=== PATIENT | female | born 1970 | race Caucasian/White ===

== ENCOUNTER 2018-12-10 15:02 | Emergency (ER) | payer OTHER ==
--- NOTE | 2018-12-10 16:42 | ED ---
Abdominal Pain HPI - General Chief Complaint: Abdominal Pain Stated Complaint: abdominal pain Time Seen by Provider: 12/10/18 15:46 Source: patient, RN notes reviewed, old records reviewed Mode of arrival: ambulatory Limitations: no limitations - History of Present Illness Initial Comments: Patient is a 48 rolled female presents to return today with diffuse abdominal pain and bloating. She had a cholecystectomy by Dr. Xie at [facility] yesterday. She states that she has been passing gas. She reports that she has had nausea. She states that she has been using norco for pain relief. She states that she called her surgeon, whom was not available today. She arrived to ED via EMS. - Related Data Home Medications Medication Instructions Recorded Confirmed Atorvastatin Calcium [Lipitor] 10 mg PO DAILY 12/10/18 12/10/18 Gabapentin [Neurontin] 100 mg PO BID 12/10/18 12/10/18 Hydrocodone/Acetaminophen [[place] 2 tab PO Q6H PRN 12/10/18 12/10/18 5-325] Insulin Glargine,Hum.rec.anlog 10 unit SQ HS 12/10/18 12/10/18 [Basaglar Kwikpen U-100] Omeprazole 20 mg PO DAILY 12/10/18 12/10/18 PARoxetine HCL [Paxil] 20 mg PO DAILY 12/10/18 12/10/18 glipiZIDE [Glucotrol] 10 mg PO TID 12/10/18 12/10/18 metFORMIN HCL [Glucophage] 1,000 mg PO BID 12/10/18 12/10/18 Allergies Allergy/AdvReac Type Severity Reaction Status Date / Time Pork/Porcine Containing Allergy Unknown Verified 12/10/18 16:02 Products [Pork] Review of Systems ROS Statement: Those systems with pertinent positive or pertinent negative responses have been documented in the HPI. ROS Other: All systems not noted in ROS Statement are negative. Past Medical History Past Medical History: Diabetes Mellitus, Hyperlipidemia Additional Past Medical History / Comment(s): hpv History of Any Multi-Drug Resistant Organisms: None Reported Past Surgical History: Cholecystectomy, Tonsillectomy Past Psychological History: Depression Smoking Status: Current every day smoker Past Alcohol Use History: Occasional Past Drug Use History: None Reported General Exam - General Exam Comments Initial Comments: This is a 48 year old morbidly obese female. Alert and oriented. No acute distress. Limitations: no limitations General appearance: alert, in no apparent distress Head exam: Present: atraumatic, normocephalic, normal inspection Eye exam: Present: normal appearance, PERRL, EOMI. Absent: scleral icterus, conjunctival injection, periorbital swelling ENT exam: Present: normal exam, mucous membranes moist Neck exam: Present: normal inspection. Absent: tenderness, meningismus, lymphadenopathy Respiratory exam: Present: normal lung sounds bilaterally. Absent: respiratory distress, wheezes, rales, rhonchi, stridor Cardiovascular Exam: Present: regular rate, normal rhythm, normal heart sounds. Absent: systolic murmur, diastolic murmur, rubs, gallop, clicks GI/Abdominal exam: Present: soft, tenderness (RUQ tenderness. Patient has well appearing incision sites from laproscopic cholecystectomy yesterday. No erythema. Normal bowel sounds. ), normal bowel sounds. Absent: distended, guarding, rebound, rigid Back exam: Present: normal inspection Neurological exam: Present: alert, oriented X3, CN II-XII intact Psychiatric exam: Present: normal affect, normal mood Skin exam: Present: warm, dry, intact, normal color. Absent: rash Course Vital Signs 12/10/18 12/10/18 12/10/18 15:07 18:33 19:21 Temperature 97.6 F 98.6 F Pulse Rate 65 71 68 Respiratory 16 18 18 Rate Blood Pressure 133/72 131/78 126/69 O2 Sat by Pulse 96 96 95 Oximetry 12/10/18 20:02 Temperature 98.1 F Pulse Rate 63 Respiratory 16 Rate Blood Pressure 146/80 O2 Sat by Pulse 94 L Oximetry Medical Decision Making - Medical Decision Making 48 year old female presents one day post elective lapchole by Dr. Kc at [facility]. Patient has protruberant abdomen, incision sites appear well. Patient has normal bowel sounds. She was given IV fluid and lab work was obtained. Patient lab work was unremarkable. CT scan abdomen and pelvis shows no acute changes related to recent surgery. She has been advised to follow up with surgeon, and advised on clear liquid diet following surgery. Discussed strict return parameters. - Lab Data Result diagrams: 12/10/18 15:27 12/10/18 15:27 Lab Results 12/10/18 12/10/18 12/10/18 Range/Units 15:27 15:27 18:42 WBC 11.2 H (3.8-10.6) k/uL RBC 5.34 (3.80-5.40) m/uL Hgb 17.4 H (11.4-16.0) gm/dL Hct 52.9 H (34.0-46.0) % MCV 99.1 (80.0-100.0) fL MCH 32.7 (25.0-35.0) pg MCHC 32.9 (31.0-37.0) g/dL RDW 14.4 (11.5-15.5) % Plt Count 128 L (150-450) k/uL Neutrophils % 86 % Lymphocytes % 9 % Monocytes % 4 % Eosinophils % 1 % Basophils % 0 % Neutrophils # 9.6 H (1.3-7.7) k/uL Lymphocytes # 1.0 (1.0-4.8) k/uL Monocytes # 0.4 (0-1.0) k/uL Eosinophils # 0.1 (0-0.7) k/uL Basophils # 0.0 (0-0.2) k/uL Hypochromasia Slight Sodium 135 L (137-145) mmol/L Potassium 5.6 H (3.5-5.1) mmol/L Chloride 98 (98-107) mmol/L Carbon Dioxide 28 (22-30) mmol/L Anion Gap 9 mmol/L BUN 13 (7-17) mg/dL Creatinine 0.59 (0.52-1.04) mg/dL Est GFR (CKD-EPI)AfAm >90 (>60 ml/min/1.73 sqM) Est GFR (CKD-EPI)NonAf >90 (>60 ml/min/1.73 sqM) Glucose 220 H (74-99) mg/dL Calcium 9.6 (8.4-10.2) mg/dL Total Bilirubin 1.2 (0.2-1.3) mg/dL AST 69 H (14-36) U/L ALT 57 H (9-52) U/L Alkaline Phosphatase 61 (38-126) U/L Total Protein 7.4 (6.3-8.2) g/dL Albumin 3.8 (3.5-5.0) g/dL Amylase 43 (30-110) U/L Lipase 87 (23-300) U/L Urine Color Yellow Urine Appearance Clear (Clear) Urine pH 6.0 (5.0-8.0) Ur Specific [place] 1.017 (1.001-1.035) Urine Protein Negative (Negative) Urine Glucose (UA) Negative (Negative) Urine Ketones Negative (Negative) Urine Blood Negative (Negative) Urine Nitrite Negative (Negative) Urine Bilirubin Negative (Negative) Urine Urobilinogen <2.0 (<2.0) mg/dL Ur Leukocyte Esterase Negative (Negative) - Radiology Data Radiology results: report reviewed Post lap stephanie one day ago. No acute abdominal or pelvic process. Anterior subcutaneous adipose compartment seroma edematous changes. Disposition Clinical Impression: Post-op pain, Status post laparoscopic cholecystectomy Disposition: HOME SELF-CARE Condition: Good Instructions (If sedation given, give patient instructions): Laparoscopic Cholecystectomy (DC) Additional Instructions: Patient advised to follow-up with primary care physician and surgeon within the next 1-2 days.. Return to emergency department if any alarming signs or symptoms occur. Is patient prescribed a controlled substance at d/c from ED?: No Referrals: Leonarda Og CRNP [REFERRING] - 1-2 days Time of Disposition: 19:45
[2018-12-10] MEDS ORDERED: SODIUM CHLORIDE 0.9% 1,000 ML IV ONE (17:11)
[2018-12-10 17:14] LABS: Basophils % (A) 0 %; Eosinophils # (A) 0.1 k/uL (0-0.7); Eosinophils % (A) 1 %; HCT 52.9 % (34.0-46.0); HGB 17.4 gm/dL (11.4-16.0); Hypochromasia Slight; Lymphocytes % (A) 9 %; MCH 32.7 pg (25.0-35.0); MCHC 32.9 g/dL (31.0-37.0); MCV 99.1 fL (80.0-100.0); Mean Platelet Volume 9.8; Monocytes # (A) 0.4 k/uL (0-1.0); Monocytes % (A) 4 %; Neutrophils # (A) 9.6 k/uL (1.3-7.7); Neutrophils % (A) 86 %; Platelet Count 128 k/uL (150-450); RBC 5.34 m/uL (3.80-5.40); RDW 14.4 % (11.5-15.5); WBC 11.2 k/uL (3.8-10.6)
[2018-12-10 17:25] LABS: ALT 57 U/L (9-52); AST 69 U/L (14-36); Albumin 3.8 g/dL (3.5-5.0); Alkaline Phosphatase 61 U/L (38-126); Amylase 43 U/L (30-110); Anion Gap 9 mmol/L; Blood Urea Nitrogen 13 mg/dL (7-17); Calcium 9.6 mg/dL (8.4-10.2); Carbon Dioxide 28 mmol/L (22-30); Chloride 98 mmol/L (98-107); Glucose 220 mg/dL (74-99); Lipase 87 U/L (23-300); Potassium 5.6 mmol/L (3.5-5.1); Sodium 135 mmol/L (137-145); Total Bilirubin 1.2 mg/dL (0.2-1.3); Total Protein 7.4 g/dL (6.3-8.2)
[2018-12-10] MEDS ORDERED: MORPHINE SULFATE 4 MG/ML SYRINGE IVP STA (18:18)
[2018-12-10 18:47] LABS: Appearance,Urine Clear (Clear); Bilirubin,Urine Negative (Negative); Blood,Urine Negative (Negative); Color,Urine Yellow; Glucose,Urine (UA) Negative (Negative); Ketones,Urine Negative (Negative); Leukocyte Esterase,Urine Negative (Negative); Nitrite,Urine Negative (Negative); Protein,Urine Negative (Negative); Specific Gravity,Urine 1.017 (1.001-1.035); Urobilinogen,Urine <2.0 mg/dL (<2.0)
--- NOTE | 2018-12-10 19:21 | CT ---
EXAMINATION TYPE: CT abdomen pelvis w con DATE OF EXAM: 12/10/2018 COMPARISON: None HISTORY: Lap stephanie 1 day ago, pain and vomiting. CT DLP: 2415 mGycm Automated exposure control for dose reduction was used. TECHNIQUE: Helical acquisition of images was performed from the lung bases through the pelvis. CONTRAST: Performed without Oral Contrast and with IV Contrast, patient injected with 100 mL of Isovu e 370. FINDINGS: ANTERIOR ABDOMINAL WALL: The anterior abdominal wall is intact. Within the subcutaneous adipose krupa rtment at the midline, in the immediate subcutaneous umbilical position, there is a 9 cm craniocaudal by 9 cm transverse by 4 cm AP fluid collection associated with edematous reticulation and extending anteriorly. There is no circumferential contrast rim enhancement and the CT attenuation is 7 H[address] units; CT findings are consistent with seroma. LUNG BASES: No significant abnormality is appreciated. LIVER/GB: No significant abnormality is appreciated. Gallbladder bed post procedure changes noted, no nspecific. PANCREAS: No significant abnormality is seen. SPLEEN: No significant abnormality is seen. ADRENALS: No significant abnormality is seen. KIDNEYS: No significant abnormality is seen. PERITONEAL CAVITY: No free air is visualized. Scant simple-appearing peritoneal fluid is noted in va rious locations of the abdomen, not inconsistent with expected postprocedure change. RETROPERITONEAL ADENOPATHY: None visualized REPRODUCTIVE ORGANS: No significant abnormality is seen URINARY BLADDER: No significant abnormality is seen. PELVIC ADENOPATHY: None visualized. OSSEOUS STRUCTURES: No significant abnormality is seen. BOWEL: No significant abnormality is seen. OTHER: Vasculature is negative for acute findings. IMPRESSION: 1. POST LAP CHOLECYSTECTOMY ONE DAY AGO; NO ACUTE ABDOMINAL OR PELVIC PROCESS. 2. ANTERIOR SUBCUTANEOUS ADIPOSE COMPARTMENT SEROMA/EDEMATOUS CHANGES.
[2018-12-10 20:03] VITALS: BP 146/80; PULSE 63; RESP 16; TEMP 98.1
== END 2018-12-10 20:08 | disposition home or self-care (01) ==
LOC: EC 15:02
DX: G89.18 Other acute postprocedural pain (principal); R10.11 Right upper quadrant pain; E11.9 Type 2 diabetes mellitus without complications; E78.5 Hyperlipidemia, unspecified; F32.9 Major depressive disorder, single episode, unspecified; E66.01 Morbid (severe) obesity due to excess calories; Z68.41 Body mass index [BMI] 40.0-44.9, adult; F17.200 Nicotine dependence, unspecified, uncomplicated; Z79.4 Long term (current) use of insulin; Z79.899 Other long term (current) drug therapy; Z91.018 Allergy to other foods; Z90.49 Acquired absence of other specified parts of digestive tract
CPT/HCPCS: 36415; 80053; 82150; 83690; 85025; 81003; 74177; 99284; 96374; 96361 ×2; J2270; Q9967

== ENCOUNTER 2018-12-12 21:29 | Observation (INO) | payer OTHER ==
[2018-12-12] MEDS ORDERED: PIPERACILLIN-TAZOBACTAM 3.375 GM in SODIUM CHLORIDE 0.9% 100 ML IVPB STA (21:35)
[2018-12-12] MEDS: SODIUM CHLORIDE 0.9% 500 ML 500 ML IV SCH (21:53)
--- NOTE | 2018-12-12 21:58 | ED ---
General Adult HPI - General Stated complaint: Abd Pain Time Seen by Provider: 12/12/18 21:32 Source: patient, EMS Mode of arrival: EMS Limitations: no limitations - History of Present Illness Initial comments: That he is a morbidly obese 48-year-old female who underwent a lap stephanie on Friday, December 09 of an outside hospital. Patient was reevaluated our hospital on Friday for abdominal pain, at that time her labs are normal her pain was managed and she was discharged home. Patient reports that she has been following all of her postoperative instructions, however her pain continues to worsen. This evening she was walking when she noticed significant fluid drainage from her umbilical incision which prompted her to call EMS for transfer back to the hospital for reevaluation. She reports she's had persistent right upper quadrant abdominal pain since the surgery she denies any fevers nausea or vomiting. The fluid leakage developed today. EMS estimates at 300 mL fluid loss noted it on scene. - Related Data Home Medications Medication Instructions Recorded Confirmed Atorvastatin Calcium [Lipitor] 10 mg PO DAILY 12/10/18 12/10/18 Gabapentin [Neurontin] 100 mg PO BID 12/10/18 12/10/18 Hydrocodone/Acetaminophen [[place] 2 tab PO Q6H PRN 12/10/18 12/10/18 5-325] Insulin Glargine,Hum.rec.anlog 10 unit SQ HS 12/10/18 12/10/18 [Basaglar Kwikpen U-100] Omeprazole 20 mg PO DAILY 12/10/18 12/10/18 PARoxetine HCL [Paxil] 20 mg PO DAILY 12/10/18 12/10/18 glipiZIDE [Glucotrol] 10 mg PO TID 12/10/18 12/10/18 metFORMIN HCL [Glucophage] 1,000 mg PO BID 12/10/18 12/10/18 Allergies Allergy/AdvReac Type Severity Reaction Status Date / Time Pork/Porcine Containing Allergy Unknown Verified 12/12/18 21:44 Products [Pork] Review of Systems ROS Statement: Those systems with pertinent positive or pertinent negative responses have been documented in the HPI. ROS Other: All systems not noted in ROS Statement are negative. Past Medical History Past Medical History: Diabetes Mellitus, Hyperlipidemia Additional Past Medical History / Comment(s): hpv History of Any Multi-Drug Resistant Organisms: None Reported Past Surgical History: Cholecystectomy, Tonsillectomy Additional Past Surgical History / Comment(s): d and c Past Psychological History: Depression Smoking Status: Current every day smoker Past Alcohol Use History: Occasional Past Drug Use History: None Reported General Exam - General Exam Comments Initial Comments: Physical Exam GENERAL: Patient is well-developed and well-nourished. Patient appears uncomfortable HENT: Normocephalic, Atraumatic. EYES: PERRL, EOMI PULMONARY: Unlabored respirations. No audible rales rhonchi or wheezing was noted. CARDIOVASCULAR: There is a regular rate and rhythm without any murmurs gallops or rubs. ABDOMEN: Obese Distended Well-healing surgical incisions with glue over the incisions no signs of redness infection or purulence, there is bright yellow fluid leaking from the umbilical incision concerning for bile leak SKIN: Scopic surgical incisions on abdomen with no signs of infection, there is dehiscence of the umbilical incision with leakage of bilious-appearing fluid : Deferred NEUROLOGIC: Patient is alert and oriented x3. Moving all extremities spontaneously MUSCULOSKELETAL: Normal extremities with adequate strength and full range of motion. No lower extremity swelling or edema. No calf tenderness. PSYCHIATRIC: Situational anxiety and depression Limitations: no limitations Limitations: no limitations Course Vital Signs 12/12/18 12/12/18 12/13/18 21:36 22:03 00:04 Temperature 99.1 F Pulse Rate 76 69 63 Respiratory 20 18 18 Rate Blood Pressure 141/89 115/79 134/71 O2 Sat by Pulse 92 L 97 98 Oximetry 12/13/18 01:04 Temperature 98.3 F Pulse Rate 64 Respiratory 18 Rate Blood Pressure 115/81 O2 Sat by Pulse 96 Oximetry EKG Findings - EKG Comments: EKG Findings:: EKG was obtained at 9:56 PM, rate is 67 rhythm is sinus there is normal axis normal intervals, [place] 152, QRS 82, QTC 418 there is a left posterior fascicular block there are no acute ST elevations or depressions additional evidence of acute ischemia or infarction Medical Decision Making - Medical Decision Making Patient was seen and evaluated upon arrival patient was noted to have what appeared to be bilious fluid leaking from her umbilical incision Abdomen was mildly distended with generalized tenderness Labs and imaging were ordered Labs and imaging from previous visit were reviewed Labs today with mild leukocytosis, hemoconcentration, bilirubin isn't increasing 1.[address] with no signs of infection or abscess there is concern for bile leak Patient care was discussed with general surgery on-call Dr. Blevins who recommends patient be admitted to medicine him IV antibiotics, consult to gastroenterology for ERCP Admission orders and consults were placed in a sign patient was updated on plan and is agreeable. All questions pertaining care were answered patient admitted to the floor in stable condition. - Lab Data Result diagrams: 12/12/18 21:45 12/12/18 21:45 Lab Results 12/12/18 12/12/18 12/12/18 Range/Units 21:45 21:45 21:45 WBC 9.6 (3.8-10.6) k/uL RBC 5.38 (3.80-5.40) m/uL Hgb 16.8 H (11.4-16.0) gm/dL Hct 52.2 H (34.0-46.0) % MCV 97.1 (80.0-100.0) fL MCH 31.3 (25.0-35.0) pg MCHC 32.3 (31.0-37.0) g/dL RDW 14.5 (11.5-15.5) % Plt Count 122 L (150-450) k/uL Neutrophils % 78 % Lymphocytes % 14 % Monocytes % 5 % Eosinophils % 1 % Basophils % 1 % Neutrophils # 7.5 (1.3-7.7) k/uL Lymphocytes # 1.3 (1.0-4.8) k/uL Monocytes # 0.5 (0-1.0) k/uL Eosinophils # 0.1 (0-0.7) k/uL Basophils # 0.0 (0-0.2) k/uL PT (9.0-12.0) sec INR (<1.2) APTT (22.0-30.0) sec Sodium 132 L (137-145) mmol/L Potassium 4.7 (3.5-5.1) mmol/L Chloride 98 (98-107) mmol/L Carbon Dioxide 27 (22-30) mmol/L Anion Gap 7 mmol/L BUN 19 H (7-17) mg/dL Creatinine 0.64 (0.52-1.04) mg/dL Est GFR (CKD-EPI)AfAm >90 (>60 ml/min/1.73 sqM) Est GFR (CKD-EPI)NonAf >90 (>60 ml/min/1.73 sqM) Glucose 214 H (74-99) mg/dL Plasma Lactic Acid Kumar 1.5 (0.7-2.0) mmol/L Calcium 9.8 (8.4-10.2) mg/dL Total Bilirubin 1.6 H (0.2-1.3) mg/dL AST 25 (14-36) U/L ALT 36 (9-52) U/L Alkaline Phosphatase 54 (38-126) U/L Total Protein 6.3 (6.3-8.2) g/dL Albumin 3.1 L (3.5-5.0) g/dL 12/12/18 Range/Units 21:45 WBC (3.8-10.6) k/uL RBC (3.80-5.40) m/uL Hgb (11.4-16.0) gm/dL Hct (34.0-46.0) % MCV (80.0-100.0) fL MCH (25.0-35.0) pg MCHC (31.0-37.0) g/dL RDW (11.5-15.5) % Plt Count (150-450) k/uL Neutrophils % % Lymphocytes % % Monocytes % % Eosinophils % % Basophils % % Neutrophils # (1.3-7.7) k/uL Lymphocytes # (1.0-4.8) k/uL Monocytes # (0-1.0) k/uL Eosinophils # (0-0.7) k/uL Basophils # (0-0.2) k/uL PT 10.4 (9.0-12.0) sec INR 1.0 (<1.2) APTT 23.5 (22.0-30.0) sec Sodium (137-145) mmol/L Potassium (3.5-5.1) mmol/L Chloride (98-107) mmol/L Carbon Dioxide (22-30) mmol/L Anion Gap mmol/L BUN (7-17) mg/dL Creatinine (0.52-1.04) mg/dL Est GFR (CKD-EPI)AfAm (>60 ml/min/1.73 sqM) Est GFR (CKD-EPI)NonAf (>60 ml/min/1.73 sqM) Glucose (74-99) mg/dL Plasma Lactic Acid Kumar (0.7-2.0) mmol/L Calcium (8.4-10.2) mg/dL Total Bilirubin (0.2-1.3) mg/dL AST (14-36) U/L ALT (9-52) U/L Alkaline Phosphatase (38-126) U/L Total Protein (6.3-8.2) g/dL Albumin (3.5-5.0) g/dL Disposition Clinical Impression: Postoperative bile leak, Abdominal pain, Status post laparoscopic cholecystectomy, Post-op pain Disposition: ADMITTED IP TO THIS [facility] Condition: Serious Is patient prescribed a controlled substance at d/c from ED?: No
[2018-12-12 22:11] LABS: Basophils % (A) 1 %; RDW 14.5 % (11.5-15.5)
[2018-12-12 22:21] LABS: Partial Thromboplastin Time 23.5 sec (22.0-30.0); Prothrombin Time 10.4 sec (9.0-12.0)
[2018-12-12 22:26] LABS: ALT 36 U/L (9-52); AST 25 U/L (14-36); Albumin 3.1 g/dL (3.5-5.0); Alkaline Phosphatase 54 U/L (38-126); Anion Gap 7 mmol/L; Blood Urea Nitrogen 19 mg/dL (7-17); Calcium 9.8 mg/dL (8.4-10.2); Carbon Dioxide 27 mmol/L (22-30); Chloride 98 mmol/L (98-107); Glucose 214 mg/dL (74-99); Potassium 4.7 mmol/L (3.5-5.1); Sodium 132 mmol/L (137-145); Total Bilirubin 1.6 mg/dL (0.2-1.3); Total Protein 6.3 g/dL (6.3-8.2)
[2018-12-12 23:05] LABS: Eosinophils # (A) 0.1 k/uL (0-0.7); Eosinophils % (A) 1 %; HCT 52.2 % (34.0-46.0); HGB 16.8 gm/dL (11.4-16.0); Lymphocytes # (A) 1.3 k/uL (1.0-4.8); Lymphocytes % (A) 14 %; MCH 31.3 pg (25.0-35.0); MCHC 32.3 g/dL (31.0-37.0); MCV 97.1 fL (80.0-100.0); Mean Platelet Volume 9.4; Monocytes # (A) 0.5 k/uL (0-1.0); Monocytes % (A) 5 %; Neutrophils # (A) 7.5 k/uL (1.3-7.7); Neutrophils % (A) 78 %; Platelet Count 122 k/uL (150-450); RBC 5.38 m/uL (3.80-5.40); WBC 9.6 k/uL (3.8-10.6)
--- NOTE | 2018-12-12 23:43 | CT ---
EXAMINATION TYPE: CT abdomen pelvis w con DATE OF EXAM: 12/12/2018 COMPARISON: 12/10/2018 HISTORY: Post op cholecystectomy drainage; complication CT DLP: 2314.1 mGycm Automated exposure control for dose reduction was used. TECHNIQUE: Helical acquisition of images was performed from the lung bases through the pelvis. CONTRAST: Performed without Oral Contrast and with IV Contrast, patient injected with 100 mL of Isovue 300. FINDINGS: There is some atelectasis at the lung bases. Heart is slightly enlarged. There is no pleural effusion . Liver shows no focal defect. There are clips from cholecystectomy. There is small amount of fluid at the mars hepatis and around the right lobe of the liver. Spleen appears normal. There is no pancreat ic mass. Stomach appears normal. The bile ducts are not dilated. There is no adrenal mass. The kidneys show satisfactory contrast opacification. There is no hydroneph rosis. Ureters are not dilated. Bladder distends smoothly. There is subcutaneous edema over the anter ior lower abdomen. There is no sign of free air. I see no evidence of a bowel obstruction. Bladder di stends smoothly. There is no evidence of a pelvic mass. There is no inguinal hernia. The lumbar spine is intact. I see no bony destructive process. There is no compression fracture. Uterus is anteverted . Appendix appears normal. There is a 3 cm cyst on the left ovary. IMPRESSION: THERE IS MILD ATELECTASIS AT THE POSTERIOR LUNG BASES. THERE IS MILD FREE FLUID AROUND THE LIVER INCR EASED COMPARED TO OLD EXAM. NO DILATED DUCTS. There is subcutaneous edema over the lower anterior abd omen unchanged. I do not see fluid to suggest an abdominal abscess. The slight increased fluid in the abdomen raises the possibility of a bile leak.
[2018-12-13] MEDS ORDERED: SODIUM CHLORIDE 0.9% 1,000 ML IV ONE
[2018-12-13] MEDS: SODIUM CHLORIDE 0.9% 500 ML 500 ML IV SCH (00:03)
[2018-12-13] MEDS ORDERED: NALOXONE 0.4 MG/ML 1 ML VIAL IV PRN (00:17)
[2018-12-13] MEDS ORDERED: MORPHINE SULFATE 4 MG/ML SYRINGE IV PRN (00:17)
[2018-12-13] MEDS: SODIUM CHLORIDE 0.9% 1,000 ML IV SCH ×3 (01:10→15:03)
[2018-12-13 01:41] LABS: Glucose,Whole Blood 162 mg/dL (75-99)
[2018-12-13 01:51] VITALS: BMI 46.3
[2018-12-13] MEDS: HYDROmorphone 0.5 MG/0.5 ML SYRINGE IVP PRN ×4 (01:58→13:05)
[2018-12-13 06:56] LABS: Appearance,Urine Clear (Clear); Bacteria,Urine Rare /hpf; Bilirubin,Urine Negative (Negative); Blood,Urine Negative (Negative); Color,Urine Yellow; Glucose,Urine (UA) Trace (Negative); Ketones,Urine Negative (Negative); Leukocyte Esterase,Urine Small (Negative); Nitrite,Urine Negative (Negative); PH, Urine 6.5 (5.0-8.0); Protein,Urine Trace (Negative); RBC,Urine 1 /hpf (0-5); Specific Gravity,Urine 1.037 (1.001-1.035); Squamous Epithelial Cell,Urine 13 /hpf (0-4); Urobilinogen,Urine <2.0 mg/dL (<2.0)
[2018-12-13] MEDS: INSULIN ASPART 100 UNIT/ML 1 ML 10 ML VIAL SQ SCH ×3 (07:30→18:57)
[2018-12-13 07:31] LABS: Glucose,Whole Blood 127 mg/dL (75-99)
[2018-12-13] MEDS ORDERED: GABAPENTIN 100 MG CAP PO SCH (09:00)
[2018-12-13] MEDS ORDERED: FAMOTIDINE 20 MG/2 ML VIAL IV SCH (09:00)
[2018-12-13 12:29] LABS: Glucose,Whole Blood 126 mg/dL (75-99)
--- NOTE | 2018-12-13 12:49 | P.GSCN ---
History of Present Illness Consult date: 12/13/18 Reason for Consult: Abdominal pain and drainage from her incision History of present illness: The patient is a 48-year-old female who underwent a laparoscopic cholecystectomy as an outpatient on Friday at [facility]. She started having increasing pain on Friday so came to the emergency room here and was sent home. She recurred today because of worsening of pain and development of drainage from the incision. Denies fevers or chills. Her surgery was elective. She had gallstones but does not think she was having acute cholecystitis at the time of her operation. Review of Systems All systems: negative (Drainage from the wound) Past Medical History Past Medical History: COPD, Diabetes Mellitus, Hyperlipidemia Additional Past Medical History / Comment(s): hpv History of Any Multi-Drug Resistant Organisms: None Reported Past Surgical History: Cholecystectomy, Tonsillectomy Additional Past Surgical History / Comment(s): d and c, all teeth extracted Past Psychological History: Depression Smoking Status: Current every day smoker Past Alcohol Use History: Occasional Past Drug Use History: None Reported - Past Family History Mother Family Medical History: Coronary Artery Disease (CAD), Hypertension Additional Family Medical History / Comment(s): lupus, diverticulitis Father Family Medical History: Coronary Artery Disease (CAD), Diabetes Mellitus, Hypertension, Myocardial Infarction ([place]) Additional Family Medical History / Comment(s): first heart attack at 40 Medications and Allergies Home Medications Medication Instructions Recorded Confirmed Type Atorvastatin Calcium [Lipitor] 10 mg PO DAILY 12/10/18 12/13/18 History Gabapentin [Neurontin] 100 mg PO BID 12/10/18 12/13/18 History Hydrocodone/Acetaminophen [[place] 2 tab PO Q6H PRN 12/10/18 12/13/18 History 5-325] Insulin Glargine,Hum.rec.anlog 10 unit SQ HS 12/10/18 12/13/18 History [Basaglar Kwikpen U-100] Omeprazole 20 mg PO DAILY 12/10/18 12/13/18 History PARoxetine HCL [Paxil] 20 mg PO DAILY 12/10/18 12/13/18 History glipiZIDE [Glucotrol] 30 mg PO DAILY 12/10/18 12/13/18 History metFORMIN HCL [Glucophage] 1,000 mg PO BID 12/10/18 12/13/18 History Albuterol Inhaler [Ventolin Hfa 1 - 2 puff INHALATION RT-Q6H PRN 12/13/18 History Inhaler] Mometasone/Formoterol [Dulera 100 1 puff INHALATION RT-DAILY 12/13/18 12/13/18 History Mcg/5 Mcg Inhaler] Allergies Allergy/AdvReac Type Severity Reaction Status Date / Time Pork/Porcine Containing Allergy Unknown Verified 12/13/18 09:14 Products [Pork] Surgical - Exam Osteopathic Statement: *. No significant issues noted on an osteopathic structural exam other than those noted in the History and Physical/Consult. Vital Signs Temp Pulse Resp BP Pulse Ox 99.1 F 76 20 141/89 92 L 12/12/18 21:36 12/12/18 21:36 12/12/18 21:36 12/12/18 21:36 12/12/18 21:36 - General Appears uncomfortable well developed, obese - Eyes normal ocular movement - Respiratory normal respiratory effort, clear to auscultation (Mildly diminished at the bases ) - Cardiovascular Rhythm: regular - Abdomen Abdomen: tender, bowel sounds (Hypoactive), wound (Surgical sites show no evidence of cellulitis. There is drainage of kal bile from the umbilical trocar site. It's vivid green in color and clear) Results - Labs 12/12/18 21:45 12/12/18 21:45 Abnormal Lab Results - Last 24 Hours (Table) 12/12/18 12/12/18 12/13/18 Range/Units 21:45 21:45 01:39 Hgb 16.8 H (11.4-16.0) gm/dL Hct 52.2 H (34.0-46.0) % Plt Count 122 L (150-450) k/uL Sodium 132 L (137-145) mmol/L BUN 19 H (7-17) mg/dL Glucose 214 H (74-99) mg/dL POC Glucose (mg/dL) 162 H (75-99) mg/dL Total Bilirubin 1.6 H (0.2-1.3) mg/dL Albumin 3.1 L (3.5-5.0) g/dL Ur Specific [place] (1.001-1.035) Urine Protein (Negative) Urine Glucose (UA) (Negative) Ur Leukocyte Esterase (Negative) Ur Squamous Epith Cells (0-4) /hpf Urine Bacteria (None) /hpf 12/13/18 12/13/18 12/13/18 Range/Units 06:30 07:29 12:26 Hgb (11.4-16.0) gm/dL Hct (34.0-46.0) % Plt Count (150-450) k/uL Sodium (137-145) mmol/L BUN (7-17) mg/dL Glucose (74-99) mg/dL POC Glucose (mg/dL) 127 H 126 H (75-99) mg/dL Total Bilirubin (0.2-1.3) mg/dL Albumin (3.5-5.0) g/dL Ur Specific [place] 1.037 H (1.001-1.035) Urine Protein Trace H (Negative) Urine Glucose (UA) Trace H (Negative) Ur Leukocyte Esterase Small H (Negative) Ur Squamous Epith Cells 13 H (0-4) /hpf Urine Bacteria Rare H (None) /hpf Diabetes panel 12/12/18 Range/Units 21:45 Sodium 132 L (137-145) mmol/L Potassium 4.7 (3.5-5.1) mmol/L Chloride 98 (98-107) mmol/L Carbon Dioxide 27 (22-30) mmol/L BUN 19 H (7-17) mg/dL Creatinine 0.64 (0.52-1.04) mg/dL Glucose 214 H (74-99) mg/dL Calcium 9.8 (8.4-10.2) mg/dL AST 25 (14-36) U/L ALT 36 (9-52) U/L Alkaline Phosphatase 54 (38-126) U/L Total Protein 6.3 (6.3-8.2) g/dL Albumin 3.1 L (3.5-5.0) g/dL Calcium panel 12/12/18 Range/Units 21:45 Calcium 9.8 (8.4-10.2) mg/dL Albumin 3.1 L (3.5-5.0) g/dL Pituitary panel 12/12/18 Range/Units 21:45 Sodium 132 L (137-145) mmol/L Potassium 4.7 (3.5-5.1) mmol/L Chloride 98 (98-107) mmol/L Carbon Dioxide 27 (22-30) mmol/L BUN 19 H (7-17) mg/dL Creatinine 0.64 (0.52-1.04) mg/dL Glucose 214 H (74-99) mg/dL Calcium 9.8 (8.4-10.2) mg/dL Adrenal panel 12/12/18 Range/Units 21:45 Sodium 132 L (137-145) mmol/L Potassium 4.7 (3.5-5.1) mmol/L Chloride 98 (98-107) mmol/L Carbon Dioxide 27 (22-30) mmol/L BUN 19 H (7-17) mg/dL Creatinine 0.64 (0.52-1.04) mg/dL Glucose 214 H (74-99) mg/dL Calcium 9.8 (8.4-10.2) mg/dL Total Bilirubin 1.6 H (0.2-1.3) mg/dL AST 25 (14-36) U/L ALT 36 (9-52) U/L Alkaline Phosphatase 54 (38-126) U/L Total Protein 6.3 (6.3-8.2) g/dL Albumin 3.1 L (3.5-5.0) g/dL - Imaging CT scan - abdomen: report reviewed, image reviewed Assessment and Plan (1) Abdominal pain Current Visit: Yes Status: Acute Code(s): R10.9 - UNSPECIFIED ABDOMINAL PAIN SNOMED Code(s): 79853920 (2) Postoperative bile leak Current Visit: Yes Status: Acute Code(s): K91.89 - OTH POSTPROCEDURAL COMPLICATIONS AND DISORDERS OF DGSTV SYS; K83.8 - OTHER SPECIFIED DISEASES OF BILIARY TRACT SNOMED Code(s): 683873324 (3) Status post laparoscopic cholecystectomy Current Visit: Yes Status: Acute Code(s): Z90.49 - ACQUIRED ABSENCE OF OTHER SPECIFIED PARTS OF DIGESTIVE TRACT SNOMED Code(s): 539199590 Plan: GI has been consult for an ERCP. Start her on IV antibiotics. Explained postoperative bile leak to her in that these typically do not require surgery. I'll follow with you.
[2018-12-13] MEDS ORDERED: PIPERACILLIN-TAZOBACTAM 3.375 GM in SODIUM CHLORIDE 0.9% 100 ML IVPB SCH ×2 (13:00→16:00)
[2018-12-13] MEDS ORDERED: INDOMETHACIN 50MG SUPPOSITORY RECTAL ONE (14:30)
--- NOTE | 2018-12-13 14:44 | P.CONS ---
History of Present Illness - Reason for Consult Consult date: 12/13/18 Bile leak. - History of Present Illness The patient is a 48-year-old female who was admitted to the hospital last night in transfer from [facility] because of abdominal pain and drainage of bile-colored fluid through her abdominal incision, for suspected bile leak following cholecystectomy. The patient had cholecystectomy on December 09. She returned to the hospital on Friday with abdominal pain. Her blood work was normal at that time and was discharged to return via EMS the following night because of bile-colored fluid draining from her umbilical incision. The patient was evaluated by general surgery who recommended that we see her for possible ERCP for bile leak. The patient was started on IV Zosyn in the emergency room last night and this was resumed today. She denies fever or chills or bleeding. She has history of diabetes mellitus and obesity and other medical problems as noted below. Review of Systems Constitutional: Denied fever, chills or any unintentional weight loss Neurologic: Denied headaches, double vision or other sensory or motor changes Cardiopulmonary: No chest pains, shortness of breath or palpitations. Has history of COPD Gastrointestinal: See present illness above Genitourinary: No hematuria, dysuria or frequency Endocrine: History of diabetes mellitus requiring oral medications and insulin for control Musculoskeletal: No joint swelling or pain Skin: No rashes Hematologic: No bleeding tendency or anemia Psychiatric: No anxiety or depression Past Medical History Past Medical History: COPD, Diabetes Mellitus, Hyperlipidemia Additional Past Medical History / Comment(s): hpv History of Any Multi-Drug Resistant Organisms: None Reported Past Surgical History: Cholecystectomy, Tonsillectomy Additional Past Surgical History / Comment(s): d and c, all teeth extracted Past Psychological History: Depression Smoking Status: Current every day smoker Past Alcohol Use History: Occasional Past Drug Use History: None Reported - Past Family History Mother Family Medical History: Coronary Artery Disease (CAD), Hypertension Additional Family Medical History / Comment(s): lupus, diverticulitis Father Family Medical History: Coronary Artery Disease (CAD), Diabetes Mellitus, Hypertension, Myocardial Infarction ([place]) Additional Family Medical History / Comment(s): first heart attack at 40 Medications and Allergies Home Medications Medication Instructions Recorded Confirmed Type Atorvastatin Calcium [Lipitor] 10 mg PO DAILY 12/10/18 12/13/18 History Gabapentin [Neurontin] 100 mg PO BID 12/10/18 12/13/18 History Hydrocodone/Acetaminophen [[place] 2 tab PO Q6H PRN 12/10/18 12/13/18 History 5-325] Insulin Glargine,Hum.rec.anlog 10 unit SQ HS 12/10/18 12/13/18 History [Basaglar Dipikaikpen U-100] Omeprazole 20 mg PO DAILY 12/10/18 12/13/18 History PARoxetine HCL [Paxil] 20 mg PO DAILY 12/10/18 12/13/18 History glipiZIDE [Glucotrol] 30 mg PO DAILY 12/10/18 12/13/18 History metFORMIN HCL [Glucophage] 1,000 mg PO BID 12/10/18 12/13/18 History Albuterol Inhaler [Ventolin Hfa 1 - 2 puff INHALATION RT-Q6H PRN 12/13/18 History Inhaler] Mometasone/Formoterol [Dulera 100 1 puff INHALATION RT-DAILY 12/13/18 12/13/18 History Mcg/5 Mcg Inhaler] Allergies Allergy/AdvReac Type Severity Reaction Status Date / Time Pork/Porcine Containing Allergy Unknown Verified 12/13/18 09:14 Products [Pork] Physical Exam Vitals: Vital Signs Temp Pulse Pulse Pulse Resp BP BP 12/13/18 14:06 98 F 64 18 131/78 12/13/18 12:23 98 F 62 18 119/82 12/13/18 08:00 60 12/13/18 07:19 97.8 F 60 16 110/65 12/13/18 01:30 61 18 12/13/18 01:27 98.9 F 61 18 120/70 12/13/18 01:04 98.3 F 64 18 115/81 12/13/18 00:04 63 18 134/71 12/12/18 22:03 69 18 115/79 12/12/18 21:36 99.1 F 76 20 141/89 Pulse Ox 12/13/18 14:06 97 12/13/18 12:23 97 12/13/18 08:00 12/13/18 07:19 97 12/13/18 01:30 12/13/18 01:27 98 12/13/18 01:04 96 12/13/18 00:04 98 12/12/18 22:03 97 12/12/18 21:36 92 L Intake and Output 12/12/18 12/13/18 12/13/18 22:59 06:59 14:59 Output Total 400 400 Balance -400 -400 Output: Urine 400 400 Other: Voiding Method Toilet # Voids 1 Weight 114.94 kg General: 48-year-old female appears stated age in no acute distress Head and neck: Normocephalic and atraumatic, conjunctivae pink and sclerae not icteric, mucous membranes moist and pink. No masses in the neck or tracheal shifts Lungs: Faint basilar crackles, no dullness to percussion Heart: Regular, no abnormal sounds, murmurs, gallops or friction rubs Abdomen: Obese with draining of bile-colored fluid from around the umbilical incision. The other abdominal incisions are sealed. Abdomen is soft with diffuse tenderness but no guarding or rebound. Bowel sounds present Extremities: No clubbing, cyanosis or edema Neurologic: Alert and oriented 3. Cranial nerves are grossly intact, no gross sensory or motor abnormalities Results CBC & Chem 7: 12/12/18 21:45 12/12/18 21:45 Labs: Abnormal Lab Results - Last 24 Hours (Table) 12/12/18 12/12/18 12/13/18 Range/Units 21:45 21:45 01:39 Hgb 16.8 H (11.4-16.0) gm/dL Hct 52.2 H (34.0-46.0) % Plt Count 122 L (150-450) k/uL Sodium 132 L (137-145) mmol/L BUN 19 H (7-17) mg/dL Glucose 214 H (74-99) mg/dL POC Glucose (mg/dL) 162 H (75-99) mg/dL Total Bilirubin 1.6 H (0.2-1.3) mg/dL Albumin 3.1 L (3.5-5.0) g/dL Ur Specific [place] (1.001-1.035) Urine Protein (Negative) Urine Glucose (UA) (Negative) Ur Leukocyte Esterase (Negative) Ur Squamous Epith Cells (0-4) /hpf Urine Bacteria (None) /hpf 12/13/18 12/13/18 12/13/18 Range/Units 06:30 07:29 12:26 Hgb (11.4-16.0) gm/dL Hct (34.0-46.0) % Plt Count (150-450) k/uL Sodium (137-145) mmol/L BUN (7-17) mg/dL Glucose (74-99) mg/dL POC Glucose (mg/dL) 127 H 126 H (75-99) mg/dL Total Bilirubin (0.2-1.3) mg/dL Albumin (3.5-5.0) g/dL Ur Specific [place] 1.037 H (1.001-1.035) Urine Protein Trace H (Negative) Urine Glucose (UA) Trace H (Negative) Ur Leukocyte Esterase Small H (Negative) Ur Squamous Epith Cells 13 H (0-4) /hpf Urine Bacteria Rare H (None) /hpf Assessment and Plan Assessment: 48-year-old female with recent cholecystectomy and clinical presentation consistent with bile leak. Plan: I agree with your current management. Will proceed with ERCP today. I explained to the patient indications, possible complications and alternatives.
[2018-12-13] MEDS ORDERED: LIDOCAINE 1% INJ 10MG/ML (20 ML MDV) ONE (15:28)
[2018-12-13] MEDS ORDERED: SUCCINYLCHOLINE CHLORIDE 100 MG/5 ML SYR IV ONE (15:28)
[2018-12-13] MEDS ORDERED: fentaNYL (PF) 50 MCG/ML 2 ML AMP ONE (15:28)
[2018-12-13] MEDS ORDERED: GLUCAGON 1 MG/ML VIAL ONE (15:28)
[2018-12-13] MEDS ORDERED: PROPOFOL 10 MG/ML 20 ML VIAL IV ONE (15:28)
[2018-12-13] MEDS ORDERED: MIDAZOLAM 2 MG/2 ML VIAL ONE (15:28)
[2018-12-13] MEDS ORDERED: IV FLUID CONTINUATION 1,000 ML IV ONE (15:32)
[2018-12-13] MEDS ORDERED: IOPAMIDOL-300 50ML BTL INJ ONE ×2 (15:46→15:52)
--- NOTE | 2018-12-13 16:54 | FL ---
Fluoroscopy HISTORY: ERCP 1 minute 26 seconds fluoroscopy time supplied to the referring clinician. 1 intraoperative C-arm scott ges document the procedure. See dictated report from gastrointestinal medicine.
--- NOTE | 2018-12-13 16:59 | P.PCN ---
Date of Procedure: 12/13/18 Procedure(s) Performed: Procedure: Endoscopic retrograde pancreatography. Preoperative diagnosis: History of cholecystectomy and bile leak. Postoperative diagnosis: Inability to cannulate and visualize the biliary tree or intervene endoscopically regarding the biliary leak. Preparation and sedation: Was provided by anesthesia. This procedure was performed in the endoscopy unit under general anesthesia. Brief clinical history: The patient is a 48-year-old female who was admitted to the hospital last night in transfer from [facility] because of abdominal pain and drainage of bile-colored fluid through her abdominal incision, for suspected bile leak following cholecystectomy. The patient had cholecystectomy on December 09. She returned to the hospital on Friday with abdominal pain. Her blood work was normal at that time and was discharged to return via EMS the following night because of bile-colored fluid draining from her umbilical incision. The patient was evaluated by general surgery who recommended that we see her for possible ERCP for bile leak. Other details are summarized in the history and physical and dictated consultations and progress notes. Procedure: With the patient in the prone position and after intubation and mechanical ventilation and after informed consent, I passed the Olympus video duodenoscope down the esophagus into the stomach then passed it through the pylorus into the duodenum and brought the papilla into view. No obvious abnormalities were seen in the distal esophagus, stomach or duodenum. The papilla appeared normal. Initial cannulation and injection with dye resulted in opacification of the pancreatic duct. All subsequent attempts Resulted in visualization of the pancreatic duct without the ability to visualize the common bile duct and biliary tree. Subsequently, I spent time attempting to pass a guidewire into the bile duct and that was not successful either. After several attempts, I concluded the exam without visualizing the biliary tree. The pancreatic duct appeared within normal limits. The patient tolerated the procedure well. Plan: I summarized the findings to the patient and I discussed with general surgery. Will keep nothing by mouth overnight and consider tertiary referral in the morning for endoscopic and possible surgical intervention.
[2018-12-13] MEDS ORDERED: HYDROmorphone 1 MG/ML 1 ML SYRINGE IVP ONE (17:20)
[2018-12-13 18:21] VITALS: TEMP 98.1
[2018-12-13 18:32] LABS: Glucose,Whole Blood 148 mg/dL (75-99)
--- NOTE | 2018-12-13 19:22 | DS ---
DISCHARGE SUMMARY ADMISSION DIAGNOSIS: Bile leak status post laparoscopic cholecystectomy. DISCHARGE DIAGNOSIS: 1. Bile leak status post laparoscopic cholecystectomy. 2. Unsuccessful ERCP. CASTING FINISHER: Dr. Hayes, GI. Dr. Cordero. HISTORY: The patient underwent a laparoscopic cholecystectomy in [place], [place] Friday. She developed abdominal pain and was seen in the emergency room and subsequently discharged home and everything looked unremarkable. Yesterday, she began having copious amounts of drainage from her umbilical trocar site which were bilious and she was admitted. She was seen by GI and was taken to the endoscopy suite where an ERCP was attempted. They were unsuccessful in cannulating the common bile duct. The pancreatic duct was cannulated several times but we could not do the ERCP, so the procedure was aborted. She will be transferred to [facility] for re- evaluation for ERCP. See computerized printout for medications, labs and vital signs. MMODL / IJN: [id number] /
[2018-12-13 19:38] VITALS: RESP 16
--- NOTE | 2018-12-13 19:55 | DS ---
DISCHARGE SUMMARY HISTORY PHYSICAL AND A DISCHARGE SUMMARY: DATE OF ADMISSION: 12/13/2018 DATE OF DISCHARGE: 12/13/2018 FINAL DIAGNOSES: 1. Acute severe bile leak status post cholecystectomy. 2. Depression, not otherwise specified. 3. Chronic obstructive pulmonary disease in a current smoker. 4. Chronic nicotine dependence, patient is a cigarette smoker. 5. Diabetes mellitus type 2, chronically on insulin. 6. Hyperlipidemia. 7. Morbid obesity, BMI of 46.3. PRESENTING COMPLAINT: Abdominal pain. HISTORY OF PRESENTING COMPLAINT: This is a pleasant 48-year-old patient of Dr. Wade who 4 days ago in [place] underwent a cholecystectomy by Dr. Morris. The patient subsequently continued to have increasing abdominal pain and the patient had this done robotically. The patient's umbilical insertion site kept on leaking bile continuously and finally patient was transferred here for further intervention. There has been no fever or chills but nausea, quite a bit is present. The patient is not really having bowel movements. Dr. Hayes was consulted from GI who ordered ERCP. Several attempts at procedure attempted but was not able to cannulate the common bile duct. Dr. Blevins from General surgery also saw the patient and as patient is still leaking bile, they had made a decision to transfer the patient to [facility] for higher level of care. The patient remains n.p.o. No fever, no chills. REVIEW OF SYSTEMS: CONSTITUTIONAL: Tired. HEENT: None. RESPIRATORY: Baseline shortness of breath, cough. CARDIOVASCULAR: None. GASTROINTESTINAL: As above. GENITOURINARY: None. MUSCULOSKELETAL: Some pain in joints. DERMATOLOGICAL: None. HEMATOLOGIC: None. LYMPHATICS: None. PSYCHIATRY: Depression, controlled. NEUROLOGICAL: None. PAST MEDICAL HISTORY: COPD, diabetes mellitus type 2 on insulin, hyperlipidemia, human papilloma virus. PAST SURGICAL HISTORY: Cholecystectomy 4 days ago, tonsillectomy, D and C, all teeth extracted. PAST PSYCH HISTORY: Depression. SOCIAL HISTORY: Smokes about half a pack a day, was smoking up to 2 packs a day close to 30 years. Lives with a daughter and grandchildren. No alcohol. FAMILY HISTORY: Coronary artery disease, hypertension, lupus. HOME MEDICATIONS: 1. Metformin 1000 mg b.i.d. 2. Glipizide 30 mg p.o. daily. 3. Paxil 20 mg p.o. daily. 4. Omeprazole 20 mg p.o. daily. 5. Dulera 100/5 one puff daily. 6. ( ) 10 units subcu q.h.s. 7. [place] 5, 2 tablets q.6h p.r.n. 8. Neurontin 100 mg p.o. b.i.d. 9. Lipitor 10 mg p.o. daily. 10.Ventolin HFA 1 or 2 puffs q.6h p.r.n. ALLERGY: PORK and ( ). PHYSICAL EXAMINATION: Temperature 98.1, pulse 72, respiration 16, blood pressure 120/72, pulse ox 95% on room air. GENERAL APPEARANCE: Well built. BMI 46.3. Sitting up, tired appearing. EYES: Pupils equal. Conjunctivae shayla. HEENT: External appearance of ears and nose is normal. Oral cavity normal. NECK: Short, thick. JVD unable to assess. Mass not palpable. Respiratory effort increased. LUNGS: Diminished breath sounds, minimal wheezing. CARDIOVASCULAR: 1st and 2nd sounds normal. No edema. ABDOMEN: Distended. Lower abdominal tenderness. No guarding or rigidity. Liver and spleen not palpable. The patient bleeding through the umbilical incision site. LYMPHATIC: No lymph node palpable in neck or axilla. PSYCHIATRY: Alert and oriented x3. Mood and affect, slightly anxious-appearing. NEUROLOGICAL: Pupils equal. Cranial nerves grossly intact. Power and sensation grossly intact. INVESTIGATIONS: White count 9.6, hemoglobin 16.8, potassium 4.7, BUN 19, creatinine 0.64, total bilirubin 1.6, AST 25, ALT 36. CT scan of the abdomen and pelvis shows some subcutaneous edema of the anterior lower abdomen. EKG tracing personally reviewed by me shows normal sinus rhythm. ASSESSMENT: 1. Persistent bile leak status post day 4 cholecystectomy. 2. Depression, not otherwise specified. 3. Morbid obesity, BMI 46.3. 4. Chronic obstructive pulmonary disease in a current smoker. 5. Chronic nicotine dependence, patient is a cigarette smoker. 6. Diabetes mellitus type 2, chronically on insulin. 7. Hyperlipidemia. PLAN: Care was discussed with Dr. Hayes from GI and also with Dr. Blevins from General Surgery. Arrangements are being made for patient to be transferred to [facility] for higher level of care. Stent placement was unsuccessful and the patient continues to leak bile. The patient is agreeable to same. DISPOSITION: [facility], [place]. MMSTEPHANIEL / IJN: [id number] /
[2018-12-13] MEDS ORDERED: IPRATROPIUM-ALBUTEROL 3 ML NEB INHALATION SCH (20:00)
[2018-12-13 21:17] VITALS: BP 111/71; PULSE 65
[2018-12-14] MEDS ORDERED: PARoxetine 20 MG TAB PO SCH (09:00)
[2018-12-14 10:12] LABS: Hemoglobin A1C 9.2 % (4.0-6.0)
== END 2018-12-13 20:35 | disposition other institution (70) ==
LOC: EC 21:29 → 6PED 12-13 00:17
PROVIDERS: ADMIT Student in an Organized Health Care Education/Training Program; ATTEND Student in an Organized Health Care Education/Training Program
DX: K91.89 Other postprocedural complications and disorders of digestive system (principal); T81.31XA Disruption of external operation (surgical) wound, not elsewhere classified, initial encounter; G89.18 Other acute postprocedural pain; R10.11 Right upper quadrant pain; E11.9 Type 2 diabetes mellitus without complications; J44.9 Chronic obstructive pulmonary disease, unspecified; F17.210 Nicotine dependence, cigarettes, uncomplicated; F32.9 Major depressive disorder, single episode, unspecified; E78.5 Hyperlipidemia, unspecified; D72.829 Elevated white blood cell count, unspecified; E66.01 Morbid (severe) obesity due to excess calories; Z68.42 Body mass index [BMI] 45.0-49.9, adult; Y83.6 Removal of other organ (partial) (total) as the cause of abnormal reaction of the patient, or of later complication, without mention of misadventure at the time of the procedure; Z79.4 Long term (current) use of insulin; Z79.51 Long term (current) use of inhaled steroids; Z79.899 Other long term (current) drug therapy; Z91.018 Allergy to other foods; Z86.19 Personal history of other infectious and parasitic diseases; Z90.49 Acquired absence of other specified parts of digestive tract; Z98.818 Other dental procedure status; Z83.79 Family history of other diseases of the digestive system; Z82.69 Family history of other diseases of the musculoskeletal system and connective tissue; Z82.49 Family history of ischemic heart disease and other diseases of the circulatory system; Z83.3 Family history of diabetes mellitus; Z83.49 Family history of other endocrine, nutritional and metabolic diseases
CPT/HCPCS: 96361; 96366 ×2; 96375; 96376; 96365; 99285; 36415; 94640; 93005; 80053; 83605; 85025; 85610; 85730; 81001; 81025; 87040; 83036; 74330; 74177; 43261; G0378; J2543 ×2; J2250; J1610; J2001; J3010; J1170 ×2; J0330; J2704; Q9967 ×2; 96360

== ENCOUNTER 2020-01-14 22:52 | Inpatient (IN) | payer OTHER ==
[~2020-01-14 22:52] MED LIST: BIVALIRUDIN 250 MG in SODIUM CHLORIDE 0.9% 50 ML IV ONE
[2020-01-14] MEDS ORDERED: ATORVASTATIN 80 MG TAB PO STA (22:59)
[2020-01-14] MEDS: HEPARIN SODIUM,PORCINE 5,000 UNIT/ML 1 ML VIAL IV STA ×2 (23:04→23:12)
--- NOTE | 2020-01-14 23:04 | ED ---
Chest Pain HPI - General Chief Complaint: Chest Pain Stated Complaint: Chest Pain Time Seen by Provider: 01/14/20 22:52 Source: patient, EMS, RN notes reviewed Mode of arrival: EMS Limitations: no limitations - History of Present Illness Initial Comments: This is a 49-year-old female history of hypertension COPD who is still smoker with the onset this evening around 6 PM of retrosternal chest pain radiating down her left arm. She stated it was 10/10 severity she did finally call EMS she was given aspirin nitroglycerin with the pain coming down to a 6 later to afford upon arrival to the emergency department she states it was almost 0. She still had a little bit sensation going on the left arm. She also states she had a similar episode recently that lasted about this as long but she did not seek treatment no fevers chills nausea vomiting sweats she has some breath with it. She is a family history of heart disease no personal history. No other current modifying factors MD Complaint: chest pain - Related Data Home Medications Medication Instructions Recorded Confirmed Atorvastatin Calcium [Lipitor] 10 mg PO DAILY 12/10/18 12/13/18 Gabapentin [Neurontin] 100 mg PO BID 12/10/18 12/13/18 Hydrocodone/Acetaminophen [[place] 2 tab PO Q6H PRN 12/10/18 12/13/18 5-325] Insulin Glargine,Hum.rec.anlog 10 unit SQ HS 12/10/18 12/13/18 [Basaglar Kwikpen U-100] Omeprazole 20 mg PO DAILY 12/10/18 12/13/18 PARoxetine HCL [Paxil] 20 mg PO DAILY 12/10/18 12/13/18 glipiZIDE [Glucotrol] 30 mg PO DAILY 12/10/18 12/13/18 metFORMIN HCL [Glucophage] 1,000 mg PO BID 12/10/18 12/13/18 Albuterol Inhaler [Ventolin Hfa 1 - 2 puff INHALATION RT-Q6H PRN 12/13/18 12/13/18 Inhaler] Mometasone/Formoterol [Dulera 100 1 puff INHALATION RT-DAILY 12/13/18 12/13/18 Mcg/5 Mcg Inhaler] Allergies Allergy/AdvReac Type Severity Reaction Status Date / Time Pork/Porcine Containing Allergy Unknown Verified 01/14/20 22:58 Products [Pork] Review of Systems ROS Statement: Those systems with pertinent positive or pertinent negative responses have been documented in the HPI. ROS Other: All systems not noted in ROS Statement are negative. EKG Findings - EKG Results: EKG: interpreted by KIMMIE (EKG shows sinus rhythm a 72. Interval 134 QRS 86 QT since QTC 366/400 red is deviation and ST elevations in leads II, III, and F aVF with reciprocal changes in aVL consistent with a inferior wall ST elevation myocardial infarction is does correlate with that submitted by EMS) Past Medical History Past Medical History: COPD, Diabetes Mellitus, Hyperlipidemia Additional Past Medical History / Comment(s): hpv History of Any Multi-Drug Resistant Organisms: None Reported Past Surgical History: Cholecystectomy, Tonsillectomy Additional Past Surgical History / Comment(s): d and c, all teeth extracted Past Psychological History: Depression Smoking Status: Current every day smoker Past Alcohol Use History: Occasional Past Drug Use History: None Reported - Past Family History Mother Family Medical History: Coronary Artery Disease (CAD), Hypertension Additional Family Medical History / Comment(s): lupus, diverticulitis Father Family Medical History: Coronary Artery Disease (CAD), Diabetes Mellitus, Hypertension, Myocardial Infarction ([place]) Additional Family Medical History / Comment(s): first heart attack at 40 General Exam - General Exam Comments Initial Comments: This a well-developed obese female who is awake alert oriented 3 Limitations: no limitations General appearance: alert, anxious, in distress Head exam: Present: atraumatic, normocephalic, normal inspection Eye exam: Present: normal appearance, PERRL, EOMI. Absent: scleral icterus, conjunctival injection, periorbital swelling ENT exam: Present: normal exam, mucous membranes moist Neck exam: Present: normal inspection, full ROM, other (No stridor JVD or bruits). Absent: tenderness, meningismus, lymphadenopathy Respiratory exam: Present: normal lung sounds bilaterally. Absent: respiratory distress, wheezes, rales, rhonchi, stridor Cardiovascular Exam: Present: regular rate, normal rhythm, normal heart sounds. Absent: systolic murmur, diastolic murmur, rubs, gallop, clicks GI/Abdominal exam: Present: soft, normal bowel sounds. Absent: distended, tenderness, guarding, rebound, rigid Extremities exam: Present: normal inspection, full ROM, normal capillary refill. Absent: tenderness, pedal edema, joint swelling, calf tenderness Back exam: Present: normal inspection Neurological exam: Present: alert, oriented X3, CN II-XII intact Psychiatric exam: Present: normal affect, normal mood Skin exam: Present: warm, dry, intact, normal color. Absent: rash Course Vital Signs 01/14/20 01/14/20 01/14/20 22:53 22:58 23:03 Temperature 98 F Pulse Rate 72 81 76 Respiratory 16 18 18 Rate Blood Pressure 108/68 111/77 101/67 O2 Sat by Pulse 96 97 98 Oximetry 01/14/20 01/14/20 01/14/20 23:09 23:14 23:20 Temperature Pulse Rate 68 70 72 Respiratory 18 18 20 Rate Blood Pressure 99/53 82/43 114/69 O2 Sat by Pulse 97 97 96 Oximetry - Reevaluation(s) Reevaluation #1: 01/14/20 23:04 I did discuss the case with Dr. Yi. The patient will be taken to the Nurse Practitioner Hospitalist. STEMI alert has been called. Reevaluation #2: 01/14/20 23:24 Reevaluation patient she has some blood pressure 99 she will get 500 mL fluid bolus her pain is gone she states at this time. Chest Pain MDM - MDM I did review the imaging no evidence of acute findings. I did discuss the case with Lia who is covering Dr. Marcos who is covering Dr. Wade. Patient will be admitted to the Nurse Practitioner Hospitalist. Critical Care Time Critical Care Time: Yes Critical Care Time: 31 minutes of critical care time which includes initial presentation with history physical labs x-rays multiple reevaluation the patient discussed with paramedics and review of their care treatment and EKG tracings. Discussed with drier transfer car operator Dr. Yi. Session with the admitting service review of old charting was available some admission orders documentation the above. Disposition Clinical Impression: ST elevation myocardial infarction (STEMI), Acute coronary syndrome, Smoker Disposition: ADMITTED IP TO THIS HOSP Condition: Serious Referrals: Juancarlos Wade MD [Primary Care Provider] - 1-2 days
[2020-01-14 23:12] LABS: Basophils % (A) 0 %; Eosinophils # (A) 0.2 k/uL (0-0.7); Eosinophils % (A) 2 %; HCT 54.2 % (34.0-46.0); HGB 17.1 gm/dL (11.4-16.0); Lymphocytes # (A) 1.6 k/uL (1.0-4.8); Lymphocytes % (A) 20 %; MCH 31.1 pg (25.0-35.0); MCHC 31.6 g/dL (31.0-37.0); MCV 98.6 fL (80.0-100.0); Mean Platelet Volume 10.4; Monocytes # (A) 0.5 k/uL (0-1.0); Monocytes % (A) 7 %; Neutrophils # (A) 5.7 k/uL (1.3-7.7); Neutrophils % (A) 69 %; Platelet Count 119 k/uL (150-450); RDW 13.9 % (11.5-15.5); WBC 8.3 k/uL (3.8-10.6)
[2020-01-14 23:19] LABS: ALT 19 U/L (4-34); AST 25 U/L (14-36); African American GFR (CKD) >90 (>60 ml/min/1.73 sqM); Albumin 3.4 g/dL (3.5-5.0); Alkaline Phosphatase 78 U/L (38-126); Anion Gap 6 mmol/L; Blood Urea Nitrogen 15 mg/dL (7-17); Calcium 9.3 mg/dL (8.4-10.2); Carbon Dioxide 31 mmol/L (22-30); Chloride 94 mmol/L (98-107); Glucose 446 mg/dL (74-99); Non-African American GFR(CKD) >90 (>60 ml/min/1.73 sqM); Potassium 4.9 mmol/L (3.5-5.1); Sodium 131 mmol/L (137-145); Total Bilirubin 0.4 mg/dL (0.2-1.3); Total Protein 6.4 g/dL (6.3-8.2)
[2020-01-14 23:20] LABS: INR 0.9 (<1.2); Partial Thromboplastin Time 22.7 sec (22.0-30.0); Prothrombin Time 9.8 sec (9.0-12.0)
[2020-01-14] MEDS ORDERED: INSULIN REGULAR 100 UNIT/ML VIAL IV ONE (23:29)
[2020-01-14 23:39] LABS: Creatine Kinase MB 1.3 ng/mL (0.0-2.4)
--- NOTE | 2020-01-14 23:44 | XR ---
EXAMINATION TYPE: XR chest 1V portable DATE OF EXAM: 01/14/2020 COMPARISON: NONE HISTORY: Chest pain TECHNIQUE: FINDINGS: Heart is enlarged. There is pulmonary edema. There is probably bilateral pleural effusions. There are chest leads. Exam is limited by patient's size. IMPRESSION: There is pulmonary edema that could relate to acute congestive heart failure. Possible sm all pleural effusions.
--- NOTE | 2020-01-14 23:44 | ED ---
Medical Decision Making - Lab Data Result diagrams: 01/14/20 23:00 01/14/20 23:00 Lab Results 01/14/20 01/14/20 01/14/20 Range/Units 23:00 23:00 23:00 WBC 8.3 (3.8-10.6) k/uL RBC 5.50 H (3.80-5.40) m/uL Hgb 17.1 H (11.4-16.0) gm/dL Hct 54.2 H (34.0-46.0) % MCV 98.6 (80.0-100.0) fL MCH 31.1 (25.0-35.0) pg MCHC 31.6 (31.0-37.0) g/dL RDW 13.9 (11.5-15.5) % Plt Count 119 L (150-450) k/uL Neutrophils % 69 % Lymphocytes % 20 % Monocytes % 7 % Eosinophils % 2 % Basophils % 0 % Neutrophils # 5.7 (1.3-7.7) k/uL Lymphocytes # 1.6 (1.0-4.8) k/uL Monocytes # 0.5 (0-1.0) k/uL Eosinophils # 0.2 (0-0.7) k/uL Basophils # 0.0 (0-0.2) k/uL PT (9.0-12.0) sec INR (<1.2) APTT (22.0-30.0) sec Sodium 131 L (137-145) mmol/L Potassium 4.9 (3.5-5.1) mmol/L Chloride 94 L (98-107) mmol/L Carbon Dioxide 31 H (22-30) mmol/L Anion Gap 6 mmol/L BUN 15 (7-17) mg/dL Creatinine 0.71 (0.52-1.04) mg/dL Est GFR (CKD-EPI)AfAm >90 (>60 ml/min/1.73 sqM) Est GFR (CKD-EPI)NonAf >90 (>60 ml/min/1.73 sqM) Glucose 446 H (74-99) mg/dL Calcium 9.3 (8.4-10.2) mg/dL Total Bilirubin 0.4 (0.2-1.3) mg/dL AST 25 (14-36) U/L ALT 19 (4-34) U/L Alkaline Phosphatase 78 (38-126) U/L Total Creatine Kinase 60 (30-135) U/L Total Protein 6.4 (6.3-8.2) g/dL Albumin 3.4 L (3.5-5.0) g/dL 01/14/20 Range/Units 23:00 WBC (3.8-10.6) k/uL RBC (3.80-5.40) m/uL Hgb (11.4-16.0) gm/dL Hct (34.0-46.0) % MCV (80.0-100.0) fL MCH (25.0-35.0) pg MCHC (31.0-37.0) g/dL RDW (11.5-15.5) % Plt Count (150-450) k/uL Neutrophils % % Lymphocytes % % Monocytes % % Eosinophils % % Basophils % % Neutrophils # (1.3-7.7) k/uL Lymphocytes # (1.0-4.8) k/uL Monocytes # (0-1.0) k/uL Eosinophils # (0-0.7) k/uL Basophils # (0-0.2) k/uL PT 9.8 (9.0-12.0) sec INR 0.9 (<1.2) APTT 22.7 (22.0-30.0) sec Sodium (137-145) mmol/L Potassium (3.5-5.1) mmol/L Chloride (98-107) mmol/L Carbon Dioxide (22-30) mmol/L Anion Gap mmol/L BUN (7-17) mg/dL Creatinine (0.52-1.04) mg/dL Est GFR (CKD-EPI)AfAm (>60 ml/min/1.73 sqM) Est GFR (CKD-EPI)NonAf (>60 ml/min/1.73 sqM) Glucose (74-99) mg/dL Calcium (8.4-10.2) mg/dL Total Bilirubin (0.2-1.3) mg/dL AST (14-36) U/L ALT (4-34) U/L Alkaline Phosphatase (38-126) U/L Total Creatine Kinase (30-135) U/L Total Protein (6.3-8.2) g/dL Albumin (3.5-5.0) g/dL Disposition Clinical Impression: ST elevation myocardial infarction (STEMI), Acute coronary syndrome, Smoker, Diabetes Disposition: ADMITTED IP TO THIS HOSP Condition: Serious Referrals: Juancarlos Wade MD [Primary Care Provider] - 1-2 days
[2020-01-14] MEDS ORDERED: LIDOCAINE 1% INJ 10MG/ML (20 ML MDV) SQ ONE (23:53)
[2020-01-14] MEDS ORDERED: SODIUM CHLORIDE 0.9% 1,000 ML IV ONE (23:53)
[2020-01-15 00:03] LABS: Troponin I 1.05 ng/mL (0.000-0.034)
[2020-01-15] MEDS ORDERED: CLOPIDOGREL 75 MG TAB ONE (00:04)
[2020-01-15] MEDS ORDERED: BIVALIRUDIN BOLUS 250 MG/50 ML IV ONE (00:05)
[2020-01-15] MEDS ORDERED: niCARdipine 25 MG/10 ML VIAL ONE (00:07)
[2020-01-15] MEDS ORDERED: CLOPIDOGREL 75 MG TAB PO ONE (00:09)
[2020-01-15] MEDS ORDERED: IOPAMIDOL-370 125ML BTL INJ ONE (00:19)
[2020-01-15] MEDS ORDERED: HEPARIN SODIUM 1,000 UN/ML (10ML VL) ONE (00:22)
[2020-01-15] MEDS ORDERED: ATROPINE SULFATE 0.1 MG/ML 10ML SYRINGE IV PRN (00:32)
[2020-01-15] MEDS ORDERED: MAG HYDROX/AL HYDROX/SIMETH 30 ML CUP PO PRN (00:32)
[2020-01-15] MEDS ORDERED: RX INFO: IV CONTRAST WAS GIVEN 1 EACH MISC MISCELLANE PRN (00:32)
[2020-01-15] MEDS ORDERED: NITROGLYCERIN SL TABS 0.4 MG TAB SUBLINGUAL PRN (00:32)
[2020-01-15] MEDS ORDERED: ZOLPIDEM 5 MG TAB PO PRN (00:32)
--- NOTE | 2020-01-15 00:40 | P.CRDCN ---
History of Present Illness Consult date: 01/15/20 Chief complaint: Chest pain History of present illness: This is a 49-year-old female patient with diabetes, obesity, hypertension, dyslipidemia, history of smoking, and very significant family history of coronary artery disease was brought to the hospital by EMS with acute inferior ST elevation myocardial infarction. She was in her usual state of health until early yesterday when she started experiencing discomfort in the mid of the chest, as a pressure, without any radiation to the arms or neck or shoulders, but it was associated with nausea as well as sweating. Ambulance was called and EKG was performed and revealed inferior ST patient myocardial infarction with subsequent the patient was brought to the emergency room and then to the cardiac slab off mill tender. An emergent heart catheterization was performed and revealed subtotally occluded RCA in the midportion with a large thrombus burden as well as severe disease involving the left anterior descending artery I did perform aspiration thrombectomy from the right coronary artery with the extraction of red clot and then I did perform successful stenting of the mid RCA using 2 drug-eluting stents with an excellent angiographic results and reduction of stenosis from 99% to 0% was AMRITA-3 flow by then. EKG changes improved and the patient was chest pain-free before she left the room. The patient's past medical history as described above. Unfortunately she continues to smoke but she stated that she's working on smoking cessation. Beside that she does have a very significant family history of coronary artery disease according to her. She will be going to be admitted to the intensive care unit where she will be on dual antiplatelet therapy along with high intensity statin along with anti- ischemic medication was metoprolol as well as lisinopril. I would also obtain an echocardiogram was Doppler to assess the left ventricular systolic function. Past Medical History Past Medical History: COPD, Diabetes Mellitus, Hyperlipidemia Additional Past Medical History / Comment(s): hpv History of Any Multi-Drug Resistant Organisms: None Reported Past Surgical History: Cholecystectomy, Tonsillectomy Additional Past Surgical History / Comment(s): d and c, all teeth extracted Past Psychological History: Depression Smoking Status: Current every day smoker Past Alcohol Use History: Occasional Past Drug Use History: None Reported - Past Family History Mother Family Medical History: Coronary Artery Disease (CAD), Hypertension Additional Family Medical History / Comment(s): lupus, diverticulitis Father Family Medical History: Coronary Artery Disease (CAD), Diabetes Mellitus, Hypertension, Myocardial Infarction ([place]) Additional Family Medical History / Comment(s): first heart attack at 40 Medications and Allergies Home Medications Medication Instructions Recorded Confirmed Type Atorvastatin Calcium [Lipitor] 10 mg PO DAILY 12/10/18 12/13/18 History Gabapentin [Neurontin] 100 mg PO BID 12/10/18 12/13/18 History Hydrocodone/Acetaminophen [[place] 2 tab PO Q6H PRN 12/10/18 12/13/18 History 5-325] Insulin Glargine,Hum.rec.anlog 10 unit SQ HS 12/10/18 12/13/18 History [Basaglar Kwikpen U-100] Omeprazole 20 mg PO DAILY 12/10/18 12/13/18 History PARoxetine HCL [Paxil] 20 mg PO DAILY 12/10/18 12/13/18 History glipiZIDE [Glucotrol] 30 mg PO DAILY 12/10/18 12/13/18 History metFORMIN HCL [Glucophage] 1,000 mg PO BID 12/10/18 12/13/18 History Albuterol Inhaler [Ventolin Hfa 1 - 2 puff INHALATION RT-Q6H PRN 12/13/1812/13 History Inhaler] Mometasone/Formoterol [Dulera 100 1 puff INHALATION RT-DAILY 12/13/18 12/13/18 History Mcg/5 Mcg Inhaler] Allergies Allergy/AdvReac Type Severity Reaction Status Date / Time Pork/Porcine Containing Allergy Unknown Verified 01/14/20 22:58 Products [Pork] Physical Exam Vitals: Vital Signs Temp Pulse Resp BP Pulse Ox 01/14/20 23:25 98 F 69 20 117/66 96 01/14/20 23:20 98 F 72 18 116/64 96 01/14/20 23:14 70 18 82/43 97 01/14/20 23:09 68 18 99/53 97 01/14/20 23:03 76 18 101/67 98 01/14/20 22:58 81 18 111/77 97 01/14/20 22:53 98 F 72 16 108/68 96 Intake and Output 01/14/20 01/14/20 01/15/20 14:59 22:59 06:59 Other: Weight 114.8 kg - Constitutional General appearance: no acute distress - Respiratory Respiratory: bilateral: CTA - Cardiovascular Rhythm: regular Heart sounds: normal: S1, S2 Results 01/14/20 23:00 01/14/20 23:00 Cardiac Enzymes 01/14/20 01/14/20 Range/Units 23:00 23:00 AST 25 (14-36) U/L CK-MB (CK-2) 1.3 (0.0-2.4) ng/mL Troponin I 1.050 H* (0.000-0.034) ng/mL Coagulation 01/14/20 Range/Units 23:00 PT 9.8 (9.0-12.0) sec APTT 22.7 (22.0-30.0) sec CBC 01/14/20 Range/Units 23:00 WBC 8.3 (3.8-10.6) k/uL RBC 5.50 H (3.80-5.40) m/uL Hgb 17.1 H (11.4-16.0) gm/dL Hct 54.2 H (34.0-46.0) % Plt Count 119 L (150-450) k/uL Comprehensive Metabolic Panel 01/14/20 Range/Units 23:00 Sodium 131 L (137-145) mmol/L Potassium 4.9 (3.5-5.1) mmol/L Chloride 94 L (98-107) mmol/L Carbon Dioxide 31 H (22-30) mmol/L BUN 15 (7-17) mg/dL Creatinine 0.71 (0.52-1.04) mg/dL Glucose 446 H (74-99) mg/dL Calcium 9.3 (8.4-10.2) mg/dL AST 25 (14-36) U/L ALT 19 (4-34) U/L Alkaline Phosphatase 78 (38-126) U/L Total Protein 6.4 (6.3-8.2) g/dL Albumin 3.4 L (3.5-5.0) g/dL Intake and Output 01/14/20 01/14/20 01/15/20 14:59 22:59 06:59 Other: Weight 114.8 kg Patient Weight 01/15/20 06:59 Weight 114.8 kg 01/14/20 23:00 01/14/20 23:00 Assessment and Plan Assessment: Assessment #[address] elevation myocardial infarction #2 status post PCI of the RCA #3 severe disease involving the LAD #4 morbid obesity #5 diabetes type 2 #6 smoking Plan #1 dual antiplatelet therapy #2 high intensity statin #3 anti-ischemic medication #4 an echocardiogram was Doppler #5 standard groin care #6 ICU admission #7 follow-up with the patient Thank you for allowing us participate in the patient's care
[2020-01-15] MEDS ORDERED: SODIUM CHLORIDE 0.9% 1,000 ML IV SCH (00:45)
[2020-01-15 00:56] LABS: Glucose,Whole Blood 351 mg/dL (75-99)
[2020-01-15 04:56] LABS: Basophils % (A) 0 %; Eosinophils # (A) 0.2 k/uL (0-0.7); Eosinophils % (A) 2 %; HCT 50.3 % (34.0-46.0); HGB 16.1 gm/dL (11.4-16.0); Lymphocytes # (A) 2.5 k/uL (1.0-4.8); Lymphocytes % (A) 31 %; MCH 31.3 pg (25.0-35.0); MCV 97.7 fL (80.0-100.0); Mean Platelet Volume 10.7; Monocytes # (A) 0.4 k/uL (0-1.0); Monocytes % (A) 5 %; Neutrophils # (A) 4.8 k/uL (1.3-7.7); Neutrophils % (A) 58 %; Platelet Count 139 k/uL (150-450); RBC 5.15 m/uL (3.80-5.40); RDW 13.9 % (11.5-15.5); WBC 8.2 k/uL (3.8-10.6)
[2020-01-15 05:09] LABS: ALT 17 U/L (4-34); AST 24 U/L (14-36); African American GFR (CKD) >90 (>60 ml/min/1.73 sqM); Albumin 3.1 g/dL (3.5-5.0); Alkaline Phosphatase 66 U/L (38-126); Anion Gap 7 mmol/L; Blood Urea Nitrogen 12 mg/dL (7-17); Calcium 9.1 mg/dL (8.4-10.2); Carbon Dioxide 26 mmol/L (22-30); Chloride 100 mmol/L (98-107); Glucose 270 mg/dL (74-99); Magnesium 1.5 mg/dL (1.6-2.3); Non-African American GFR(CKD) >90 (>60 ml/min/1.73 sqM); Potassium 4.5 mmol/L (3.5-5.1); Sodium 133 mmol/L (137-145); Total Bilirubin 0.3 mg/dL (0.2-1.3); Total Protein 5.9 g/dL (6.3-8.2)
[2020-01-15] MEDS ORDERED: Magnesium Replacement Protocol 1 EACH MISC MISCELLANE PRN (06:31)
[2020-01-15] MEDS: MAGNESIUM SULFATE-D5W PMX 1 GM in DEXTROSE/WATER 1 100ML.BAG IVPB SCH ×2 (06:46→09:38)
[2020-01-15 06:57] LABS: Glucose,Whole Blood 203 mg/dL (75-99)
[2020-01-15 07:43] LABS: Glucose,Whole Blood 207 mg/dL (75-99)
[2020-01-15] MEDS: INSULIN ASPART (NovoLOG) 100 UNIT/ML VIAL SQ SCH ×5 (07:44→21:04)
--- NOTE | 2020-01-15 07:46 | CC ---
CARDIAC CATHETERIZATION REPORT CARDIAC CATHETERIZATION AND PERCUTANEOUS CORONARY INTERVENTION: PERFORMING PHYSICIAN: Robb Yi MD. PROCEDURE PERFORMED: 1. Selective right and left coronary angiogram. 2. Aspiration thrombectomy from the right coronary artery. 3. Successful stenting of the mid RCA using 4.0 x 23 and 4.0 x 8 mm Xience YAHIR with excellent angiographic results and reduction of stenosis from 99% to 0%. 4. Left heart catheterization. INDICATION: This is a pleasant 49-year-old female patient who is obese, with also diabetes as well as history of smoking and significant family history of coronary artery disease, was brought by ambulance to the hospital with chest discomfort and was diagnosed with acute inferior ST-elevation myocardial infarction. The decision was made toward an emergent heart catheterization. APPROACH: Right common femoral artery. COMPLICATION: None. LEVEL OF SEDATION: Moderate with sedation length of 31 minutes. Door to balloon was 76 minutes. PROCEDURE DESCRIPTION: After obtaining an informed consent, the patient was brought to the cardiac excavation laborer. The right common femoral artery was cannulated using micropuncture technique then micropuncture wire passed easily. Subsequently I placed a 6-Chinese sheath at the right common femoral artery. I did selective right and left coronary angiogram with JR4 and JL4 catheters. Left heart catheterization was performed using the JR4 catheter which crossed the aortic valve then I did pullback across the valve. After that I did intervene on the right coronary artery. Please see a separate paragraph for that. SELECTIVE CORONARY ANGIOGRAM: 1. The right coronary artery is a large caliber vessel and it is a dominant vessel. The proximal RCA has mild disease only. The mid RCA has a lesion appeared to be in the range of 99% and the lesion appeared to be calcified with a large thrombus burden. The RCA distally appeared to be angiographically normal. It bifurcates into PDA and PLV branches. The PDA branch appeared to be angiographically normal. The PLV branch has a hazy lesion likely to be distal embolization from the thrombus in the mid RCA. 2. The left main is angiographically normal. It bifurcates into LCX and LAD. 3. The left circumflex is a large caliber vessel. It is a nondominant vessel. The proximal left circumflex appeared to be angiographically normal. It gives rise into the first obtuse marginal branch, which is a large caliber vessel trifurcates into 3 separate branches, they appeared to be angiographically normal. The circumflex continues after that as a medium caliber vessel in the AV groove and in the midportion appeared to have another lesion appeared to be in the range of 70% to 80%. 4. The LAD: The proximal LAD appeared to have mild disease only. The mid LAD gives rise into a large diagonal branch which appeared to have mild to moderate diffuse disease. The LAD after that has a tubular lesion appeared to be in the range of 60% to 70%. HEMODYNAMICS: The LVEDP was 8 to 12 mmHg without significant gradient across the aortic valve. PCI OF THE RCA: Anticoagulation was initiated using Angiomax. Subsequently I did engage the RCA using JR4 guide. I did wire the RCA using a run-through wire. After that I did aspiration thrombectomy from the right coronary artery using the [place] catheter with extraction of thrombus. After that I did direct stenting of the lesion using 4.0 x 23 mm Xience YAHIR where the stent was positioned under fluoroscopy guidance and deployed under its nominal pressure, under 14 atmospheres for 20 seconds. After that, the following angiogram showed haziness at the distal edge of the stent where I decided to cover that with another stent and at that point, I deployed 4.0 x 8 mm another Xience YAHIR where the second stent was deployed under fluoroscopy guidance with about 2 to 3 mm overlap between this stent and the previous stent. The second stent was deployed under 14 atmospheres for 20 seconds. Final angiogram showed good angiographic results and the procedure was completed without any complication. CONCLUSION: 1. Acute inferior ST-elevation myocardial infarction. 2. Subtotally occluded right coronary artery in the midportion with a plaque rupture and thrombus formation. The thrombus was of large burden. 3. Successful stenting of the mid right coronary artery using 4.0 x 23 and 4.0 x 8 mm Xience YAHIR with an excellent angiographic result and reduction of stenosis from 99% to 0%. 4. Severe disease involving a medium caliber left circumflex in the midportion. 5. Intermediate to severe disease involving the mid left anterior descending artery. POSTPROCEDURE MANAGEMENT: 1. Maximize medical treatment at this point. 2. Risk factors modifications. 3. Assess for ischemia in the LAD territory. 4. Follow up with the patient. MMODL / IJN: [id number] /
[2020-01-15] MEDS ORDERED: LISINOPRIL 10 MG TAB PO SCH (09:00)
[2020-01-15] MEDS: ASPIRIN 325 MG TAB PO SCH (09:38)
[2020-01-15] MEDS: METOPROLOL TARTRATE 25 MG TAB PO SCH ×2 (09:38→21:53)
[2020-01-15] MEDS ORDERED: LISINOPRIL 2.5 MG TAB PO SCH (09:45)
--- NOTE | 2020-01-15 11:33 | P.PN ---
Subjective This is Christine Menard PA-C dictating a progress note on this patient The patient was interviewed and examined by me as well as by Dr. Magaña Case discussed with Dr. Magaña and he agrees with the plan of care HPI/interval history Patient is a 49-year-old female with diabetes, hypertension, dyslipidemia, smoker who presented with an acute inferior ST elevation SD. She underwent emergent heart catheterization, thrombectomy of the RCA and successful stenting of the RCA. She was also found to have an 70-80% lesion in the mid left circu mflex as well as a 60-70% lesion in the LAD. Patient seen and examined in the ICU. She denies any more chest pain. She just states she feels "tired". No shortness of breath. No dizziness. Telemetry reveals sinus rhythm EXAMINATION Patient is afebrile, pulse in the 60s, respirations 18, blood pressure is 120s over 70s, oxygen saturation 93% on 3 L nasal cannula Patient seen and examined resting in bed, does not appear to be in any acute distress Lungs are clear to auscultation bilaterally Heart is regular, S1 and S2 audible, no audible murmurs REVIEW OF LABS, ECG WBC 8.2, hemoglobin 16.1, platelets 139, potassium 4.1, BUN 12, creatinine 0.54 EKG this morning shows ST elevations inferiorly IMPRESSION / ASSESSMENT: Acute inferior ST elevation SD status post PCI of the RCA Severe CAD involving the LAD Hypertension Diabetes Smoking Obesity PLAN: An echocardiogram has been ordered, awaiting results Continue dual antiplatelet therapy, statins and beta blockers and lisinopril We'll maximize medical therapy as tolerated Monitor telemetry Objective - Vital Signs Vital signs: Vital Signs Temp 97.9 F 01/15/20 08:00 Pulse 59 L 01/15/20 11:00 Resp 17 01/15/20 11:00 BP 100/61 01/15/20 11:00 Pulse Ox 96 01/15/20 11:00 Intake & Output 01/14/20 01/15/20 01/15/20 18:59 06:59 18:59 Intake Total 550 230 Output Total 650 0 Balance -100 230 Weight 115.9 kg Intake: IV 550 230 Magnesium Sulfate-D5w Pmx 200 1 gm In Dextrose/Water 1 100ml.bag @ 100 mls/hr IVPB Q1H [facility] Rx#: [id number] Sodium Chloride 0.9% 1, 450 30 000 ml @ 75 mls/hr IV . [id number] [facility] Rx#:[id number] Output: Urine 650 0 Other: Voiding Method Bedpan Bedpan # Voids 0 0 ABP, PAP, CO, CI - Last Documented Arterial Blood Pressure 137/64 - Labs CBC & Chem 7: 01/15/20 04:10 01/15/20 04:10 Labs: Abnormal Lab Results - Last 24 Hours (Table) 01/14/20 01/14/20 01/14/20 Range/Units 23:00 23:00 23:00 RBC 5.50 H (3.80-5.40) m/uL Hgb 17.1 H (11.4-16.0) gm/dL Hct 54.2 H (34.0-46.0) % Plt Count 119 L (150-450) k/uL Sodium 131 L (137-145) mmol/L Chloride 94 L (98-107) mmol/L Carbon Dioxide 31 H (22-30) mmol/L Glucose 446 H (74-99) mg/dL POC Glucose (mg/dL) (75-99) mg/dL Magnesium (1.6-2.3) mg/dL Troponin I 1.050 H* (0.000-0.034) ng/mL Total Protein (6.3-8.2) g/dL Albumin 3.4 L (3.5-5.0) g/dL 01/15/20 01/15/20 01/15/20 Range/Units 00:54 04:10 04:10 RBC (3.80-5.40) m/uL Hgb 16.1 H (11.4-16.0) gm/dL Hct 50.3 H (34.0-46.0) % Plt Count 139 L (150-450) k/uL Sodium 133 L (137-145) mmol/L Chloride (98-107) mmol/L Carbon Dioxide (22-30) mmol/L Glucose 270 H (74-99) mg/dL POC Glucose (mg/dL) 351 H (75-99) mg/dL Magnesium 1.5 L (1.6-2.3) mg/dL Troponin I (0.000-0.034) ng/mL Total Protein 5.9 L (6.3-8.2) g/dL Albumin 3.1 L (3.5-5.0) g/dL 01/15/20 01/15/20 01/15/20 Range/Units 04:14 06:55 07:42 RBC (3.80-5.40) m/uL Hgb (11.4-16.0) gm/dL Hct (34.0-46.0) % Plt Count (150-450) k/uL Sodium (137-145) mmol/L Chloride (98-107) mmol/L Carbon Dioxide (22-30) mmol/L Glucose (74-99) mg/dL POC Glucose (mg/dL) 203 H 207 H (75-99) mg/dL Magnesium (1.6-2.3) mg/dL Troponin I 1.830 H* (0.000-0.034) ng/mL Total Protein (6.3-8.2) g/dL Albumin (3.5-5.0) g/dL
[2020-01-15 11:37] LABS: Glucose,Whole Blood 202 mg/dL (75-99)
[2020-01-15 12:17] LABS: Hemoglobin A1C 12.4 % (4.0-6.0)
[2020-01-15] MEDS ORDERED: ALBUTEROL NEBULIZED 2.5 MG/3 ML INHALATION PRN (12:24)
--- NOTE | 2020-01-15 13:38 | P.HPIM ---
History of Present Illness patient presents for 9-year-old female came in with complaints of chest pain found to have in the inferior sikhism microinfarction patient had typical chest pain patient underwent cardiac catheterization underwent stenting to RCA patient had 2 drug-eluting stents. Patient the is clinically doing well at this time patient had any fever chills. Patient denied any more chest pain. Patient is presently alert but that therapy beta shadia echocardiogram is being sent to assess the left ventricular function. Review of Systems REVIEW OF SYSTEMS: CONSTITUTIONAL: No fever, no malaise, no fatigue. HEENT: No recent visual problems or hearing problems. Denied any sore throat. CARDIOVASCULAR: No orthopnea, PND, no palpitations, no syncope. PULMONARY: no hemoptysis. GASTROINTESTINAL: No diarrhea, no nausea, no vomiting, no abdominal pain. NEUROLOGICAL: No headaches, no weakness, no numbness. HEMATOLOGICAL: Denies any bleeding or petechiae. GENITOURINARY: Denies any burning micturition, frequency, or urgency. MUSCULOSKELETAL/RHEUMATOLOGICAL: Denies any joint pain, swelling, or any muscle pain. ENDOCRINE: Denies any polyuria or polydipsia. The rest of the 14-point review of systems is negative. Past Medical History Past Medical History: COPD, Diabetes Mellitus, Hyperlipidemia Additional Past Medical History / Comment(s): hpv History of Any Multi-Drug Resistant Organisms: None Reported Past Surgical History: Cholecystectomy, Tonsillectomy Additional Past Surgical History / Comment(s): d and c, all teeth extracted Past Anesthesia/Blood Transfusion Reactions: No Reported Reaction Past Psychological History: Depression Smoking Status: Current every day smoker Past Alcohol Use History: Occasional Past Drug Use History: None Reported - Past Family History Mother Family Medical History: Coronary Artery Disease (CAD), Hypertension Additional Family Medical History / Comment(s): lupus, diverticulitis Father Family Medical History: Coronary Artery Disease (CAD), Diabetes Mellitus, Hypertension, Myocardial Infarction ([place]) Additional Family Medical History / Comment(s): first heart attack at 40 Medications and Allergies Home Medications Medication Instructions Recorded Confirmed Type Gabapentin [Neurontin] 100 mg PO HS 12/10/18 01/15/20 History Insulin Glargine,Hum.rec.anlog See Protocol SQ HS 12/10/18 01/15/20 History [Maribelaglgisell Noble U-100] Omeprazole 20 mg PO DAILY 12/10/18 01/15/20 History glipiZIDE [Glucotrol] 30 mg PO DAILY 12/10/18 01/15/20 History Albuterol Inhaler [Ventolin Hfa 1 - 2 puff INHALATION RT-Q6H PRN 12/13/18 01/15/20 History Inhaler] Mometasone/Formoterol [Dulera 100 1 puff INHALATION RT-DAILY 12/13/18 01/15/20 History Mcg/5 Mcg Inhaler] Albuterol Nebulized [Ventolin 2.5 mg INHALATION RT-Q4H PRN 01/15/20 01/15/20 History Nebulized] Atorvastatin [Lipitor] 40 mg PO HS 01/15/20 01/15/20 History Naproxen Sodium [Aleve] 440 mg PO Q12H PRN 01/15/20 01/15/20 History PARoxetine [Paxil] 10 mg PO DAILY 01/15/20 01/15/20 History Varenicline [Chantix Starter Pack] 0.5 mg PO BID 01/15/20 01/15/20 History metFORMIN HCL [Glucophage] 1,000 mg PO HS 01/15/20 01/15/20 History Allergies Allergy/AdvReac Type Severity Reaction Status Date / Time Pork/Porcine Containing Allergy Unknown Verified 01/14/20 22:58 Products [Pork] Physical Exam Vitals: Vital Signs Temp Pulse Resp BP Pulse Ox 01/15/20 12:00 98.0 F 52 L 16 102/59 97 01/15/20 11:00 59 L 17 100/61 96 01/15/20 10:00 62 18 117/79 93 L 01/15/20 09:30 60 18 120/76 93 L 01/15/20 09:02 93 L 01/15/20 09:00 68 16 104/49 93 L 01/15/20 08:30 66 22 128/83 94 L 01/15/20 08:00 97.9 F 65 15 119/84 95 01/15/20 07:30 60 15 110/73 95 01/15/20 07:00 62 15 114/86 94 L 01/15/20 06:30 64 14 107/70 96 01/15/20 06:00 64 14 112/73 95 01/15/20 05:30 68 12 117/64 95 01/15/20 05:00 68 14 115/71 96 01/15/20 04:30 65 12 112/75 95 01/15/20 04:00 98.0 F 64 15 107/71 95 01/15/20 03:30 65 14 100/53 96 01/15/20 03:00 63 14 95 01/15/20 02:50 59 L 19 95 01/15/20 02:40 61 19 95 01/15/20 02:30 63 22 94 L 01/15/20 02:20 61 20 94 L 01/15/20 02:10 64 15 92/58 95 01/15/20 02:00 66 17 94 L 01/15/20 01:50 68 17 94 L 01/15/20 01:40 66 20 95 01/15/20 01:30 72 13 95 01/15/20 01:20 64 10 L 94 L 01/15/20 01:10 68 12 107/73 95 01/15/20 01:00 97.9 F 70 14 119/83 95 01/15/20 00:50 64 119/83 95 01/15/20 00:46 94 L 01/14/20 23:25 98 F 69 20 117/66 96 01/14/20 23:20 98 F 72 18 116/64 96 01/14/20 23:14 70 18 82/43 97 01/14/20 23:09 68 18 99/53 97 01/14/20 23:03 76 18 101/67 98 01/14/20 22:58 81 18 111/77 97 01/14/20 22:53 98 F 72 16 108/68 96 Intake and Output 01/14/20 01/15/20 01/15/20 22:59 06:59 14:59 Intake Total 550 250 Output Total 650 0 Balance -100 250 Intake: IV 550 250 Magnesium Sulfate-D5w Pmx 200 1 gm In Dextrose/Water 1 100ml.bag @ 100 mls/hr IVPB Q1H [facility] Rx#: [id number] Sodium Chloride 0.9% 1, 450 50 000 ml @ 75 mls/hr IV . [id number] [facility] Rx#:[id number] Output: Urine 650 0 Other: Voiding Method Bedpan Bedpan # Voids 0 0 Weight 114.8 kg 115.9 kg 115.9 kg PHYSICAL EXAMINATION: GENERAL: The patient is alert and oriented x3, not in any acute distress. Well developed, well nourished. HEENT: Pupils are round and equally reacting to light. EOMI. No scleral icterus. No conjunctival pallor. Normocephalic, atraumatic. No pharyngeal erythema. No thyromegaly. CARDIOVASCULAR: S1 and S2 present. No murmurs, rubs, or gallops. PULMONARY: Chest is clear to auscultation, no wheezing or crackles. ABDOMEN: Soft, nontender, nondistended, normoactive bowel sounds. No palpable organomegaly. MUSCULOSKELETAL: No joint swelling or deformity. EXTREMITIES: No cyanosis, clubbing, or pedal edema. NEUROLOGICAL: Gross neurological examination did not reveal any focal deficits. SKIN: No rashes. Results CBC & Chem 7: 01/15/20 04:10 01/15/20 04:10 Labs: Abnormal Lab Results - Last 24 Hours (Table) 01/14/20 01/14/20 01/14/20 Range/Units 23:00 23:00 23:00 RBC 5.50 H (3.80-5.40) m/uL Hgb 17.1 H (11.4-16.0) gm/dL Hct 54.2 H (34.0-46.0) % Plt Count 119 L (150-450) k/uL Sodium 131 L (137-145) mmol/L Chloride 94 L (98-107) mmol/L Carbon Dioxide 31 H (22-30) mmol/L Glucose 446 H (74-99) mg/dL POC Glucose (mg/dL) (75-99) mg/dL Hemoglobin A1c (4.0-6.0) % Magnesium (1.6-2.3) mg/dL Troponin I 1.050 H* (0.000-0.034) ng/mL Total Protein (6.3-8.2) g/dL Albumin 3.4 L (3.5-5.0) g/dL 01/15/20 01/15/20 01/15/20 Range/Units 00:54 04:10 04:10 RBC (3.80-5.40) m/uL Hgb 16.1 H (11.4-16.0) gm/dL Hct 50.3 H (34.0-46.0) % Plt Count 139 L (150-450) k/uL Sodium 133 L (137-145) mmol/L Chloride (98-107) mmol/L Carbon Dioxide (22-30) mmol/L Glucose 270 H (74-99) mg/dL POC Glucose (mg/dL) 351 H (75-99) mg/dL Hemoglobin A1c (4.0-6.0) % Magnesium 1.5 L (1.6-2.3) mg/dL Troponin I (0.000-0.034) ng/mL Total Protein 5.9 L (6.3-8.2) g/dL Albumin 3.1 L (3.5-5.0) g/dL 01/15/20 01/15/20 01/15/20 Range/Units 04:10 04:14 06:55 RBC (3.80-5.40) m/uL Hgb (11.4-16.0) gm/dL Hct (34.0-46.0) % Plt Count (150-450) k/uL Sodium (137-145) mmol/L Chloride (98-107) mmol/L Carbon Dioxide (22-30) mmol/L Glucose (74-99) mg/dL POC Glucose (mg/dL) 203 H (75-99) mg/dL Hemoglobin A1c 12.4 H (4.0-6.0) % Magnesium (1.6-2.3) mg/dL Troponin I 1.830 H* (0.000-0.034) ng/mL Total Protein (6.3-8.2) g/dL Albumin (3.5-5.0) g/dL 01/15/20 01/15/20 Range/Units 07:42 11:35 RBC (3.80-5.40) m/uL Hgb (11.4-16.0) gm/dL Hct (34.0-46.0) % Plt Count (150-450) k/uL Sodium (137-145) mmol/L Chloride (98-107) mmol/L Carbon Dioxide (22-30) mmol/L Glucose (74-99) mg/dL POC Glucose (mg/dL) 207 H 202 H (75-99) mg/dL Hemoglobin A1c (4.0-6.0) % Magnesium (1.6-2.3) mg/dL Troponin I (0.000-0.034) ng/mL Total Protein (6.3-8.2) g/dL Albumin (3.5-5.0) g/dL Thrombosis Risk Factor Assmnt - Choose All That Apply Any of the Below Risk Factors Present?: Yes Each Factor Represents 1 point: Abnormal pulmonary function (COPD), Acute [place], Age 41-60 years Thrombosis Risk Factor Assessment Total Risk Factor Score: 3 Thrombosis Risk Factor Assessment Level: Moderate Risk Assessment and Plan Plan: ST elevation myocardial infarction involving inferior wall patient is status post stenting of RCA will continue with dual antiplatelet therapy AUNDREA inhibitor metoprolol and statin. -nicotine abuse: Counseling was provided -Type 2 diabetes mellitus patient will be started on long-acting insulin hold off oral hypoglycemics continue with the sliding scale insulin -COPD without any acute exacerbation -hyperlipidemia.
[2020-01-15 16:34] LABS: Glucose,Whole Blood 238 mg/dL (75-99)
[2020-01-15 20:31] LABS: Glucose,Whole Blood 308 mg/dL (75-99)
[2020-01-15] MEDS ORDERED: ATORVASTATIN 40 MG TAB PO SCH (21:00)
[2020-01-15] MEDS: INSULIN DETEMIR (LEVEMIR) 100 UNIT/ML SYR SQ SCH (21:04)
[2020-01-15] MEDS: ATORVASTATIN 80 MG TAB PO SCH (21:09)
[2020-01-15] MEDS: GABAPENTIN 100 MG CAP PO SCH (21:09)
[2020-01-16] MEDS: CLOPIDOGREL 75 MG TAB PO SCH ×2 (00:48→08:58)
[2020-01-16 05:18] LABS: HCT 53.4 % (34.0-46.0); HGB 16.6 gm/dL (11.4-16.0); MCH 30.9 pg (25.0-35.0); MCHC 31.2 g/dL (31.0-37.0); MCV 99.1 fL (80.0-100.0); Mean Platelet Volume 10.4; Platelet Count 134 k/uL (150-450); RBC 5.38 m/uL (3.80-5.40); WBC 7.4 k/uL (3.8-10.6)
[2020-01-16 05:28] LABS: African American GFR (CKD) >90 (>60 ml/min/1.73 sqM); Anion Gap 7 mmol/L; Blood Urea Nitrogen 15 mg/dL (7-17); Calcium 9.1 mg/dL (8.4-10.2); Carbon Dioxide 26 mmol/L (22-30); Chloride 99 mmol/L (98-107); Glucose 235 mg/dL (74-99); Magnesium 1.8 mg/dL (1.6-2.3); Non-African American GFR(CKD) >90 (>60 ml/min/1.73 sqM); Potassium 4.9 mmol/L (3.5-5.1); Sodium 132 mmol/L (137-145)
[2020-01-16 06:44] LABS: Glucose,Whole Blood 244 mg/dL (75-99)
[2020-01-16] MEDS: INSULIN ASPART (NovoLOG) 100 UNIT/ML VIAL SQ SCH ×4 (06:49→20:57)
[2020-01-16] MEDS: SYMBICORT 80-4.5 MCG INHALER INHALATION SCH ×2 (07:47→20:18)
[2020-01-16] MEDS: METOPROLOL TARTRATE 25 MG TAB PO SCH ×2 (08:58→20:55)
[2020-01-16] MEDS: PANTOPRAZOLE 40 MG TABLET PO SCH (08:58)
[2020-01-16] MEDS: ASPIRIN 325 MG TAB PO SCH (08:58)
--- NOTE | 2020-01-16 09:01 | ECHOF ---
Referral Reason:STEMI MEASUREMENTS -------- HEIGHT: 157.5 cm WEIGHT: 115.7 kg BP: IVSd: 1.3 cm (0.6 - 1.1) LVIDd: 5.0 cm (3.9 - 5.3) LVPWd: 1.6 cm (0.6 - 1.1) IVSs: 1.8 cm LVIDs: 3.7 cm LVPWs: 1.7 cm RVIDd: 2.2 cm (< 3.3) Ao Diam: 2.9 cm (2.0 - 3.7) LA Diam: 3.2 cm (2.7 - 3.8) AV Cusp: 2.9 cm (1.5 - 2.6) EPSS: 1.2 cm MV E Sam: 0.81 m/s MV DecT: 283 ms MV A Sam: 0.97 m/s MV E/A Ratio: 0.83 RAP: 5.00 mmHg RVSP: 7.19 mmHg MV EF SLOPE: 34.76 mm/s (70 - 150) MV EXCURSION: 14.06 mm (> 18.000) FINDINGS -------- Sinus rhythm. This was a technically difficult study with suboptimal views. The left ventricular size is normal. There is moderate concentric left ventricular hypertrophy. O verall left ventricular systolic function is mild-moderately impaired with, an EF between 40 - 45 %. Basal inferolateral hypokinesis. The right ventricle is normal in size. The left atrial size is normal. The right atrial size is normal. The aortic valve is trileaflet and appears structurally normal. The mitral valve is normal. There is trace mitral regurgitation. The tricuspid valve appears structurally normal. Trace tricuspid regurgitation present. Right pedro tricular systolic pressure is normal at < 35 mmHg. There is no pulmonic regurgitation present. The aortic root size is normal. IVC Not well visulized. There is no pericardial effusion. Lumason used CONCLUSIONS -------- 1. Sinus rhythm. 2. This was a technically difficult study with suboptimal views. 3. The left ventricular size is normal. 4. There is moderate concentric left ventricular hypertrophy. 5. Overall left ventricular systolic function is mild-moderately impaired with, an EF between 40 - 45 %. 6. Basal inferolateral hypokinesis. 7. The right ventricle is normal in size. 8. The left atrial size is normal. 9. The right atrial size is normal. 10. Lumason used 11. The aortic valve is trileaflet and appears structurally normal. 12. The mitral valve is normal. 13. There is trace mitral regurgitation. 14. The tricuspid valve appears structurally normal. 15. Trace tricuspid regurgitation present. 16. Right ventricular systolic pressure is normal at < 35 mmHg. 17. There is no pulmonic regurgitation present. 18. The aortic root size is normal. 19. IVC Not well visulized. 20. There is no pericardial effusion. SENIOR EXAMINER: Jahaira Bradley RDCS
[2020-01-16] MEDS: PARoxetine 10 MG TAB PO SCH (09:17)
[2020-01-16] MEDS ORDERED: glipiZIDE 10 MG TAB PO STA (09:18)
--- NOTE | 2020-01-16 09:27 | P.PN ---
Subjective This is Christine Menard PA-C dictating a progress note on this patient The patient was interviewed and examined by me as well as by Dr. Magaña Case discussed with Dr. Magaña and he agrees with the plan of care HPI/interval history Patient is a 49-year-old female with diabetes, hypertension, dyslipidemia, smoker who presented with an acute inferior ST elevation MA. She underwent emergent heart catheterization, thrombectomy of the RCA and successful stenting of the RCA. She was also found to have an 70-80% lesion in the mid left circu mflex as well as a 60-70% lesion in the LAD. Patient seen and examined in the recliner in the ICU. Overall feeling well. Denies any chest pain. No shortness of breath. No dizziness or palpitations. Bedside telemetry shows sinus rhythm, rates in the 50s. EXAMINATION Patient is afebrile, pulse in the 50s, respirations in the 20s, blood pressure 101/59, oxygen saturation 93% on 2 L nasal cannula Patient seen and examined sitting up in the chair, no acute distress Lungs with wheezing bilaterally Heart is regular, no audible murmurs Unable to assess JVD due to body habitus No edema REVIEW OF LABS, ECG WBC 7.4, hemoglobin 16.6, platelets 134, potassium 4.9, BUN 15, creatinine 0.58 Echocardiogram shows EF 40-45% with basal inferior lateral hypokinesis IMPRESSION / ASSESSMENT: Acute inferior ST elevation MA status post PCI of the RCA Severe CAD involving the LAD Ischemic cardiomyopathy, EF 40-45% Hypertension Diabetes COPD Current smoker Obesity PLAN: Change lisinopril to noon to avoid hypotension Continue dual antiplatelet therapy and statins Continue metoprolol, should only be held for heart rate less than 40 Discussed importance of smoking cessation and diabetes management with the patient Objective - Vital Signs Vital signs: Vital Signs Temp 98.4 F 01/16/20 08:00 Pulse 54 L 01/16/20 09:00 Resp 26 H 01/16/20 09:00 BP 101/59 01/16/20 09:00 Pulse Ox 93 L 01/16/20 09:00 Intake & Output 01/15/20 01/16/20 01/16/20 18:59 06:59 18:59 Intake Total 250 1250 500 Output Total 200 500 200 Balance 50 750 300 Weight 115.9 kg 112.9 kg Intake: IV 250 Magnesium Sulfate-D5w Pmx 200 1 gm In Dextrose/Water 1 100ml.bag @ 100 mls/hr IVPB Q1H [facility] Rx#: [id number] Sodium Chloride 0.9% 1, 50 000 ml @ 75 mls/hr IV . [id number] [facility] Rx#:[id number] Oral 1250 500 Output: Urine 200 500 200 Other: Voiding Method Bedpan Bedpan # Voids 0 0 0 ABP, PAP, CO, CI - Last Documented Arterial Blood Pressure 137/64 - Labs CBC & Chem 7: 01/16/20 04:32 01/16/20 04:32 Labs: Abnormal Lab Results - Last 24 Hours (Table) 01/15/20 01/15/20 01/15/20 Range/Units 04:10 11:35 16:34 Hgb (11.4-16.0) gm/dL Hct (34.0-46.0) % Plt Count (150-450) k/uL Sodium (137-145) mmol/L Glucose (74-99) mg/dL POC Glucose (mg/dL) 202 H 238 H (75-99) mg/dL Hemoglobin A1c 12.4 H (4.0-6.0) % 01/15/20 01/16/20 01/16/20 Range/Units 20:29 04:32 04:32 Hgb 16.6 H (11.4-16.0) gm/dL Hct 53.4 H (34.0-46.0) % Plt Count 134 L (150-450) k/uL Sodium 132 L (137-145) mmol/L Glucose 235 H (74-99) mg/dL POC Glucose (mg/dL) 308 H (75-99) mg/dL Hemoglobin A1c (4.0-6.0) % 01/16/20 Range/Units 06:43 Hgb (11.4-16.0) gm/dL Hct (34.0-46.0) % Plt Count (150-450) k/uL Sodium (137-145) mmol/L Glucose (74-99) mg/dL POC Glucose (mg/dL) 244 H (75-99) mg/dL Hemoglobin A1c (4.0-6.0) %
--- NOTE | 2020-01-16 10:04 | P.PN ---
Subjective 49-year-old female admitted for ST elevation myocardial infarction status post cardiac catheterization and stenting of RCA. Patient blood sugars are high today patient will be resumed on her on metformin as well as glipizide. Patient had EF of 40-45% patient is not in heart failure exacerbation patient is bit hyponatremic. Constitutional: Denied any fatigue denied any fever. Cardio vascular: denied any chest pain, palpitations Gastrointestinal denied any nausea vomiting Pulmonary: Denied any shortness of breath cough Neurologic denied any new focal deficits All inpatient medications were reviewed and appropriate changes in these medications as dictated in the interval history and assessment and plan. Objective - Vital Signs Vital signs: Vital Signs Temp 98.4 F 01/16/20 08:00 Pulse 54 L 01/16/20 09:00 Resp 26 H 01/16/20 09:00 BP 101/59 01/16/20 09:00 Pulse Ox 93 L 01/16/20 09:00 Intake & Output 01/15/20 01/16/20 01/16/20 18:59 06:59 18:59 Intake Total 250 1250 500 Output Total 200 500 200 Balance 50 750 300 Weight 115.9 kg 112.9 kg Intake: IV 250 Magnesium Sulfate-D5w Pmx 200 1 gm In Dextrose/Water 1 100ml.bag @ 100 mls/hr IVPB Q1H [facility] Rx#: [id number] Sodium Chloride 0.9% 1, 50 000 ml @ 75 mls/hr IV . [id number] [facility] Rx#:[id number] Oral 1250 500 Output: Urine 200 500 200 Other: Voiding Method Bedpan Bedpan # Voids 0 0 0 ABP, PAP, CO, CI - Last Documented Arterial Blood Pressure 137/64 - Exam PHYSICAL EXAMINATION: GENERAL: The patient is alert and oriented x3, not in any acute distress. Obese HEENT: Pupils are round and equally reacting to light. EOMI. No scleral icterus. No conjunctival pallor. Normocephalic, atraumatic. No pharyngeal erythema. No thyromegaly. CARDIOVASCULAR: S1 and S2 present. No murmurs, rubs, or gallops. PULMONARY: Chest is clear to auscultation, no wheezing or crackles. ABDOMEN: Soft, nontender, nondistended, normoactive bowel sounds. No palpable organomegaly. MUSCULOSKELETAL: No joint swelling or deformity. EXTREMITIES: No cyanosis, clubbing, or pedal edema. NEUROLOGICAL: Gross neurological examination did not reveal any focal deficits. SKIN: No rashes. - Labs CBC & Chem 7: 01/16/20 04:32 01/16/20 04:32 Labs: Abnormal Lab Results - Last 24 Hours (Table) 01/15/20 01/15/20 01/15/20 Range/Units 04:10 11:35 16:34 Hgb (11.4-16.0) gm/dL Hct (34.0-46.0) % Plt Count (150-450) k/uL Sodium (137-145) mmol/L Glucose (74-99) mg/dL POC Glucose (mg/dL) 202 H 238 H (75-99) mg/dL Hemoglobin A1c 12.4 H (4.0-6.0) % 01/15/20 01/16/20 01/16/20 Range/Units 20:29 04:32 04:32 Hgb 16.6 H (11.4-16.0) gm/dL Hct 53.4 H (34.0-46.0) % Plt Count 134 L (150-450) k/uL Sodium 132 L (137-145) mmol/L Glucose 235 H (74-99) mg/dL POC Glucose (mg/dL) 308 H (75-99) mg/dL Hemoglobin A1c (4.0-6.0) % 01/16/20 Range/Units 06:43 Hgb (11.4-16.0) gm/dL Hct (34.0-46.0) % Plt Count (150-450) k/uL Sodium (137-145) mmol/L Glucose (74-99) mg/dL POC Glucose (mg/dL) 244 H (75-99) mg/dL Hemoglobin A1c (4.0-6.0) % Assessment and Plan Plan: ST elevation myocardial infarction involving inferior wall patient is status post stenting of RCA will continue with dual antiplatelet therapy AUNDREA inhibitor metoprolol and statin. -nicotine abuse: Counseling was provided -Type 2 diabetes mellitus patient will be started on long-acting insulin, uncontrolled elevated blood sugars patient will be resumed on her home oral reg imen monitor blood sugars along with sliding scale. -Congestive heart failure acute systolic dysfunction probably secondary to myocardial infarction not in exacerbation of heart failure -COPD without any acute exacerbation -hyperlipidemia.
[2020-01-16 11:42] LABS: Glucose,Whole Blood 202 mg/dL (75-99)
[2020-01-16] MEDS: LISINOPRIL 2.5 MG TAB PO SCH (12:02)
[2020-01-16 12:10] VITALS: BMI 45.5
[2020-01-16 16:36] LABS: Glucose,Whole Blood 94 mg/dL (75-99)
[2020-01-16] MEDS: GABAPENTIN 100 MG CAP PO SCH (20:55)
[2020-01-16] MEDS: ATORVASTATIN 80 MG TAB PO SCH (20:55)
[2020-01-16 20:58] LABS: Glucose,Whole Blood 111 mg/dL (75-99)
[2020-01-16] MEDS: INSULIN DETEMIR (LEVEMIR) 100 UNIT/ML SYR SQ SCH (21:00)
[2020-01-17 06:00] LABS: HCT 52.8 % (34.0-46.0); HGB 16.7 gm/dL (11.4-16.0); Hypochromasia Slight; MCH 31.7 pg (25.0-35.0); MCHC 31.6 g/dL (31.0-37.0); MCV 100.5 fL (80.0-100.0); Macrocytosis Slight; Mean Platelet Volume 10.7; Platelet Count 133 k/uL (150-450); RBC 5.26 m/uL (3.80-5.40); WBC 6.5 k/uL (3.8-10.6)
[2020-01-17 06:12] LABS: African American GFR (CKD) >90 (>60 ml/min/1.73 sqM); Anion Gap 5 mmol/L; Blood Urea Nitrogen 13 mg/dL (7-17); Calcium 9.1 mg/dL (8.4-10.2); Carbon Dioxide 28 mmol/L (22-30); Chloride 101 mmol/L (98-107); Glucose 150 mg/dL (74-99); Non-African American GFR(CKD) >90 (>60 ml/min/1.73 sqM); Potassium 4.7 mmol/L (3.5-5.1); Sodium 134 mmol/L (137-145)
[2020-01-17 06:32] LABS: Glucose,Whole Blood 154 mg/dL (75-99)
[2020-01-17] MEDS: INSULIN ASPART (NovoLOG) 100 UNIT/ML VIAL SQ SCH ×4 (06:42→20:26)
[2020-01-17] MEDS: glipiZIDE 10 MG TAB PO SCH (06:43)
[2020-01-17] MEDS: PANTOPRAZOLE 40 MG TABLET PO SCH (06:43)
--- NOTE | 2020-01-17 07:54 | PN ---
PROGRESS NOTE Mrs. Diamond is a 49-year-old female who presents with an acute myocardial infarction in the RCA territory underwent stenting of her RCA by Dr. Yi. She has a moderate lesion in the LAD. She is doing well this morning. Her breathing is stable. She denies any chest pain. She denies any dizziness. She is in sinus mechanism. She had an echocardiogram that revealed an ejection fraction of 40% to 45% with basal inferolateral wall hypokinesis and no significant valvular abnormalities. She continues to be on aspirin once a day, Lipitor 80 mg daily, Plavix 75 mg daily, glipizide 20 mg daily, insulin, lisinopril 2.5 mg daily, metformin 1 gram twice a day, metoprolol tartrate 25 mg twice a day and Paxil. PHYSICAL EXAMINATION: Blood pressure 116/62 with the heart rate in the 50s. LUNGS: Clear. HEART: Regular rate and rhythm. S1, S2. No S3. No rub. ABDOMEN: Soft, obese, nontender. EXTREMITIES: No edema. LAB DATA: Lab data revealed a BUN and creatinine of 13 and 0.61, potassium 4.7. IMPRESSION: 1. Status post inferior myocardial infarction and stenting of the right coronary artery. 2. Hyperlipidemia. 3. Hypertension. 4. Diabetes mellitus. RECOMMENDATION: Will increase her level of activity. If she is stable, she should be able to be discharged home today and follow up as an outpatient with Dr. Yi to undergo further evaluation of the LAD territory. MMODL / IJN: [id number] / MTDD
[2020-01-17] MEDS: METOPROLOL TARTRATE 25 MG TAB PO SCH ×2 (08:57→20:28)
[2020-01-17] MEDS: CLOPIDOGREL 75 MG TAB PO SCH (08:58)
[2020-01-17] MEDS: PARoxetine 10 MG TAB PO SCH (08:58)
[2020-01-17] MEDS: ASPIRIN 81 MG PO SCH (08:58)
[2020-01-17] MEDS: SYMBICORT 80-4.5 MCG INHALER INHALATION SCH ×2 (09:53→21:02)
--- NOTE | 2020-01-17 10:45 | P.PN ---
Subjective 49-year-old female admitted for ST elevation myocardial infarction status post cardiac catheterization and stenting of RCA. Patient blood sugars are high today patient will be resumed on her on metformin as well as glipizide. Patient had EF of 40-45% patient is not in heart failure exacerbation patient is bit hyponatremic. 01/17/2020 Patient's blood sugars are fairly well controlled serum sodium is improving Constitutional: Denied any fatigue denied any fever. Cardio vascular: denied any chest pain, palpitations Gastrointestinal denied any nausea vomiting Pulmonary: Denied any shortness of breath cough Neurologic denied any new focal deficits All inpatient medications were reviewed and appropriate changes in these medications as dictated in the interval history and assessment and plan. Objective - Vital Signs Vital signs: Vital Signs Temp 97.9 F 01/17/20 04:00 Pulse 53 L 01/17/20 04:00 Resp 14 01/17/20 04:00 BP 116/62 01/17/20 04:00 Pulse Ox 94 L 01/17/20 04:00 Intake & Output 01/16/20 01/17/20 01/17/20 18:59 06:59 18:59 Intake Total 1540 1000 Output Total 1200 Balance 340 1000 Weight 112.9 kg 113.6 kg Intake: Oral 1540 1000 Output: Urine 1200 Other: Voiding Method Toilet # Voids 0 1 ABP, PAP, CO, CI - Last Documented Arterial Blood Pressure 137/64 - Exam PHYSICAL EXAMINATION: GENERAL: The patient is alert and oriented x3, not in any acute distress. Obese HEENT: Pupils are round and equally reacting to light. EOMI. No scleral icterus. No conjunctival pallor. Normocephalic, atraumatic. No pharyngeal erythema. No thyromegaly. CARDIOVASCULAR: S1 and S2 present. No murmurs, rubs, or gallops. PULMONARY: Chest is clear to auscultation, no wheezing or crackles. ABDOMEN: Soft, nontender, nondistended, normoactive bowel sounds. No palpable organomegaly. MUSCULOSKELETAL: No joint swelling or deformity. EXTREMITIES: No cyanosis, clubbing, or pedal edema. NEUROLOGICAL: Gross neurological examination did not reveal any focal deficits. SKIN: No rashes. - Labs CBC & Chem 7: 01/17/20 05:20 01/17/20 05:20 Labs: Abnormal Lab Results - Last 24 Hours (Table) 01/16/20 01/16/20 01/17/20 Range/Units 11:41 20:57 05:20 Hgb 16.7 H (11.4-16.0) gm/dL Hct 52.8 H (34.0-46.0) % MCV 100.5 H (80.0-100.0) fL Plt Count 133 L (150-450) k/uL Sodium (137-145) mmol/L Glucose (74-99) mg/dL POC Glucose (mg/dL) 202 H 111 H (75-99) mg/dL 01/17/20 01/17/20 Range/Units 05:20 06:30 Hgb (11.4-16.0) gm/dL Hct (34.0-46.0) % MCV (80.0-100.0) fL Plt Count (150-450) k/uL Sodium 134 L (137-145) mmol/L Glucose 150 H (74-99) mg/dL POC Glucose (mg/dL) 154 H (75-99) mg/dL Assessment and Plan Plan: ST elevation myocardial infarction involving inferior wall patient is status post stenting of RCA will continue with dual antiplatelet therapy AUNDREA inhibitor metoprolol and statin. -nicotine abuse: Counseling was provided -Type 2 diabetes mellitus patient will be started on long-acting insulin,patient was resumed on her oral hypoglycemic agents after which patient blood sugars are better controlled increase the long-acting. -Hypovolemic hyponatremia -Congestive heart failure acute systolic dysfunction probably secondary to myocardial infarction not in exacerbation of heart failure -COPD without any acute exacerbation -hyperlipidemia.
[2020-01-17 11:36] LABS: Glucose,Whole Blood 159 mg/dL (75-99)
[2020-01-17] MEDS: LISINOPRIL 2.5 MG TAB PO SCH (12:53)
[2020-01-17 16:22] LABS: Glucose,Whole Blood 133 mg/dL (75-99)
[2020-01-17 20:24] LABS: Glucose,Whole Blood 221 mg/dL (75-99)
[2020-01-17] MEDS: GABAPENTIN 100 MG CAP PO SCH (20:26)
[2020-01-17] MEDS: INSULIN DETEMIR (LEVEMIR) 100 UNIT/ML SYR SQ SCH (20:26)
[2020-01-17] MEDS: ATORVASTATIN 80 MG TAB PO SCH (20:27)
[2020-01-18 06:39] LABS: Glucose,Whole Blood 157 mg/dL (75-99)
[2020-01-18] MEDS: INSULIN ASPART (NovoLOG) 100 UNIT/ML VIAL SQ SCH ×2 (06:45→11:33)
[2020-01-18] MEDS: glipiZIDE 10 MG TAB PO SCH (06:46)
[2020-01-18] MEDS: PANTOPRAZOLE 40 MG TABLET PO SCH (06:46)
[2020-01-18] MEDS ORDERED: metFORMIN 500 MG TAB PO SCH (07:30)
[2020-01-18] MEDS: CLOPIDOGREL 75 MG TAB PO SCH (08:53)
[2020-01-18] MEDS: PARoxetine 10 MG TAB PO SCH (08:54)
[2020-01-18] MEDS: ASPIRIN 81 MG PO SCH (08:55)
[2020-01-18] MEDS ORDERED: METOPROLOL TARTRATE 12.5 MG TAB PO SCH (09:00)
--- NOTE | 2020-01-18 09:00 | PN ---
PROGRESS NOTE Mrs. Diamond is a 49-year-old female who presented with an acute myocardial infarction, underwent coronary angiography and stenting of her RCA by Dr. Yi. She is doing well this morning. She denies chest pain. She denies any dizziness or palpitation. She had episode of bradycardia. She has no significant hypotension. She is sitting up in bed without any symptoms. She has mild to moderate cardiomyopathy by echocardiography. She continues to be on aspirin once a day, Plavix 75 mg daily, Lipitor 80 mg daily, glipizide 20 mg daily, Neurontin, insulin, lisinopril 2.5 mg daily, metoprolol tartrate 25 mg twice a day, and metformin 1 g daily. PHYSICAL EXAMINATION: Blood pressure running in the high 90s to 100 with a heart rate in the 50s. LUNGS: Clear. HEART: Regular rate and rhythm S1, S2. No S3. No rub. ABDOMEN: Soft, nontender, obese. EXTREMITIES: No edema. IMPRESSION: 1. Status post myocardial infarction, stenting of the right coronary artery. 2. Moderate disease in the left anterior descending artery. 3. Hypertension. 4. Hyperlipidemia. 5. Diabetes mellitus. 6. Bradycardia. RECOMMENDATION: I will cut down the dose of the metoprolol to 12.5 mg twice a day, increase her level of activity. If she is stable, I would expect she should be able to be discharged home soon and followed as an outpatient with Dr. Yi to undergo further evaluation of her LAD territory. MMODL / FAROOQN: [id number] /
[2020-01-18] MEDS: SYMBICORT 80-4.5 MCG INHALER INHALATION SCH (09:56)
[2020-01-18 11:32] LABS: Glucose,Whole Blood 129 mg/dL (75-99)
[2020-01-18] MEDS: LISINOPRIL 2.5 MG TAB PO SCH (12:01)
[2020-01-18 12:12] VITALS: BP 100/70; PULSE 49; RESP 12; TEMP 98.8
--- NOTE | 2020-01-18 21:53 | P.DS ---
Providers Date of admission: 01/14/20 23:05 Attending physician: Ursula Marcos Consults: 01/15/20 00:32 Consult Physician Routine Consulting Provider: [facility] Consult Reason/Comments: Post Interventional patient Do you want consulting provider notified?: Already Contacted Primary care physician: Juancarlos Wade [facility] Course: Diagnoses: -ST elevation myocardial infarction involving inferior wall patient is status post stenting of RCA will continue with dual antiplatelet therapy AUNDREA inhibitor metoprolol and statin. -nicotine abuse: Counseling was provided -Type 2 diabetes mellitus patient will be started on long-acting insulin,patient was resumed on her oral hypoglycemic agents after which patient blood sugars are better controlled increase the long-acting. -Hypovolemic hyponatremia -Congestive heart failure acute systolic dysfunction probably secondary to myocardial infarction not in exacerbation of heart failure -COPD without any acute exacerbation -hyperlipidemia. Hospital course: This is a pleasant 49 years old female with several risk factors including diabetes mellitus, cigarette smoker, hypertension, hyperlipidemia. presents with signs symptoms of acute myocardial infarction he she status post coronary angiography and stenting of the right coronary artery by Dr. Harkins. Patient has been followed closely by cardiology team and monitored in the intensive care unit. Patient Doing well On the day of discharge patient denies chest pain, no dyspnea, no abdominal pain, no change in urine or bowel habits. Patient denies any other symptoms Diabetes mellitus medication adjusted and her sugar was monitored and well- controlled Patient was cleared for discharge by cardiology team Problems and management plan were discussed with the patient and he verbalized understanding and acceptance Patient was found stable and can be discharged home however he needs follow-up as an outpatient. Patient was instructed to follow up with PCP within one week and patient agrees, pt agrees with appointment with pcp and Gen: patient is a AAOx3, no distress CVS: S1-S2, RRR, no murmur Lungs: B/L CTA, no wheezing Abdomen: soft, no distention, no tenderness, positive bowel sounds Extremity: no leg edema or induration Time spent more than 35 minutes Patient Condition at Discharge: Serious Plan - Discharge Summary Discharge Rx Participant: No New Discharge Prescriptions: New RX: Aspirin 81 mg PO DAILY #30 chew RX: metFORMIN HCL [Glucophage] 1,000 mg PO BID-W/MEALS #120 tab RX: glipiZIDE [Glucotrol] 20 mg PO AC-BRKFST #60 tab RX: Atorvastatin [Lipitor] 80 mg PO HS #30 tab RX: Metoprolol Tartrate [Lopressor] 12.5 mg PO BID #60 tab RX: Nitroglycerin Sl Tabs [Nitrostat] 0.4 mg SUBLINGUAL Q5M PRN #20 tab PRN Reason: Chest Pain RX: INSULIN ASPART (NovoLOG) [NovoLOG (formulary)] 0 unit SQ ACHS vial RX: Clopidogrel [Plavix] 75 mg PO DAILY #30 tab RX: Lisinopril [Zestril] 2.5 mg PO 1200 #30 tab Insulin Glargine,Hum.rec.anlog [Basaglar Kwikpen U-100] 15 unit SQ HS #1 pen Pen Needle, Diabetic [Pen Needle] 1 each MC DAILY #20 dis.needle Pen Needle, Diabetic [Pen Needle] 1 each MC DAILY #20 dis.needle Continue RX: Omeprazole 20 mg PO DAILY RX: Gabapentin [Neurontin] 100 mg PO HS RX: Albuterol Inhaler [Ventolin Hfa Inhaler] 1 - 2 puff INHALATION RT-Q6H PRN PRN Reason: Shortness Of Breath RX: Mometasone/Formoterol [Dulera 100 Mcg/5 Mcg Inhaler] 1 puff INHALATION RT-DAILY RX: metFORMIN HCL [Glucophage] 1,000 mg PO HS RX: PARoxetine [Paxil] 10 mg PO DAILY RX: Varenicline [Chantix Starter Pack] 0.5 mg PO BID RX: Albuterol Nebulized [Ventolin Nebulized] 2.5 mg INHALATION RT-Q4H PRN PRN Reason: Shortness Of Breath RX: Naproxen Sodium [Aleve] 440 mg PO Q12H PRN PRN Reason: Pain Discontinued RX: Insulin Glargine,Hum.rec.anlog [Basaglar Kwikpen U-100] See Protocol SQ HS glipiZIDE [Glucotrol] 30 mg PO DAILY Atorvastatin [Lipitor] 40 mg PO HS Discharge Medication List RX: Gabapentin [Neurontin] 100 mg PO HS 12/10/18 [History] RX: Omeprazole 20 mg PO DAILY 12/10/18 [History] RX: Albuterol Inhaler [Ventolin Hfa Inhaler] 1 - 2 puff INHALATION RT-Q6H PRN 12/13/18 [History] RX: Mometasone/Formoterol [Dulera 100 Mcg/5 Mcg Inhaler] 1 puff INHALATION RT- DAILY 12/13/18 [History] RX: Albuterol Nebulized [Ventolin Nebulized] 2.5 mg INHALATION RT-Q4H PRN 01/15/20 [History] RX: Naproxen Sodium [Aleve] 440 mg PO Q12H PRN 01/15/20 [History] RX: PARoxetine [Paxil] 10 mg PO DAILY 01/15/20 [History] RX: Varenicline [Chantix Starter Pack] 0.5 mg PO BID 01/15/20 [History] RX: metFORMIN HCL [Glucophage] 1,000 mg PO HS 01/15/20 [History] Insulin Glargine,Hum.rec.anlog [Basaglar Kwikpen U-100] 15 unit SQ HS #1 pen 01/18/20 [Rx] Pen Needle, Diabetic [Pen Needle] 1 each MC DAILY #20 dis.needle 01/18/20 [Rx] Pen Needle, Diabetic [Pen Needle] 1 each MC DAILY #20 dis.needle 01/18/20 [Rx] RX: Aspirin 81 mg PO DAILY #30 chew 01/18/20 [Rx] RX: Atorvastatin [Lipitor] 80 mg PO HS #30 tab 01/18/20 [Rx] RX: Clopidogrel [Plavix] 75 mg PO DAILY #30 tab 01/18/20 [Rx] RX: INSULIN ASPART (NovoLOG) [NovoLOG (formulary)] 0 unit SQ ACHS vial 01/18/20 [Rx] RX: Lisinopril [Zestril] 2.5 mg PO 1200 #30 tab 01/18/20 [Rx] RX: Metoprolol Tartrate [Lopressor] 12.5 mg PO BID #60 tab 01/18/20 [Rx] RX: Nitroglycerin Sl Tabs [Nitrostat] 0.4 mg SUBLINGUAL Q5M PRN #20 tab 01/18/20 [Rx] RX: glipiZIDE [Glucotrol] 20 mg PO AC-BRKFST #60 tab 01/18/20 [Rx] RX: metFORMIN HCL [Glucophage] 1,000 mg PO BID-W/MEALS #120 tab 01/18/20 [Rx] Follow up Appointment(s)/Referral(s): Robb Yi MD [STAFF PHYSICIAN] - 01/28/20 10:30 am Murray Whitaker MD [REFERRING] - 2 Weeks (bell staff ) Juancarlos Wade MD [Primary Care Provider] - 01/20/20 10:45 am Patient Instructions/Handouts: Heart Attack (DC) Activity/Diet/Wound Care/Special Instructions: Heart healthy and diabetic diet, 16 kcal per day Activity is limited till you see your doctor Keep checking her sugar 4 times a day, with each meal and at bedtime, keep the results in a log book, and bring the results to your doctor's appointment. Call 911 on come to emergency room if her sugar less than 70 or more than 400 Discharge/Stand Alone Forms: Work/School Release Discharge Disposition: HOME SELF-CARE
--- NOTE | 2020-01-20 14:17 | CDI ---
Documentation Clarification Form Date: 01/20/20 From: Rebeca Mendes CCS Phone: If you have a question about this query, please contact Lynda Menjivar, Assistant Pressman at [phone] between 8am and 5pm. Admit Date: 01/14/20 Discharge Date: 01/18/20 Patient Name: Nichole Diamond Visit Number: [id number] ATTENTION: The Clinical Documentation Specialists (CDI) and [facility] Coding Staff appreciate your assistance in clarifying documentation. Please respond to the clarification below the line at the bottom and electronically sign. The CDI & [facility] Coding staff will review the response and follow-up if needed. Please note: Queries are made part of the Legal Health Record. If you have any questions, please contact the author of this message via ITS. Dear Dr. Palma, CHF with acute systolic dysfunction not in exacerbation is documented in the PNs, DS. History/Risk Factors: TX, CAD, HTN, DM, Ischemic CMP, Morbid Obesity VS/Pulse OX: 93, 94, 96 Echocardiogram Results: An ejection fraction of 40% to 45% with basal inferolateral wall hypokinesis and no significant valvular abnormalities. Chest X Ray: There is pulmonary edema that could relate to acute congestive heart failure.Possible small pleural effusions. Treatment: Lisinopril 2.5 mg PO daily, Metroprolol Tartrate 25 mg PO BID In your professional opinion, can you please clarify the acuity of CHF if known? Systolic Heart Failure: Acute Chronic Acute on Chronic Unable to Determine Other, please specify Unable to Determine MTDD
== END 2020-01-18 14:59 | disposition home or self-care (01) | DRG 247 ==
LOC: EC 22:52 → 2SICU 23:05
PROVIDERS: ADMIT Internal Medicine; ATTEND Internal Medicine
PROC: 027035Z Dilation of Coronary Artery, One Artery with Two Drug-eluting Intraluminal Devices, Percutaneous Approach (ICD-10-PCS; principal; 2020-01-15)
PROC: 02C03ZZ Extirpation of Matter from Coronary Artery, One Artery, Percutaneous Approach (ICD-10-PCS; 2020-01-15)
PROC: 4A023N7 Measurement of Cardiac Sampling and Pressure, Left Heart, Percutaneous Approach (ICD-10-PCS; 2020-01-15)
PROC: B2111ZZ Fluoroscopy of Multiple Coronary Arteries using Low Osmolar Contrast (ICD-10-PCS; 2020-01-15)
DX: I21.19 ST elevation (STEMI) myocardial infarction involving other coronary artery of inferior wall (principal); E87.1 Hypo-osmolality and hyponatremia; Z68.42 Body mass index [BMI] 45.0-49.9, adult; I50.20 Unspecified systolic (congestive) heart failure; I25.5 Ischemic cardiomyopathy; I11.0 Hypertensive heart disease with heart failure; F17.210 Nicotine dependence, cigarettes, uncomplicated; J44.9 Chronic obstructive pulmonary disease, unspecified; E78.5 Hyperlipidemia, unspecified; F32.9 Major depressive disorder, single episode, unspecified; E66.01 Morbid (severe) obesity due to excess calories; I25.10 Atherosclerotic heart disease of native coronary artery without angina pectoris; E11.65 Type 2 diabetes mellitus with hyperglycemia; E86.1 Hypovolemia; R00.1 Bradycardia, unspecified; Z71.3 Dietary counseling and surveillance; Z71.6 Tobacco abuse counseling; Z79.899 Other long term (current) drug therapy; Z79.51 Long term (current) use of inhaled steroids; Z79.4 Long term (current) use of insulin; Z90.49 Acquired absence of other specified parts of digestive tract; Z98.890 Other specified postprocedural states; Z91.018 Allergy to other foods; Z82.49 Family history of ischemic heart disease and other diseases of the circulatory system; Z83.2 Family history of diseases of the blood and blood-forming organs and certain disorders involving the immune mechanism; Z83.79 Family history of other diseases of the digestive system; Z83.3 Family history of diabetes mellitus
CPT/HCPCS: 36415; 71045; 80048; 80053; 82550; 82553; 83036; 83735; 84484; 85025; 85027; 85610; 85730; 93005; 93306; 93458; 94640; 96374; 99291

== ENCOUNTER 2020-02-11 06:26 | Day surgery (SDC) | payer OTHER ==
[~2020-02-11 06:26] MED LIST changes: +ALPRAZolam 0.25 MG TAB PO PRN; +ALPRAZolam 0.5 MG TAB PO PRN; +ASPIRIN 325 MG TAB PO STA; +ATORVASTATIN 80 MG TAB PO STA; -BIVALIRUDIN 250 MG in SODIUM CHLORIDE 0.9% 50 ML IV ONE; +NITROGLYCERIN SL TABS 0.4 MG TAB SUBLINGUAL PRN; +SODIUM CHLORIDE 0.9% 1,000 ML in EMPTY BAG 1 BAG IV ONE
[2020-02-11 07:00] LABS: Glucose,Whole Blood 228 mg/dL (75-99)
[2020-02-11] MEDS: INSULIN ASPART (NovoLOG) 100 UNIT/ML VIAL SQ SCH ×4 (07:05→21:48)
[2020-02-11] MEDS ORDERED: LIDOCAINE 1% INJ 10MG/ML (20 ML MDV) ONE (07:10)
[2020-02-11] MEDS ORDERED: VERAPAMIL 2.5 MG/ML 2 ML AMP ONE ×2 (07:10→07:15)
[2020-02-11] MEDS ORDERED: LIDOCAINE 1% INJ 10MG/ML (20 ML MDV) SQ ONE (07:23)
[2020-02-11] MEDS ORDERED: MIDAZOLAM 2 MG/2 ML VIAL IVP ONE (07:23)
[2020-02-11] MEDS ORDERED: VERAPAMIL SYRINGE (5 MG/10 ML) INTRAARTER ONE (07:28)
[2020-02-11] MEDS ORDERED: BIVALIRUDIN BOLUS 250 MG/50 ML IV ONE (07:35)
[2020-02-11] MEDS ORDERED: BIVALIRUDIN 250 MG in SODIUM CHLORIDE 0.9% 50 ML IV ONE ×2 (07:35→08:08)
[2020-02-11] MEDS ORDERED: ADENOSINE 90 MG in SODIUM CHLORIDE 0.9% 60 ML IVP ONE (07:50)
[2020-02-11] MEDS ORDERED: IOPAMIDOL-370 100ML BTL INJ ONE (08:02)
[2020-02-11] MEDS ORDERED: CLOPIDOGREL 75 MG TAB ONE (08:17)
[2020-02-11] MEDS ORDERED: CLOPIDOGREL 75 MG TAB PO ONE (08:18)
[2020-02-11] MEDS ORDERED: IOPAMIDOL-370 50ML BTL INJ ONE (08:19)
[2020-02-11] MEDS ORDERED: NITROGLYCERIN 1000MCG/10ML SYRINGE INTRACORON ONE (08:20)
[2020-02-11] MEDS ORDERED: RX INFO: IV CONTRAST WAS GIVEN 1 EACH MISC MISCELLANE PRN (08:41)
[2020-02-11] MEDS ORDERED: ATROPINE SULFATE 0.1 MG/ML 10ML SYRINGE IV PRN (08:41)
[2020-02-11] MEDS ORDERED: MAG HYDROX/AL HYDROX/SIMETH 30 ML CUP PO PRN (08:41)
[2020-02-11] MEDS ORDERED: ALBUTEROL NEBULIZED 2.5 MG/3 ML INHALATION PRN (08:45)
[2020-02-11 08:52] LABS: Glucose,Whole Blood 194 mg/dL (75-99)
[2020-02-11] MEDS ORDERED: ONDANSETRON 4 MG/2 ML VIAL ONE (08:52)
[2020-02-11] MEDS ORDERED: ONDANSETRON 4 MG/2 ML VIAL IVP STA (09:04)
--- NOTE | 2020-02-11 09:28 | PTCA ---
PERCUTANEOUSTRANS CORORONARY ANGIOGRAPHY DATE OF SERVICE: 02/11/2020 PROCEDURES: 1. Fractional flow reserve assessment of mid LAD lesion. 2. PTCA and stenting of mid LAD lesion with a drug-eluting stent. 3. PTCA and stenting of the major diagonal branch of LAD. PERFORMED BY: Dr. Malu Cummings. Moderate conscious sedation time was 63 minutes. Patient was administered Versed. Oxygen saturation, hemodynamics and EKG were monitored closely. CLINICAL INFORMATION: Mrs. Nichole Diamond is a 49-year-old obese lady with type 2 diabetes, hypertension, hyperlipidemia, who suffered from an acute inferior SD on January 14. At that time, Dr. Yi was on-call and performed stenting of subtotally occluded RCA with an excellent result. She had significant lesions in the LAD and diagonal and was brought in for the procedure electively because of ongoing symptoms of chest pressure with mild activity. Patient probably also has underlying sleep apnea syndrome. PROCEDURE NOTE: Under local anesthesia and strict aseptic precautions, a 6-Korean introducer was placed in the right radial artery. Using a standard right Whitney catheter, I performed coronary angiography of the right coronary artery and noted that the RCA was widely patent with excellent flow. I then turned my attention to the left system. A JL3.5 guide catheter was used to cannulate the left system. Angiomax bolus and drip were started. I used a Verrata wire and crossed the wire after zeroing and balancing the wire. The wire was kept in the distal aspect of the LAD. IFR was 0.88. FFR was less than 0.78. An FFR was obtained by intravenous administration of adenosine. Because of a significant FFR, she was advised intervention. The same wire was kept in position. I used a 2.25 caliber 15 mm NC Trek balloon and pre-dilated the mid LAD lesion just after the septal branch. I then deployed an 18 mm long 2.5 caliber Xience stent at 12 atmospheres. Patient had mild chest discomfort, minimal ST elevation in the anterior leads. Excellent angiographic result was achieved. Patient received 150 mg of Plavix additionally. She was already on aspirin and Plavix since her SD in December. I then switched over to a run-through wire short wire straight wire. With this wire, I crossed the lesion in the diagonal. The diagonal had 80% mid lesion. This was addressed with a 2.5 caliber 8 mm long Xience stent. This was deployed at 11 atmospheres. Patient had mild ST elevation in one aVL and mild chest discomfort. Excellent angiographic result was achieved without complication. The sheath was then taken out and TR band applied as per protocol with saturation of the fingers of the right hand of 92%. Results were discussed with the patient and her daughter, Sjuatha. I expect the patient will be discharged tomorrow if she remains stable. She will be on dual antiplatelet therapy and I will see her in the office on February 17. Patient will be sent to the telemetry unit. HALEY / MILDRED: [id number] /
--- NOTE | 2020-02-11 09:35 | LTR ---
February 11, 2020 Re: Nichole Diamond Dear Dr. Wade: Thank you for the opportunity to participate in the care of Mrs. Diamond. Please find enclosed my detailed PTCA report. She had a widely patent RCA that was stented in December when she presented with acute ST-elevation TX. I performed stenting of the mid LAD which was significant by FFR and also a mid diagonal which is a large caliber vessel. Excellent angiographic result was achieved. I expect she will do well. I have counseled her regarding the smoking cessation, weight reduction. She will probably require a sleep study. Clinically, she seems to have a sleep apnea syndrome. I would appreciate it if you would please coordinate this. Thank you for your referral and please call for questions. With kindest regards. Sincerely yours, MD HALEY Serrano / MILDRED: [id number] /
[2020-02-11 11:26] VITALS: BMI 44.9
[2020-02-11] MEDS ORDERED: LISINOPRIL 5 MG TAB PO SCH ×2 (12:00→20:00)
[2020-02-11] MEDS: VARENICLINE 0.5 MG TAB PO SCH ×2 (12:36→20:06)
[2020-02-11] MEDS: PARoxetine 10 MG TAB PO SCH (12:37)
[2020-02-11] MEDS: CLOPIDOGREL 75 MG TAB PO SCH (12:37)
[2020-02-11] MEDS: PANTOPRAZOLE 40 MG TABLET PO SCH (12:37)
[2020-02-11] MEDS: ASPIRIN 81 MG PO SCH (12:37)
[2020-02-11 12:40] LABS: Glucose,Whole Blood 146 mg/dL (75-99)
[2020-02-11 16:37] LABS: Glucose,Whole Blood 155 mg/dL (75-99)
[2020-02-11] MEDS: SODIUM CHLORIDE 0.9% 1,000 ML IV SCH ×2 (17:21→23:19)
[2020-02-11] MEDS: SYMBICORT 80-4.5 MCG INHALER INHALATION SCH (20:16)
[2020-02-11 20:40] LABS: Glucose,Whole Blood 181 mg/dL (75-99)
[2020-02-11] MEDS ORDERED: GABAPENTIN 100 MG CAP PO SCH (21:00)
[2020-02-11] MEDS ORDERED: INSULIN DETEMIR (LEVEMIR) 100 UNIT/ML SYR SQ SCH (21:00)
[2020-02-11] MEDS ORDERED: ATORVASTATIN 80 MG TAB PO SCH (21:00)
[2020-02-12 06:01] LABS: Glucose,Whole Blood 189 mg/dL (75-99)
[2020-02-12] MEDS: INSULIN ASPART (NovoLOG) 100 UNIT/ML VIAL SQ SCH (06:44)
[2020-02-12] MEDS: PANTOPRAZOLE 40 MG TABLET PO SCH (06:46)
[2020-02-12] MEDS ORDERED: glipiZIDE 10 MG TAB PO SCH (07:30)
[2020-02-12 07:40] LABS: Basophils % (A) 1 %; Eosinophils # (A) 0.2 k/uL (0-0.7); Eosinophils % (A) 3 %; HCT 48.9 % (34.0-46.0); HGB 15.7 gm/dL (11.4-16.0); Lymphocytes # (A) 1.3 k/uL (1.0-4.8); Lymphocytes % (A) 19 %; MCH 31.5 pg (25.0-35.0); MCHC 32.1 g/dL (31.0-37.0); MCV 98.2 fL (80.0-100.0); Mean Platelet Volume 9.4; Monocytes # (A) 0.4 k/uL (0-1.0); Monocytes % (A) 6 %; Neutrophils # (A) 4.8 k/uL (1.3-7.7); Neutrophils % (A) 70 %; Platelet Count 105 k/uL (150-450); RBC 4.98 m/uL (3.80-5.40); RDW 13.8 % (11.5-15.5); WBC 6.9 k/uL (3.8-10.6)
[2020-02-12 07:52] LABS: African American GFR (CKD) >90 (>60 ml/min/1.73 sqM); Anion Gap 3 mmol/L; Blood Urea Nitrogen 19 mg/dL (7-17); Calcium 9.6 mg/dL (8.4-10.2); Carbon Dioxide 30 mmol/L (22-30); Chloride 103 mmol/L (98-107); Glucose 188 mg/dL (74-99); Non-African American GFR(CKD) >90 (>60 ml/min/1.73 sqM); Potassium 5.1 mmol/L (3.5-5.1); Sodium 136 mmol/L (137-145)
[2020-02-12] MEDS: SYMBICORT 80-4.5 MCG INHALER INHALATION SCH (07:52)
[2020-02-12] MEDS: PARoxetine 10 MG TAB PO SCH (08:32)
[2020-02-12] MEDS: CLOPIDOGREL 75 MG TAB PO SCH (08:32)
[2020-02-12] MEDS: VARENICLINE 0.5 MG TAB PO SCH (08:32)
[2020-02-12] MEDS: ASPIRIN 81 MG PO SCH (08:32)
--- NOTE | 2020-02-12 10:54 | DS ---
DISCHARGE SUMMARY DATE OF ADMISSION: 02/11/2020. DATE OF DISCHARGE: 02/12/2020. DIAGNOSES: 1. Unstable angina. 2. Type 2 diabetes. 3. Hypertension. 4. History of probable sleep apnea syndrome. CLINICAL INFORMATION: Mrs. Nichole Diamond was admitted yesterday because of symptoms of unstable angina and known significant disease in the LAD and diagonal. She underwent stenting of a RCA about a month ago when she presented with an acute inferior OR. The procedure was performed extra yesterday. She had a widely patent RCA. The LAD had a significant FFR of less than 0.78. She underwent stenting of mid LAD with a drug-eluting stent and mid diagonal with another drug-eluting stent. She is doing well. Post procedure, her right radial cath site is clean and dry with a good pulse. Vitals are stable. Labs and EKGs were reviewed. Discharge instructions regarding activity, diet and medications were given. Patient can be discharged today and she is scheduled to see me in the office next week. All discharge instructions regarding activity, diet and medications were given. MMSTEPHANIEL / FAROOQN: [id number] /
[2020-02-12 11:23] VITALS: BP 100/56; PULSE 57; RESP 20; TEMP 98
== END 2020-02-12 10:17 | disposition home or self-care (01) ==
LOC: CATHCVL 06:26 → 3SCARD 08:26 → CATHCVL 02-12 10:17
PROVIDERS: ATTEND Internal Medicine Interventional Cardiology
DX: I25.110 Atherosclerotic heart disease of native coronary artery with unstable angina pectoris (principal); I21.09 ST elevation (STEMI) myocardial infarction involving other coronary artery of anterior wall; I10 Essential (primary) hypertension; E66.01 Morbid (severe) obesity due to excess calories; E11.9 Type 2 diabetes mellitus without complications; E78.5 Hyperlipidemia, unspecified; F17.210 Nicotine dependence, cigarettes, uncomplicated; J44.9 Chronic obstructive pulmonary disease, unspecified; E78.2 Mixed hyperlipidemia; Z79.82 Long term (current) use of aspirin; Z79.02 Long term (current) use of antithrombotics/antiplatelets; Z79.4 Long term (current) use of insulin; Z79.899 Other long term (current) drug therapy; Z82.49 Family history of ischemic heart disease and other diseases of the circulatory system; Z68.41 Body mass index [BMI] 40.0-44.9, adult; Z95.5 Presence of coronary angioplasty implant and graft
CPT/HCPCS: 93571; 80048; 85025; 81025; C9600; C9601; C1887; C1725; C1769 ×2; C1874; C1894; J2250; J2405; J2001; J0583; J0153; Q9967 ×2; 93454

== ENCOUNTER 2020-07-23 12:59 | Inpatient (IN) | payer OTHER ==
[2020-07-23] MEDS ORDERED: IPRATROPIUM-ALBUTEROL 3 ML NEB INHALATION STA (13:30)
[2020-07-23 14:37] LABS: Calcium 9.4 mg/dL (8.4-10.2); Total Bilirubin 0.4 mg/dL (0.2-1.3); Total Protein 7.2 g/dL (6.3-8.2)
--- NOTE | 2020-07-23 14:40 | CT ---
EXAMINATION TYPE: CT brain cspine wo con DATE OF EXAM: 07/23/2020 COMPARISON: None HISTORY: Fall CT DLP: 2033.8 mGycm Automated exposure control for dose reduction was used. Ventricles have normal size. There is no mass effect nor midline shift. There is no sign of intracran ial hemorrhage. The calvarium is intact. There is no evidence of cerebral edema. There is normal aera tion of the mastoid sinuses. Cervical vertebra have normal alignment. There is some anterior spurring at C2-3. Exam limited slight ly by the motion. Facet joints are intact. There is no evidence of a fracture. IMPRESSION: Minor degenerative changes in the cervical spine. No fracture. Negative CT scan of the brain. No evidence of traumatic injury.
[2020-07-23 14:41] LABS: Potassium 9.4 mmol/L (3.5-5.1)
--- NOTE | 2020-07-23 14:42 | XR ---
EXAMINATION TYPE: XR chest 2V DATE OF EXAM: 07/23/2020 COMPARISON: 01/14/2020 HISTORY: Chest pain TECHNIQUE: 2 views FINDINGS: Heart is enlarged. There is mild pulmonary congestion. There is no definite pleural effusio n. There is spurring in the thoracic spine. There are no hilar masses. IMPRESSION: Cardiomegaly. Pulmonary edema is mostly cleared compared to old exam.
[2020-07-23 14:43] LABS: Partial Thromboplastin Time 24.2 sec (22.0-30.0); Prothrombin Time 10.1 sec (9.0-12.0)
[2020-07-23] MEDS ORDERED: ALBUTEROL NEB (CONC) 2.5 MG/0.5 ML INHALATION ONE (14:44)
[2020-07-23] MEDS ORDERED: CALCIUM GLUCONATE 1 GM in SODIUM CHLORIDE 0.9% 100 ML IVPB ONE ×2 (14:44→16:21)
[2020-07-23] MEDS ORDERED: INSULIN REGULAR 100 UNIT/ML VIAL IV ONE (14:44)
[2020-07-23 14:50] LABS: Basophils # (A) 0.1 k/uL (0-0.2); Basophils % (A) 1 %; Eosinophils # (A) 0.2 k/uL (0-0.7); Eosinophils % (A) 2 %; HGB 17.5 gm/dL (11.4-16.0); Hypochromasia Moderate; Lymphocytes # (A) 3.5 k/uL (1.0-4.8); Lymphocytes % (A) 26 %; MCH 31.8 pg (25.0-35.0); MCHC 31.3 g/dL (31.0-37.0); MCV 101.6 fL (80.0-100.0); Macrocytosis Slight; Mean Platelet Volume 8.6; Monocytes # (A) 0.7 k/uL (0-1.0); Monocytes % (A) 5 %; Neutrophils # (A) 8.6 k/uL (1.3-7.7); Neutrophils % (A) 65 %; Platelet Count 201 k/uL (150-450); RBC 5.51 m/uL (3.80-5.40); RDW 13.8 % (11.5-15.5); WBC 13.3 k/uL (3.8-10.6)
[2020-07-23] MEDS ORDERED: DEXTROSE 50% SYRINGE 50 ML IVP STA ×2 (14:53→20:46)
--- NOTE | 2020-07-23 15:23 | ED ---
General Adult HPI - General Source: EMS, RN notes reviewed, old records reviewed Mode of arrival: EMS Limitations: no limitations <Alban Cavazos - Last Filed: 07/23/20 16:48> <Daphne Joel - Last Filed: 07/27/20 22:48> - General Chief complaint: Weakness Stated complaint: weakness Time Seen by Provider: 07/23/20 13:18 - History of Present Illness Initial comments: 50-year-old female patient didn't see for evaluation. Patient reports that he is a general weakness the last 2 days. Patient reports that she had a fall from a standing intergluteal region. Asking her head or neck. Denies any other complaints. Patient reports that she feels like her muscles are spasming. She does have a superficial left abdominal abscess is being treated with Bactrim and amoxicillin by her primary care provider as reportedly improving. Systemic: Pt denies fatigue, fever/chills, rash. Pt denies weakness, night sweats, weight loss. Neuro: Pt denies headache, visual disturbances, syncope or pre-syncope. HEENT: Pt denies ocular discharge or irritation, otalgia, rhinorrhea, pharyngitis or notable lymphadenopathy. Cardiopulmonary: Pt denies chest pain, SOB, heart palpitations, dyspnea on exertion. Abdominal/GI: Pt denies abdominal pain, n/v/d. : Pt denies dysuria, burning w/ urination, frequency/urgency. Denies new onset urinary or bowel incontinence. MSK: Pt denies myalgia, loss of strength or function in extremities. Neuro: Pt denies paresthesias. (Alban Cavazos) - Related Data Home Medications Medication Instructions Recorded Confirmed Gabapentin [Neurontin] 100 mg PO HS 12/10/18 07/23/20 Omeprazole 20 mg PO DAILY 12/10/18 07/23/20 Albuterol Inhaler (Mhu) [Ventolin 2 puff INHALATION RT-Q6H PRN 12/13/18 07/23/20 Hfa Inhaler (Mhu)] Mometasone/Formoterol [Dulera 100 2 puff INHALATION RT-BID 12/13/18 07/23/20 Mcg-5 Mcg Inhaler] PARoxetine [Paxil] 10 mg PO DAILY 01/15/20 07/23/20 Insulin Glargine,Hum.rec.anlog 20 unit SQ HS 07/23/20 07/23/20 [Basaglar Kwikpen U-100] Metoprolol Tartrate [Lopressor] 12.5 mg PO BID 07/23/20 07/23/20 Varenicline Tartrate [Chantix 1 mg PO BID 07/23/20 07/23/20 Continuing Pack] metFORMIN HCL [Glucophage] 1,000 mg PO BID 07/23/20 07/23/20 Previous Rx's Medication Instructions Recorded Aspirin 81 mg PO DAILY #30 chew 01/18/20 Atorvastatin [Lipitor] 80 mg PO HS #30 tab 01/18/20 Clopidogrel [Plavix] 75 mg PO DAILY #30 tab 01/18/20 glipiZIDE [Glucotrol] 20 mg PO AC-BRKFST #60 tab 01/18/20 Cephalexin [Keflex] 500 mg PO Q6HR 7 Days #12 cap 07/26/20 Furosemide [Lasix] 20 mg PO DAILY #30 tab 07/26/20 Allergies Allergy/AdvReac Type Severity Reaction Status Date / Time [place] Sprouts Allergy HIVES Verified 07/23/20 18:45 Pork/Porcine Containing Allergy HIVES Verified 07/23/20 18:44 Products [Pork] Review of Systems ROS Other: All systems not noted in ROS Statement are negative. <Alban Cavazos - Last Filed: 07/23/20 16:48> ROS Other: All systems not noted in ROS Statement are negative. <Daphne Joel - Last Filed: 07/27/20 22:48> ROS Statement: Those systems with pertinent positive or pertinent negative responses have been documented in the HPI. Past Medical History Past Medical History: COPD, Diabetes Mellitus, GERD/Reflux, Hyperlipidemia, Myocardial Infarction ([place]) Additional Past Medical History / Comment(s): hpv Last Myocardial Infarction Date:: 01-15-20 History of Any Multi-Drug Resistant Organisms: None Reported Past Surgical History: Cholecystectomy, Heart Catheterization With Stent, Tonsillectomy Additional Past Surgical History / Comment(s): D&C , all teeth extracted, LASIK- BILATERAL EYES Past Anesthesia/Blood Transfusion Reactions: No Reported Reaction Date of Last Stent Placement:: 01/15/20 Past Psychological History: Depression Smoking Status: Current every day smoker Past Alcohol Use History: Rare Past Drug Use History: Marijuana - Past Family History Mother Family Medical History: Coronary Artery Disease (CAD), Hypertension Additional Family Medical History / Comment(s): lupus, diverticulitis Father Family Medical History: Coronary Artery Disease (CAD), Diabetes Mellitus, Hypertension, Myocardial Infarction ([place]) Additional Family Medical History / Comment(s): first heart attack at 40 <DirkAlban J - Last Filed: 07/23/20 16:48> General Exam Limitations: no limitations <DirkAlban Yañez - Last Filed: 07/23/20 16:48> - General Exam Comments Initial Comments: Constitutional: NAD, AOX3, Pt has pleasant affect. HEENT: NC/AT, trachea midline, neck supple, no lymphadenopathy. Posterior pharynx non erythematous, without exudates. External ears appear normal, without discharge. Mucous membranes moist. Eyes PERRLA, EOM intact. There is no scleral icterus. No pallor noted. Cardiopulmonary: RRR, no murmurs, rubs or gallops, no JVD noted. Lungs CTAB in anterior and posterior chen. No peripheral edema. Abdominal exam: Abdomen soft and non-distended. Abdomen non-tender to palpation in all 4 quadrants. Bowel sounds active in LLQ. No hepatosplenomegaly. No ecchymosis Neuro: CN II-XII intact. No nuchal rigidity. No raccon eyes, no arreaga sign, no hemotympanum. No cervical spinal tenderness. MSK: No posterior calf tenderness bilaterally, homans sign negative bilaterally. Posterior tibialis and radial pulse +2 bilaterally. Sensation intact in upper and lower extremities. Strength intact in upper and lower extremities. (Alban Cavazos) Course Vital Signs 07/23/20 07/23/20 07/23/20 13:06 13:11 13:30 Temperature 97.8 F Pulse Rate 48 L 48 L 49 L Respiratory 30 H 20 20 Rate Blood Pressure 121/69 121/69 109/60 O2 Sat by Pulse 95 95 97 Oximetry 07/23/20 07/23/20 07/23/20 13:50 14:00 14:04 Temperature Pulse Rate 50 L 47 L 50 L Respiratory 20 Rate Blood Pressure 120/71 O2 Sat by Pulse 98 Oximetry 07/23/20 07/23/20 07/23/20 15:00 15:03 15:18 Temperature Pulse Rate 50 L 51 L 52 L Respiratory 20 Rate Blood Pressure 110/66 O2 Sat by Pulse 97 Oximetry 07/23/20 07/23/20 07/23/20 15:30 16:00 16:30 Temperature Pulse Rate 55 L 52 L 50 L Respiratory 20 20 Rate Blood Pressure 112/80 103/59 121/44 O2 Sat by Pulse 97 96 97 Oximetry 07/23/20 07/23/20 07/23/20 17:00 17:30 18:00 Temperature Pulse Rate 56 L 57 L 52 L Respiratory 20 Rate Blood Pressure 117/74 111/66 125/69 O2 Sat by Pulse 99 99 Oximetry 07/23/20 07/23/20 07/23/20 18:30 18:32 19:00 Temperature 97.9 F Pulse Rate 54 L 50 L Respiratory 20 20 Rate Blood Pressure 111/58 98/59 O2 Sat by Pulse 99 98 Oximetry 07/23/20 19:30 Temperature Pulse Rate 51 L Respiratory 20 Rate Blood Pressure 120/57 O2 Sat by Pulse 98 Oximetry Medical Decision Making - Lab Data Result diagrams: 07/23/20 14:15 07/23/20 15:12 - EKG Data -: EKG Interpreted by Va (and Dr. Joel. ) <Alban Cavazos - Last Filed: 07/23/20 16:48> - Lab Data Result diagrams: 07/26/20 09:15 07/26/20 09:15 <Daphne Joel - Last Filed: 07/27/20 22:48> - Medical Decision Making 50-year-old female patient presents to ED for evaluation of muscle soreness had a fall earlier today. Patient vital signs are stable, afebrile. Physical exam displayed intact strength and sensation. Patient does have a healing left anterior abdomen abscess. That he has been taking Bactrim and amoxicillin for. Mild wheezing noted. Patient does have a white blood cell count of 13.3 greatly elevated potassium of 9.4 which was confirmed. EKG displayed junctional rhythm. Patient was initiated on hyperglycemia protocol including calcium gluconate and Kayexalate insulin, albuterol. Chest x-ray revealed cardiomegaly pulmonary edema is mostly cleared compared to old exam. Negative CT of the brain patient will be admitted to the ICU for further evaluation. Case discussed with Wisam Landrum. (Alban Cavazos) I spoke with Dr. Lebron who accepted admission into the unit. Also talked to Dr. roach who accepted admission for the patient (Daphne Joel) - Lab Data Lab Results 07/23/20 07/23/20 07/23/20 Range/Units 14:15 14:15 14:15 WBC 13.3 H (3.8-10.6) k/uL RBC 5.51 H (3.80-5.40) m/uL Hgb 17.5 H (11.4-16.0) gm/dL Hct 56.0 H (34.0-46.0) % MCV 101.6 H (80.0-100.0) fL MCH 31.8 (25.0-35.0) pg MCHC 31.3 (31.0-37.0) g/dL RDW 13.8 (11.5-15.5) % Plt Count 201 (150-450) k/uL Neutrophils % 65 % Lymphocytes % 26 % Monocytes % 5 % Eosinophils % 2 % Basophils % 1 % Neutrophils # 8.6 H (1.3-7.7) k/uL Lymphocytes # 3.5 (1.0-4.8) k/uL Monocytes # 0.7 (0-1.0) k/uL Eosinophils # 0.2 (0-0.7) k/uL Basophils # 0.1 (0-0.2) k/uL Hypochromasia Moderate Macrocytosis Slight PT 10.1 (9.0-12.0) sec INR 1.0 (<1.2) APTT 24.2 (22.0-30.0) sec Sodium 132 L (137-145) mmol/L Potassium 9.4 H* (3.5-5.1) mmol/L Chloride 105 (98-107) mmol/L Carbon Dioxide 22 (22-30) mmol/L Anion Gap 5 mmol/L BUN 18 H (7-17) mg/dL Creatinine 0.92 (0.52-1.04) mg/dL Est GFR (CKD-EPI)AfAm 85 (>60 ml/min/1.73 sqM) Est GFR (CKD-EPI)NonAf 74 (>60 ml/min/1.73 sqM) Glucose 157 H (74-99) mg/dL Calcium 9.4 (8.4-10.2) mg/dL Total Bilirubin 0.4 (0.2-1.3) mg/dL AST 36 (14-36) U/L ALT 26 (4-34) U/L Alkaline Phosphatase 66 (38-126) U/L Creatine Kinase 396 H (30-135) U/L Total Protein 7.2 (6.3-8.2) g/dL Albumin 4.0 (3.5-5.0) g/dL 07/23/20 07/23/20 Range/Units 15:12 15:12 WBC (3.8-10.6) k/uL RBC (3.80-5.40) m/uL Hgb (11.4-16.0) gm/dL Hct (34.0-46.0) % MCV (80.0-100.0) fL MCH (25.0-35.0) pg MCHC (31.0-37.0) g/dL RDW (11.5-15.5) % Plt Count (150-450) k/uL Neutrophils % % Lymphocytes % % Monocytes % % Eosinophils % % Basophils % % Neutrophils # (1.3-7.7) k/uL Lymphocytes # (1.0-4.8) k/uL Monocytes # (0-1.0) k/uL Eosinophils # (0-0.7) k/uL Basophils # (0-0.2) k/uL Hypochromasia Macrocytosis PT 9.4 (9.0-12.0) sec INR 0.9 (<1.2) APTT 22.9 (22.0-30.0) sec Sodium (137-145) mmol/L Potassium 8.9 H* (3.5-5.1) mmol/L Chloride (98-107) mmol/L Carbon Dioxide (22-30) mmol/L Anion Gap mmol/L BUN (7-17) mg/dL Creatinine (0.52-1.04) mg/dL Est GFR (CKD-EPI)AfAm (>60 ml/min/1.73 sqM) Est GFR (CKD-EPI)NonAf (>60 ml/min/1.73 sqM) Glucose (74-99) mg/dL Calcium (8.4-10.2) mg/dL Total Bilirubin (0.2-1.3) mg/dL AST (14-36) U/L ALT (4-34) U/L Alkaline Phosphatase (38-126) U/L Creatine Kinase (30-135) U/L Total Protein (6.3-8.2) g/dL Albumin (3.5-5.0) g/dL - EKG Data EKG Comments: ventricular rate 48, QRS 110, QT/QTc 426/380. Junctional rhythm. No concern for acute ischemia at this time. (Alban Cavazos) Disposition Is patient prescribed a controlled substance at d/c from ED?: No <Alban Cavazos - Last Filed: 07/23/20 16:48> <Daphne Joel - Last Filed: 07/27/20 22:48> Clinical Impression: Hyperkalemia, Skin ulceration, Diabetes Disposition: ADMITTED IP TO THIS HOSP Condition: Serious
[2020-07-23] MEDS ORDERED: SODIUM POLYSTYRENE SULFONATE 15 GM/60 ML BOTTLE PO STA ×2 (15:42→20:41)
[2020-07-23] MEDS ORDERED: SODIUM CHLORIDE 0.9% 1,000 ML IV SCH (15:45)
[2020-07-23 15:48] LABS: INR 0.9 (<1.2); Partial Thromboplastin Time 22.9 sec (22.0-30.0); Prothrombin Time 9.4 sec (9.0-12.0)
[2020-07-23] MEDS ORDERED: SODIUM CHLORIDE 0.9% 1,000 ML IV ONE (16:18)
[2020-07-23] MEDS ORDERED: NALOXONE 0.4 MG/ML 1 ML VIAL IV PRN (16:46)
[2020-07-23] MEDS ORDERED: ALBUTEROL NEB (CONC) 2.5 MG/0.5 ML INHALATION STA (16:51)
[2020-07-23] MEDS ORDERED: FUROSEMIDE 10 MG/ML 4 ML VIAL IV STA (17:13)
[2020-07-23] MEDS ORDERED: IPRATROPIUM-ALBUTEROL 3 ML NEB INHALATION PRN (18:36)
[2020-07-23 18:42] LABS: Appearance,Urine Clear (Clear); Bilirubin,Urine Negative (Negative); Blood,Urine Negative (Negative); Color,Urine Yellow; Glucose,Urine (UA) Negative (Negative); Ketones,Urine Negative (Negative); Leukocyte Esterase,Urine Negative (Negative); Nitrite,Urine Negative (Negative); PH, Urine 6.5 (5.0-8.0); Protein,Urine Negative (Negative); Specific Gravity,Urine 1.013 (1.001-1.035); Urobilinogen,Urine <2.0 mg/dL (<2.0)
[2020-07-23] MEDS ORDERED: IPRATROPIUM-ALBUTEROL 3 ML NEB INHALATION SCH ×2 (20:00)
[2020-07-23 20:04] LABS: Glucose,Whole Blood 67 mg/dL (75-99)
[2020-07-23] MEDS ORDERED: ALBUTEROL NEBULIZED 2.5 MG/3 ML INHALATION PRN (20:38)
[2020-07-23] MEDS ORDERED: SODIUM BICARB 8.4% 50 ML SYR (1 MEQ/ML) IV STA (20:40)
[2020-07-23] MEDS ORDERED: NICOTINE 14MG/24HR PATCH TRANSDERM SCH (20:45)
[2020-07-23 20:57] LABS: Calcium 9.3 mg/dL (8.4-10.2)
[2020-07-23 20:59] LABS: Potassium 8.2 mmol/L (3.5-5.1)
[2020-07-23] MEDS: GABAPENTIN 100 MG CAP PO SCH (21:29)
[2020-07-23] MEDS: ATORVASTATIN 80 MG TAB PO SCH (21:29)
[2020-07-23] MEDS: INSULIN DETEMIR (LEVEMIR) 100 UNIT/ML SYR SQ SCH (21:29)
[2020-07-23] MEDS: IPRATROPIUM-ALBUTEROL 3 ML NEB INHALATION SCH ×2 (21:30→23:43)
[2020-07-23] MEDS: INSULIN ASPART (NovoLOG) 100 UNIT/ML VIAL SQ SCH (21:30)
[2020-07-23] MEDS: DEXTROSE 5%-0.45% NACL 1,000 ML IV SCH (21:30)
[2020-07-23] MEDS: VARENICLINE 1 MG TAB PO SCH (21:34)
[2020-07-23 22:45] LABS: Glucose,Whole Blood 153 mg/dL (75-99)
--- NOTE | 2020-07-23 22:50 | P.HPIM ---
History of Present Illness H&P Date: 07/23/20 Chief Complaint: week History of presenting complaint: This is a 50-year-old patient of Dr. Wade. Chronic stable medical conditions include diabetes, GERD, hyperlipidemia, coronary artery disease with stent, depression, COPD. Patient had home just felt weak and tired and rundown on the legs.. On the muscles felt weak and aching. Head felt heavy. A weeks ago she was found to have abdominal abscess the started as a pimple that started draining. She was put on amoxicillin and Bactrim for which she took for 7 days. Denies any fever and chills. Some decrease in appetite. In the ER was found oh potassium of 9.4. Was given albuterol, calcium gluconate, 10 in severity or insulin, D50 1 amp, Kayexalate 30 g and calcium gluconate. Also 40 mg of Lasix was given. Patient put on telemetry admitted to the ICU. Patient did have quite a lot of tomatoes and cucumbers at home. Review of systems: GEN.: Tired EYES: None HEENT: None NECK: None RESPIRATORY: Wheezing CARDIOVASCULAR: None GASTROINTESTINAL: None GENITOURINARY: None MUSCULOSKELETAL: None LYMPHATICS: None HEMATOLOGICAL: None PSYCHIATRY: None NEUROLOGICAL: None Past medical history to include: COPD, diabetes, GERD, hyperlipidemia, coronary artery disease with stent, depression Social history: *Smoke is of age of 52 no pack a day now down to few cigarettes a day. Marijuana occasionally. Lives with a daughter and granddaughter Physical examination: VITAL SIGNS: 97.8, 48, 30, 1 21 x 69, 95% room air upon presentation GENERAL: [BMI 46.4, sitting up in bed, tired but awake. EYES: Pupils equal. Conjunctiva normal. HEENT: External appearance of nose and ears normal, oral cavity grossly normal. NECK: JVD not raised; masses not palpable. HEART: First and second heart sounds are normal; no edema. LUNGS: Respiratory rate increased, diminished breath sounds on wheezing. ABDOMEN: Soft, nontender, liver spleen not palpable, no masses palpable. Lower abdominal wall on the left side has a wound with slight drainage PSYCH: Alert and oriented x3; mood and affect normal. NEUROLOGICAL: Cranial nerves grossly intact; no facial asymmetry, power and sensation grossly intact. LYMPHATICS: No lymph nodes palpable in the axilla and neck INVESTIGATIONS, reviewed in the clinical context: White count 13.3 hemoglobin 7.5 platelets 201 potassium 9.4 creatinine 0.9 to Glucose 157-lead Accu-Cheks 67 UA negative EKG tracing personally reviewed by me-showing U-wave ventricular rate of 48 Chest x-ray film personally reviewed by me-some cardiomegaly bit underpenetrated film Computed tomography scan of the brain negative Assessment: -Severe hyperkalemia in a patient who is on Zestril, ate a lot of tomatoes at home. Patient has received insulin, but agonist, sodium bicarbonate, calcium gluconate and Kayexalate. -Morbid obesity BMI 46.4 -COPD in a current smoker -Chronic nicotine dependence cigarette smoker -Diabetes mellitus type 2 uncontrolled with hypoglycemia is -GERD -Hyperlipidemia Coronary artery disease stent Plan: I given further 30 g of Kayexalate. Sodium bicarbonate. Since sugars running low and start the patient on D5.45. Resume patient's home dose of Levemir. Also give amp of D50. Patient is in the ICU on telemetry. Nephrology in ambulance driver was consulted. Also DuDevinb. Nicotine patch. Care was discussed with the patient.patient put on low potassium diet. Past Medical History Past Medical History: COPD, Diabetes Mellitus, GERD/Reflux, Hyperlipidemia, Myocardial Infarction ([place]) Additional Past Medical History / Comment(s): hpv Last Myocardial Infarction Date:: 01-15-20 History of Any Multi-Drug Resistant Organisms: None Reported Past Surgical History: Cholecystectomy, Heart Catheterization With Stent, T onsillectomy Additional Past Surgical History / Comment(s): D&C , all teeth extracted, LASIK- BILATERAL EYES Past Anesthesia/Blood Transfusion Reactions: No Reported Reaction Date of Last Stent Placement:: 01/15/20 Past Psychological History: Depression Smoking Status: Current every day smoker Past Alcohol Use History: Rare Additional Past Alcohol Use History / Comment(s): STARTED SMOKING AT AGE 17 SMOKED 1PPD- TRYING TO QUIT NOW , SMOKES 3CIG A DAY Past Drug Use History: Marijuana Additional Drug Use History / Comment(s): occasional Marijuana use "less than once a month" - Past Family History Mother Family Medical History: Coronary Artery Disease (CAD), Hypertension Additional Family Medical History / Comment(s): lupus, diverticulitis Father Family Medical History: Coronary Artery Disease (CAD), Diabetes Mellitus, Hypertension, Myocardial Infarction ([place]) Additional Family Medical History / Comment(s): first heart attack at 40 Medications and Allergies Home Medications Medication Instructions Recorded Confirmed Type Gabapentin [Neurontin] 100 mg PO HS 12/10/18 07/23/20 History Omeprazole 20 mg PO DAILY 12/10/18 07/23/20 History Albuterol Inhaler (Mhu) [Ventolin 2 puff INHALATION RT-Q6H PRN 12/13/18 07/23/20 History Hfa Inhaler (Mhu)] Mometasone/Formoterol [Dulera 100 2 puff INHALATION RT-BID 12/13/18 07/23/20 History Mcg-5 Mcg Inhaler] PARoxetine [Paxil] 10 mg PO DAILY 01/15/20 07/23/20 History Aspirin 81 mg PO DAILY #30 chew 01/18/20 07/23/20 Rx Atorvastatin [Lipitor] 80 mg PO HS #30 tab 01/18/20 07/23/20 Rx Clopidogrel [Plavix] 75 mg PO DAILY #30 tab 01/18/20 07/23/20 Rx glipiZIDE [Glucotrol] 20 mg PO AC-BRKFST #60 tab 01/18/20 07/23/20 Rx Insulin Glargine,Hum.rec.anlog 20 unit SQ HS 07/23/20 07/23/20 History [Basaglar [place]pen U-100] Metoprolol Tartrate [Lopressor] 12.5 mg PO BID 07/23/20 07/23/20 History Varenicline Tartrate [Chantix 1 mg PO BID 07/23/20 07/23/20 History Continuing Pack] lisinopriL [Zestril] 5 mg PO HS 07/23/20 07/23/20 History metFORMIN HCL [Glucophage] 1,000 mg PO BID 07/23/20 07/23/20 History Allergies Allergy/AdvReac Type Severity Reaction Status Date / Time [place] Sprouts Allergy HIVES Verified 07/23/20 18:45 Pork/Porcine Containing Allergy HIVES Verified 07/23/20 18:44 Products [Pork] Physical Exam Vitals: Vital Signs Temp Pulse Resp BP Pulse Ox 07/23/20 22:00 60 16 128/63 96 07/23/20 21:30 54 L 16 128/63 96 07/23/20 21:00 66 22 100/56 94 L 07/23/20 20:30 97.9 F 49 L 13 145/78 95 07/23/20 20:14 60 07/23/20 20:05 61 07/23/20 20:02 51 L 13 07/23/20 19:30 51 L 20 120/57 98 07/23/20 19:00 50 L 20 98/59 98 07/23/20 18:32 97.9 F 07/23/20 18:30 54 L 20 111/58 99 07/23/20 18:00 52 L 20 125/69 99 07/23/20 17:30 57 L 111/66 07/23/20 17:00 56 L 117/74 99 07/23/20 16:30 50 L 121/44 97 07/23/20 16:00 52 L 20 103/59 96 07/23/20 15:30 55 L 20 112/80 97 07/23/20 15:18 52 L 07/23/20 15:03 51 L 07/23/20 15:00 50 L 20 110/66 97 07/23/20 14:04 50 L 07/23/20 14:00 47 L 20 120/71 98 07/23/20 13:50 50 L 07/23/20 13:30 49 L 20 109/60 97 07/23/20 13:11 48 L 20 121/69 95 07/23/20 13:06 97.8 F 48 L 30 H 121/69 95 Intake and Output 07/23/20 07/23/20 07/23/20 06:59 14:59 22:59 Intake Total 510 Output Total 1500 Balance -990 Intake: Intake, IV Titration 510 Amount Dextrose 5%-0.45% NaCl 1, 250 000 ml @ 125 mls/hr IV . Q8H MARIA VICTORIA Rx#:[id number] Sodium Chloride 0.9% 1, 260 000 ml @ 130 mls/hr IV . Q7H42M MARIA VICTORIA Rx#:[id number] Output: Urine 1500 Other: Voiding Method Bedside Commode # Voids 1 Weight 118.841 kg 118.841 kg Results CBC & Chem 7: 07/23/20 14:15 07/23/20 20:30 Labs: Abnormal Lab Results - Last 24 Hours (Table) 07/23/20 07/23/20 07/23/20 Range/Units 14:15 14:15 15:12 WBC 13.3 H (3.8-10.6) k/uL RBC 5.51 H (3.80-5.40) m/uL Hgb 17.5 H (11.4-16.0) gm/dL Hct 56.0 H (34.0-46.0) % MCV 101.6 H (80.0-100.0) fL Neutrophils # 8.6 H (1.3-7.7) k/uL Sodium 132 L (137-145) mmol/L Potassium 9.4 H* 8.9 H* (3.5-5.1) mmol/L Chloride (98-107) mmol/L Carbon Dioxide (22-30) mmol/L BUN 18 H (7-17) mg/dL Glucose 157 H (74-99) mg/dL POC Glucose (mg/dL) (75-99) mg/dL Creatine Kinase 396 H (30-135) U/L 07/23/20 07/23/20 Range/Units 20:03 20:30 WBC (3.8-10.6) k/uL RBC (3.80-5.40) m/uL Hgb (11.4-16.0) gm/dL Hct (34.0-46.0) % MCV (80.0-100.0) fL Neutrophils # (1.3-7.7) k/uL Sodium 132 L (137-145) mmol/L Potassium 8.2 H* (3.5-5.1) mmol/L Chloride 108 H (98-107) mmol/L Carbon Dioxide 20 L (22-30) mmol/L BUN (7-17) mg/dL Glucose (74-99) mg/dL POC Glucose (mg/dL) 67 L (75-99) mg/dL Creatine Kinase (30-135) U/L
[2020-07-24] MEDS ORDERED: FUROSEMIDE 10 MG/ML 4 ML VIAL IV SCH
[2020-07-24 00:36] LABS: Glucose,Whole Blood 139 mg/dL (75-99)
[2020-07-24 01:37] LABS: Potassium 7.4 mmol/L (3.5-5.1)
[2020-07-24] MEDS ORDERED: SODIUM POLYSTYRENE SULFONATE 15 GM/60 ML BOTTLE PO ONE (03:00)
[2020-07-24] MEDS: IPRATROPIUM-ALBUTEROL 3 ML NEB INHALATION SCH ×6 (03:15→23:28)
[2020-07-24] MEDS: DEXTROSE 5%-0.45% NACL 1,000 ML IV SCH ×3 (04:23→21:34)
[2020-07-24 05:01] LABS: Basophils # (A) 0.1 k/uL (0-0.2); Basophils % (A) 1 %; Eosinophils # (A) 0.3 k/uL (0-0.7); Eosinophils % (A) 3 %; HCT 53.7 % (34.0-46.0); HGB 16.6 gm/dL (11.4-16.0); Hypochromasia Moderate; Lymphocytes # (A) 2.7 k/uL (1.0-4.8); Lymphocytes % (A) 28 %; MCH 31.6 pg (25.0-35.0); MCHC 30.9 g/dL (31.0-37.0); MCV 102.4 fL (80.0-100.0); Macrocytosis Slight; Mean Platelet Volume 8.7; Monocytes # (A) 0.6 k/uL (0-1.0); Monocytes % (A) 6 %; Neutrophils # (A) 5.9 k/uL (1.3-7.7); Neutrophils % (A) 60 %; Platelet Count 175 k/uL (150-450); RBC 5.24 m/uL (3.80-5.40); RDW 13.8 % (11.5-15.5); WBC 9.8 k/uL (3.8-10.6)
[2020-07-24 05:25] LABS: ALT 25 U/L (4-34); AST 43 U/L (14-36); African American GFR (CKD) >90 (>60 ml/min/1.73 sqM); Albumin 3.5 g/dL (3.5-5.0); Alkaline Phosphatase 56 U/L (38-126); Anion Gap 6 mmol/L; Blood Urea Nitrogen 16 mg/dL (7-17); Calcium 9.2 mg/dL (8.4-10.2); Carbon Dioxide 23 mmol/L (22-30); Chloride 103 mmol/L (98-107); Glucose 91 mg/dL (74-99); Non-African American GFR(CKD) 78 (>60 ml/min/1.73 sqM); Sodium 132 mmol/L (137-145); Total Bilirubin 0.5 mg/dL (0.2-1.3); Total Protein 6.3 g/dL (6.3-8.2)
[2020-07-24 05:59] LABS: Potassium 6.7 mmol/L (3.5-5.1)
[2020-07-24 06:57] LABS: Glucose,Whole Blood 98 mg/dL (75-99)
[2020-07-24] MEDS: INSULIN ASPART (NovoLOG) 100 UNIT/ML VIAL SQ SCH ×4 (07:08→20:50)
[2020-07-24] MEDS: PANTOPRAZOLE 40 MG TABLET PO SCH (07:09)
[2020-07-24] MEDS: PARoxetine 10 MG TAB PO SCH (07:54)
[2020-07-24] MEDS: CLOPIDOGREL 75 MG TAB PO SCH (07:54)
[2020-07-24] MEDS: VARENICLINE 1 MG TAB PO SCH ×2 (07:58→21:34)
[2020-07-24] MEDS: ASPIRIN 81 MG PO SCH (08:12)
[2020-07-24] MEDS ORDERED: SODIUM POLYSTYRENE SULFONATE 15 GM/60 ML BOTTLE PO STA ×2 (09:07→15:36)
--- NOTE | 2020-07-24 10:41 | P.CNPUL ---
History of Present Illness Consult date: 07/24/20 Requesting physician: Sonny Cordero Reason for consult: other (Critical care management) Chief complaint: Weakness, falls History of present illness: This is a very pleasant 50-year-old female patient who follows with Dr. Wade as her primary care provider. She has a history of morbid obesity, hypertension, hyperlipidemia, coronary artery disease with multiple stent placements, ischemic cardiomyopathy with mildly impaired left ventricular systolic function ejection fraction 40-45%, chronic obstructive pulmonary disease with chronic and ongoing tobacco dependence, diabetes mellitus. She also developed an open wound on the left lower quadrant of her abdomen and was initiated on Bactrim and amoxicillin in the outpatient setting. She is on Zestril 5 mg at bedtime. Early yesterday morning when she got out of bed to attempt to the bathroom her legs gave out her significantly weak and she fell to the ground. After several minutes she attempted to stand up and was still having trouble with extreme weakness and muscle cramping of the lower extremities and was brought here to the emergency room for the same. Her EKG revealed a junctional rhythm. Her potassium was 9.4 on admission. Sodium 132. Creatinine 0.92. Glucose 153. She was admitted to the intensive care unit. She did receive Kayexalate 30 g 3 doses. She received an amp of sodium bicarb. Insulin. Calcium gluconate. IV Lasix. She is seen today in consultation in the ICU. She is currently awake and alert in no acute distress. She denies any chest pain, palpitations lightheadedness or dizziness. No shortness of breath, cough or congestion. He remains bradycardic in the 50s. She's been afebrile. Maintaining O2 saturation the upper 90s on 4 L nasal cannula. Abdominal wound culture pending. White count 9.8. Hemoglobin 16.6. Sodium 132. Potassium 6.7. Chloride 103. Bicarb 23. Creatinine 0.88. She is on D5 and half-normal saline at 125 ML's per hour. Chest x-ray revealed cardiomegaly, improving pulmonary edema that was noted back in December 2019. Review of Systems REVIEW OF SYSTEMS: CONSTITUTIONAL: Denies any recent significant weight loss or weight gain. EYES: Denies change in vision. EARS, NOSE, MOUTH, THROAT: Denies headaches, denies sore throat. CARDIOVASCULAR: Denies chest pain, palpitations or syncopal episodes. RESPIRATORY: Positive for shortness of breath, cough, congestion or hemoptysis. GASTROINTESTINAL: Denies change in appetite, denies abdominal pain GENITOURINARY: Denies hematuria, denies infections. MUSKULOSKELETAL: Positive for extreme weakness, muscle cramping. INTEGUMENTARY: Positive for open wound draining in the left lower quadrant of the abdomen. NEUROLOGICAL: Denies recent memory loss, no recent seizure activity. PSYCHIATRIC: Denies anxiety, denies depression. HEMATOLOGIC/LYMPHATIC: Denies anemia, denies enlarged lymph nodes. Past Medical History Past Medical History: COPD, Diabetes Mellitus, GERD/Reflux, Hyperlipidemia, Myocardial Infarction ([place]) Additional Past Medical History / Comment(s): hpv Last Myocardial Infarction Date:: 01-15-20 History of Any Multi-Drug Resistant Organisms: None Reported Past Surgical History: Cholecystectomy, Heart Catheterization With Stent, T onsillectomy Additional Past Surgical History / Comment(s): D&C , all teeth extracted, LASIK- BILATERAL EYES Past Anesthesia/Blood Transfusion Reactions: No Reported Reaction Date of Last Stent Placement:: 01/15/20 Past Psychological History: Depression Smoking Status: Current every day smoker Past Alcohol Use History: Rare Additional Past Alcohol Use History / Comment(s): STARTED SMOKING AT AGE 17 SMOKED 1PPD- TRYING TO QUIT NOW , SMOKES 3CIG A DAY Past Drug Use History: Marijuana Additional Drug Use History / Comment(s): occasional Marijuana use "less than once a month" - Past Family History Mother Family Medical History: Coronary Artery Disease (CAD), Hypertension Additional Family Medical History / Comment(s): lupus, diverticulitis Father Family Medical History: Coronary Artery Disease (CAD), Diabetes Mellitus, Hypertension, Myocardial Infarction ([place]) Additional Family Medical History / Comment(s): first heart attack at 40 Medications and Allergies Home Medications Medication Instructions Recorded Confirmed Type Gabapentin [Neurontin] 100 mg PO HS 12/10/18 07/23/20 History Omeprazole 20 mg PO DAILY 12/10/18 07/23/20 History Albuterol Inhaler (Mhu) [Ventolin 2 puff INHALATION RT-Q6H PRN 12/13/18 07/23/20 History Hfa Inhaler (Mhu)] Mometasone/Formoterol [Dulera 100 2 puff INHALATION RT-BID 12/13/18 07/23/20 History Mcg-5 Mcg Inhaler] PARoxetine [Paxil] 10 mg PO DAILY 01/15/20 07/23/20 History Aspirin 81 mg PO DAILY #30 chew 01/18/20 07/23/20 Rx Atorvastatin [Lipitor] 80 mg PO HS #30 tab 01/18/20 07/23/20 Rx Clopidogrel [Plavix] 75 mg PO DAILY #30 tab 01/18/20 07/23/20 Rx glipiZIDE [Glucotrol] 20 mg PO AC-BRKFST #60 tab 01/18/20 07/23/20 Rx Insulin Glargine,Hum.rec.anlog 20 unit SQ HS 07/23/20 07/23/20 History [Basaglar Ashleypen U-100] Metoprolol Tartrate [Lopressor] 12.5 mg PO BID 07/23/20 07/23/20 History Varenicline Tartrate [Chantix 1 mg PO BID 07/23/20 07/23/20 History Continuing Pack] lisinopriL [Zestril] 5 mg PO HS 07/23/20 07/23/20 History metFORMIN HCL [Glucophage] 1,000 mg PO BID 07/23/20 07/23/20 History Allergies Allergy/AdvReac Type Severity Reaction Status Date / Time [place] Sprouts Allergy HIVES Verified 07/23/20 18:45 Pork/Porcine Containing Allergy HIVES Verified 07/23/20 18:44 Products [Pork] Physical Exam Vitals: Vital Signs Temp Pulse Resp BP Pulse Ox 07/24/20 09:30 57 L 11 L 124/67 94 L 07/24/20 09:00 54 L 17 135/68 98 07/24/20 08:30 62 14 120/69 98 07/24/20 08:19 62 07/24/20 08:09 56 L 07/24/20 08:00 97.5 F L 58 L 7 L 103/52 97 07/24/20 07:30 60 18 107/54 96 07/24/20 07:00 55 L 12 116/71 97 07/24/20 06:30 57 L 14 110/47 92 L 07/24/20 06:00 53 L 11 L 104/52 96 07/24/20 05:30 54 L 19 98/57 96 07/24/20 05:00 53 L 11 L 96/59 97 07/24/20 04:30 55 L 14 122/76 96 07/24/20 04:00 97.9 F 52 L 15 116/73 95 07/24/20 03:30 64 19 103/64 95 07/24/20 03:00 53 L 15 119/70 96 07/24/20 02:30 55 L 15 94/52 93 L 07/24/20 02:00 62 13 97/52 94 L 07/24/20 01:30 60 14 95/61 96 07/24/20 01:00 58 L 13 103/55 96 07/24/20 00:30 60 15 92 L 07/24/20 00:12 58 L 15 93 L 07/24/20 00:00 98 F 68 21 113/67 95 07/23/20 23:51 61 07/23/20 23:43 66 07/23/20 23:30 52 L 13 113/67 95 07/23/20 23:00 53 L 15 108/62 96 07/23/20 22:30 52 L 15 108/62 98 07/23/20 22:00 60 16 128/63 96 07/23/20 21:30 54 L 16 128/63 96 07/23/20 21:00 66 22 100/56 94 L 07/23/20 20:30 97.9 F 49 L 13 145/78 95 07/23/20 20:14 60 07/23/20 20:05 61 07/23/20 20:02 51 L 13 07/23/20 19:30 51 L 20 120/57 98 07/23/20 19:00 50 L 20 98/59 98 07/23/20 18:32 97.9 F 07/23/20 18:30 54 L 20 111/58 99 07/23/20 18:00 52 L 20 125/69 99 07/23/20 17:30 57 L 111/66 07/23/20 17:00 56 L 117/74 99 07/23/20 16:30 50 L 121/44 97 07/23/20 16:00 52 L 20 103/59 96 07/23/20 15:30 55 L 20 112/80 97 07/23/20 15:18 52 L 07/23/20 15:03 51 L 07/23/20 15:00 50 L 20 110/66 97 07/23/20 14:04 50 L 07/23/20 14:00 47 L 20 120/71 98 07/23/20 13:50 50 L 07/23/20 13:30 49 L 20 109/60 97 07/23/20 13:11 48 L 20 121/69 95 07/23/20 13:06 97.8 F 48 L 30 H 121/69 95 Intake and Output 07/23/20 07/24/20 07/24/20 22:59 06:59 14:59 Intake Total 510 1000 375 Output Total 9109 862 5104 Balance -990 600 -1525 Intake: Intake, IV Titration 510 1000 375 Amount Dextrose 5%-0.45% NaCl 1, 250 1000 375 000 ml @ 125 mls/hr IV . Q8H MARIA VICTORIA Rx#:[id number] Sodium Chloride 0.9% 1, 260 000 ml @ 130 mls/hr IV . Q7H42M MARIA VICTORIA Rx#:[id number] Output: Urine [id number] Other: Voiding Method Bedside Commode Bedside Commode Bedside Commode # Voids 1 1 Weight 118.841 kg 118 kg GENERAL EXAM: Alert, pleasant morbidly obese 50-year-old female patient, on 4 L nasal cannula, comfortable in no apparent distress. HEAD: Normocephalic. EYES: Normal reaction of pupils, equal size. NOSE: Clear with pink turbinates. THROAT: Crowding of the posterior pharynx. No erythema or exudates. NECK: Short. No masses, no JVD. CHEST: No chest wall deformity. LUNGS: Equal air entry with no crackles, wheeze, rhonchi or dullness. CVS: S1 and S2 normal with no audible murmur, bradycardic. ABDOMEN: Morbidly obese, open wound with drainage in the left lower quadrant, normal bowel sounds, no guarding or rigidity. SPINE: No scoliosis or deformity SKIN: No rashes CENTRAL NERVOUS SYSTEM: No focal deficits, tone is normal in all 4 extremities. EXTREMITIES: There is trace peripheral edema. No clubbing, no cyanosis. Peripheral pulses are intact. Results - Laboratory Findings CBC and BMP: 07/24/20 04:36 07/24/20 04:36 PT/INR, D-dimer PT 9.4 sec (9.0-12.0) 07/23/20 15:12 INR 0.9 (<1.2) 07/23/20 15:12 Abnormal lab findings: Abnormal Labs 07/23/20 07/23/20 07/23/20 14:15 14:15 15:12 WBC 13.3 H RBC 5.51 H Hgb 17.5 H Hct 56.0 H MCV 101.6 H MCHC Neutrophils # 8.6 H Sodium 132 L Potassium 9.4 H* 8.9 H* Chloride Carbon Dioxide BUN 18 H Glucose 157 H POC Glucose (mg/dL) AST Creatine Kinase 396 H 07/23/20 07/23/20 07/23/20 20:03 20:30 22:43 WBC RBC Hgb Hct MCV MCHC Neutrophils # Sodium 132 L Potassium 8.2 H* Chloride 108 H Carbon Dioxide 20 L BUN Glucose POC Glucose (mg/dL) 67 L 153 H AST Creatine Kinase 07/24/20 07/24/20 07/24/20 00:23 00:35 04:36 WBC RBC Hgb 16.6 H Hct 53.7 H MCV 102.4 H MCHC 30.9 L Neutrophils # Sodium 131 L Potassium 7.4 H* Chloride Carbon Dioxide 18 L BUN Glucose 135 H POC Glucose (mg/dL) 139 H AST Creatine Kinase 07/24/20 04:36 WBC RBC Hgb Hct MCV MCHC Neutrophils # Sodium 132 L Potassium 6.7 H* Chloride Carbon Dioxide BUN Glucose POC Glucose (mg/dL) AST 43 H Creatine Kinase - Diagnostic Findings Chest x-ray: image reviewed Assessment and Plan Assessment: 1 Extreme weakness and fall secondary to significant hyperkalemia with presenting potassium of 9.4, treated currently at 6.7 2 Hyperkalemia of unclear etiology. The patient has been on a small dose of Zestril. Normal renal function. 3 Abdominal wound of the left lower quadrant, recently started on Bactrim and amoxicillin 4 Chronic obstructive pulmonary disease 5 Chronic tobacco dependence, marijuana use. Recently started on Chantix 6 Morbid obesity with suspected obstructive sleep apnea 7 Coronary artery disease with previous stent placements 4 8 Diabetes mellitus, type II 9 Hypertension 10 Hyperlipidemia Plan: The patient was seen and evaluated by Dr. Lebron Chest x-ray and labs reviewed Continue with Kayexalate Continue to monitor potassium Continue to monitor cardiac rhythm Educated regarding importance of complete smoking cessation Would benefit from outpatient sleep study Await wound culture results Add Ancef for now We'll continue to follow and make further recommendations based on her clinical status I, the cosigning physician, performed a history & physical examination of the patient. Lungs sounds are clear. Maintaining good O2 saturations in the 90s on 4 L/m per nasal cannula. I discussed the assessment and plan of care with my nurse practitioner, Vivien Parson. I attest to the above consultation as dictated by her.
--- NOTE | 2020-07-24 11:02 | P.GSCN ---
History of Present Illness Consult date: 07/24/20 Reason for Consult: Infection of the skin left lower quadrant History of present illness: The patient has had an infection of the skin in the left lower quadrant of her abdomen for some time. She seen her primary care physician and is been on 2 different antibiotics and hasn't resolved. Currently the patient's in ICU due to severe hyperkalemia which has improved. Review of Systems All systems: negative Past Medical History Past Medical History: COPD, Diabetes Mellitus, GERD/Reflux, Hyperlipidemia, Myocardial Infarction ([place]) Additional Past Medical History / Comment(s): hpv Last Myocardial Infarction Date:: 01-15-20 History of Any Multi-Drug Resistant Organisms: None Reported Past Surgical History: Cholecystectomy, Heart Catheterization With Stent, Tons illectomy Additional Past Surgical History / Comment(s): D&C , all teeth extracted, LASIK- BILATERAL EYES Past Anesthesia/Blood Transfusion Reactions: No Reported Reaction Date of Last Stent Placement:: 01/15/20 Past Psychological History: Depression Smoking Status: Current every day smoker Past Alcohol Use History: Rare Additional Past Alcohol Use History / Comment(s): STARTED SMOKING AT AGE 17 SMOKED 1PPD- TRYING TO QUIT NOW , SMOKES 3CIG A DAY Past Drug Use History: Marijuana Additional Drug Use History / Comment(s): occasional Marijuana use "less than once a month" - Past Family History Mother Family Medical History: Coronary Artery Disease (CAD), Hypertension Additional Family Medical History / Comment(s): lupus, diverticulitis Father Family Medical History: Coronary Artery Disease (CAD), Diabetes Mellitus, Hypertension, Myocardial Infarction ([place]) Additional Family Medical History / Comment(s): first heart attack at 40 Medications and Allergies Home Medications Medication Instructions Recorded Confirmed Type Gabapentin [Neurontin] 100 mg PO HS 12/10/18 07/23/20 History Omeprazole 20 mg PO DAILY 12/10/18 07/23/20 History Albuterol Inhaler (Mhu) [Ventolin 2 puff INHALATION RT-Q6H PRN 12/13/18 07/23/20 History Hfa Inhaler (Mhu)] Mometasone/Formoterol [Dulera 100 2 puff INHALATION RT-BID 12/13/18 07/23/20 History Mcg-5 Mcg Inhaler] PARoxetine [Paxil] 10 mg PO DAILY 01/15/20 07/23/20 History Aspirin 81 mg PO DAILY #30 chew 01/18/20 07/23/20 Rx Atorvastatin [Lipitor] 80 mg PO HS #30 tab 01/18/20 07/23/20 Rx Clopidogrel [Plavix] 75 mg PO DAILY #30 tab 01/18/20 07/23/20 Rx glipiZIDE [Glucotrol] 20 mg PO AC-BRKFST #60 tab 01/18/20 07/23/20 Rx Insulin Glargine,Hum.rec.anlog 20 unit SQ HS 07/23/20 07/23/20 History [Basaglar Kwikpen U-100] Metoprolol Tartrate [Lopressor] 12.5 mg PO BID 07/23/20 07/23/20 History Varenicline Tartrate [Chantix 1 mg PO BID 07/23/20 07/23/20 History Continuing Pack] lisinopriL [Zestril] 5 mg PO HS 07/23/20 07/23/20 History metFORMIN HCL [Glucophage] 1,000 mg PO BID 07/23/20 07/23/20 History Allergies Allergy/AdvReac Type Severity Reaction Status Date / Time [place] Sprouts Allergy HIVES Verified 07/23/20 18:45 Pork/Porcine Containing Allergy HIVES Verified 07/23/20 18:44 Products [Pork] Surgical - Exam Osteopathic Statement: *. No significant issues noted on an osteopathic structural exam other than those noted in the History and Physical/Consult. Vital Signs Temp Pulse Resp BP Pulse Ox 97.8 F 48 L 30 H 121/69 95 07/23/20 13:06 07/23/20 13:06 07/23/20 13:06 07/23/20 13:06 07/23/20 13:06 - General well developed, well nourished, no distress, obese - Integumentary There is an area of skin ulceration and skin necrosis in the left lower quadrant about 1 x 3 cm. It superficial. No significant surrounding cellulitis. No undrained abscess. There is quite a bit of fibrinous slough in the area Results - Labs 07/24/20 04:36 07/24/20 04:36 Abnormal Lab Results - Last 24 Hours (Table) 07/23/20 07/23/20 07/23/20 Range/Units 14:15 14:15 15:12 WBC 13.3 H (3.8-10.6) k/uL RBC 5.51 H (3.80-5.40) m/uL Hgb 17.5 H (11.4-16.0) gm/dL Hct 56.0 H (34.0-46.0) % MCV 101.6 H (80.0-100.0) fL MCHC (31.0-37.0) g/dL Neutrophils # 8.6 H (1.3-7.7) k/uL Sodium 132 L (137-145) mmol/L Potassium 9.4 H* 8.9 H* (3.5-5.1) mmol/L Chloride (98-107) mmol/L Carbon Dioxide (22-30) mmol/L BUN 18 H (7-17) mg/dL Glucose 157 H (74-99) mg/dL POC Glucose (mg/dL) (75-99) mg/dL AST (14-36) U/L Creatine Kinase 396 H (30-135) U/L 07/23/20 07/23/20 07/23/20 Range/Units 20:03 20:30 22:43 WBC (3.8-10.6) k/uL RBC (3.80-5.40) m/uL Hgb (11.4-16.0) gm/dL Hct (34.0-46.0) % MCV (80.0-100.0) fL MCHC (31.0-37.0) g/dL Neutrophils # (1.3-7.7) k/uL Sodium 132 L (137-145) mmol/L Potassium 8.2 H* (3.5-5.1) mmol/L Chloride 108 H (98-107) mmol/L Carbon Dioxide 20 L (22-30) mmol/L BUN (7-17) mg/dL Glucose (74-99) mg/dL POC Glucose (mg/dL) 67 L 153 H (75-99) mg/dL AST (14-36) U/L Creatine Kinase (30-135) U/L 07/24/20 07/24/20 07/24/20 Range/Units 00:23 00:35 04:36 WBC (3.8-10.6) k/uL RBC (3.80-5.40) m/uL Hgb 16.6 H (11.4-16.0) gm/dL Hct 53.7 H (34.0-46.0) % MCV 102.4 H (80.0-100.0) fL MCHC 30.9 L (31.0-37.0) g/dL Neutrophils # (1.3-7.7) k/uL Sodium 131 L (137-145) mmol/L Potassium 7.4 H* (3.5-5.1) mmol/L Chloride (98-107) mmol/L Carbon Dioxide 18 L (22-30) mmol/L BUN (7-17) mg/dL Glucose 135 H (74-99) mg/dL POC Glucose (mg/dL) 139 H (75-99) mg/dL AST (14-36) U/L Creatine Kinase (30-135) U/L 07/24/20 Range/Units 04:36 WBC (3.8-10.6) k/uL RBC (3.80-5.40) m/uL Hgb (11.4-16.0) gm/dL Hct (34.0-46.0) % MCV (80.0-100.0) fL MCHC (31.0-37.0) g/dL Neutrophils # (1.3-7.7) k/uL Sodium 132 L (137-145) mmol/L Potassium 6.7 H* (3.5-5.1) mmol/L Chloride (98-107) mmol/L Carbon Dioxide (22-30) mmol/L BUN (7-17) mg/dL Glucose (74-99) mg/dL POC Glucose (mg/dL) (75-99) mg/dL AST 43 H (14-36) U/L Creatine Kinase (30-135) U/L Microbiology - Last 24 Hours (Table) 07/23/20 15:34 Gram Stain - Preliminary Abdomen Wound Culture - Preliminary Diabetes panel 07/23/20 07/23/20 07/23/20 Range/Units 14:15 15:12 20:30 Sodium 132 L 132 L (137-145) mmol/L Potassium 9.4 H* 8.9 H* 8.2 H* (3.5-5.1) mmol/L Chloride 105 108 H (98-107) mmol/L Carbon Dioxide 22 20 L (22-30) mmol/L BUN 18 H 17 (7-17) mg/dL Creatinine 0.92 0.92 (0.52-1.04) mg/dL Glucose 157 H 98 (74-99) mg/dL Calcium 9.4 9.3 (8.4-10.2) mg/dL AST 36 (14-36) U/L ALT 26 (4-34) U/L Alkaline Phosphatase 66 (38-126) U/L Total Protein 7.2 (6.3-8.2) g/dL Albumin 4.0 (3.5-5.0) g/dL 07/24/20 07/24/20 Range/Units 00:23 04:36 Sodium 131 L 132 L (137-145) mmol/L Potassium 7.4 H* 6.7 H* (3.5-5.1) mmol/L Chloride 105 103 (98-107) mmol/L Carbon Dioxide 18 L 23 (22-30) mmol/L BUN 17 16 (7-17) mg/dL Creatinine 0.89 0.88 (0.52-1.04) mg/dL Glucose 135 H 91 (74-99) mg/dL Calcium 9.0 9.2 (8.4-10.2) mg/dL AST 43 H (14-36) U/L ALT 25 (4-34) U/L Alkaline Phosphatase 56 (38-126) U/L Total Protein 6.3 (6.3-8.2) g/dL Albumin 3.5 (3.5-5.0) g/dL Calcium panel 07/23/20 07/23/20 07/24/20 Range/Units 14:15 20:30 00:23 Calcium 9.4 9.3 9.0 (8.4-10.2) mg/dL Albumin 4.0 (3.5-5.0) g/dL 07/24/20 Range/Units 04:36 Calcium 9.2 (8.4-10.2) mg/dL Albumin 3.5 (3.5-5.0) g/dL Pituitary panel 07/23/20 07/23/20 07/23/20 Range/Units 14:15 15:12 20:30 Sodium 132 L 132 L (137-145) mmol/L Potassium 9.4 H* 8.9 H* 8.2 H* (3.5-5.1) mmol/L Chloride 105 108 H (98-107) mmol/L Carbon Dioxide 22 20 L (22-30) mmol/L BUN 18 H 17 (7-17) mg/dL Creatinine 0.92 0.92 (0.52-1.04) mg/dL Glucose 157 H 98 (74-99) mg/dL Calcium 9.4 9.3 (8.4-10.2) mg/dL 07/24/20 07/24/20 Range/Units 00:23 04:36 Sodium 131 L 132 L (137-145) mmol/L Potassium 7.4 H* 6.7 H* (3.5-5.1) mmol/L Chloride 105 103 (98-107) mmol/L Carbon Dioxide 18 L 23 (22-30) mmol/L BUN 17 16 (7-17) mg/dL Creatinine 0.89 0.88 (0.52-1.04) mg/dL Glucose 135 H 91 (74-99) mg/dL Calcium 9.0 9.2 (8.4-10.2) mg/dL Adrenal panel 07/23/20 07/23/20 07/23/20 Range/Units 14:15 15:12 20:30 Sodium 132 L 132 L (137-145) mmol/L Potassium 9.4 H* 8.9 H* 8.2 H* (3.5-5.1) mmol/L Chloride 105 108 H (98-107) mmol/L Carbon Dioxide 22 20 L (22-30) mmol/L BUN 18 H 17 (7-17) mg/dL Creatinine 0.92 0.92 (0.52-1.04) mg/dL Glucose 157 H 98 (74-99) mg/dL Calcium 9.4 9.3 (8.4-10.2) mg/dL Total Bilirubin 0.4 (0.2-1.3) mg/dL AST 36 (14-36) U/L ALT 26 (4-34) U/L Alkaline Phosphatase 66 (38-126) U/L Total Protein 7.2 (6.3-8.2) g/dL Albumin 4.0 (3.5-5.0) g/dL 07/24/20 07/24/20 Range/Units 00:23 04:36 Sodium 131 L 132 L (137-145) mmol/L Potassium 7.4 H* 6.7 H* (3.5-5.1) mmol/L Chloride 105 103 (98-107) mmol/L Carbon Dioxide 18 L 23 (22-30) mmol/L BUN 17 16 (7-17) mg/dL Creatinine 0.89 0.88 (0.52-1.04) mg/dL Glucose 135 H 91 (74-99) mg/dL Calcium 9.0 9.2 (8.4-10.2) mg/dL Total Bilirubin 0.5 (0.2-1.3) mg/dL AST 43 H (14-36) U/L ALT 25 (4-34) U/L Alkaline Phosphatase 56 (38-126) U/L Total Protein 6.3 (6.3-8.2) g/dL Albumin 3.5 (3.5-5.0) g/dL Assessment and Plan (1) Skin ulceration Current Visit: Yes Status: Acute Code(s): L98.499 - NON-PRESSURE CHRONIC ULCER OF SKIN OF SITES W UNSP SEVERITY SNOMED Code(s): 24200220 Plan: No evidence of undrained abscess causing this. I recommend topical care to chemically debride the fibrinous slough then Aquacel Ag till the area heals. She can follow-up with the wound clinic
[2020-07-24] MEDS: COLLAGENASE 250 UNIT/GM OINTMENT 30 GM TUBE TOPICAL SCH (11:38)
[2020-07-24 11:58] LABS: Glucose,Whole Blood 191 mg/dL (75-99)
--- NOTE | 2020-07-24 14:15 | P.PN ---
Progress Note - Text Progress Note Date: 07/24/20 Chief Complaint: week History of presenting complaint: This is a 50-year-old patient of Dr. Wade. Chronic stable medical conditions include diabetes, GERD, hyperlipidemia, coronary artery disease with stent, depression, COPD. Patient had home just felt weak and tired and rundown on the legs.. On the muscles felt weak and aching. Head felt heavy. A weeks ago she was found to have abdominal abscess the started as a pimple that started draining. She was put on amoxicillin and Bactrim for which she took for 7 days. Denies any fever and chills. Some decrease in appetite. In the ER was found oh potassium of 9.4. Was given albuterol, calcium gluconate, 10 in severity or insulin, D50 1 amp, Kayexalate 30 g and calcium gluconate. Also 40 mg of Lasix was given. Patient put on telemetry admitted to the ICU. Patient did have quite a lot of tomatoes and cucumbers at home. Today-in the ICU. Sitting on bed. Tolerating a diet. Accu-Cheks have come down. Potassium is started to come down. More Kayexalate given this morning by burnisher and bumper. Breathing better. Review of systems: Was done for constitutional, cardiovascular, GI, pulmonary. relevant finding as above Active Medications Albuterol/Ipratropium (Duoneb 0.5 Mg-3 Mg/3 Ml Soln) 3 ml INHALATION RT-Q2H PRN PRN Reason: Shortness Of Breath Or Wheezing Albuterol/Ipratropium (Duoneb 0.5 Mg-3 Mg/3 Ml Soln) 3 ml INHALATION RT-Q4H [facility] Last Admin: 07/24/20 11:08 Dose: 3 ml Documented by: Aspirin (Aspirin) 81 mg PO DAILY [facility] Last Admin: 07/24/20 08:12 Dose: 81 mg Documented by: Atorvastatin Calcium (Lipitor) [address] [facility] Last Admin: 07/23/20 21:29 Dose: 80 mg Documented by: Clopidogrel Bisulfate (Plavix) 75 mg PO DAILY [facility] Last Admin: 07/24/20 07:54 Dose: 75 mg Documented by: Collagenase (Santyl) 1 applic TOPICAL DAILY [facility] Last Admin: 07/24/20 11:38 Dose: 1 applic Documented by: Gabapentin (Neurontin) [address] [facility] Last Admin: 07/23/20 21:29 Dose: 100 mg Documented by: Dextrose/Sodium Chloride (Dextrose 5%-1/2ns Iv Soln) 1,000 mls @ 125 mls/hr IV .Q8H [facility] Last Admin: 07/24/20 14:10 Dose: Not Given Documented by: Cefazolin Sodium 1,000 mg/ (Sodium Chloride) 50 mls @ 100 mls/hr IVPB Q8HR [facility] Last Admin: 07/24/20 11:37 Dose: 100 mls/hr Documented by: Insulin Aspart (Novolog) 0 unit SQ [facility]; Protocol Last Admin: 07/24/20 11:58 Dose: 3 unit Documented by: Insulin Detemir (Levemir) [address] [facility] Last Admin: 07/23/20 21:29 Dose: 20 unit Documented by: Naloxone HCl (Narcan) 0.2 mg IV Q2M PRN PRN Reason: Opioid Reversal Pantoprazole Sodium (Protonix) 40 mg PO AC-BRKFST [facility] Last Admin: 07/24/20 07:09 Dose: 40 mg Documented by: Paroxetine HCl (Paxil) 10 mg PO DAILY [facility] Last Admin: 07/24/20 07:54 Dose: 10 mg Documented by: Varenicline (Chantix) 1 mg PO BID [facility] Last Admin: 07/24/20 07:58 Dose: 1 mg Documented by: Physical examination: VITAL SIGNS: 98.1, 66, 14, 122/65, 94% GENERAL: Sitting up on the bed, eating. EYES: Pupils equal. Conjunctiva normal. HEENT: External appearance of nose and ears normal, oral cavity grossly normal. NECK: JVD not raised; masses not palpable. HEART: First and second heart sounds are normal; no edema. LUNGS: Respiratory rate increased, diminished breath sounds ABDOMEN: Soft, nontender, liver spleen not palpable, no masses palpable. Lower abdominal wall on the left side has a wound with slight drainage PSYCH: Alert and oriented x3; mood and affect normal. INVESTIGATIONS, reviewed in the clinical context: White count 9.8 hemoglobin 16.6 potassium 6.7 creatinine 0.88 Accu-Cheks 98, 191 Previous testing White count 13.3 hemoglobin 7.5 platelets 201 potassium 9.4 creatinine 0.9 to Glucose 157-lead Accu-Cheks 67 UA negative EKG tracing personally reviewed by me-showing U-wave ventricular rate of 48 Chest x-ray film personally reviewed by me-some cardiomegaly bit underpenetrated film Computed tomography scan of the brain negative Assessment: -Severe hyperkalemia in a patient who is on Zestril, ate a lot of tomatoes at home.-Slow to respond -Morbid obesity BMI 46.4 -COPD in a current smoker -Chronic nicotine dependence cigarette smoker -Diabetes mellitus type 2 uncontrolled with hypoglycemia is -GERD -Hyperlipidemia Coronary artery disease stent -Left anterior abdominal wall [id number] ulcer Plan: Kayexalate was repeated. Accu-Cheks coming on. Continue his insulin. Keep the patient on a low potassium diet. Seen by Dr. Blevins from general surgery for Aquacel silver wound dressing. Continue close monitoring.
--- NOTE | 2020-07-24 14:36 | P.NPCON ---
History of Present Illness - Reason for Consult Consult date: 07/24/20 hyperkalemia - Chief Complaint Weakness - History of Present Illness 50-year-old female coming to the hospital with the above complaints. On presentation she had a serum potassium of 9.4, treated medically and transferred to ICU. She has history of diabetes, denies any urinary retention. She had abdominal wound for which she was taking amoxicillin and Bactrim. She also takes lisinopril at home. No history of NSAID use. No recent contrast studies. No potassium supplements. She was treated medically while in the ICU, latest potassium is vest front presser around 6.6. No chest pain shortness of breath or palpitations. Review of Systems Constitutional: Reports as per HPI Past Medical History Past Medical History: COPD, Diabetes Mellitus, GERD/Reflux, Hyperlipidemia, Myocardial Infarction ([place]) Additional Past Medical History / Comment(s): hpv Last Myocardial Infarction Date:: 01-15-20 History of Any Multi-Drug Resistant Organisms: None Reported Past Surgical History: Cholecystectomy, Heart Catheterization With Stent, Tonsillectomy Additional Past Surgical History / Comment(s): D&C , all teeth extracted, LASIK- BILATERAL EYES Past Anesthesia/Blood Transfusion Reactions: No Reported Reaction Date of Last Stent Placement:: 01/15/20 Past Psychological History: Depression Smoking Status: Current every day smoker Past Alcohol Use History: Rare Additional Past Alcohol Use History / Comment(s): STARTED SMOKING AT AGE 17 SMOKED 1PPD- TRYING TO QUIT NOW , SMOKES 3CIG A DAY Past Drug Use History: Marijuana Additional Drug Use History / Comment(s): occasional Marijuana use "less than once a month" - Past Family History Mother Family Medical History: Coronary Artery Disease (CAD), Hypertension Additional Family Medical History / Comment(s): lupus, diverticulitis Father Family Medical History: Coronary Artery Disease (CAD), Diabetes Mellitus, Hypertension, Myocardial Infarction ([place]) Additional Family Medical History / Comment(s): first heart attack at 40 Medications and Allergies Home Medications Medication Instructions Recorded Confirmed Type Gabapentin [Neurontin] 100 mg PO HS 12/10/18 07/23/20 History Omeprazole 20 mg PO DAILY 12/10/18 07/23/20 History Albuterol Inhaler (Mhu) [Ventolin 2 puff INHALATION RT-Q6H PRN 12/13/18 07/23/20 History Hfa Inhaler (Mhu)] Mometasone/Formoterol [Dulera 100 2 puff INHALATION RT-BID 12/13/18 07/23/20 History Mcg-5 Mcg Inhaler] PARoxetine [Paxil] 10 mg PO DAILY 01/15/20 07/23/20 History Aspirin 81 mg PO DAILY #30 chew 01/18/20 07/23/20 Rx Atorvastatin [Lipitor] 80 mg PO HS #30 tab 01/18/20 07/23/20 Rx Clopidogrel [Plavix] 75 mg PO DAILY #30 tab 01/18/20 07/23/20 Rx glipiZIDE [Glucotrol] 20 mg PO AC-BRKFST #60 tab 01/18/20 07/23/20 Rx Insulin Glargine,Hum.rec.anlog 20 unit SQ HS 07/23/20 07/23/20 History [Basaglar Real U-100] Metoprolol Tartrate [Lopressor] 12.5 mg PO BID 07/23/20 07/23/20 History Varenicline Tartrate [Chantix 1 mg PO BID 07/23/20 07/23/20 History Continuing Pack] lisinopriL [Zestril] 5 mg PO HS 07/23/20 07/23/20 History metFORMIN HCL [Glucophage] 1,000 mg PO BID 07/23/20 07/23/20 History Allergies Allergy/AdvReac Type Severity Reaction Status Date / Time [place] Sprouts Allergy HIVES Verified 07/23/20 18:45 Pork/Porcine Containing Allergy HIVES Verified 07/23/20 18:44 Products [Pork] Physical Exam Vitals: Vital Signs Temp Pulse Resp BP Pulse Ox 07/24/20 14:00 66 11 L 115/48 97 07/24/20 13:30 71 8 L 117/61 96 07/24/20 13:00 69 25 H 147/72 96 07/24/20 12:30 82 29 H 113/68 90 L 07/24/20 12:00 98.1 F 66 14 122/65 94 L 07/24/20 11:30 60 10 L 112/57 97 07/24/20 11:18 58 L 07/24/20 11:08 55 L 07/24/20 11:00 56 L 9 L 127/70 96 07/24/20 10:30 59 L 9 L 108/74 95 07/24/20 10:00 63 19 112/59 93 L 07/24/20 09:30 57 L 11 L 124/67 94 L 07/24/20 09:00 54 L 17 135/68 98 07/24/20 08:30 62 14 120/69 98 07/24/20 08:19 62 07/24/20 08:09 56 L 07/24/20 08:00 97.5 F L 58 L 7 L 103/52 97 07/24/20 07:30 60 18 107/54 96 07/24/20 07:00 55 L 12 116/71 97 07/24/20 06:30 57 L 14 110/47 92 L 07/24/20 06:00 53 L 11 L 104/52 96 07/24/20 05:30 54 L 19 98/57 96 07/24/20 05:00 53 L 11 L 96/59 97 07/24/20 04:30 55 L 14 122/76 96 07/24/20 04:00 97.9 F 52 L 15 116/73 95 07/24/20 03:30 64 19 103/64 95 07/24/20 03:00 53 L 15 119/70 96 07/24/20 02:30 55 L 15 94/52 93 L 07/24/20 02:00 62 13 97/52 94 L 07/24/20 01:30 60 14 95/61 96 07/24/20 01:00 58 L 13 103/55 96 07/24/20 00:30 60 15 92 L 07/24/20 00:12 58 L 15 93 L 07/24/20 00:00 98 F 68 21 113/67 95 07/23/20 23:51 61 07/23/20 23:43 66 07/23/20 23:30 52 L 13 113/67 95 07/23/20 23:00 53 L 15 108/62 96 07/23/20 22:30 52 L 15 108/62 98 07/23/20 22:00 60 16 128/63 96 07/23/20 21:30 54 L 16 128/63 96 07/23/20 21:00 66 22 100/56 94 L 07/23/20 20:30 97.9 F 49 L 13 145/78 95 07/23/20 20:14 60 09/06/20 20:05 61 07/23/20 20:02 51 L 13 07/23/20 19:30 51 L 20 120/57 98 07/23/20 19:00 50 L 20 98/59 98 07/23/20 18:32 97.9 F 07/23/20 18:30 54 L 20 111/58 99 07/23/20 18:00 52 L 20 125/69 99 07/23/20 17:30 57 L 111/66 07/23/20 17:00 56 L 117/74 99 07/23/20 16:30 50 L 121/44 97 07/23/20 16:00 52 L 20 103/59 96 07/23/20 15:30 55 L 20 112/80 97 07/23/20 15:18 52 L 07/23/20 15:03 51 L 07/23/20 15:00 50 L 20 110/66 97 Intake and Output 07/23/20 07/24/20 07/24/20 22:59 06:59 14:59 Intake Total 510 1000 925 Output Total 9569 523 0335 Balance -990 600 -1375 Intake: Intake, IV Titration 510 1000 925 Amount Dextrose 5%-0.45% NaCl 1, 250 1000 875 000 ml @ 125 mls/hr IV . Q8H [facility] Rx#:[id number] Sodium Chloride 0.9% 1, 260 000 ml @ 130 mls/hr IV . Q7H42M [facility] Rx#:[id number] ceFAZolin 1,000 mg In 50 Sodium Chloride 0.9% 50 ml @ 100 mls/hr IVPB Q8HR [facility] Rx#:[id number] Output: Urine 1908 252 0058 Other: Voiding Method Bedside Commode Bedside Commode Bedside Commode # Voids 1 1 Weight 118.841 kg 118 kg No acute distress S1-S2 heard Lungs clear Abdomen distended soft Trace edema Results - Lab Results Most recent lab results Calcium 9.2 mg/dL (8.4-10.2) 07/24/20 04:36 07/24/20 04:36 07/24/20 04:36 Assessment and Plan Assessment: #1 acute hyperkalemia suspect secondary to Bactrim use/lisinopril. Rule out urinary retention. #2 normal renal function #3 metabolic acidosis improved #4 diabetes, complicated #5 polycythemia Plan: #1 place [place] catheter as bladder scan is in accurate #2 monitor strict ins and outs. #3 check stat BMP to look for current potassium level #4 add Lasix 40 mg IV twice a day #5 if serum potassium does not improve with medical management needs dialysis. Patient agreeable.
[2020-07-24 15:31] LABS: African American GFR (CKD) >90 (>60 ml/min/1.73 sqM); Anion Gap 4 mmol/L; Blood Urea Nitrogen 12 mg/dL (7-17); Calcium 8.7 mg/dL (8.4-10.2); Carbon Dioxide 25 mmol/L (22-30); Chloride 102 mmol/L (98-107); Glucose 236 mg/dL (74-99); Non-African American GFR(CKD) >90 (>60 ml/min/1.73 sqM); Sodium 131 mmol/L (137-145)
[2020-07-24 15:34] LABS: Potassium 6.2 mmol/L (3.5-5.1)
[2020-07-24] MEDS: FUROSEMIDE 10 MG/ML 4 ML VIAL IV SCH ×2 (15:47→21:34)
[2020-07-24 16:33] LABS: Glucose,Whole Blood 191 mg/dL (75-99)
[2020-07-24 20:05] LABS: African American GFR (CKD) >90 (>60 ml/min/1.73 sqM); Anion Gap 7 mmol/L; Blood Urea Nitrogen 12 mg/dL (7-17); Calcium 8.9 mg/dL (8.4-10.2); Carbon Dioxide 27 mmol/L (22-30); Chloride 98 mmol/L (98-107); Glucose 263 mg/dL (74-99); Non-African American GFR(CKD) 82 (>60 ml/min/1.73 sqM); Potassium 5.6 mmol/L (3.5-5.1); Sodium 132 mmol/L (137-145)
[2020-07-24 20:19] LABS: Glucose,Whole Blood 359 mg/dL (75-99)
[2020-07-24] MEDS: INSULIN DETEMIR (LEVEMIR) 100 UNIT/ML SYR SQ SCH (20:51)
[2020-07-24] MEDS: ATORVASTATIN 80 MG TAB PO SCH (21:34)
[2020-07-24] MEDS: GABAPENTIN 100 MG CAP PO SCH (21:34)
[2020-07-25 01:47] LABS: Glucose,Whole Blood 186 mg/dL (75-99)
[2020-07-25] MEDS: IPRATROPIUM-ALBUTEROL 3 ML NEB INHALATION SCH ×5 (03:32→20:36)
[2020-07-25 05:11] LABS: HCT 48.8 % (34.0-46.0); Hypochromasia Slight; MCH 33.1 pg (25.0-35.0); MCHC 32.8 g/dL (31.0-37.0); MCV 100.8 fL (80.0-100.0); Macrocytosis Slight; Mean Platelet Volume 8.5; Platelet Count 107 k/uL (150-450); RBC 4.84 m/uL (3.80-5.40); RDW 13.7 % (11.5-15.5); WBC 6.5 k/uL (3.8-10.6)
[2020-07-25 05:36] LABS: African American GFR (CKD) >90 (>60 ml/min/1.73 sqM); Anion Gap 8 mmol/L; Blood Urea Nitrogen 12 mg/dL (7-17); Calcium 8.9 mg/dL (8.4-10.2); Carbon Dioxide 29 mmol/L (22-30); Chloride 96 mmol/L (98-107); Glucose 165 mg/dL (74-99); Non-African American GFR(CKD) >90 (>60 ml/min/1.73 sqM); Potassium 5.1 mmol/L (3.5-5.1); Sodium 133 mmol/L (137-145)
[2020-07-25] MEDS: DEXTROSE 5%-0.45% NACL 1,000 ML IV SCH (06:26)
[2020-07-25] MEDS: PANTOPRAZOLE 40 MG TABLET PO SCH (06:34)
[2020-07-25] MEDS: INSULIN ASPART (NovoLOG) 100 UNIT/ML VIAL SQ SCH ×4 (06:34→22:08)
[2020-07-25] MEDS: FUROSEMIDE 20 MG TAB PO SCH ×2 (08:57→16:15)
[2020-07-25] MEDS: CLOPIDOGREL 75 MG TAB PO SCH (08:57)
[2020-07-25] MEDS: ASPIRIN 81 MG PO SCH (08:57)
[2020-07-25] MEDS: COLLAGENASE 250 UNIT/GM OINTMENT 30 GM TUBE TOPICAL SCH (08:58)
[2020-07-25] MEDS: PARoxetine 10 MG TAB PO SCH (08:58)
[2020-07-25] MEDS: VARENICLINE 1 MG TAB PO SCH ×2 (08:58→22:40)
--- NOTE | 2020-07-25 09:04 | P.PN ---
Subjective Patient is seen in follow-up for hyperkalemia. Potassium level 5.1 this morning. Oral intake is good. Nonoliguric. No vomiting or diarrhea. Vital signs are stable. General: The patient appeared well nourished and normally developed. HEENT: Head exam is unremarkable. Neck is without jugular venous distension. LUNGS: Lungs are clear to auscultation and percussion. Breath sounds decreased. HEART: Rate and Rhythm are regular. ABDOMEN: Soft, nontender. Obese. EXTREMITITES: No clubbing, cyanosis, or edema. Objective - Vital Signs Vital signs: Vital Signs Temp 98.5 F 07/25/20 04:00 Pulse 75 07/25/20 07:00 Resp 13 07/25/20 07:00 BP 119/76 07/25/20 07:00 Pulse Ox 96 07/25/20 07:00 Intake & Output 07/24/20 07/25/20 07/25/20 18:59 06:59 18:59 Intake Total 1595 1500 125 Output Total 3800 3475 150 Balance -2204 Weight 116.9 kg Intake: Intake, IV Titration 1475 1500 125 Amount Dextrose 5%-0.45% NaCl 1, 1375 1500 125 000 ml @ 125 mls/hr IV . Q8H [facility] Rx#:[id number] ceFAZolin 1,000 mg In 100 Sodium Chloride 0.9% 50 ml @ 100 mls/hr IVPB Q8HR [facility] Rx#:[id number] Oral 120 Output: Urine 3725 3475 150 Post Void Residual 75 Other: Voiding Method Bedside Commode Bedside Commode - Labs CBC & Chem 7: 07/25/20 04:32 07/25/20 04:32 Labs: Abnormal Lab Results - Last 24 Hours (Table) 07/24/20 07/24/20 07/24/20 Range/Units 11:56 15:08 16:32 Hct (34.0-46.0) % MCV (80.0-100.0) fL Plt Count (150-450) k/uL Sodium 131 L (137-145) mmol/L Potassium 6.2 H* (3.5-5.1) mmol/L Chloride (98-107) mmol/L Glucose 236 H (74-99) mg/dL POC Glucose (mg/dL) 191 H 191 H (75-99) mg/dL 07/24/20 07/24/20 07/25/20 Range/Units 19:27 20:17 01:45 Hct (34.0-46.0) % MCV (80.0-100.0) fL Plt Count (150-450) k/uL Sodium 132 L (137-145) mmol/L Potassium 5.6 H (3.5-5.1) mmol/L Chloride (98-107) mmol/L Glucose 263 H (74-99) mg/dL POC Glucose (mg/dL) 359 H 186 H (75-99) mg/dL 07/25/20 07/25/20 Range/Units 04:32 04:32 Hct 48.8 H (34.0-46.0) % MCV 100.8 H (80.0-100.0) fL Plt Count 107 L (150-450) k/uL Sodium 133 L (137-145) mmol/L Potassium (3.5-5.1) mmol/L Chloride 96 L (98-107) mmol/L Glucose 165 H (74-99) mg/dL POC Glucose (mg/dL) (75-99) mg/dL Microbiology - Last 24 Hours (Table) 07/23/20 15:34 Gram Stain - Preliminary Abdomen Wound Culture - Preliminary Presumptive Staph aureus Assessment and Plan Plan: Assessment: 1. Hyperkalemia secondary to lisinopril and Bactrim. Improved with medical management. 2. Abdominal wall cellulitis maintained on antibiotics. 3. Morbid obesity. 4. Insulin-dependent diabetes mellitus. 5. Benign hypertension. Controlled. Plan: I did change Lasix to 20 mg orally twice daily. Low potassium diet. Hep-Lock IV fluids.
[2020-07-25] MEDS ORDERED: SODIUM CHLORIDE 0.9% 500 ML 500 ML IV SCH (09:30)
--- NOTE | 2020-07-25 12:18 | PN ---
PROGRESS NOTE PULMONARY/CRITICAL CARE PROGRESS NOTE: DATE OF SERVICE: 07/25/2020 This is a 50-year-old female with a history of being admitted to the hospital with profound weakness and having fallen, her potassium initially was found to be 9.4 on admission. Her elevated potassium was blamed on the fact that she was on Bactrim for an abdominal abscess and lisinopril. Anyway, she is not on either medications currently. Today's potassium was 5.1. The patient is feeling soreness in her legs, but other than that, doing relatively well. She does have a past medical history of diabetes, obesity, COPD, hypertension, myocardial infarction, CAD with stenting x4, and hyperlipidemia. Currently, she is on 4 L nasal cannula. She is getting D5 of 0.45 at 1:25, which is going to be discontinued today by Nephrology. Current vital signs are reviewed. Temperature is 97.9, heart rate 85, respiratory rate 13, blood pressure 123/71 mean 88, 2 L saturation 93%. She appears in no acute distress. HEENT: Examination is grossly unremarkable. NECK: Supple. Full range of motion. No adenopathy. Neck veins are flat. CARDIOVASCULAR: Examination reveals regular rhythm and rate. Heart rate 83 beats per minute. S1, S2 normal. There is no S3, S4, or murmur. LUNGS: Relatively clear. Breath sounds equal. No wheezes, rhonchi, or crackles. ABDOMEN: Obese. Bowel sounds are heard. EXTREMITIES: Intact. Minimal edema. SKIN: Without rash. NEUROLOGIC: Examination is nonfocal. LABS: Reviewed. White count 6.5, hemoglobin 16, hematocrit 48.8, platelet count 107,000. Sodium 133, potassium 5.1, chloride is 96, CO2 is 29, anion gap is 8. BUN and creatinine were 12 and 0.76. Microbiology is showing abdominal wounds that are positive for Staph aureus. It is presumptive. No sensitivities as yet. No recent x-rays to report. MEDICATIONS: Reviewed. Current medications include aspirin, Lipitor, Ancef, Plavix, collagenase, Lasix, gabapentin, insulin, DuoNeb, Narcan, Protonix, Paxil, and Chantix. ASSESSMENT: 1. Extreme weakness and fall secondary to hyperkalemia, with initial potassium of 9.4. Currently 5.1. 2. Hyperkalemia, likely secondary to either Bactrim and/or AUNDREA inhibitor. 3. Abdominal wound, currently on Ancef, with presumptive Staph aureus. 4. Chronic obstructive pulmonary disease, stable. 5. Obesity. 6. Chronic tobacco dependence and marijuana use. 7. Sleep apnea syndrome. 8. Coronary artery disease with stenting x4. 9. Diabetes mellitus. 10.Hypertension. 11.Hyperlipidemia. PLAN: Currently, the patient is doing well. She is on appropriate antibiotics. Will await sensitivities on the Staph and proper identification. Additional recommendations and suggestions are forthcoming. She has been weaned down to 2 L. IV has been discontinued. She is not on any AUNDREA inhibitor. Potassium down to 5.1. Clinically, she is doing much better. MMODL / IJN: [id number] /
[2020-07-25 12:21] LABS: Glucose,Whole Blood 237 mg/dL (75-99)
[2020-07-25] MEDS ORDERED: VANCOMYCIN IV PER PHARMACY 1 EACH MISC MISCELLANE PRN (15:27)
[2020-07-25] MEDS: VANCOMYCIN 1,750 MG in SODIUM CHLORIDE 0.9% 500 ML 500 ML IVPB SCH (16:15)
--- NOTE | 2020-07-25 16:54 | P.PN ---
Subjective 10-year-old patient of Dr. Wade. Chronic stable medical conditions include diabetes, GERD, hyperlipidemia, coronary artery disease with stent, depression, COPD. Patient had home just felt weak and tired and rundown on the legs.. On the muscles felt weak and aching. Head felt heavy. A weeks ago she was found to have abdominal abscess the started as a pimple that started draining. She was put on amoxicillin and Bactrim for which she took for 7 days. Denies any fever and chills. Some decrease in appetite. In the ER was found oh potassium of 9.4. Was given albuterol, calcium gluconate, 10 in severity or insulin, D50 1 amp, Kayexalate 30 g and calcium gluconate. Also 40 mg of Lasix was given. Patient put on telemetry admitted to the ICU. Patient did have quite a lot of tomatoes and cucumbers at home. Today-in the ICU. Sitting on bed. Tolerating a diet. Accu-Cheks have come down. Potassium is started to come down. More Kayexalate given this morning by commercial engineer. Breathing better. 07/25/2020 Patient's wound cultures are positive for MRSA because of which I'm changed the antibiotic to vancomycin. depending on the cultures patient can be switched to doxycycline or clindamycin orally. cefazolin was discontinued.patient admission chest x-ray showing pulmonary edema and a BNP and an echocardiogram in the past did show normal ejection fraction.patient's serum creatinine is 133 and patient is on oral Lasix ordered bynephrology. Constitutional: Denied any fatigue denied any fever. Cardio vascular: denied any chest pain, palpitations Gastrointestinal denied any nausea vomiting Pulmonary: Denied any shortness of breath cough Neurologic denied any new focal deficits All inpatient medications were reviewed and appropriate changes in these medications as dictated in the interval history and assessment and plan. Objective - Vital Signs Vital signs: Vital Signs Temp 98.4 F 07/25/20 16:00 Pulse 8 L 07/25/20 16:00 Resp 10 L 07/25/20 16:00 BP 109/54 07/25/20 16:00 Pulse Ox 98 07/25/20 16:00 Intake & Output 07/24/20 07/25/20 07/25/20 18:59 06:59 18:59 Intake Total 1595 1500 825 Output Total 3800 3475 1755 Balance -2204 -1974 - Weight 116.9 kg Intake: IV 300 Dextrose 5%-0.45% NaCl 1, 250 000 ml @ 125 mls/hr IV . Q8H [facility] Rx#:[id number] ceFAZolin 1,000 mg In 50 Sodium Chloride 0.9% 50 ml @ 100 mls/hr IVPB Q8HR [facility] Rx#:[id number] Intake, IV Titration 1475 1500 125 Amount Dextrose 5%-0.45% NaCl 1, 1375 1500 125 000 ml @ 125 mls/hr IV . Q8H [facility] Rx#:[id number] ceFAZolin 1,000 mg In 100 Sodium Chloride 0.9% 50 ml @ 100 mls/hr IVPB Q8HR [facility] Rx#:[id number] Oral 120 400 Output: Urine 3725 3475 1755 Post Void Residual 75 Other: Voiding Method Bedside Commode Bedside Commode Indwelling Catheter - Exam PHYSICAL EXAMINATION: GENERAL: The patient is alert and oriented x3, not in any acute distress. Well developed, well nourished. HEENT: Pupils are round and equally reacting to light. EOMI. No scleral icterus. No conjunctival pallor. Normocephalic, atraumatic. No pharyngeal erythema. No thyromegaly. CARDIOVASCULAR: S1 and S2 present. No murmurs, rubs, or gallops. PULMONARY: Chest is clear to auscultation, no wheezing or crackles. ABDOMEN: Soft, nontender, nondistended, normoactive bowel sounds. No palpable organomegaly. there is a small wound on the left side and lower abdomen. MUSCULOSKELETAL: No joint swelling or deformity. EXTREMITIES: No cyanosis, clubbing, or pedal edema. NEUROLOGICAL: Gross neurological examination did not reveal any focal deficits. SKIN: No rashes. - Labs CBC & Chem 7: 07/25/20 04:32 07/25/20 04:32 Labs: Abnormal Lab Results - Last 24 Hours (Table) 07/24/20 07/24/20 07/25/20 Range/Units 19:27 20:17 01:45 Hct (34.0-46.0) % MCV (80.0-100.0) fL Plt Count (150-450) k/uL Sodium 132 L (137-145) mmol/L Potassium 5.6 H (3.5-5.1) mmol/L Chloride (98-107) mmol/L Glucose 263 H (74-99) mg/dL POC Glucose (mg/dL) 359 H 186 H (75-99) mg/dL 07/25/20 07/25/20 07/25/20 Range/Units 04:32 04:32 12:19 Hct 48.8 H (34.0-46.0) % MCV 100.8 H (80.0-100.0) fL Plt Count 107 L (150-450) k/uL Sodium 133 L (137-145) mmol/L Potassium (3.5-5.1) mmol/L Chloride 96 L (98-107) mmol/L Glucose 165 H (74-99) mg/dL POC Glucose (mg/dL) 237 H (75-99) mg/dL Microbiology - Last 24 Hours (Table) 07/23/20 15:34 Gram Stain - Preliminary Abdomen Wound Culture - Preliminary Presumptive Staph aureus Assessment and Plan Plan: -Severe hyperkalemia secondary to Bactrim, lisinopril and high potassium diet. Patient's potassium did improve patient is on Robitussin that at this time -Hyponatremia: hypervolemic hyponatremia for which patient is on Lasix at this time I'll obtain an echocardiogram -Pulmonary edema on the chest x-ray on admission will obtain a BNP. Patient had a normal EF in the past -Morbid obesity BMI 46.4 -COPD in a current smoker -Chronic nicotine dependence cigarette smoker -Diabetes mellitus type 2 uncontrolled with hyperglycemia increasing long-acting insulin -GERD -Hyperlipidemia Coronary artery disease stent -Left anterior abdominal wall [id number] ulcer, patient has MRSA in the wound patient will be switched to IV vancomycin
[2020-07-25 16:58] LABS: Glucose,Whole Blood 193 mg/dL (75-99)
[2020-07-25] MEDS ORDERED: propofoL 100 ML IV ONE (20:06)
[2020-07-25] MEDS ORDERED: INSULIN DETEMIR (LEVEMIR) 100 UNIT/ML SYR SQ SCH (21:00)
[2020-07-25 21:06] LABS: Glucose,Whole Blood 214 mg/dL (75-99)
[2020-07-25] MEDS: GABAPENTIN 100 MG CAP PO SCH (22:08)
[2020-07-25] MEDS: ATORVASTATIN 80 MG TAB PO SCH (22:08)
[2020-07-26 01:57] LABS: Hemoglobin A1C 8.1 % (4.0-6.0)
[2020-07-26 05:42] LABS: Glucose,Whole Blood 171 mg/dL (75-99)
[2020-07-26] MEDS: VANCOMYCIN 1,750 MG in SODIUM CHLORIDE 0.9% 500 ML 500 ML IVPB SCH (05:45)
[2020-07-26 07:10] LABS: Glucose,Whole Blood 195 mg/dL (75-99)
[2020-07-26 07:28] VITALS: BP 106/63; PULSE 71; RESP 16; TEMP 98.1
[2020-07-26] MEDS: FUROSEMIDE 20 MG TAB PO SCH (08:31)
[2020-07-26] MEDS: ASPIRIN 81 MG PO SCH (08:31)
[2020-07-26] MEDS: PANTOPRAZOLE 40 MG TABLET PO SCH (08:32)
[2020-07-26] MEDS: CLOPIDOGREL 75 MG TAB PO SCH (08:32)
[2020-07-26] MEDS: INSULIN ASPART (NovoLOG) 100 UNIT/ML VIAL SQ SCH ×2 (08:32→12:08)
[2020-07-26] MEDS: IPRATROPIUM-ALBUTEROL 3 ML NEB INHALATION SCH ×3 (09:24→12:03)
--- NOTE | 2020-07-26 09:56 | P.PN ---
Subjective Patient is seen in follow-up for hyperkalemia. Potassium level 5.1 as of yesterday. Oral intake is good. Nonoliguric. No vomiting or diarrhea. no active complaints at this time. Vital signs are stable. General: The patient appeared well nourished and normally developed. HEENT: Head exam is unremarkable. Neck is without jugular venous distension. LUNGS: Lungs are clear to auscultation and percussion. Breath sounds decreased. HEART: Rate and Rhythm are regular. ABDOMEN: Soft, nontender. Obese. EXTREMITITES: No clubbing, cyanosis, or edema. Objective - Vital Signs Vital signs: Vital Signs Temp 98.1 F 07/26/20 07:00 Pulse 71 07/26/20 07:00 Resp 16 07/26/20 07:00 BP 106/63 07/26/20 07:00 Pulse Ox 91 L 07/26/20 07:00 Intake & Output 07/25/20 07/26/20 07/26/20 18:59 06:59 18:59 Intake Total 1325 160 Output Total 1954 3700 Balance -244 -3540 Intake: IV 800 Dextrose 5%-0.45% NaCl 1, 250 000 ml @ 125 mls/hr IV . Q8H MARIA VICTORIA Rx#:[id number] Vancomycin 1,750 mg In 500 Sodium Chloride 0.9% 500 ml 500 ml @ 167 mls/hr IVPB Q12H MARIA VICTORIA Rx#: [id number] ceFAZolin 1,000 mg In 50 Sodium Chloride 0.9% 50 ml @ 100 mls/hr IVPB Q8HR [facility]IA VICTORIA Rx#:[id number] Intake, IV Titration 125 160 Amount Dextrose 5%-0.45% NaCl 1, 125 000 ml @ 125 mls/hr IV . Q8H MARIA VICTORIA Rx#:[id number] Sodium Chloride 0.9% 500 160 ml 500 ml @ 20 mls/hr IV .Q24H MARIA VICTORIA Rx#:[id number] Oral 400 Output: Urine 1954 3700 Other: Voiding Method Indwelling Catheter Indwelling Catheter - Labs CBC & Chem 7: 07/25/20 04:32 07/25/20 04:32 Labs: Abnormal Lab Results - Last 24 Hours (Table) 07/25/20 07/25/20 07/25/20 Range/Units 04:32 12:19 16:57 POC Glucose (mg/dL) 237 H 193 H (75-99) mg/dL Hemoglobin A1c 8.1 H (4.0-6.0) % 07/25/20 07/26/20 07/26/20 Range/Units 21:05 05:26 07:09 POC Glucose (mg/dL) 214 H 171 H 195 H (75-99) mg/dL Hemoglobin A1c (4.0-6.0) % Microbiology - Last 24 Hours (Table) 07/23/20 15:34 Gram Stain - Final Abdomen Wound Culture - Final Staphylococcus aureus Assessment and Plan Plan: Assessment: 1. Hyperkalemia secondary to lisinopril and Bactrim. Improved with medical management. 2. Abdominal wall cellulitis maintained on antibiotics. 3. Morbid obesity. 4. Insulin-dependent diabetes mellitus. 5. Benign hypertension. Controlled. Plan: continue Lasix 20 mg orally twice daily. Low potassium diet. follow-up morning labs.
[2020-07-26 10:14] LABS: Basophils % (A) 1 %; Eosinophils # (A) 0.2 k/uL (0-0.7); Eosinophils % (A) 5 %; HCT 48.1 % (34.0-46.0); HGB 14.7 gm/dL (11.4-16.0); Hypochromasia Slight; Lymphocytes # (A) 0.9 k/uL (1.0-4.8); Lymphocytes % (A) 22 %; MCH 30.9 pg (25.0-35.0); MCHC 30.5 g/dL (31.0-37.0); MCV 101.4 fL (80.0-100.0); Macrocytosis Slight; Mean Platelet Volume 8.4; Monocytes # (A) 0.2 k/uL (0-1.0); Monocytes % (A) 5 %; Neutrophils # (A) 2.7 k/uL (1.3-7.7); Neutrophils % (A) 66 %; Platelet Count 122 k/uL (150-450); RBC 4.74 m/uL (3.80-5.40); RDW 13.6 % (11.5-15.5); WBC 4.1 k/uL (3.8-10.6)
[2020-07-26 10:16] LABS: African American GFR (CKD) >90 (>60 ml/min/1.73 sqM); Anion Gap 7 mmol/L; Blood Urea Nitrogen 10 mg/dL (7-17); Calcium 9.2 mg/dL (8.4-10.2); Carbon Dioxide 31 mmol/L (22-30); Chloride 96 mmol/L (98-107); Glucose 349 mg/dL (74-99); Non-African American GFR(CKD) >90 (>60 ml/min/1.73 sqM); Potassium 4.5 mmol/L (3.5-5.1); Sodium 134 mmol/L (137-145)
--- NOTE | 2020-07-26 10:21 | CDI ---
Documentation Clarification Form Date: 07/26/2020 1019 CDS: Sol Sesay RN, CCDS Admit Date: 07/23/2020 1618 Patient Name: Nichole Diamond ATTENTION: The Clinical Documentation Specialists (CDI) and [facility] Coding Staff appreciate your assistance in clarifying documentation. Please respond to the clarification below the line at the bottom and electronically sign. The CDI & [facility] Coding staff will review the response and follow-up if needed. Please note: Queries are made part of the Legal Health Record. If you have any questions, please contact the author of this message via ITS. Ischemic cardiomyopathy with impaired LVF has been documented in a patient being treated with IV and PO Lasix. please provide clinical significance. History/Risk Factors: CAD, HTN, Lupus, DM, HI, Smoker Clinical Indicators: 07/24 Pulmonary consult: "She has a history of morbid obesity, hypertension, hyperlipidemia, coronary artery disease with multiple stent placements, ischemic cardiomyopathy with mildly impaired left ventricular systolic function ejection fraction 40-45%, chronic obstructive pulmonary disease with chronic and ongoing tobacco dependence, diabetes mellitus." 07/23/2020 1306 VS/Pulse OX: Temp 97.8, HR 48, RR 30, B/P 121/69, Spo2 95% RA 07/25 BNP: 345 01/16/2020 Echocardiogram Results: EF 40-45% 07/23 Chest X Ray: "Cardiomegaly.Pulmonary edema is mostly cleared." Treatment: 07/23 Lasix 40 mg IVP OT 07/24 Lasix 40 mg IVP Q 8 hrs 07/25 Lasix 20 mg PO BID 07/23 0.9% NS IVF Bolus 1 L In your professional opinion, can you please clarify the acuity and type of condition being treated based on the patient documented conditions and treatment if known? Systolic Heart Failure: Acute Chronic Acute on Chronic Diastolic Heart Failure: Acute Chronic Acute on Chronic Systolic & Diastolic Heart Failure: Acute Chronic Acute on Chronic Heart Failure Unable to Determine Other, please specify Please continue to document in your progress notes and discharge summary in order to capture severity of illness and risk of mortality. Include clinical findings that support your diagnosis. Refer to my documentation MTDD
[2020-07-26 11:47] LABS: Glucose,Whole Blood 239 mg/dL (75-99)
--- NOTE | 2020-07-26 11:48 | P.PN ---
Subjective Progress Note Date: 07/26/20 Principal diagnosis: Weakness, falls, hyperkalemia, abdominal wound This is a very pleasant 50-year-old female patient who follows with Dr. Wade as her primary care provider. She has a history of morbid obesity, hypertension, hyperlipidemia, coronary artery disease with multiple stent placements, ischemic cardiomyopathy with mildly impaired left ventricular systolic function ejection fraction 40-45%, chronic obstructive pulmonary disease with chronic and ongoing tobacco dependence, diabetes mellitus. She also developed an open wound on the left lower quadrant of her abdomen and was initiated on Bactrim and amoxicillin in the outpatient setting. She is on Zestril 5 mg at bedtime. Early yesterday morning when she got out of bed to attempt to the bathroom her legs gave out her significantly weak and she fell to the ground. After several minutes she attempted to stand up and was still having trouble with extreme weakness and muscle cramping of the lower extremi ties and was brought here to the emergency room for the same. Her EKG revealed a junctional rhythm. Her potassium was 9.4 on admission. Sodium 132. Creatinine 0.92. Glucose 153. She was admitted to the intensive care unit. She did receive Kayexalate 30 g 3 doses. She received an amp of sodium bicarb. Insulin. Calcium gluconate. IV Lasix. She is seen today in consultation in the ICU. She is currently awake and alert in no acute distress. She denies any chest pain, palpitations lightheadedness or dizziness. No shortness of breath, cough or congestion. He remains bradycardic in the 50s. She's been afebrile. Maintaining O2 saturation the upper 90s on 4 L nasal cannula. Abdominal wound culture pending. White count 9.8. Hemoglobin 16.6. Sodium 132. Potassium 6.7. Chloride 103. Bicarb 23. Creatinine 0.88. She is on D5 and half-normal saline at 125 ML's per hour. Chest x-ray revealed cardiomegaly, improving pulmonary edema that was noted back in December 2019. On 07/26/2020 patient seen in follow-up on medical surgical floor. She is resting quietly in bed, in no acute distress, she is awake and oriented 3, she is on room air, pulse ox is 91-93%, hemodynamically stable, she's had no acute events overnight, lung sounds are clear, no rhonchi, no wheezing, no fever or chills, white count down to 4.1, hemoglobin is 14.7, potassium is 4.5, BUN is 10 and creatinine 0.70. Remains on vancomycin, her blood culture showed MSSA. Left lower abdominal wound is covered with a dressing, no drainage. No acute events overnight. Durham catheter remains in place, she is on oral Lasix, she is diuresing, and she is in -4.2 L fluid balance over the last 24 hours Objective - Vital Signs Vital signs: Vital Signs Temp 98.1 F 07/26/20 07:00 Pulse 71 07/26/20 07:00 Resp 16 07/26/20 07:00 BP 106/63 07/26/20 07:00 Pulse Ox 91 L 07/26/20 07:00 Intake & Output 07/25/20 07/26/20 07/26/20 18:59 06:59 18:59 Intake Total 1325 160 Output Total 19540 Balance -630 -3540 Intake: IV 800 Dextrose 5%-0.45% NaCl 1, 250 000 ml @ 125 mls/hr IV . Q8H MARIA VICTORIA Rx#:[id number] Vancomycin 1,750 mg In 500 Sodium Chloride 0.9% 500 ml 500 ml @ 167 mls/hr IVPB Q12H MARIA VICTORIA Rx#: [id number] ceFAZolin 1,000 mg In 50 Sodium Chloride 0.9% 50 ml @ 100 mls/hr IVPB Q8HR MARIA VICTORIA Rx#:[id number] Intake, IV Titration 125 160 Amount Dextrose 5%-0.45% NaCl 1, 125 000 ml @ 125 mls/hr IV . Q8H MARIA VICTORIA Rx#:[id number] Sodium Chloride 0.9% 500 160 ml 500 ml @ 20 mls/hr IV .Q24H MARIA VICTORIA Rx#:[id number] Oral 400 Output: Urine 1954 3699 Other: Voiding Method Indwelling Catheter Indwelling Catheter - Exam GENERAL EXAM: Alert, very pleasant, 50-year-old obese white female, on room air, with pulse ox of 91-93%, comfortable in no apparent distress. HEAD: Normocephalic/atraumatic. EYES: Normal reaction of pupils, equal size. Conjunctiva pink, sclera white. NOSE: Clear with pink turbinates. THROAT: No erythema or exudates. NECK: No masses, no JVD, no thyroid enlargement, no adenopathy. CHEST: No chest wall deformity. Symmetrical expansion. LUNGS: Equal air entry with no crackles, wheeze, rhonchi or dullness. CVS: Regular rate and rhythm, normal S1 and S2, no gallops, no murmurs, no rubs ABDOMEN: Soft, nontender, obese. No hepatosplenomegaly, normal bowel sounds, no guarding or rigidity. Left lower lobe abdominal abscess site is covered with a dressing, no drainage, clean dry and intact. EXTREMITIES: No clubbing, no edema, no cyanosis, 2+ pulses and upper and lower extremities. MUSCULOSKELETAL: Muscle strength and tone normal. SPINE: No scoliosis or deformity SKIN: No rashes CENTRAL NERVOUS SYSTEM: Alert and oriented -3. No focal deficits, tone is normal in all 4 extremities. PSYCHIATRIC: Alert and oriented -3. Appropriate affect. Intact judgment and insight. - Labs CBC & Chem 7: 07/26/20 09:15 07/26/20 09:15 Labs: Abnormal Lab Results - Last 24 Hours (Table) 07/25/20 07/25/20 07/25/20 Range/Units 04:32 12:19 16:57 Hct (34.0-46.0) % MCV (80.0-100.0) fL MCHC (31.0-37.0) g/dL Plt Count (150-450) k/uL Lymphocytes # (1.0-4.8) k/uL Sodium (137-145) mmol/L Chloride (98-107) mmol/L Carbon Dioxide (22-30) mmol/L Glucose (74-99) mg/dL POC Glucose (mg/dL) 237 H 193 H (75-99) mg/dL Hemoglobin A1c 8.1 H (4.0-6.0) % 07/25/20 07/26/20 07/26/20 Range/Units 21:05 05:26 07:09 Hct (34.0-46.0) % MCV (80.0-100.0) fL MCHC (31.0-37.0) g/dL Plt Count (150-450) k/uL Lymphocytes # (1.0-4.8) k/uL Sodium (137-145) mmol/L Chloride (98-107) mmol/L Carbon Dioxide (22-30) mmol/L Glucose (74-99) mg/dL POC Glucose (mg/dL) 214 H 171 H 195 H (75-99) mg/dL Hemoglobin A1c (4.0-6.0) % 07/26/20 07/26/20 Range/Units 09:15 09:15 Hct 48.1 H (34.0-46.0) % MCV 101.4 H (80.0-100.0) fL MCHC 30.5 L (31.0-37.0) g/dL Plt Count 122 L (150-450) k/uL Lymphocytes # 0.9 L (1.0-4.8) k/uL Sodium 134 L (137-145) mmol/L Chloride 96 L (98-107) mmol/L Carbon Dioxide 31 H (22-30) mmol/L Glucose 349 H (74-99) mg/dL POC Glucose (mg/dL) (75-99) mg/dL Hemoglobin A1c (4.0-6.0) % Microbiology - Last 24 Hours (Table) 07/23/20 15:34 Gram Stain - Final Abdomen Wound Culture - Final Staphylococcus aureus Assessment and Plan Plan: Assessment: 1 Extreme weakness and fall secondary to significant hyperkalemia with presenting potassium of 9.4, treated currently at 6.7 2 Hyperkalemia, recovered, and potassium is normal and down to 4.5 on today's labs, renal function within normal limits 3 Abdominal wound of the left lower quadrant, recently started on Bactrim and amoxicillin 4 Chronic obstructive pulmonary disease 5 Chronic tobacco dependence, marijuana use. Recently started on Chantix 6 Morbid obesity with suspected obstructive sleep apnea 7 Coronary artery disease with previous stent placements 4 8 Diabetes mellitus, type II 9 Hypertension 10 Hyperlipidemia Plan: Patient has remained stable last 24 hours, no acute events overnight, no fever or chills, no complaints of shortness of breath, discontinue Durham, increase activity as tolerated, from pulmonary perspective patient can be considered for discharge home today. I performed a history & physical examination of the patient and discussed their management with my nurse practitioner, Rosibel Finch. I reviewed the nurse osmin garay's note and agree with the documented findings and plan of care. Lung sounds are positive for clear lung sounds. The findings and the impression was discussed with the patient. I attest to the documentation by the nurse practitioner. Time with Patient: Less than 30
[2020-07-26] MEDS: PARoxetine 10 MG TAB PO SCH (12:08)
[2020-07-26] MEDS: VARENICLINE 1 MG TAB PO SCH (12:08)
[2020-07-26] MEDS: COLLAGENASE 250 UNIT/GM OINTMENT 30 GM TUBE TOPICAL SCH (12:09)
--- NOTE | 2020-07-26 12:31 | P.DS ---
Providers Date of admission: 07/23/20 16:18 Attending physician: Sonny Cordero Consults: 07/23/20 16:46 Consult Physician Stat Consulting Provider: Chris Ramirez Consult Reason/Comments: hyperkalemia Do you want consulting provider notified?: Yes Consult Physician Stat Consulting Provider: Nelda Sykes Consult Reason/Comments: hyperkaelmia Do you want consulting provider notified?: Yes 07/23/20 22:44 Consult Physician Routine Consulting Provider: Kaylee Blevins Consult Reason/Comments: abdominal wall wound Do you want consulting provider notified?: Yes Primary care physician: Juancarlos Wade [facility] Course: 50-year-old patient of Dr. Wade. Chronic stable medical conditions include diabetes, GERD, hyperlipidemia, coronary artery disease with stent, depression, COPD. Patient had home just felt weak and tired and rundown on the legs.. On the muscles felt weak and aching. Head felt heavy. A weeks ago she was found to have abdominal abscess the started as a pimple that started draining. She was put on amoxicillin and Bactrim for which she took for 7 days. Denies any fever and chills. Some decrease in appetite. In the ER was found oh potassium of 9.4. Was given albuterol, calcium gluconate, 10 in severity or insulin, D50 1 amp, Kayexalate 30 g and calcium gluconate. Also 40 mg of Lasix was given. Patient put on telemetry admitted to the ICU. Patient did have quite a lot of tomatoes and cucumbers at home. Today-in the ICU. Sitting on bed. Tolerating a diet. Accu-Cheks have come down. Potassium is started to come down. More Kayexalate given this morning by notch grinder. Breathing better. 07/25/2020 Patient's wound cultures are positive for MRSA because of which I'm changed the antibiotic to vancomycin. depending on the cultures patient can be switched to doxycycline or clindamycin orally. cefazolin was discontinued.patient admission chest x-ray showing pulmonary edema and a BNP and an echocardiogram in the past did show normal ejection fraction.patient's serum creatinine is 133 and patient is on oral Lasix ordered bynephrology. 07/26/2020 Patient is feeling much better today. Electrolytes improved. Patient will be discharged today although do not have any echocardiogram is available. Echocardiogram can be followed as an outpatient patient was discharged on 20 mg of Lasix. Her ejection fraction at this point of time is unknown. Her wound cultures from the abdominal ulcer site are positive for MSSA patient was discharged on 7 more days of Keflex patient will follow with PCP as an outpatient. Serum sodium improved to 134 PHYSICAL EXAMINATION: GENERAL: The patient is alert and oriented x3, not in any acute distress. Well developed, well nourished. HEENT: Pupils are round and equally reacting to light. EOMI. No scleral icterus. No conjunctival pallor. Normocephalic, atraumatic. No pharyngeal erythema. No thyromegaly. CARDIOVASCULAR: S1 and S2 present. No murmurs, rubs, or gallops. PULMONARY: Chest is clear to auscultation, no wheezing or crackles. ABDOMEN: Soft, nontender, nondistended, normoactive bowel sounds. No palpable organomegaly. there is a small wound on the left side and lower abdomen. MUSCULOSKELETAL: No joint swelling or deformity. EXTREMITIES: No cyanosis, clubbing, or pedal edema. NEUROLOGICAL: Gross neurological examination did not reveal any focal deficits. SKIN: No rashes. Assessment and Plan Plan: -Severe hyperkalemia secondary to Bactrim, lisinopril and high potassium diet. Patient's potassium did improve patient blood pressure is within normal limits and will not require lisinopril for this purpose but can have nephro protective properties because of her diabetes mellitus and if she has proteinuria can be restarted as an outpatient if needed -Hyponatremia: hypervolemic hyponatremia for which patient is on Lasix, echo cardiac exam is pending patient is presently euvolemic. Patient said BMI is 345 -Pulmonary edema on the chest x-ray on admission, no evidence of heart failure. No clinical evidence of pulmonary edema -Morbid obesity BMI 46.4 -COPD in a current smoker -Chronic nicotine dependence cigarette smoker -Diabetes mellitus type 2 uncontrolled with hyperglycemia increasing long-acting insulin -GERD -Hyperlipidemia Coronary artery disease stent -Left anterior abdominal wall [id number] ulcer, patient has MSSA which is pansensitive patient will be discharged on 7 more days of Keflex Patient Condition at Discharge: Serious Plan - Discharge Summary Discharge Rx Participant: Yes New Discharge Prescriptions: New Cephalexin [Keflex] 500 mg PO Q6HR 7 Days #12 cap Furosemide [Lasix] 20 mg PO DAILY #30 tab Continue Omeprazole 20 mg PO DAILY Gabapentin [Neurontin] 100 mg PO HS Albuterol Inhaler (Mhu) [Ventolin Hfa Inhaler (Mhu)] 2 puff INHALATION RT-Q6H PRN PRN Reason: Shortness Of Breath Mometasone/Formoterol [Dulera 100 Mcg-5 Mcg Inhaler] 2 puff INHALATION RT-BID PARoxetine [Paxil] 10 mg PO DAILY Aspirin 81 mg PO DAILY #30 chew glipiZIDE [Glucotrol] 20 mg PO AC-BRKFST #60 tab Atorvastatin [Lipitor] 80 mg PO HS #30 tab Clopidogrel [Plavix] 75 mg PO DAILY #30 tab Varenicline Tartrate [Chantix Continuing Pack] 1 mg PO BID Metoprolol Tartrate [Lopressor] 12.5 mg PO BID Insulin Glargine,Hum.rec.anlog [Basaglar Kwikpen U-100] 20 unit SQ HS metFORMIN HCL [Glucophage] 1,000 mg PO BID Discontinued lisinopriL [Zestril] 5 mg PO HS Discharge Medication List Gabapentin [Neurontin] 100 mg PO HS 12/10/18 [History] Omeprazole 20 mg PO DAILY 12/10/18 [History] Albuterol Inhaler (Mhu) [Ventolin Hfa Inhaler (Mhu)] 2 puff INHALATION RT-Q6H PRN 12/13/18 [History] Mometasone/Formoterol [Dulera 100 Mcg-5 Mcg Inhaler] 2 puff INHALATION RT-BID 12/13/18 [History] PARoxetine [Paxil] 10 mg PO DAILY 01/15/20 [History] Aspirin 81 mg PO DAILY #30 chew 01/18/20 [Rx] Atorvastatin [Lipitor] 80 mg PO HS #30 tab 01/18/20 [Rx] Clopidogrel [Plavix] 75 mg PO DAILY #30 tab 01/18/20 [Rx] glipiZIDE [Glucotrol] 20 mg PO AC-BRKFST #60 tab 01/18/20 [Rx] Insulin Glargine,Hum.rec.anlog [Basaglar Kwikpen U-100] 20 unit SQ HS 07/23/20 [History] Metoprolol Tartrate [Lopressor] 12.5 mg PO BID 07/23/20 [History] Varenicline Tartrate [Chantix Continuing Pack] 1 mg PO BID 07/23/20 [History] metFORMIN HCL [Glucophage] 1,000 mg PO BID 07/23/20 [History] Cephalexin [Keflex] 500 mg PO Q6HR 7 Days #12 cap 07/26/20 [Rx] Furosemide [Lasix] 20 mg PO DAILY #30 tab 07/26/20 [Rx] Follow up Appointment(s)/Referral(s): Juancarlos Wade MD [Primary Care Provider] - 07/27/20 2:00 pm Patient Instructions/Handouts: Hyperkalemia (DC) Discharge Disposition: HOME SELF-CARE
== END 2020-07-26 14:21 | disposition home or self-care (01) | DRG 641 ==
LOC: EC 12:59 → 2SICU 16:18 → 4SSUR 07-26 04:55
PROVIDERS: ADMIT Hospitalist; ATTEND Hospitalist
DX: E87.5 Hyperkalemia (principal); J81.1 Chronic pulmonary edema; L03.311 Cellulitis of abdominal wall; L02.211 Cutaneous abscess of abdominal wall; Z68.42 Body mass index [BMI] 45.0-49.9, adult; E87.2 Acidosis; I11.9 Hypertensive heart disease without heart failure; E11.65 Type 2 diabetes mellitus with hyperglycemia; E66.01 Morbid (severe) obesity due to excess calories; L98.499 Non-pressure chronic ulcer of skin of other sites with unspecified severity; J44.9 Chronic obstructive pulmonary disease, unspecified; Z79.4 Long term (current) use of insulin; E87.1 Hypo-osmolality and hyponatremia; K21.9 Gastro-esophageal reflux disease without esophagitis; E78.5 Hyperlipidemia, unspecified; F32.9 Major depressive disorder, single episode, unspecified; F17.210 Nicotine dependence, cigarettes, uncomplicated; I25.10 Atherosclerotic heart disease of native coronary artery without angina pectoris; I25.5 Ischemic cardiomyopathy; R00.1 Bradycardia, unspecified; D75.1 Secondary polycythemia; G47.33 Obstructive sleep apnea (adult) (pediatric); B95.61 Methicillin susceptible Staphylococcus aureus infection as the cause of diseases classified elsewhere; T46.4X5A Adverse effect of angiotensin-converting-enzyme inhibitors, initial encounter; T36.8X5A Adverse effect of other systemic antibiotics, initial encounter; I25.2 Old myocardial infarction; W18.30XA Fall on same level, unspecified, initial encounter; Z71.6 Tobacco abuse counseling; Z79.899 Other long term (current) drug therapy; Z79.51 Long term (current) use of inhaled steroids; Z79.82 Long term (current) use of aspirin; Z79.02 Long term (current) use of antithrombotics/antiplatelets; Z95.5 Presence of coronary angioplasty implant and graft; Z90.49 Acquired absence of other specified parts of digestive tract; Z98.890 Other specified postprocedural states; Z91.018 Allergy to other foods; Z82.49 Family history of ischemic heart disease and other diseases of the circulatory system; Z83.3 Family history of diabetes mellitus
CPT/HCPCS: 36415; 70450; 71046; 72125; 80048; 80053; 81003; 82550; 83036; 83880; 84132; 85025; 85027; 85610; 85730; 87070; 87077; 87186; 87205; 93005; 94640; 96365; 96366; 96375; 99285

== ENCOUNTER 2022-08-01 09:55 | Inpatient (IN) | payer OTHER ==
[2022-08-01] MEDS ORDERED: LIDOCAINE 1% INJ 10MG/ML (20 ML MDV) SQ ONE (11:44)
[2022-08-01] MEDS ORDERED: SODIUM CHLORIDE 0.9% 500 ML 500 ML IV ONE ×2 (11:45→12:52)
[2022-08-01] MEDS ORDERED: MORPHINE SULFATE 4 MG/ML SYRINGE IVP STA (11:46)
--- NOTE | 2022-08-01 11:49 | ED ---
Skin/Abscess/FB HPI - General Chief complaint: Skin/Abscess/Foreign Body Stated complaint: Abscess on rear end,sent by PCP Time Seen by Provider: 08/01/22 11:40 Source: patient, family, RN notes reviewed, old records reviewed Mode of arrival: ambulatory Limitations: no limitations - History of Present Illness Initial comments: This is a polite 52-year-old female that presents to the emergency room with complaints of an abscess to her left buttock since Friday. Patient states increasing in size and pain with no drainage. She developed fever and chills and did go to her primary care doctor who recommended she come to the emergency room for evaluation and drainage. She does have history of DM and COPD. MD complaint: abscess/boil -: days(s) (6) Location: buttocks (Left gluteal cleft) Severity scale (1-10): 10 Quality: constant Consistency: constant Improves with: none Worsens with: other (sitting or palpation) Context: none Associated symptoms: fever, chills Treatments Prior to Arrival: other (Sent by primary care doctor) - Related Data Home Medications Medication Instructions Recorded Confirmed Albuterol Inhaler [Ventolin Hfa 2 puff INHALATION RT-Q6H PRN 12/13/18 08/01/22 Inhaler] Mometasone/Formoterol [Dulera 100 2 puff INHALATION RT-BID 12/13/18 08/01/22 Mcg-5 Mcg Inhaler] Metoprolol Tartrate [Lopressor] 12.5 mg PO BID 07/23/20 08/01/22 metFORMIN HCL [Glucophage] 1,000 mg PO BID 07/23/20 08/01/22 Acetaminophen Tab [Tylenol Tab] 1,000 mg PO Q6HR PRN 08/01/22 08/01/22 Dulaglutide [Trulicity] 1.5 mg SQ FR 08/01/22 08/01/22 Fenofibrate,Micronized 134 mg PO DAILY 08/01/22 08/01/22 [Fenofibrate] Gabapentin 600 mg PO TID 08/01/22 08/01/22 Insulin Aspart [NovoLOG Flexpen] 30 units SQ TID-W/MEALS 08/01/22 08/01/22 Insulin Glargine [Lantus Vial] 50 unit SQ HS 08/01/22 08/01/22 Tiotropium [place] [Spiriva] 1 puff INHALATION RT-DAILY 08/01/22 08/01/22 glipiZIDE [Glucotrol] 30 mg PO DAILY 08/01/22 08/01/22 Previous Rx's Medication Instructions Recorded Aspirin 81 mg PO DAILY #30 chew 01/18/20 Atorvastatin [Lipitor] 80 mg PO HS #30 tab 01/18/20 Clopidogrel [Plavix] 75 mg PO DAILY #30 tab 01/18/20 Furosemide [Lasix] 20 mg PO DAILY #30 tab 07/26/20 Allergies Allergy/AdvReac Type Severity Reaction Status Date / Time [place] Sprouts Allergy HIVES Verified 08/01/22 13:34 Pork/Porcine Containing Allergy HIVES Verified 08/01/22 13:34 Products [Pork] Review of Systems ROS Statement: Those systems with pertinent positive or pertinent negative responses have been documented in the HPI. ROS Other: All systems not noted in ROS Statement are negative. Past Medical History Past Medical History: COPD, Diabetes Mellitus, GERD/Reflux, Hyperlipidemia, Myocardial Infarction ([place]) Additional Past Medical History / Comment(s): hpv Last Myocardial Infarction Date:: 01-15-20 History of Any Multi-Drug Resistant Organisms: None Reported, MRSA Date of last positivie culture/infection: MRSA STOMACH 2014 Past Surgical History: Cholecystectomy, Heart Catheterization With Stent, Tonsillectomy Additional Past Surgical History / Comment(s): D&C , all teeth extracted, LASIK- BILATERAL EYES Past Anesthesia/Blood Transfusion Reactions: No Reported Reaction Date of Last Stent Placement:: 01/15/20 Past Psychological History: Depression Smoking Status: Current every day smoker Past Alcohol Use History: None Reported Past Drug Use History: None Reported - Past Family History Mother Family Medical History: Coronary Artery Disease (CAD), Hypertension Additional Family Medical History / Comment(s): lupus, diverticulitis Father Family Medical History: Coronary Artery Disease (CAD), Diabetes Mellitus, Hypertension, Myocardial Infarction ([place]) Additional Family Medical History / Comment(s): first heart attack at 40 General Exam Limitations: no limitations General appearance: alert, in no apparent distress Respiratory exam: Absent: respiratory distress, accessory muscle use Cardiovascular Exam: Present: regular rate GI/Abdominal exam: Present: soft Rectal exam: Present: hemorrhoids, mass (Large abscess left gluteal cleft erythematous no drainage), tenderness Extremities exam: Present: normal capillary refill. Absent: tenderness, pedal edema, calf tenderness Neurological exam: Present: alert, oriented X3 Psychiatric exam: Present: normal affect, normal mood Skin exam: Present: warm, dry, normal color. Absent: cyanosis, diaphoretic, petechiae, pallor Course Vital Signs 08/01/22 08/01/22 08/01/22 10:12 12:30 13:04 Temperature 99.7 F H 101.7 F H 99.9 F H Pulse Rate 98 87 85 Respiratory 18 17 16 Rate Blood Pressure 114/77 99/69 108/60 O2 Sat by Pulse 97 97 99 Oximetry 08/01/22 15:04 Temperature 98.4 F Pulse Rate 75 Respiratory 16 Rate Blood Pressure 114/79 O2 Sat by Pulse 97 Oximetry Procedures - Incision & Drainage Consent Obtained: verbal consent Site: buttock Anesthetic Used: lidocaine 1% I&D Cleaning Method: Alcohol Wipe Scalpel Used: #11 Needle Aspiration Performed?: No I&D Drainage Obtained: Pus, Blood Culture Obtained?: Yes Patient Tolerated Procedure: well Medical Decision Making - Medical Decision Making Patient presents with large gluteal abscess, left gluteal cleft and with surrounding cellulitis. Incision and drainage was performed. Patient was started on antibiotics. She did spike a fever in the emergency room. There is evidence of leukocytosis. Ultrasound was performed confirming abscess. She will be admitted with Gen. surgery and infectious disease consults. She does have a history of MRSA in 2014. She was started on vancomycin after blood cultures and wound cultures were obtained. Case was discussed with Dr. Sorenson. Patient and family are agreeable to this plan of care. - Lab Data Result diagrams: 08/01/22 12:29 08/01/22 12:29 Lab Results 08/01/22 08/01/22 Range/Units 12:29 12:29 WBC 14.8 H (3.8-10.6) k/uL RBC 5.12 (3.80-5.40) m/uL Hgb 16.1 H (11.4-16.0) gm/dL Hct 50.0 H (34.0-46.0) % MCV 97.7 (80.0-100.0) fL MCH 31.5 (25.0-35.0) pg MCHC 32.3 (31.0-37.0) g/dL RDW 13.8 (11.5-15.5) % Plt Count 139 L (150-450) k/uL MPV 9.5 Neutrophils % 78 % Lymphocytes % 11 % Monocytes % 7 % Eosinophils % 1 % Basophils % 1 % Neutrophils # 11.6 H (1.3-7.7) k/uL Lymphocytes # 1.7 (1.0-4.8) k/uL Monocytes # 1.1 H (0-1.0) k/uL Eosinophils # 0.2 (0-0.7) k/uL Basophils # 0.1 (0-0.2) k/uL Sodium 128 L (137-145) mmol/L Potassium 4.6 (3.5-5.1) mmol/L Chloride 94 L (98-107) mmol/L Carbon Dioxide 25 (22-30) mmol/L Anion Gap 9 mmol/L BUN 8 (7-17) mg/dL Creatinine 0.82 (0.52-1.04) mg/dL Est GFR (CKD-EPI)AfAm >90 (>60 ml/min/1.73 sqM) Est GFR (CKD-EPI)NonAf 84 (>60 ml/min/1.73 sqM) Glucose 272 H (74-99) mg/dL Calcium 8.8 (8.4-10.2) mg/dL Disposition Clinical Impression: Abscess, gluteal cleft, Cellulitis Disposition: ADMITTED IP TO THIS HOSP Decision Date: 08/01/22
[2022-08-01 12:40] LABS: Basophils # (A) 0.1 k/uL (0-0.2); Basophils % (A) 1 %; Eosinophils # (A) 0.2 k/uL (0-0.7); Eosinophils % (A) 1 %; HGB 16.1 gm/dL (11.4-16.0); Lymphocytes # (A) 1.7 k/uL (1.0-4.8); Lymphocytes % (A) 11 %; MCH 31.5 pg (25.0-35.0); MCHC 32.3 g/dL (31.0-37.0); MCV 97.7 fL (80.0-100.0); Mean Platelet Volume 9.5; Monocytes # (A) 1.1 k/uL (0-1.0); Monocytes % (A) 7 %; Neutrophils # (A) 11.6 k/uL (1.3-7.7); Neutrophils % (A) 78 %; Platelet Count 139 k/uL (150-450); RBC 5.12 m/uL (3.80-5.40); RDW 13.8 % (11.5-15.5); WBC 14.8 k/uL (3.8-10.6)
[2022-08-01] MEDS ORDERED: ACETAMINOPHEN TAB 500 MG TAB PO STA (12:40)
[2022-08-01 12:47] LABS: African American GFR (CKD) >90 (>60 ml/min/1.73 sqM); Anion Gap 9 mmol/L; Blood Urea Nitrogen 8 mg/dL (7-17); Calcium 8.8 mg/dL (8.4-10.2); Carbon Dioxide 25 mmol/L (22-30); Chloride 94 mmol/L (98-107); Glucose 272 mg/dL (74-99); Non-African American GFR(CKD) 84 (>60 ml/min/1.73 sqM); Potassium 4.6 mmol/L (3.5-5.1); Sodium 128 mmol/L (137-145)
[2022-08-01] MEDS ORDERED: NALOXONE 0.4 MG/ML 1 ML VIAL IV PRN (13:43)
[2022-08-01] MEDS: SODIUM CHLORIDE 0.9% 1,000 ML IV SCH (13:45)
[2022-08-01] MEDS ORDERED: VANCOMYCIN IV PER PHARMACY 1 EACH MISC MISCELLANE PRN (13:46)
[2022-08-01] MEDS ORDERED: ALBUTEROL NEBULIZED 2.5 MG/3 ML INHALATION PRN (13:46)
[2022-08-01] MEDS: HYDROmorphone 0.5 MG/0.5 ML SYRINGE IVP PRN ×3 (14:12→21:40)
[2022-08-01] MEDS ORDERED: VANCOMYCIN 1,750 MG in SODIUM CHLORIDE 0.9% 500 ML 500 ML IVPB ONE (14:30)
--- NOTE | 2022-08-01 14:44 | US ---
EXAMINATION TYPE: US extremity nonvasc mass surrounding hematoma or small abscess. DATE OF EXAM: 08/01/2022 COMPARISON: NONE CLINICAL HISTORY: abscess right gluteal cleft. Patient states tail bone pain then abscess occurred. Fever. Redness at area and tender. Patient states just had it opened up by physician and is drainin g. Area of concern scanned. Complex area seen with inflammation- 6.3 x 3.4 x 1.4 cm IMPRESSION: 6.3 x 3.4 cm. Complex fluid seen in the right gluteal region. Correlate for abscess.
[2022-08-01 18:00] LABS: Glucose,Whole Blood 167 mg/dL (70-110)
[2022-08-01] MEDS: INSULIN ASPART (NovoLOG) 100 UNIT/ML VIAL SQ SCH (18:02)
[2022-08-01] MEDS: metFORMIN 500 MG TAB PO SCH (18:02)
[2022-08-01] MEDS: SYMBICORT 80-4.5 MCG INHALER INHALATION SCH (19:17)
[2022-08-01 20:03] LABS: Glucose,Whole Blood 180 mg/dL (70-110)
[2022-08-01] MEDS: ATORVASTATIN 80 MG TAB PO SCH (21:38)
[2022-08-01] MEDS: METOPROLOL TARTRATE 12.5 MG TAB PO SCH (21:39)
[2022-08-01] MEDS: INSULIN DETEMIR (LEVEMIR) 100 UNIT/ML SYR SQ SCH (21:39)
[2022-08-01] MEDS: GABAPENTIN 300 MG CAP PO SCH (21:39)
--- NOTE | 2022-08-01 23:22 | P.CONS ---
History of Present Illness - Reason for Consult Consult date: 08/01/22 - History of Present Illness Patient is a 52-year-old female with a past medical history taken for diabetes mellitus previous history of MRSA skin and soft tissue infection patient presenting to the hospital for evaluation of her left gluteal pain swelling and redness that apparently has been getting worse for the last few days patient denies any history of any trauma has been complaining of pain to the left gluteal area more of a sharp in nature intensity is almost resolved and with no radiation associated swelling redness and some drainage patient has been evaluated by ER physician and the patient did have bedside I&D culture has been obtained patient on presentation to the hospital did have a fever of 101.7 F, patient did have white count of 14.8 with a left shift kidney function has been normal, patient was started on vancomycin infectious disease was consulted for further management of antibiotic therapy Past Medical History Past Medical History: COPD, Diabetes Mellitus, GERD/Reflux, Hyperlipidemia, Myocardial Infarction ([place]) Additional Past Medical History / Comment(s): hpv Last Myocardial Infarction Date:: 01-15-20 History of Any Multi-Drug Resistant Organisms: None Reported, MRSA Year Discovered:: MRSA STOMACH 2014 Past Surgical History: Cholecystectomy, Heart Catheterization With Stent, Tonsillectomy Additional Past Surgical History / Comment(s): D&C , all teeth extracted, LASIK- BILATERAL EYES Past Anesthesia/Blood Transfusion Reactions: No Reported Reaction Date of Last Stent Placement:: 01/15/20 Past Psychological History: Depression Smoking Status: Current every day smoker Past Alcohol Use History: None Reported Past Drug Use History: None Reported - Past Family History Mother Family Medical History: Coronary Artery Disease (CAD), Hypertension Additional Family Medical History / Comment(s): lupus, diverticulitis Father Family Medical History: Coronary Artery Disease (CAD), Diabetes Mellitus, Hypertension, Myocardial Infarction ([place]) Additional Family Medical History / Comment(s): first heart attack at 40 Medications and Allergies Home Medications Medication Instructions Recorded Confirmed Type Albuterol Inhaler [Ventolin Hfa 2 puff INHALATION RT-Q6H PRN 12/13/18 08/01/22 History Inhaler] Mometasone/Formoterol [Dulera 100 2 puff INHALATION RT-BID 12/13/18 08/01/22 History Mcg-5 Mcg Inhaler] Aspirin 81 mg PO DAILY #30 chew 01/18/20 08/01/22 Rx Atorvastatin [Lipitor] 80 mg PO HS #30 tab 01/18/20 08/01/22 Rx Clopidogrel [Plavix] 75 mg PO DAILY #30 tab 01/18/20 08/01/22 Rx Metoprolol Tartrate [Lopressor] 12.5 mg PO BID 07/23/20 08/01/22 History metFORMIN HCL [Glucophage] 1,000 mg PO BID 07/23/20 08/01/22 History Furosemide [Lasix] 20 mg PO DAILY #30 tab 07/26/20 08/01/22 Rx Acetaminophen Tab [Tylenol Tab] 1,000 mg PO Q6HR PRN 08/01/22 08/01/22 History Dulaglutide [Trulicity] 1.5 mg SQ FR 08/01/22 08/01/22 History Fenofibrate,Micronized 134 mg PO DAILY 08/01/22 08/01/22 History [Fenofibrate] Gabapentin 600 mg PO TID 08/01/22 08/01/22 History Insulin Aspart [NovoLOG Flexpen] 30 units SQ TID-W/MEALS 08/01/22 08/01/22 History Insulin Glargine [Lantus Vial] 50 unit SQ HS 08/01/22 08/01/22 History Tiotropium [place] [Spiriva] 1 puff INHALATION RT-DAILY 08/01/22 08/01/22 History glipiZIDE [Glucotrol] 30 mg PO DAILY 08/01/22 08/01/22 History Allergies Allergy/AdvReac Type Severity Reaction Status Date / Time [place] Sprouts Allergy HIVES Verified 08/01/22 13:34 Pork/Porcine Containing Allergy HIVES Verified 08/01/22 13:34 Products [Pork] Physical Exam Vitals: Vital Signs Temp Pulse Resp BP Pulse Ox 08/01/22 15:04 98.4 F 75 16 114/79 97 08/01/22 13:04 99.9 F H 85 16 108/60 99 08/01/22 12:30 101.7 F H 87 17 99/69 97 08/01/22 10:12 99.7 F H 98 18 114/77 97 Intake and Output 08/01/22 08/01/22 08/01/22 06:59 14:59 22:59 Other: Weight 109.769 kg Results CBC & Chem 7: 08/01/22 12:29 08/01/22 12:29 Labs: Abnormal Lab Results - Last 24 Hours (Table) 08/01/22 08/01/22 Range/Units 12:29 12:29 WBC 14.8 H (3.8-10.6) k/uL Hgb 16.1 H (11.4-16.0) gm/dL Hct 50.0 H (34.0-46.0) % Plt Count 139 L (150-450) k/uL Neutrophils # 11.6 H (1.3-7.7) k/uL Monocytes # 1.1 H (0-1.0) k/uL Sodium 128 L (137-145) mmol/L Chloride 94 L (98-107) mmol/L Glucose 272 H (74-99) mg/dL Assessment and Plan Plan: 1patient presented to hospital with sepsis in this patient with a fever elevated white count source is left gluteal abscess and cellulitis in this patient with a history of MRSA infection could be related to MRSA or other gram-positive skin sidney less likely gram-negative infection but not entirely excluded. 2vancomycin pharmacy to dose target trough of 15 while watching kidney function and vancomycin trough closely. We will follow on clinical condition and cultures to further adjust medication if needed Thank you for this consultation will follow this patient along with you Time with Patient: Greater than 30
[2022-08-02] MEDS: VANCOMYCIN 1,750 MG in SODIUM CHLORIDE 0.9% 500 ML 500 ML IVPB SCH ×2 (04:56→21:16)
[2022-08-02] MEDS: ACETAMINOPHEN TAB 325 MG TAB PO PRN (04:56)
[2022-08-02] MEDS: SODIUM CHLORIDE 0.9% 1,000 ML IV SCH ×2 (04:57→17:46)
[2022-08-02 07:40] LABS: Glucose,Whole Blood 112 mg/dL (70-110)
[2022-08-02] MEDS: SYMBICORT 80-4.5 MCG INHALER INHALATION SCH ×2 (07:41→20:34)
[2022-08-02] MEDS: IPRATROPIUM 0.5 MG/2.5 ML NEBU INHALATION SCH ×4 (07:42→20:34)
[2022-08-02] MEDS: ASPIRIN 81 MG PO SCH (07:55)
[2022-08-02] MEDS: INSULIN ASPART (NovoLOG) 100 UNIT/ML VIAL SQ SCH ×3 (07:55→17:46)
[2022-08-02] MEDS: metFORMIN 500 MG TAB PO SCH ×2 (07:55→17:47)
[2022-08-02] MEDS: FENOFIBRATE 160 MG TAB PO SCH (07:56)
[2022-08-02] MEDS: METOPROLOL TARTRATE 12.5 MG TAB PO SCH ×2 (07:56→21:16)
[2022-08-02] MEDS: CLOPIDOGREL 75 MG TAB PO SCH (07:56)
[2022-08-02] MEDS: GABAPENTIN 300 MG CAP PO SCH ×3 (07:56→21:16)
[2022-08-02] MEDS: FUROSEMIDE 20 MG TAB PO SCH (07:56)
[2022-08-02] MEDS: glipiZIDE 10 MG TAB PO SCH (08:54)
[2022-08-02] MEDS ORDERED: CALCIUM CARBONATE 500 MG CHEWABLE PO PRN (09:57)
[2022-08-02] MEDS ORDERED: TEMAZEPAM 15 MG CAP PO PRN (09:57)
[2022-08-02] MEDS ORDERED: LORazepam 0.5 MG TAB PO PRN (09:57)
[2022-08-02] MEDS ORDERED: ONDANSETRON 4 MG/2 ML VIAL IVP PRN (09:57)
[2022-08-02] MEDS ORDERED: LACTULOSE 20 GM/30 ML CUP PO PRN (09:57)
[2022-08-02] MEDS: NICOTINE 7MG/24HR PATCH TRANSDERM SCH (11:27)
[2022-08-02] MEDS: HYDROmorphone 0.5 MG/0.5 ML SYRINGE IVP PRN ×2 (11:42→16:55)
[2022-08-02 12:27] LABS: Glucose,Whole Blood 67 mg/dL (70-110)
[2022-08-02 12:57] LABS: Glucose,Whole Blood 67 mg/dL (70-110)
--- NOTE | 2022-08-02 13:17 | P.GSCN ---
History of Present Illness Consult date: 08/02/22 History of present illness: CHIEF COMPLAINT: Left buttock abscess HISTORY OF PRESENT ILLNESS: This is a 52-year-old female who presented to the hospital with complaints of a left buttock abscess that started 6 days ago. Patient reports that the area was painful tender. She denies any drainage. She does have prior history of abscesses in the abdomen and thigh with MRSA. She is a diabetic. Her last hemoglobin A1c was 11. She's also on Plavix due to cardiac stents and coronary disease. She is a smoker. Patient has been febrile. She had incision and drainage of the abscess in the ER. And she is currently on IV vancomycin. Surgical service has been consulted in regards to left gluteal abscess. Patient also being followed by infectious disease. Patient reports that her nausea has improved today. Patient reports that her blood sugars have been elevated in the 400s at home. Patient seen and examined with Dr. Morton who is covering for Dr. Adames PAST MEDICAL HISTORY: COPD, Diabetes Mellitus, GERD/Reflux, Hyperlipidemia, Myocardial Infarction PAST SURGICAL HISTORY: cholecystectomy, Heart Catheterization With Stent, Tonsillectomy MEDICATIONS: See list. ALLERGIES: See list. SOCIAL HISTORY: No illicit drug use. REVIEW OF SYSTEMS: CONSTITUTIONAL: Denies fever or chills. HEENT: Denies blurred vision, vision changes, or eye pain. Denies hemoptysis CARDIOVASCULAR: Denies chest pain or pressure. RESPIRATORY: No shortness of breath. GASTROINTESTINAL: See HPI for pertinent findings HEMATOLOGIC: Denies bleeding disorders. GENITOURINARY: Denies any blood in urine or increased urinary frequency. SKIN: Denies pruitis. Denies rash. PHYSICAL EXAM: VITAL SIGNS: Reviewed GENERAL: Well-developed in no acute distress. HEENT: No sclera icterus. Extraocular movements grossly intact. Moist buccal mucosa. Head is atraumatic, normocephalic. No nasal drainage. ABDOMEN: Soft. Nondistended. Nontender NEUROLOGIC: Alert and oriented. Cranial nerves II through XII grossly intact. SKIN: Abscess left gluteal cleft. Tender with palpation. Erythema and induration noted. Area of I&D noted. With very minimal serous drainage. LABORATORY DATA: WBC 14.8 Hgb 16.1 platelets 139 Sodium 128 potassium 4.6 creatinine 0.82 Glucose 167 down to 67 Wound culture pending IMAGING: Ultrasound 6.3 x 3.4 cm. Complex fluid seen in the right gluteal region. Correlate for abscess ASSESSMENT: 1. Left gluteal abscess status post I&D in ER by ER physician 2. History of MRSA 3. History of diabetes mellitus 4. Coronary artery disease with cardiac stents on Plavix PLAN: -Continue to observe on antibiotics -Check hemoglobin A1c -Continue to monitor WBC -Management of diabetes per medicine service -Patient can shower -Continue supportive care Thank you for this consultation Physician [employer] Scientist note has been reviewed by physician. Signing provider agrees with the documented findings, assessment, and plan of care. Past Medical History Past Medical History: COPD, Diabetes Mellitus, GERD/Reflux, Hyperlipidemia, Myocardial Infarction ([place]) Additional Past Medical History / Comment(s): hpv Last Myocardial Infarction Date:: 01-15-20 History of Any Multi-Drug Resistant Organisms: None Reported, MRSA Year Discovered:: MRSA STOMACH 2014 MDRO Source:: stomach Past Surgical History: Cholecystectomy, Heart Catheterization With Stent, Tonsillectomy Additional Past Surgical History / Comment(s): D&C , all teeth extracted, LASIK- BILATERAL EYES Past Anesthesia/Blood Transfusion Reactions: No Reported Reaction Date of Last Stent Placement:: 01/15/20 Past Psychological History: Depression Smoking Status: Current every day smoker Past Alcohol Use History: None Reported Past Drug Use History: None Reported - Past Family History Mother Family Medical History: Coronary Artery Disease (CAD), Hypertension Additional Family Medical History / Comment(s): lupus, diverticulitis Father Family Medical History: Coronary Artery Disease (CAD), Diabetes Mellitus, Hy pertension, Myocardial Infarction ([place]) Additional Family Medical History / Comment(s): first heart attack at 40 Medications and Allergies Home Medications Medication Instructions Recorded Confirmed Type Albuterol Inhaler [Ventolin Hfa 2 puff INHALATION RT-Q6H PRN 12/13/18 08/01/22 History Inhaler] Mometasone/Formoterol [Dulera 100 2 puff INHALATION RT-BID 12/13/18 08/01/22 History Mcg-5 Mcg Inhaler] Aspirin 81 mg PO DAILY #30 chew 01/18/20 08/01/22 Rx Atorvastatin [Lipitor] 80 mg PO HS #30 tab 01/18/20 08/01/22 Rx Clopidogrel [Plavix] 75 mg PO DAILY #30 tab 01/18/20 08/01/22 Rx Metoprolol Tartrate [Lopressor] 12.5 mg PO BID 07/23/20 08/01/22 History metFORMIN HCL [Glucophage] 1,000 mg PO BID 07/23/20 08/01/22 History Furosemide [Lasix] 20 mg PO DAILY #30 tab 07/26/20 08/01/22 Rx Acetaminophen Tab [Tylenol Tab] 1,000 mg PO Q6HR PRN 08/01/22 08/01/22 History Dulaglutide [Trulicity] 1.5 mg SQ FR 08/01/22 08/01/22 History Fenofibrate,Micronized 134 mg PO DAILY 08/01/22 08/01/22 History [Fenofibrate] Gabapentin 600 mg PO TID 08/01/22 08/01/22 History Insulin Aspart [NovoLOG Flexpen] 30 units SQ TID-W/MEALS 08/01/22 08/01/22 History Insulin Glargine [Lantus Vial] 50 unit SQ HS 08/01/22 08/01/22 History Tiotropium [place] [Spiriva] 1 puff INHALATION RT-DAILY 08/01/22 08/01/22 History glipiZIDE [Glucotrol] 30 mg PO DAILY 08/01/22 08/01/22 History Allergies Allergy/AdvReac Type Severity Reaction Status Date / Time [place] Sprouts Allergy HIVES Verified 08/01/22 13:34 Pork/Porcine Containing Allergy HIVES Verified 08/01/22 13:34 Products [Pork] Surgical - Exam Vital Signs Temp Pulse Resp BP Pulse Ox 99.7 F H 98 18 114/77 97 08/01/22 10:12 08/01/22 10:12 08/01/22 10:12 08/01/22 10:12 08/01/22 10:12 Results - Labs 08/01/22 12:29 08/01/22 12:29 Abnormal Lab Results - Last 24 Hours (Table) 08/01/22 08/01/22 08/01/22 Range/Units 12:29 12:29 17:55 WBC 14.8 H (3.8-10.6) k/uL Hgb 16.1 H (11.4-16.0) gm/dL Hct 50.0 H (34.0-46.0) % Plt Count 139 L (150-450) k/uL Neutrophils # 11.6 H (1.3-7.7) k/uL Monocytes # 1.1 H (0-1.0) k/uL Sodium 128 L (137-145) mmol/L Chloride 94 L (98-107) mmol/L Glucose 272 H (74-99) mg/dL POC Glucose (mg/dL) 167 H (70-110) mg/dL 08/01/22 08/02/22 Range/Units 20:01 07:34 WBC (3.8-10.6) k/uL Hgb (11.4-16.0) gm/dL Hct (34.0-46.0) % Plt Count (150-450) k/uL Neutrophils # (1.3-7.7) k/uL Monocytes # (0-1.0) k/uL Sodium (137-145) mmol/L Chloride (98-107) mmol/L Glucose (74-99) mg/dL POC Glucose (mg/dL) 180 H 112 H (70-110) mg/dL Microbiology - Last 24 Hours (Table) 08/01/22 12:40 Gram Stain - Preliminary Buttock Wound Culture - Preliminary Diabetes panel 08/01/22 Range/Units 12:29 Sodium 128 L (137-145) mmol/L Potassium 4.6 (3.5-5.1) mmol/L Chloride 94 L (98-107) mmol/L Carbon Dioxide 25 (22-30) mmol/L BUN 8 (7-17) mg/dL Creatinine 0.82 (0.52-1.04) mg/dL Glucose 272 H (74-99) mg/dL Calcium 8.8 (8.4-10.2) mg/dL Calcium panel 08/01/22 Range/Units 12:29 Calcium 8.8 (8.4-10.2) mg/dL Pituitary panel 08/01/22 Range/Units 12:29 Sodium 128 L (137-145) mmol/L Potassium 4.6 (3.5-5.1) mmol/L Chloride 94 L (98-107) mmol/L Carbon Dioxide 25 (22-30) mmol/L BUN 8 (7-17) mg/dL Creatinine 0.82 (0.52-1.04) mg/dL Glucose 272 H (74-99) mg/dL Calcium 8.8 (8.4-10.2) mg/dL Adrenal panel 08/01/22 Range/Units 12:29 Sodium 128 L (137-145) mmol/L Potassium 4.6 (3.5-5.1) mmol/L Chloride 94 L (98-107) mmol/L Carbon Dioxide 25 (22-30) mmol/L BUN 8 (7-17) mg/dL Creatinine 0.82 (0.52-1.04) mg/dL Glucose 272 H (74-99) mg/dL Calcium 8.8 (8.4-10.2) mg/dL
[2022-08-02 13:30] LABS: Glucose,Whole Blood 80 mg/dL (70-110)
[2022-08-02] MEDS ORDERED: NON FORMULARY DRUG (Dulaglutide [Trulicity] 1.5 MG/0.5 ML Each) SQ SCH (13:46)
--- NOTE | 2022-08-02 13:58 | P.HPIM ---
History of Present Illness H&P Date: 08/02/22 Chief Complaint: Abscess left buttock History of presenting complaint: This is a 52-year-old patient of Dr. Wade. Chronic stable medical conditions include diabetes, GERD, hyperlipidemia, coronary artery disease with stent, depression, COPD. Patient presents with more than 1 week of an abscess on the buttock. It started off as a small hurting around the tailbone. Then she noticed that it progressively became rather rapid and enlarged in the left buttock. There are no fever and chills. The ER did try to drain the same but not much was obtained. Patient was started on IV vancomycin being admitted. ID general surgery was consulted. Tired. Decreased appetite. Review of systems: GEN.: Tired, fever and chills EYES: None HEENT: None NECK: None RESPIRATORY: Some shortness of breath CARDIOVASCULAR: None GASTROINTESTINAL: None GENITOURINARY: None MUSCULOSKELETAL: None LYMPHATICS: None HEMATOLOGICAL: None PSYCHIATRY: None NEUROLOGICAL: None Past medical history to include: COPD, diabetes, GERD, hyperlipidemia, coronary artery disease with stent, depre ssion Social history: Started smoking at age of 17, 1 pack a day now down to 6 cigarettes a day. M josejuana occasionally. Lives with a daughter and granddaughter Physical examination: VITAL SIGNS: 101.7, 87, 17, 99/69, 97% room air GENERAL: BMI 44.3, laying in bed, awake, tired EYES: Pupils equal. Conjunctiva normal. HEENT: External appearance of nose and ears normal, oral cavity grossly normal. NECK: JVD not raised; masses not palpable. HEART: First and second heart sounds are normal; no edema. LUNGS: Respiratory rate increased, diminished breath sounds, wheezing. ABDOMEN: Soft, nontender, liver spleen not palpable, no masses palpable. Lower abdominal wall on the left side has a wound with slight drainage Left buttock: I joining the left large area of induration with superficial breakdown of skin. Very tender. PSYCH: Alert and oriented x3; mood and affect normal. NEUROLOGICAL: Cranial nerves grossly intact; no facial asymmetry, power and sensation grossly intact. LYMPHATICS: No lymph nodes palpable in the axilla and neck INVESTIGATIONS, reviewed in the clinical context: White count 14.8 hemoglobin 16.1 platelets 139 sodium 128 potassium 4.6 creatinine 0.82 Ultrasound: 6.3 x 3.4 cm complex fluid seen. Assessment and plan: -Left gluteal cleft and joining left buttock abscess General surgery for I&D. IV vancomycin. Consult ID. -Morbid obesity BMI 44.3 Weight loss measures -COPD in a current smoker Ventolin HFA every 6 when necessary, Spiriva, combination inhaler -Chronic nicotine dependence cigarette smoker Nicotine patch -Diabetes mellitus type 2 chronically on insulin Follow Accu-Cheks with sliding scale. Resume home dose -GERD Pepcid 20 mg twice a day -Hyperlipidemia Lipitor 80 mg mg at bedtime Coronary artery disease stent Aspirin, Lipitor, Lopressor, IV vancomycin. ID consult. General surgery. Resume home medications. Follow Accu-Cheks. Subcu Lovenox. Pain control. Care was discussed with the patient and questions answered. 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 Source:: stomach Past Surgical History: Cholecystectomy, Heart Catheterization With Stent, Tonsillectomy Additional Past Surgical History / Comment(s): D&C , all teeth extracted, LASIK- BILATERAL EYES Past Anesthesia/Blood Transfusion Reactions: No Reported Reaction Date of Last Stent Placement:: 01/15/20 Past Psychological History: Depression Smoking Status: Current every day smoker Past Alcohol Use History: None Reported Past Drug Use History: None Reported - Past Family History Mother Family Medical History: Coronary Artery Disease (CAD), Hypertension Additional Family Medical History / Comment(s): lupus, diverticulitis Father Family Medical History: Coronary Artery Disease (CAD), Diabetes Mellitus, Hypertension, Myocardial Infarction (DE) Additional Family Medical History / Comment(s): first heart attack at 40 Medications and Allergies Home Medications Medication Instructions Recorded Confirmed Type Albuterol Inhaler [Ventolin Hfa 2 puff INHALATION RT-Q6H PRN 12/13/18 08/01/22 History Inhaler] Mometasone/Formoterol [Dulera 100 2 puff INHALATION RT-BID 12/13/18 08/01/22 History Mcg-5 Mcg Inhaler] Aspirin 81 mg PO DAILY #30 chew 01/18/20 08/01/22 Rx Atorvastatin [Lipitor] 80 mg PO HS #30 tab 01/18/20 08/01/22 Rx Clopidogrel [Plavix] 75 mg PO DAILY #30 tab 01/18/20 08/01/22 Rx Metoprolol Tartrate [Lopressor] 12.5 mg PO BID 07/23/20 08/01/22 History metFORMIN HCL [Glucophage] 1,000 mg PO BID 07/23/20 08/01/22 History Furosemide [Lasix] 20 mg PO DAILY #30 tab 07/26/20 08/01/22 Rx Acetaminophen Tab [Tylenol Tab] 1,000 mg PO Q6HR PRN 08/01/22 08/01/22 History Dulaglutide [Trulicity] 1.5 mg SQ FR 08/01/22 08/01/22 History Fenofibrate,Micronized 134 mg PO DAILY 08/01/22 08/01/22 History [Fenofibrate] Gabapentin 600 mg PO TID 08/01/22 08/01/22 History Insulin Aspart [NovoLOG Flexpen] 30 units SQ TID-W/MEALS 08/01/22 08/01/22 History Insulin Glargine [Lantus Vial] 50 unit SQ HS 08/01/22 08/01/22 History Tiotropium Bridger [Spiriva] 1 puff INHALATION RT-DAILY 08/01/22 08/01/22 History glipiZIDE [Glucotrol] 30 mg PO DAILY 08/01/22 08/01/22 History Allergies Allergy/AdvReac Type Severity Reaction Status Date / Time [place] Allergy HIVES Verified 08/01/22 13:34 Pork/Porcine Containing Allergy HIVES Verified 08/01/22 13:34 Products [Pork] Physical Exam Vitals: Vital Signs Temp Pulse Pulse Resp BP BP Pulse Ox 08/02/22 08:30 97.9 F 08/02/22 02:00 100.0 F H 78 16 94/57 93 L 08/01/22 20:00 69 18 08/01/22 17:56 98.8 F 69 18 141/64 98 08/01/22 17:19 98.5 F 71 18 112/71 99 08/01/22 16:05 72 17 103/67 100 08/01/22 15:04 98.4 F 75 16 114/79 97 08/01/22 13:04 99.9 F H 85 16 108/60 99 08/01/22 12:30 101.7 F H 87 17 99/69 97 08/01/22 10:12 99.7 F H 98 18 114/77 97 Intake and Output 08/01/22 08/02/22 08/02/22 22:59 06:59 14:59 Intake Total 500 Balance 500 Intake: Intake, IV Titration 500 Amount Vancomycin 1,750 mg In 500 Sodium Chloride 0.9% 500 ml 500 ml @ 167 mls/hr IVPB Q16H [facility] Rx#: [id number] Other: # Voids 3 Weight 109.769 kg Results CBC & Chem 7: 08/01/22 12:29 08/01/22 12:29 Labs: Abnormal Lab Results - Last 24 Hours (Table) 08/01/22 08/01/22 08/01/22 Range/Units 12:29 12:29 17:55 WBC 14.8 H (3.8-10.6) k/uL Hgb 16.1 H (11.4-16.0) gm/dL Hct 50.0 H (34.0-46.0) % Plt Count 139 L (150-450) k/uL Neutrophils # 11.6 H (1.3-7.7) k/uL Monocytes # 1.1 H (0-1.0) k/uL Sodium 128 L (137-145) mmol/L Chloride 94 L (98-107) mmol/L Glucose 272 H (74-99) mg/dL POC Glucose (mg/dL) 167 H (70-110) mg/dL 08/01/22 08/02/22 Range/Units 20:01 07:34 WBC (3.8-10.6) k/uL Hgb (11.4-16.0) gm/dL Hct (34.0-46.0) % Plt Count (150-450) k/uL Neutrophils # (1.3-7.7) k/uL Monocytes # (0-1.0) k/uL Sodium (137-145) mmol/L Chloride (98-107) mmol/L Glucose (74-99) mg/dL POC Glucose (mg/dL) 180 H 112 H (70-110) mg/dL Microbiology - Last 24 Hours (Table) 08/01/22 12:40 Gram Stain - Preliminary Buttock Wound Culture - Preliminary
--- NOTE | 2022-08-02 17:17 | XR ---
EXAMINATION TYPE: XR chest 1V portable DATE OF EXAM: 08/02/2022 COMPARISON: 07/23/2020 HISTORY: Short of breath TECHNIQUE: FINDINGS: There is diffuse increased density over the right hemithorax. This could relate to significant unilat eral pulmonary edema. Heart size is normal. Left lung is relatively clear. There is mild increased in terstitial density in the left lung. IMPRESSION: Unilateral severe pulmonary edema which is a change compared to old exam. No obvious heart failure.
[2022-08-02 18:17] LABS: Glucose,Whole Blood 76 mg/dL (70-110)
[2022-08-02 20:37] LABS: Glucose,Whole Blood 64 mg/dL (70-110)
[2022-08-02 20:56] LABS: Glucose,Whole Blood 64 mg/dL (70-110)
[2022-08-02 21:12] LABS: Glucose,Whole Blood 81 mg/dL (70-110)
[2022-08-02] MEDS: INSULIN DETEMIR (LEVEMIR) 100 UNIT/ML SYR SQ SCH (21:16)
[2022-08-02] MEDS: ATORVASTATIN 80 MG TAB PO SCH (21:16)
--- NOTE | 2022-08-02 22:28 | P.PN ---
Subjective Progress Note Date: 08/02/22 Principal diagnosis: Left gluteal abscess and cellulitis Patient is a 52-year-old female presenting to Hospital with left total pain swelling and redness has been diagnosed with a left gluteal abscess status post I&D in the ER and cultures. On today's evaluation that is 08/02/2022, the patient denies having any fever or any chills, the patient still complaining of pain to the left gluteal area however has decreased in intensity, patient denies having any chest pain shortness of breath or cough no abdominal pain no diarrhea Objective - Vital Signs Vital signs: Vital Signs Temp 97.9 F 08/02/22 08:30 Pulse 69 08/02/22 12:15 Resp 16 08/02/22 02:00 BP 94/57 08/02/22 02:00 Pulse Ox 93 L 08/02/22 02:00 FiO2 Intake & Output 08/01/22 08/02/22 08/02/22 18:59 06:59 18:59 Intake Total 500 Balance 500 Weight 109.769 kg Intake: Intake, IV Titration 500 Amount Vancomycin 1,750 mg In 500 Sodium Chloride 0.9% 500 ml 500 ml @ 167 mls/hr IVPB Q16H [facility] Rx#: [id number] Other: # Voids 3 - Exam GENERAL DESCRIPTION: Middle-age female lying in bed in no distress RESPIRATORY SYSTEM: Unlabored breathing , decreased breath sounds at bases HEART: S1 S2 regular rate and rhythm , ABDOMEN: Soft , no tenderness EXTREMITIES: No edema feet - Labs CBC & Chem 7: 08/01/22 12:29 08/01/22 12:29 Labs: Abnormal Lab Results - Last 24 Hours (Table) 08/01/22 08/01/22 08/01/22 Range/Units 12:29 12:29 17:55 WBC 14.8 H (3.8-10.6) k/uL Hgb 16.1 H (11.4-16.0) gm/dL Hct 50.0 H (34.0-46.0) % Plt Count 139 L (150-450) k/uL Neutrophils # 11.6 H (1.3-7.7) k/uL Monocytes # 1.1 H (0-1.0) k/uL Sodium 128 L (137-145) mmol/L Chloride 94 L (98-107) mmol/L Glucose 272 H (74-99) mg/dL POC Glucose (mg/dL) 167 H (70-110) mg/dL 08/01/22 08/02/22 08/02/22 Range/Units 20:01 07:34 12:26 WBC (3.8-10.6) k/uL Hgb (11.4-16.0) gm/dL Hct (34.0-46.0) % Plt Count (150-450) k/uL Neutrophils # (1.3-7.7) k/uL Monocytes # (0-1.0) k/uL Sodium (137-145) mmol/L Chloride (98-107) mmol/L Glucose (74-99) mg/dL POC Glucose (mg/dL) 180 H 112 H 67 L (70-110) mg/dL Microbiology - Last 24 Hours (Table) 08/01/22 12:40 Gram Stain - Preliminary Buttock Wound Culture - Preliminary Assessment and Plan (1) Abscess, gluteal cleft Current Visit: Yes Status: Acute Code(s): L02.31 - CUTANEOUS ABSCESS OF BUTTOCK SNOMED Code(s): 46294286 Plan: 1patient presented to hospital with sepsis in this patient with a fever elevated white count source is left gluteal abscess and cellulitis in this patient with a history of MRSA infection could be related to MRSA or other gram-positive skin sidney less likely gram-negative infection but not entirely excluded. 2patient to continue with vancomycin pharmacy to dose target trough of 15 while watching kidney function and vancomycin trough closely while waiting for the cultures to finalize. Time with Patient: Less than 30
[2022-08-03 01:29] LABS: Glucose,Whole Blood 59 mg/dL (70-110)
[2022-08-03 01:47] LABS: Glucose,Whole Blood 66 mg/dL (70-110)
[2022-08-03 02:03] LABS: Glucose,Whole Blood 76 mg/dL (70-110)
[2022-08-03] MEDS: SODIUM CHLORIDE 0.9% 1,000 ML IV SCH ×2 (06:05→18:17)
[2022-08-03 06:17] LABS: Glucose,Whole Blood 59 mg/dL (70-110)
[2022-08-03 06:30] LABS: Glucose,Whole Blood 64 mg/dL (70-110)
[2022-08-03 06:47] LABS: Glucose,Whole Blood 81 mg/dL (70-110)
[2022-08-03] MEDS: SYMBICORT 80-4.5 MCG INHALER INHALATION SCH ×2 (07:51→19:23)
[2022-08-03] MEDS: IPRATROPIUM 0.5 MG/2.5 ML NEBU INHALATION SCH ×4 (07:51→19:23)
[2022-08-03] MEDS: glipiZIDE 10 MG TAB PO SCH (08:16)
[2022-08-03] MEDS: INSULIN ASPART (NovoLOG) 100 UNIT/ML VIAL SQ SCH ×3 (08:16→18:16)
[2022-08-03] MEDS: CLOPIDOGREL 75 MG TAB PO SCH (08:16)
[2022-08-03] MEDS: metFORMIN 500 MG TAB PO SCH ×2 (08:16→18:16)
[2022-08-03] MEDS: FENOFIBRATE 160 MG TAB PO SCH (08:17)
[2022-08-03] MEDS: NICOTINE 7MG/24HR PATCH TRANSDERM SCH (08:17)
[2022-08-03] MEDS: METOPROLOL TARTRATE 12.5 MG TAB PO SCH ×2 (08:17→20:21)
[2022-08-03] MEDS: ASPIRIN 81 MG PO SCH (08:17)
[2022-08-03] MEDS: FUROSEMIDE 20 MG TAB PO SCH (08:17)
[2022-08-03] MEDS: GABAPENTIN 300 MG CAP PO SCH ×3 (08:17→20:21)
[2022-08-03 10:03] LABS: African American GFR (CKD) 99.6 (60.0-200.0); Anion Gap 7.4 mmol/L (10.00-18.00); BUN/Creat Ratio 11.88 Ratio (12.00-20.00); Blood Urea Nitrogen 9.5 mg/dL (9.0-27.0); Calcium 8.6 mg/dL (8.7-10.3); Carbon Dioxide 27.6 mmol/L (20.0-27.5); Potassium 4.3 mmol/L (3.5-5.5)
[2022-08-03 11:13] LABS: Basophils # (A) 0.05 X 10*3/uL (0.00-0.10); Basophils % (A) 0.5 %; HCT 44.8 % (37.2-46.3); HGB 14.6 g/dL (12.0-15.0); Immature Grans, Automated 0.6 %; Lymphocytes # (A) 1.65 X 10*3/uL (0.90-5.00); Lymphocytes % (A) 16.5 %; MCH 31.1 pg (27.0-32.0); MCHC 32.6 g/dL (32.0-37.0); MCV 95.5 fL (80.0-97.0); Mean Platelet Volume 13.6 fL (9.5-12.2); Monocytes # (A) 0.73 X 10*3/uL (0.20-1.00); Monocytes % (A) 7.3 %; NRBC Per 100 WBC 0 /100 WBCS (0.0-0.0); Neutrophils # (A) 7.32 X 10*3/uL (1.80-7.70); Neutrophils % (A) 73.1 %; Platelet Count 144 X 10*3/uL (140-440); RBC 4.69 X 10*6/uL (4.10-5.20); RDW 14.2 % (11.5-14.5); WBC 10.01 X 10*3/uL (4.50-10.00)
[2022-08-03 12:42] LABS: Glucose,Whole Blood 97 mg/dL (70-110)
[2022-08-03] MEDS: VANCOMYCIN 1,750 MG in SODIUM CHLORIDE 0.9% 500 ML 500 ML IVPB SCH (13:44)
[2022-08-03] MEDS: HYDROmorphone 0.5 MG/0.5 ML SYRINGE IVP PRN (13:46)
--- NOTE | 2022-08-03 14:10 | P.PN ---
Subjective Progress Note Date: 08/03/22 CHIEF COMPLAINT: Right gluteal abscess HISTORY OF PRESENT ILLNESS: The patient is a 52-year-old female who presents with complicated right gluteal abscess with uncontrolled diabetes type 2 and morbid obesity. She reports pain along the right buttocks. No fevers. Currently, patient does not have warm compresses or sitz bath. She presented with fevers over 101.7F on admission now resolved. ROS: No reports of nausea and vomiting. No fevers or chills in 24 hours. No new chest pain. No productive sputum PHYSICAL EXAM: VITAL SIGNS: Reviewed CONSTITUTIONAL: Well developed and in no acute distress. EYES: Conjuctivae without sclera icterus. Extraocular movements grossly intact. HEAD, EARS, NOSE, THROAT: Moist buccal mucosa. Head is atraumatic, normocephalic. Hears conversational speech. No nasal drainage. RESPIRATORY: Non-labored respirations and equal bilateral excursions. CARDIOVASCULAR: Palpable 2+ radial pulses. ABDOMEN: Obese nontender. MUSCULOSKELETAL: No clubbing. No cyanosis. Right gluteal abscess SKIN: Good skin turgor. Well perfused. NEUROLOGIC: Cranial nerves II through XII grossly intact. No focal or lateralizing signs. PSYCH: Appropriate affect. Alert and oriented to person, place and time. CLINICAL LABS: Reviewed. WBC down to 14,000-10,000, mild leukocytosis. Hemoglobin A1c elevated 11.2% STUDIES: Ultrasound independent review demonstrates 2 cystic fluid collected areas of the right buttock. REPORT: Ultrasound report right gluteal demonstrates 6 x 3 cm right gluteal abscess. MICRO: No growth to date, reviewed ASSESSMENT: 1. Complex right gluteal abscess with uncontrolled diabetes type 2 2. Morbid obesity excess calories, BMI 44.3 3. Sepsis due to abscess PLAN: 1. Patient presented with complex right gluteal abscess and fevers now resolved 2. Continue with IV antibiotics, vancomycin 3. To further mature abscess, warm compresses and sitz baths ordered Objective - Vital Signs Vital signs: Vital Signs Temp 97.5 F L 08/03/22 12:39 Pulse 65 08/03/22 12:39 Resp 18 08/03/22 12:39 BP 120/78 08/03/22 12:39 Pulse Ox 95 08/03/22 12:39 FiO2 Intake & Output 09/16/22 09/17/22 09/17/22 18:59 06:59 18:59 Intake Total 1400 600 Balance 1400 600 Intake: Intake, IV Titration 1400 600 Amount Sodium Chloride 0.9% 1, 900 600 000 ml @ 75 mls/hr IV . [id number] [facility] Rx#:[id number] Vancomycin 1,750 mg In 500 Sodium Chloride 0.9% 500 ml 500 ml @ 167 mls/hr IVPB Q16H [facility] Rx#: [id number] Other: Voiding Method Toilet Toilet Incontinent Diaper Incontinent - Labs CBC & Chem 7: 08/03/22 05:38 08/03/22 05:38 Labs: Abnormal Lab Results - Last 24 Hours (Table) 08/02/22 08/02/22 08/03/22 Range/Units 20:35 20:55 01:27 WBC (4.50-10.00) X 10*3/uL MPV (9.5-12.2) fL Immature Gran # (0.00-0.04) X 10*3/uL Carbon Dioxide (20.0-27.5) mmol/L Anion Gap (10.00-18.00) mmol/L BUN/Creatinine Ratio (12.00-20.00) Ratio Glucose (70-110) mg/dL POC Glucose (mg/dL) 64 L 64 L 59 L (70-110) mg/dL Hemoglobin A1c (0.0-6.0) % Calcium (8.7-10.3) mg/dL 08/03/22 08/03/22 08/03/22 Range/Units 01:45 05:38 05:38 WBC 10.01 H (4.50-10.00) X 10*3/uL MPV 13.6 H (9.5-12.2) fL Immature Gran # 0.06 H (0.00-0.04) X 10*3/uL Carbon Dioxide (20.0-27.5) mmol/L Anion Gap (10.00-18.00) mmol/L BUN/Creatinine Ratio (12.00-20.00) Ratio Glucose (70-110) mg/dL POC Glucose (mg/dL) 66 L (70-110) mg/dL Hemoglobin A1c 11.2 H (0.0-6.0) % Calcium (8.7-10.3) mg/dL 08/03/22 08/03/2208/03/22 Range/Units 05:38 06:15 06:28 WBC (4.50-10.00) X 10*3/uL MPV (9.5-12.2) fL Immature Gran # (0.00-0.04) X 10*3/uL Carbon Dioxide 27.6 H (20.0-27.5) mmol/L Anion Gap 7.40 L (10.00-18.00) mmol/L BUN/Creatinine Ratio 11.88 L (12.00-20.00) Ratio Glucose 56 L (70-110) mg/dL POC Glucose (mg/dL) 59 L 64 L (70-110) mg/dL Hemoglobin A1c (0.0-6.0) % Calcium 8.6 L (8.7-10.3) mg/dL Microbiology - Last 24 Hours (Table) 08/01/22 12:15 Blood Culture - Preliminary Blood No Growth after 24 hours 08/01/22 12:00 Blood Culture - Preliminary Blood No Growth after 24 hours
--- NOTE | 2022-08-03 15:31 | P.PN ---
Subjective Progress Note Date: 08/03/22 Principal diagnosis: Left gluteal abscess and cellulitis Patient is a 52-year-old female presenting to Hospital with left total pain swelling and redness has been diagnosed with a left gluteal abscess status post I&D in the ER and cultures. On today's evaluation that is 08/03/2022, the patient continues to be afebrile, the patient still complaining of pain to the left gluteal area however controlled with the current medication, patient denies having any chest pain s hortness of breath or cough no abdominal pain no diarrhea Objective - Vital Signs Vital signs: Vital Signs Temp 97.5 F L 08/03/22 12:39 Pulse 65 08/03/22 12:39 Resp 18 08/03/22 12:39 BP 120/78 08/03/22 12:39 Pulse Ox 95 08/03/22 12:39 FiO2 Intake & Output 08/02/22 08/03/22 08/03/22 18:59 06:59 18:59 Intake Total 1400 600 Balance 1400 600 Intake: Intake, IV Titration 1400 600 Amount Sodium Chloride 0.9% 1, 900 600 000 ml @ 75 mls/hr IV . [id number] [facility] Rx#:[id number] Vancomycin 1,750 mg In 500 Sodium Chloride 0.9% 500 ml 500 ml @ 167 mls/hr IVPB Q16H [facility] Rx#: [id number] Other: Voiding Method Toilet Toilet Incontinent Diaper Incontinent - Exam GENERAL DESCRIPTION: Middle-age female lying in bed in no distress RESPIRATORY SYSTEM: Unlabored breathing , decreased breath sounds at bases HEART: S1 S2 regular rate and rhythm , ABDOMEN: Soft , no tenderness EXTREMITIES: No edema feet - Labs CBC & Chem 7: 08/03/22 05:38 08/03/22 05:38 Labs: Abnormal Lab Results - Last 24 Hours (Table) 08/02/22 08/02/22 08/03/22 Range/Units 20:35 20:55 01:27 WBC (4.50-10.00) X 10*3/uL MPV (9.5-12.2) fL Immature Gran # (0.00-0.04) X 10*3/uL Carbon Dioxide (20.0-27.5) mmol/L Anion Gap (10.00-18.00) mmol/L BUN/Creatinine Ratio (12.00-20.00) Ratio Glucose (70-110) mg/dL POC Glucose (mg/dL) 64 L 64 L 59 L (70-110) mg/dL Hemoglobin A1c (0.0-6.0) % Calcium (8.7-10.3) mg/dL 08/03/22 08/03/22 08/03/22 Range/Units 01:45 05:38 05:38 WBC 10.01 H (4.50-10.00) X 10*3/uL MPV 13.6 H (9.5-12.2) fL Immature Gran # 0.06 H (0.00-0.04) X 10*3/uL Carbon Dioxide (20.0-27.5) mmol/L Anion Gap (10.00-18.00) mmol/L BUN/Creatinine Ratio (12.00-20.00) Ratio Glucose (70-110) mg/dL POC Glucose (mg/dL) 66 L (70-110) mg/dL Hemoglobin A1c 11.2 H (0.0-6.0) % Calcium (8.7-10.3) mg/dL 08/03/22 08/03/22 08/03/22 Range/Units 05:38 06:15 06:28 WBC (4.50-10.00) X 10*3/uL MPV (9.5-12.2) fL Immature Gran # (0.00-0.04) X 10*3/uL Carbon Dioxide 27.6 H (20.0-27.5) mmol/L Anion Gap 7.40 L (10.00-18.00) mmol/L BUN/Creatinine Ratio 11.88 L (12.00-20.00) Ratio Glucose 56 L (70-110) mg/dL POC Glucose (mg/dL) 59 L 64 L (70-110) mg/dL Hemoglobin A1c (0.0-6.0) % Calcium 8.6 L (8.7-10.3) mg/dL Microbiology - Last 24 Hours (Table) 08/01/22 12:15 Blood Culture - Preliminary Blood No Growth after 24 hours 08/01/22 12:00 Blood Culture - Preliminary Blood No Growth after 24 hours Assessment and Plan (1) Abscess, gluteal cleft Current Visit: Yes Status: Acute Code(s): L02.31 - CUTANEOUS ABSCESS OF BUTTOCK SNOMED Code(s): 60723159 Plan: 1patient presented to hospital with sepsis in this patient with a fever elevated white count source is left gluteal abscess and cellulitis in this patient with a history of MRSA infection could be related to MRSA or other gram- positive skin sidney less likely gram-negative infection but not entirely excluded. 2patient seemed to show some clinical improvement and will continue with vancomycin pharmacy to dose while waiting for the cultures to finalize. Time with Patient: Less than 30
[2022-08-03 17:41] LABS: Glucose,Whole Blood 122 mg/dL (70-110)
[2022-08-03 20:13] LABS: Glucose,Whole Blood 149 mg/dL (70-110)
[2022-08-03] MEDS: ATORVASTATIN 80 MG TAB PO SCH (20:21)
[2022-08-03] MEDS: INSULIN DETEMIR (LEVEMIR) 100 UNIT/ML SYR SQ SCH (20:22)
--- NOTE | 2022-08-03 21:23 | P.PN ---
Progress Note - Text Progress Note Date: 08/03/22 Chief Complaint: Abscess left buttock History of presenting complaint: This is a 52-year-old patient of Dr. Wade. Chronic stable medical conditions include diabetes, GERD, hyperlipidemia, coronary artery disease with stent, depression, COPD. Patient presents with more than 1 week of an abscess on the buttock. It started off as a small hurting around the tailbone. Then she noticed that it progressively became rather rapid and enlarged in the left buttock. There are no fever and chills. The ER did try to drain the same but not much was obtained. Patient was started on IV vancomycin being admitted. ID general surgery was consulted. Tired. Decreased appetite. Patient bit her with abscess and cellulitis of the left buttock. IV vancomycin. August 03: Warm compress and sitz bath ordered by surgery. No surgical intervention per them currently. The wound is draining. IV vancomycin. Oral intake fair. Active Medications Acetaminophen (Acetaminophen Tab 325 Mg Tab) 650 mg PO Q6HR PRN PRN Reason: Mild Pain or Fever > 100.5 Last Admin: 08/02/22 04:56 Dose: 650 mg Albuterol Sulfate (Albuterol Nebulized 2.5 Mg/3 Ml) 2.5 mg INHALATION RT-Q6H PRN PRN Reason: Shortness Of Breath Aspirin (Aspirin 81 Mg) 81 mg PO DAILY [facility] Last Admin: 08/03/22 08:17 Dose: 81 mg Atorvastatin Calcium (Atorvastatin 80 Mg Tab) 80 mg PO HS [facility] Last Admin: 08/03/22 20:21 Dose: 80 mg Budesonide/Formoterol Fumarate (Symbicort 80-4.5 Mcg Inhaler) 2 puff INHALATION RT-BID [facility] Last Admin: 08/03/22 19:23 Dose: Not Given Calcium Carbonate/Glycine (Calcium Carbonate 500 Mg Chewable) 1,000 mg PO Q4HR PRN PRN Reason: Dyspepsia Clopidogrel Bisulfate (Clopidogrel 75 Mg Tab) 75 mg PO DAILY [facility] Last Admin: 08/03/22 08:16 Dose: 75 mg Fenofibrate (Fenofibrate 160 Mg Tab) 160 mg PO DAILY [facility] Last Admin: 08/03/22 08:17 Dose: 160 mg Furosemide (Furosemide 20 Mg Tab) 20 mg PO DAILY [facility] Last Admin: 08/03/22 08:17 Dose: 20 mg Gabapentin (Gabapentin 300 Mg Cap) 600 mg PO TID [facility] Last Admin: 08/03/22 20:21 Dose: 600 mg Glipizide (Glipizide 10 Mg Tab) 30 mg PO AC-BRKFST [facility] Last Admin: 08/03/22 08:16 Dose: Not Given Hydromorphone HCl (Hydromorphone 0.5 Mg/0.5 Ml Syringe) 0.5 mg IVP Q3HR PRN PRN Reason: Moderate Pain (Scale 4 to 6) Last Admin: 08/03/22 13:46 Dose: 0.5 mg Sodium Chloride (Saline 0.9%) 1,000 mls @ 75 mls/hr IV .[id number] [facility] Last Admin: 08/03/22 18:17 Dose: Not Given Vancomycin HCl 1,750 mg/ (Sodium Chloride) 500 mls @ 167 mls/hr IVPB Q16H [facility] Last Admin: 08/03/22 13:44 Dose: 167 mls/hr Insulin Aspart (Insulin Aspart (Novolog) 100 Unit/Ml Vial) 30 unit SQ TID-W/MIGEL LS [facility] Last Admin: 08/03/22 18:16 Dose: Not Given Insulin Detemir (Insulin Detemir (Levemir) 100 Unit/Ml Syr) 50 unit SQ HS [facility] Last Admin: 08/03/22 20:22 Dose: Not Given Ipratropium [place] (Ipratropium 0.5 Mg/2.5 Ml Nebu) 0.5 mg INHALATION RT-QID [facility] Last Admin: 08/03/22 19:23 Dose: Not Given Lactulose (Lactulose 20 Gm/30 Ml Cup) 20 gm PO DAILY PRN PRN Reason: Constipation Lorazepam (Lorazepam 0.5 Mg Tab) 0.5 mg PO Q6HR PRN PRN Reason: Anxiety Metformin HCl (Metformin 500 Mg Tab) 1,000 mg PO AC-BID [facility] Last Admin: 08/03/22 18:16 Dose: Not Given Metoprolol Tartrate (Metoprolol Tartrate 12.5 Mg Tab) 12.5 mg PO BID [facility] Last Admin: 08/03/22 20:21 Dose: 12.5 mg Miscellaneous Information (Vancomycin Trough Due 1 Each Misc) 0 each MISCELLANE DIRECTED ONE Stop: 08/04/22 05:01 Naloxone HCl (Naloxone 0.4 Mg/Ml 1 Ml Vial) 0.2 mg IV Q2M PRN PRN Reason: Opioid Reversal Nicotine (Nicotine 7mg/24hr Patch) 1 patch TRANSDERM DAILY [facility] Last Admin: 08/03/22 08:17 Dose: 1 patch Ondansetron HCl (Ondansetron 4 Mg/2 Ml Vial) 4 mg IVP Q8HR PRN PRN Reason: Nausea And Vomiting Temazepam (Temazepam 15 Mg Cap) 15 mg PO HS PRN PRN Reason: Insomnia Past medical history to include: COPD, diabetes, GERD, hyperlipidemia, coronary artery disease with stent, depression Social history: Started smoking at age of 17, 1 pack a day now down to 6 cigarettes a day. Meredith calloway occasionally. Lives with a daughter and granddaughter Physical examination: VITAL SIGNS: 97.5, 65, 18, 120/78, 95% room air GENERAL: , laying in bed, awake, tired EYES: Pupils equal. Conjunctiva normal. HEENT: External appearance of nose and ears normal, oral cavity grossly normal. NECK: JVD not raised; masses not palpable. HEART: First and second heart sounds are normal; no edema. LUNGS: Respiratory rate increased, diminished breath sounds, wheezing. ABDOMEN: Soft, nontender, liver spleen not palpable, no masses palpable. Lower abdominal wall on the left side has a wound with slight drainage Left buttock: I joining the left large area of induration with superficial breakdown of skin. Very tender. PSYCH: Alert and oriented x3; mood and affect normal. INVESTIGATIONS, reviewed in the clinical context: August 03: WBC 10.0 hemoglobin 14.6 potassium 4.3 creatinine 0.8 White count 14.8 hemoglobin 16.1 platelets 139 sodium 128 potassium 4.6 creatinine 0.82 Ultrasound: 6.3 x 3.4 cm complex fluid seen. Assessment and plan: -Left gluteal cleft and joining left buttock abscess General surgery ordered warm compress and sitz bath.. IV vancomycin. Follow with anxiety. -Morbid obesity BMI 44.3 Weight loss measures -COPD in a current smoker Ventolin HFA every 6 when necessary, Spiriva, combination inhaler -Chronic nicotine dependence cigarette smoker Nicotine patch -Diabetes mellitus type 2 chronically on insulin, uncontrolled with hypoglycemia. Follow Accu-Cheks with sliding scale. Hold glyburide. Cutback Levemir to 40 units -GERD Pepcid 20 mg twice a day -Hyperlipidemia Lipitor 80 mg mg at bedtime Coronary artery disease stent Aspirin, Lipitor, Lopressor, IV vancomycin. Sitz bath and warm compress per ID. No I&D per surgery. DC The right. Cutback Levemir to 40 units. Discussed with patient.
[2022-08-04] MEDS ORDERED: VANCOMYCIN TROUGH DUE 1 EACH MISC MISCELLANE ONE (05:00)
[2022-08-04] MEDS: VANCOMYCIN 1,750 MG in SODIUM CHLORIDE 0.9% 500 ML 500 ML IVPB SCH (06:15)
[2022-08-04] MEDS: SODIUM CHLORIDE 0.9% 1,000 ML IV SCH ×2 (06:17→21:37)
[2022-08-04 06:28] LABS: African American GFR (CKD) >90 (>60 ml/min/1.73 sqM); Non-African American GFR(CKD) 84 (>60 ml/min/1.73 sqM)
[2022-08-04 07:02] LABS: Glucose,Whole Blood 117 mg/dL (70-110)
[2022-08-04] MEDS: INSULIN ASPART (NovoLOG) 100 UNIT/ML VIAL SQ SCH ×3 (07:25→17:55)
[2022-08-04] MEDS: ASPIRIN 81 MG PO SCH (07:27)
[2022-08-04] MEDS: GABAPENTIN 300 MG CAP PO SCH ×3 (07:27→21:31)
[2022-08-04] MEDS: METOPROLOL TARTRATE 12.5 MG TAB PO SCH ×2 (07:27→21:32)
[2022-08-04] MEDS: metFORMIN 500 MG TAB PO SCH ×2 (07:27→18:09)
[2022-08-04] MEDS: FUROSEMIDE 20 MG TAB PO SCH (07:27)
[2022-08-04] MEDS: NICOTINE 7MG/24HR PATCH TRANSDERM SCH (07:28)
[2022-08-04] MEDS: CLOPIDOGREL 75 MG TAB PO SCH (07:28)
[2022-08-04] MEDS: FENOFIBRATE 160 MG TAB PO SCH (07:28)
[2022-08-04] MEDS: IPRATROPIUM 0.5 MG/2.5 ML NEBU INHALATION SCH ×4 (07:48→19:14)
[2022-08-04] MEDS: SYMBICORT 80-4.5 MCG INHALER INHALATION SCH ×2 (07:48→19:14)
[2022-08-04 12:26] LABS: Glucose,Whole Blood 165 mg/dL (70-110)
[2022-08-04] MEDS: ACETAMINOPHEN TAB 325 MG TAB PO PRN (13:04)
[2022-08-04] MEDS: HYDROmorphone 0.5 MG/0.5 ML SYRINGE IVP PRN (13:49)
--- NOTE | 2022-08-04 14:49 | P.PN ---
Subjective Progress Note Date: 08/04/22 CHIEF COMPLAINT: Right gluteal abscess HISTORY OF PRESENT ILLNESS: The patient is a 52-year-old female who presents with complicated right gluteal abscess with uncontrolled diabetes type 2 and morbid obesity. She reports pain along the right buttocks. She was started on sitz baths and warm compress. Patient reports moderate drainage as result of interventional sitz baths. Her pain has improved from yesterday. ROS: No reports of nausea and vomiting. No fevers or chills. No new chest pain. PHYSICAL EXAM: VITAL SIGNS: Reviewed CONSTITUTIONAL: Well developed and in no acute distress. EYES: Conjuctivae without sclera icterus. Extraocular movements grossly intact. HEAD, EARS, NOSE, THROAT: Moist buccal mucosa. Head is atraumatic, normocephalic. Hears conversational speech. No nasal drainage. RESPIRATORY: Non-labored respirations and equal bilateral excursions. CARDIOVASCULAR: Palpable 2+ radial pulses. ABDOMEN: Obese nontender. MUSCULOSKELETAL: No clubbing. No cyanosis. Right gluteal abscess SKIN: Good skin turgor. Well perfused. NEUROLOGIC: Cranial nerves II through XII grossly intact. No focal or lateralizing signs. PSYCH: Appropriate affect. Alert and oriented to person, place and time. CLINICAL LABS: Reviewed. Creatinine 0.8 MICRO: E. coli resistant to Unasyn, ampicillin, Ancef and aztreonam ASSESSMENT: 1. Complex right gluteal abscess with uncontrolled diabetes type 2 2. Morbid obesity excess calories, BMI 44.3 3. Sepsis due to abscess PLAN: 1. Continue IV antibiotics with adjustment due to microbiology results 2. Continue sitz bath as she has moderate drainage Objective - Vital Signs Vital signs: Vital Signs Temp 98 F 08/04/22 12:28 Pulse 64 08/04/22 12:28 Resp 18 08/04/22 12:28 BP 108/65 08/04/22 12:28 Pulse Ox 100 08/04/22 12:28 FiO2 Intake & Output 08/03/22 08/04/22 08/04/22 18:59 06:59 18:59 Intake Total 740 660 Balance 740 660 Intake: Intake, IV Titration 740 660 Amount Sodium Chloride 0.9% 1, 240 160 000 ml @ 75 mls/hr IV . [id number] [facility] Rx#:[id number] Vancomycin 1,750 mg In 500 500 Sodium Chloride 0.9% 500 ml 500 ml @ 167 mls/hr IVPB Q16H [facility] Rx#: [id number] Other: Voiding Method Toilet Toilet Toilet Diaper Diaper Diaper Incontinent Incontinent Incontinent - Labs CBC & Chem 7: 08/03/22 05:38 08/04/22 04:59 Labs: Abnormal Lab Results - Last 24 Hours (Table) 08/03/22 08/03/22 08/04/22 Range/Units 17:40 20:12 07:00 POC Glucose (mg/dL) 122 H 149 H 117 H (70-110) mg/dL 08/04/22 Range/Units 12:19 POC Glucose (mg/dL) 165 H (70-110) mg/dL Microbiology - Last 24 Hours (Table) 08/01/22 12:15 Blood Culture - Preliminary Blood No Growth after 72 hours 08/01/22 12:00 Blood Culture - Preliminary Blood No Growth after 72 hours 08/01/22 12:40 Gram Stain - Final Buttock Wound Culture - Final Escherichia coli
--- NOTE | 2022-08-04 14:56 | P.PN ---
Progress Note - Text Progress Note Date: 08/04/22 Chief Complaint: Abscess left buttock History of presenting complaint: This is a 52-year-old patient of Dr. Wade. Chronic stable medical conditions include diabetes, GERD, hyperlipidemia, coronary artery disease with stent, depression, COPD. Patient presents with more than 1 week of an abscess on the buttock. It started off as a small hurting around the tailbone. Then she noticed that it progressively became rather rapid and enlarged in the left buttock. There are no fever and chills. The ER did try to drain the same but not much was obtained. Patient was started on IV vancomycin being admitted. ID general surgery was consulted. Tired. Decreased appetite. Patient bit her with abscess and cellulitis of the left buttock. IV vancomycin. August 03: Warm compress and sitz bath ordered by surgery. No surgical intervention per them currently. The wound is draining. IV vancomycin. Oral intake fair. August 04: Patient getting sitz bath and warm compress. Buttock abscess draining. On IV vancomycin. Wound culture growing E. coli. Eating well. Up in a chair. Active Medications Acetaminophen (Acetaminophen Tab 325 Mg Tab) 650 mg PO Q6HR PRN PRN Reason: Mild Pain or Fever > 100.5 Last Admin: 08/04/22 13:04 Dose: 650 mg Albuterol Sulfate (Albuterol Nebulized 2.5 Mg/3 Ml) 2.5 mg INHALATION RT-Q6H PRN PRN Reason: Shortness Of Breath Aspirin (Aspirin 81 Mg) 81 mg PO DAILY [facility] Last Admin: 08/04/22 07:27 Dose: 81 mg Atorvastatin Calcium (Atorvastatin 80 Mg Tab) 80 mg PO HS [facility] Last Admin: 08/03/22 20:21 Dose: 80 mg Budesonide/Formoterol Fumarate (Symbicort 80-4.5 Mcg Inhaler) 2 puff INHALATION RT-BID [facility] Last Admin: 08/04/22 07:48 Dose: 2 puff Calcium Carbonate/Glycine (Calcium Carbonate 500 Mg Chewable) 1,000 mg PO Q4HR PRN PRN Reason: Dyspepsia Clopidogrel Bisulfate (Clopidogrel 75 Mg Tab) 75 mg PO DAILY [facility] Last Admin: 08/04/22 07:28 Dose: 75 mg Fenofibrate (Fenofibrate 160 Mg Tab) 160 mg PO DAILY [facility] Last Admin: 09/18/22 07:28 Dose: 160 mg Furosemide (Furosemide 20 Mg Tab) 20 mg PO DAILY [facility] Last Admin: 08/04/22 07:27 Dose: 20 mg Gabapentin (Gabapentin 300 Mg Cap) 600 mg PO TID [facility] Last Admin: 08/04/22 07:27 Dose: 600 mg Hydromorphone HCl (Hydromorphone 0.5 Mg/0.5 Ml Syringe) 0.5 mg IVP Q3HR PRN PRN Reason: Moderate Pain (Scale 4 to 6) Last Admin: 08/04/22 13:49 Dose: 0.5 mg Sodium Chloride (Saline 0.9%) 1,000 mls @ 75 mls/hr IV .[id number] [facility] Last Admin: 08/04/22 06:17 Dose: 75 mls/hr Vancomycin HCl 1,750 mg/ (Sodium Chloride) 500 mls @ 167 mls/hr IVPB Q16H [facility] Last Admin: 08/04/22 06:15 Dose: 167 mls/hr Insulin Aspart (Insulin Aspart (Novolog) 100 Unit/Ml Vial) 30 unit SQ TID- W/MEALS [facility] Last Admin: 08/04/22 13:45 Dose: 30 unit Insulin Detemir (Insulin Detemir (Levemir) 100 Unit/Ml Syr) 40 unit SQ HS [facility] Ipratropium [place] (Ipratropium 0.5 Mg/2.5 Ml Nebu) 0.5 mg INHALATION RT-QID [facility] Last Admin: 08/04/22 11:08 Dose: 0.5 mg Lactulose (Lactulose 20 Gm/30 Ml Cup) 20 gm PO DAILY PRN PRN Reason: Constipation Lorazepam (Lorazepam 0.5 Mg Tab) 0.5 mg PO Q6HR PRN PRN Reason: Anxiety Metformin HCl (Metformin 500 Mg Tab) 1,000 mg PO AC-BID [facility] Last Admin: 08/04/22 07:27 Dose: 1,000 mg Metoprolol Tartrate (Metoprolol Tartrate 12.5 Mg Tab) 12.5 mg PO BID [facility] Last Admin: 08/04/22 07:27 Dose: 12.5 mg Naloxone HCl (Naloxone 0.4 Mg/Ml 1 Ml Vial) 0.2 mg IV Q2M PRN PRN Reason: Opioid Reversal Nicotine (Nicotine 7mg/24hr Patch) 1 patch TRANSDERM DAILY [facility] Last Admin: 08/04/22 07:28 Dose: 1 patch Ondansetron HCl (Ondansetron 4 Mg/2 Ml Vial) 4 mg IVP Q8HR PRN PRN Reason: Nausea And Vomiting Temazepam (Temazepam 15 Mg Cap) 15 mg PO HS PRN PRN Reason: Insomnia Past medical history to include: COPD, diabetes, GERD, hyperlipidemia, coronary artery disease with stent, depression Social history: Started smoking at age of 17, 1 pack a day now down to 6 cigarettes a day. Marijuana occasionally. Lives with a daughter and granddaughter Physical examination: VITAL SIGNS: 98, 64, 18, 108/65, 100% room air GENERAL: , laying in bed, awake, tired EYES: Pupils equal. Conjunctiva normal. HEENT: External appearance of nose and ears normal, oral cavity grossly normal. NECK: JVD not raised; masses not palpable. HEART: First and second heart sounds are normal; no edema. LUNGS: Respiratory rate increased, diminished breath sounds, wheezing. ABDOMEN: Soft, nontender, liver spleen not palpable, no masses palpable. Left buttock: See nursing notes. PSYCH: Alert and oriented x3; mood and affect normal. INVESTIGATIONS, reviewed in the clinical context: August 03: WBC 10.0 hemoglobin 14.6 potassium 4.3 creatinine 0.8 White count 14.8 hemoglobin 16.1 platelets 139 sodium 128 potassium 4.6 creatinine 0.82 Ultrasound: 6.3 x 3.4 cm complex fluid seen. Assessment and plan: -Left gluteal cleft and joining left buttock abscess. Culture-E. coli warm compress and sitz bath.. IV vancomycin. Follow with ID -Morbid obesity BMI 44.3 Weight loss measures -COPD in a current smoker Ventolin HFA every 6 when necessary, Spiriva, combination inhaler -Chronic nicotine dependence cigarette smoker Nicotine patch -Diabetes mellitus type 2 chronically on insulin, uncontrolled with hypoglycemia. Follow Accu-Cheks with sliding scale. Hold glyburide. Cutback Levemir to 40 units -GERD Pepcid 20 mg twice a day -Hyperlipidemia Lipitor 80 mg mg at bedtime Coronary artery disease stent Aspirin, Lipitor, Lopressor, IV vancomycin. Sitz bath and warm compress continue other medications. Discussed with patient.
[2022-08-04] MEDS: PIPERACILLIN-TAZOBACTAM 3.375 GM in SODIUM CHLORIDE 0.9% 100 ML IVPB SCH (15:59)
--- NOTE | 2022-08-04 16:59 | P.PN ---
Subjective Progress Note Date: 08/04/22 Principal diagnosis: Left gluteal abscess and cellulitis Patient is a 52-year-old female presenting to Hospital with left total pain swelling and redness has been diagnosed with a left gluteal abscess status post I&D in the ER and cultures. On today's evaluation that is 08/04/2022, the patient remains to be afebrile, the patient did have further drainage from her left gluteal abscess a and pain to the left gluteal area has decreased in intensity, the patient denies having any chest pain shortness of breath or cough no abdominal pain or diarrhea Objective - Vital Signs Vital signs: Vital Signs Temp 98 F 08/04/22 12:28 Pulse 64 08/04/22 12:28 Resp 18 08/04/22 12:28 BP 108/65 08/04/22 12:28 Pulse Ox 100 08/04/22 12:28 FiO2 Intake & Output 08/03/22 08/04/22 08/04/22 18:59 06:59 18:59 Intake Total 740 660 Balance 740 660 Intake: Intake, IV Titration 740 660 Amount Sodium Chloride 0.9% 1, 240 160 000 ml @ 75 mls/hr IV . [id number] [facility] Rx#:[id number] Vancomycin 1,750 mg In 500 500 Sodium Chloride 0.9% 500 ml 500 ml @ 167 mls/hr IVPB Q16H [facility] Rx#: [id number] Other: Voiding Method Toilet Toilet Toilet Diaper Diaper Diaper Incontinent Incontinent Incontinent - Exam GENERAL DESCRIPTION: Middle-age female lying in bed in no distress RESPIRATORY SYSTEM: Unlabored breathing , decreased breath sounds at bases HEART: S1 S2 regular rate and rhythm , ABDOMEN: Soft , no tenderness, left gluteal area did have a wound from spontane ous drainage with some slough tissue no surrounding induration EXTREMITIES: No edema feet - Labs CBC & Chem 7: 08/03/22 05:38 08/04/22 04:59 Labs: Abnormal Lab Results - Last 24 Hours (Table) 08/03/22 08/03/22 08/04/22 Range/Units 17:40 20:12 07:00 POC Glucose (mg/dL) 122 H 149 H 117 H (70-110) mg/dL 08/04/22 Range/Units 12:19 POC Glucose (mg/dL) 165 H (70-110) mg/dL Microbiology - Last 24 Hours (Table) 08/01/22 12:15 Blood Culture - Preliminary Blood No Growth after 72 hours 08/01/22 12:00 Blood Culture - Preliminary Blood No Growth after 72 hours 08/01/22 12:40 Gram Stain - Final Buttock Wound Culture - Final Escherichia coli Assessment and Plan (1) Abscess, gluteal cleft Current Visit: Yes Status: Acute Code(s): L02.31 - CUTANEOUS ABSCESS OF BUTTOCK SNOMED Code(s): 78834588 Plan: 1patient presented to hospital with sepsis in this patient with a fever elevated white count source is left gluteal abscess and cellulitis in this patient with a history of MRSA infection could be related to MRSA or other gram- positive skin sidney less likely gram-negative infection but not entirely excluded, local cultures have been finalized with E. coli that is resistant to U nasyn 2we will discontinue vancomycin and start the patient on Zosyn however plain to finish therapy with oral antibiotics and local care to continue per surgery Time with Patient: Less than 30
[2022-08-04 17:51] LABS: Glucose,Whole Blood 88 mg/dL (70-110)
[2022-08-04] MEDS: ATORVASTATIN 80 MG TAB PO SCH (21:31)
[2022-08-04 21:37] LABS: Glucose,Whole Blood 191 mg/dL (70-110)
[2022-08-04] MEDS: INSULIN DETEMIR (LEVEMIR) 100 UNIT/ML SYR SQ SCH (21:39)
[2022-08-05] MEDS: PIPERACILLIN-TAZOBACTAM 3.375 GM in SODIUM CHLORIDE 0.9% 100 ML IVPB SCH ×3 (00:49→16:10)
[2022-08-05 05:47] LABS: African American GFR (CKD) >90 (>60 ml/min/1.73 sqM); Non-African American GFR(CKD) >90 (>60 ml/min/1.73 sqM)
[2022-08-05 06:04] LABS: Glucose,Whole Blood 117 mg/dL (70-110)
[2022-08-05] MEDS: SYMBICORT 80-4.5 MCG INHALER INHALATION SCH ×2 (08:04→19:56)
[2022-08-05] MEDS: IPRATROPIUM 0.5 MG/2.5 ML NEBU INHALATION SCH ×4 (08:05→19:56)
[2022-08-05 08:18] LABS: Glucose,Whole Blood 133 mg/dL (70-110)
[2022-08-05] MEDS: INSULIN ASPART (NovoLOG) 100 UNIT/ML VIAL SQ SCH ×3 (08:21→17:31)
[2022-08-05] MEDS: GABAPENTIN 300 MG CAP PO SCH ×3 (09:00→20:23)
[2022-08-05] MEDS: NICOTINE 7MG/24HR PATCH TRANSDERM SCH (09:00)
[2022-08-05] MEDS: metFORMIN 500 MG TAB PO SCH ×2 (09:01→17:31)
[2022-08-05] MEDS: FUROSEMIDE 20 MG TAB PO SCH (09:01)
[2022-08-05] MEDS: SODIUM CHLORIDE 0.9% 1,000 ML IV SCH ×2 (09:01→20:23)
[2022-08-05] MEDS: CLOPIDOGREL 75 MG TAB PO SCH (09:01)
[2022-08-05] MEDS: FENOFIBRATE 160 MG TAB PO SCH (09:01)
[2022-08-05] MEDS: ASPIRIN 81 MG PO SCH (09:01)
[2022-08-05] MEDS: METOPROLOL TARTRATE 12.5 MG TAB PO SCH ×2 (09:01→20:23)
[2022-08-05] MEDS: HYDROmorphone 0.5 MG/0.5 ML SYRINGE IVP PRN ×2 (09:03→20:36)
--- NOTE | 2022-08-05 09:10 | P.PN ---
Subjective Progress Note Date: 08/05/22 Principal diagnosis: Left gluteal abscess Patient was admitted late last week with a left gluteal abscess. An incision and drainage was performed by the ER staff. She has been on antibiotics. Culture showing E. coli. Patient says she feels better. No longer having fevers. White blood cell count improved. Objective - Vital Signs Vital signs: Vital Signs Temp 98.9 F 08/05/22 03:45 Pulse 60 08/05/22 03:45 Resp 16 08/05/22 03:45 BP 118/65 08/05/22 03:45 Pulse Ox 92 L 08/05/22 03:45 FiO2 Intake & Output 08/04/22 08/05/22 08/05/22 18:59 06:59 18:59 Intake Total 1500 Balance 1500 Intake: Intake, IV Titration 1500 Amount Piperacillin-Tazobactam 3 100 .375 gm In Sodium Chloride 0.9% 100 ml @ 25 mls/hr IVPB Q8HR [facility] Rx# :[id number] Sodium Chloride 0.9% 1, 900 000 ml @ 75 mls/hr IV . [id number] [facility] Rx#:[id number] Vancomycin 1,750 mg In 500 Sodium Chloride 0.9% 500 ml 500 ml @ 167 mls/hr IVPB Q16H [facility] Rx#: [id number] Other: Voiding Method Toilet Toilet Diaper Diaper Incontinent Incontinent # Voids 1 - Exam Left medial buttock with large area of erythema and tenderness, 2 small open w ounds present with necrotic exudate emanating from the wound sites, fluctuance is present - Labs CBC & Chem 7: 08/03/22 05:38 08/05/22 05:07 Labs: Abnormal Lab Results - Last 24 Hours (Table) 08/04/22 08/04/22 08/05/22 Range/Units 12:19 21:35 05:44 POC Glucose (mg/dL) 165 H 191 H 117 H (70-110) mg/dL 08/05/22 Range/Units 08:16 POC Glucose (mg/dL) 133 H (70-110) mg/dL Microbiology - Last 24 Hours (Table) 08/01/22 12:15 Blood Culture - Preliminary Blood No Growth after 72 hours 08/01/22 12:00 Blood Culture - Preliminary Blood No Growth after 72 hours 08/01/22 12:40 Gram Stain - Final Buttock Wound Culture - Final Escherichia coli Assessment and Plan (1) Left buttock abscess Narrative/Plan: 52-year-old female with left buttock abscess. The patient's wound is likely improved from admission but still has significant bogginess and erythema with associated tenderness. The wounds are quite small and there is necrotic debris coming out of the wounds. Options reviewed. Recommend wider incision and drainage in the operating room at this time. Patient is agreeable. We'll sched ule. Risks of bleeding, infection, prolonged wound formation, possible need for further surgery, scarring reviewed. She understands and wishes to proceed. Current Visit: Yes Status: Acute Code(s): L02.31 - CUTANEOUS ABSCESS OF BUTTOCK SNOMED Code(s): 91088552
[2022-08-05 11:26] LABS: Glucose,Whole Blood 252 mg/dL (70-110)
--- NOTE | 2022-08-05 12:39 | P.PN ---
Subjective Progress Note Date: 08/05/22 Principal diagnosis: Left gluteal abscess and cellulitis Patient is a 52-year-old female presenting to Hospital with left total pain swelling and redness has been diagnosed with a left gluteal abscess status post I&D in the ER and cultures. On today's evaluation that is 08/05/2022, the patient continues to be afebrile, the patient pain to the left gluteal area has decreased in intensity, the patient denies having any chest pain shortness of breath or cough no abdominal pain or diarrhea Objective - Vital Signs Vital signs: Vital Signs Temp 97.4 F L 08/05/22 11:25 Pulse 60 08/05/22 11:25 Resp 18 08/05/22 11:25 BP 98/57 08/05/22 11:25 Pulse Ox 96 08/05/22 11:25 FiO2 Intake & Output 08/04/22 08/05/22 08/05/22 18:59 06:59 18:59 Intake Total 1500 Output Total 2 Balance 1500 -2 Intake: Intake, IV Titration 1500 Amount Piperacillin-Tazobactam 3 100 .375 gm In Sodium Chloride 0.9% 100 ml @ 25 mls/hr IVPB Q8HR [facility] Rx# :[id number] Sodium Chloride 0.9% 1, 900 000 ml @ 75 mls/hr IV . [id number] [facility] Rx#:[id number] Vancomycin 1,750 mg In 500 Sodium Chloride 0.9% 500 ml 500 ml @ 167 mls/hr IVPB Q16H [facility] Rx#: [id number] Output: Urine 2 Other: Voiding Method Toilet Toilet Toilet Diaper Diaper Diaper Incontinent Incontinent Incontinent # Voids 1 - Exam GENERAL DESCRIPTION: Middle-age female lying in bed in no distress RESPIRATORY SYSTEM: Unlabored breathing , decreased breath sounds at bases HEART: S1 S2 regular rate and rhythm , ABDOMEN: Soft , no tenderness, left gluteal area did have a wound from spontaneous drainage with some slough tissue no surrounding induration EXTREMITIES: No edema feet - Labs CBC & Chem 7: 08/03/22 05:38 08/05/22 05:07 Labs: Abnormal Lab Results - Last 24 Hours (Table) 08/04/22 08/05/22 08/05/22 Range/Units 21:35 05:44 08:16 POC Glucose (mg/dL) 191 H 117 H 133 H (70-110) mg/dL 08/05/22 Range/Units 11:24 POC Glucose (mg/dL) 252 H (70-110) mg/dL Microbiology - Last 24 Hours (Table) 08/01/22 12:15 Blood Culture - Preliminary Blood No Growth after 72 hours 08/01/22 12:00 Blood Culture - Preliminary Blood No Growth after 72 hours 08/01/22 12:40 Gram Stain - Final Buttock Wound Culture - Final Escherichia coli Assessment and Plan (1) Abscess, gluteal cleft Current Visit: Yes Status: Acute Code(s): L02.31 - CUTANEOUS ABSCESS OF BUTTOCK SNOMED Code(s): 82966727 Plan: 1patient presented to hospital with sepsis in this patient with a fever elevated white count source is left gluteal abscess and cellulitis in this patient with a history of MRSA infection could be related to MRSA or other gram- positive skin sidney less likely gram-negative infection but not entirely excluded, local cultures have been finalized with E. coli that is resistant to Unasyn 2patient has been reevaluated by general surgeon For surgical drainage this afternoon at which time deep culture should be obtained 3patient to continue with the Zosyn Time with Patient: Less than 30
[2022-08-05 17:11] LABS: Glucose,Whole Blood 103 mg/dL (70-110)
[2022-08-05 20:22] LABS: Glucose,Whole Blood 170 mg/dL (70-110)
[2022-08-05] MEDS: ATORVASTATIN 80 MG TAB PO SCH (20:23)
[2022-08-05] MEDS: INSULIN DETEMIR (LEVEMIR) 100 UNIT/ML SYR SQ SCH (20:23)
[2022-08-06] MEDS: PIPERACILLIN-TAZOBACTAM 3.375 GM in SODIUM CHLORIDE 0.9% 100 ML IVPB SCH ×3 (00:25→16:05)
[2022-08-06 07:03] LABS: Glucose,Whole Blood 119 mg/dL (70-110)
[2022-08-06] MEDS: INSULIN ASPART (NovoLOG) 100 UNIT/ML VIAL SQ SCH ×3 (08:00→17:38)
[2022-08-06] MEDS: CLOPIDOGREL 75 MG TAB PO SCH (08:01)
[2022-08-06] MEDS: ASPIRIN 81 MG PO SCH (08:01)
[2022-08-06] MEDS: metFORMIN 500 MG TAB PO SCH ×2 (08:01→17:38)
[2022-08-06] MEDS: FENOFIBRATE 160 MG TAB PO SCH (08:09)
[2022-08-06] MEDS: METOPROLOL TARTRATE 12.5 MG TAB PO SCH ×2 (08:09→20:54)
[2022-08-06] MEDS: NICOTINE 7MG/24HR PATCH TRANSDERM SCH (08:09)
[2022-08-06] MEDS: GABAPENTIN 300 MG CAP PO SCH ×3 (08:09→20:53)
[2022-08-06] MEDS: FUROSEMIDE 20 MG TAB PO SCH (08:09)
[2022-08-06] MEDS: SYMBICORT 80-4.5 MCG INHALER INHALATION SCH ×2 (08:52→19:16)
[2022-08-06] MEDS: IPRATROPIUM 0.5 MG/2.5 ML NEBU INHALATION SCH ×4 (08:52→19:16)
--- NOTE | 2022-08-06 09:32 | P.PN ---
Subjective Progress Note Date: 08/05/22 Chief Complaint: Abscess left buttock History of presenting complaint: This is a 52-year-old patient of Dr. Wade. Chronic stable medical conditions include diabetes, GERD, hyperlipidemia, coronary artery disease with stent, depression, COPD. Patient presents with more than 1 week of an abscess on the buttock. It started off as a small hurting around the tailbone. Then she noticed that it progressively became rather rapid and enlarged in the left buttock. There are no fever and chills. The ER did try to drain the same but not much was obtained. Patient was started on IV vancomycin being admitted. ID general surgery was consulted. Tired. Decreased appetite. Patient bit her with abscess and cellulitis of the left buttock. IV vancomycin. August 03: Warm compress and sitz bath ordered by surgery. No surgical intervention per them currently. The wound is draining. IV vancomycin. Oral intake fair. August 04: Patient getting sitz bath and warm compress. Buttock abscess draining. On IV vancomycin. Wound culture growing E. coli. Eating well. Up in a chair. 08/05/2022 Patient is seen and evaluated and follow-up 18 on IV antibiotics with ID and general surgery following. Patient is tentatively scheduled for repeat or visit for I&D for the abscess with Dr. Adames in the a.m. if worse bases available. Patient will be nothing by mouth at midnight. Patient continues on IV antibiotics in the form of Zosyn with culture showing E. coli. ID recommending deep tissue cultures to determine discharge antibiotics. hatchery worker also following in the event patient will require IV antibiotics in the outpatient setting. Patient denies chest pain or shortness of breath. Patient is afebrile denies nausea or vomiting. Patient is having some discomfort on the left gluteal abscess and has been offloading. Patient reports she is up and walking to the bathroom and back. Past medical history to include: COPD, diabetes, GERD, hyperlipidemia, coronary artery disease with stent, depression Social history: Started smoking at age of 17, 1 pack a day now down to 6 cigarettes a day. Marijuana occasionally. Lives with a daughter and granddaughter Physical examination: GENERAL: , laying in bed, awake, tired EYES: Pupils equal. Conjunctiva normal. HEENT: External appearance of nose and ears normal, oral cavity grossly normal. NECK: JVD not raised; masses not palpable. HEART: First and second heart sounds are normal; no edema. LUNGS: Respiratory rate increased, diminished breath sounds, wheezing. ABDOMEN: Soft, nontender, liver spleen not palpable, no masses palpable. Left buttock: See nursing notes. PSYCH: Alert and oriented x3; mood and affect normal. INVESTIGATIONS, reviewed in the clinical context: August 03: WBC 10.0 hemoglobin 14.6 potassium 4.3 creatinine 0.8 White count 14.8 hemoglobin 16.1 platelets 139 sodium 128 potassium 4.6 creatinine 0.82 Ultrasound: 6.3 x 3.4 cm complex fluid seen. Assessment and plan: -Left gluteal cleft and joining left buttock abscess. Culture-E. coli warm compress and sitz bath.. IV vancomycin. Follow with ID -Morbid obesity BMI 44.3 Weight loss measures -COPD in a current smoker Ventolin HFA every 6 when necessary, Spiriva, combination inhaler -Chronic nicotine dependence cigarette smoker Nicotine patch -Diabetes mellitus type 2 chronically on insulin, uncontrolled with hypoglycemia. Follow Accu-Cheks with sliding scale. Hold glyburide. Cutback Levemir to 40 units -GERD Pepcid 20 mg twice a day -Hyperlipidemia Lipitor 80 mg mg at bedtime Coronary artery disease stent Aspirin, Lipitor, Lopressor, Plan: Recommend continue with IV antibiotics with ID following along with general surgery and plan is for possible OR for cleanup of the abscess with Dr. Adames and recommend deep tissue cultures. Recommend Sitz bath and warm compress continue other medications. Encouraged increase activity as tolerated. Will follow-up with repeat labs and continue to monitor patient closely. The impression and plan of care has been dictated by Shayy Fuentes, Nurse Practitioner as directed. Dr. Gabriel MD I have performed a history and examination and MDM of this patient, discussed the same with the dictator, and agree with the dictator's assessment and plan as written ,documented as a scribe. Based on total visit time, I have performed more than 50% of the visit. Objective - Vital Signs Vital signs: Vital Signs Temp 98.9 F 08/05/22 03:45 Pulse 60 08/05/22 03:45 Resp 16 08/05/22 03:45 BP 118/65 08/05/22 03:45 Pulse Ox 92 L 08/05/22 03:45 FiO2 Intake & Output 08/04/22 08/05/22 08/05/22 18:59 06:59 18:59 Intake Total 1500 Balance 1500 Intake: Intake, IV Titration 1500 Amount Piperacillin-Tazobactam 3 100 .375 gm In Sodium Chloride 0.9% 100 ml @ 25 mls/hr IVPB Q8HR [facility] Rx# :[id number] Sodium Chloride 0.9% 1, 900 000 ml @ 75 mls/hr IV . [id number] [facility] Rx#:[id number] Vancomycin 1,750 mg In 500 Sodium Chloride 0.9% 500 ml 500 ml @ 167 mls/hr IVPB Q16H [facility] Rx#: [id number] Other: Voiding Method Toilet Toilet Diaper Diaper Incontinent Incontinent # Voids 1 - Labs CBC & Chem 7: 08/03/22 05:38 08/05/22 05:07 Labs: Abnormal Lab Results - Last 24 Hours (Table) 08/04/22 08/04/22 08/05/22 Range/Units 12:19 21:35 05:44 POC Glucose (mg/dL) 165 H 191 H 117 H (70-110) mg/dL 08/05/22 Range/Units 08:16 POC Glucose (mg/dL) 133 H (70-110) mg/dL Microbiology - Last 24 Hours (Table) 08/01/22 12:15 Blood Culture - Preliminary Blood No Growth after 72 hours 08/01/22 12:00 Blood Culture - Preliminary Blood No Growth after 72 hours 08/01/22 12:40 Gram Stain - Final Buttock Wound Culture - Final Escherichia coli
[2022-08-06 10:32] LABS: Glucose,Whole Blood 109 mg/dL (70-110)
[2022-08-06] MEDS ORDERED: IV FLUID CONTINUATION 900 ML IV ONE (10:49)
[2022-08-06] MEDS ORDERED: ONDANSETRON 4 MG/2 ML VIAL IVP ONE (10:55)
[2022-08-06] MEDS ORDERED: DEXAMETHASONE SOD PHOSPHATE 4 MG/ML 1 ML VIAL IVP ONE (10:55)
[2022-08-06] MEDS ORDERED: MIDAZOLAM 2 MG/2 ML VIAL ONE (11:50)
[2022-08-06] MEDS ORDERED: LIDOCAINE 2% INJ 20 MG/ML (2 ML VIAL) ONE (11:50)
[2022-08-06] MEDS ORDERED: KETAMINE 10 MG/ML 20 ML VIAL ONE (11:50)
[2022-08-06] MEDS ORDERED: PROPOFOL 10 MG/ML 20 ML VIAL IV ONE (11:50)
[2022-08-06] MEDS ORDERED: fentaNYL (PF) 50 MCG/ML 2 ML AMP ONE (11:50)
[2022-08-06] MEDS ORDERED: BUPIVACAIN-EPI 0.25%-1:200,000 30 ML VIAL SQ ONE (12:02)
--- NOTE | 2022-08-06 12:14 | P.OP ---
Date of Procedure: 08/06/22 Procedure(s) Performed: PREOPERATIVE DIAGNOSIS: Left buttock abscess POSTOPERATIVE DIAGNOSIS: Same PROCEDURE: Incision and drainage and debridement left buttock absces SURGEON: Rosangela EBL: 5 mL ANESTHESIA: Local plus sedation COMPLICATIONS: None OPERATIVE PROCEDURE: Patient The Stretcher in the Left Decubitus Position. The Left Buttock Was Prepped and Draped Sterilely. The Patient Had a 8 x 6 Cm Abscess with 3 Separate Skin Openings Present. Area Was Localized with Marcaine Solution. I Then Excised the Thin Piece of Overlying Skin so That We Had 1 Opening into the Abscess Cavity. The Base of the Cavity Was Debrided Bluntly Using [place] [employer] Forceps. Cultures Were Taken of the Deep Tissues. The Area Was Irrigated with Saline. The Wound Was Then Packed with Iodoform Gauze. The Debridement Took Place Including the Skin and Subcutaneous Tissues. Sterile Dressings Were Applied. DISPOSITION: Stable to recovery room
[2022-08-06] MEDS: HYDROmorphone 0.5 MG/0.5 ML SYRINGE IVP PRN ×2 (13:46→20:54)
[2022-08-06] MEDS: SODIUM CHLORIDE 0.9% 1,000 ML IV SCH ×2 (14:22→22:41)
[2022-08-06 15:02] VITALS: BMI 44.2
[2022-08-06 17:12] LABS: Glucose,Whole Blood 292 mg/dL (70-110)
[2022-08-06 20:31] LABS: Glucose,Whole Blood 281 mg/dL (70-110)
[2022-08-06] MEDS: ATORVASTATIN 80 MG TAB PO SCH (20:54)
[2022-08-06] MEDS: INSULIN DETEMIR (LEVEMIR) 100 UNIT/ML SYR SQ SCH (20:54)
[2022-08-07] MEDS: PIPERACILLIN-TAZOBACTAM 3.375 GM in SODIUM CHLORIDE 0.9% 100 ML IVPB SCH ×3 (00:01→16:05)
[2022-08-07 00:08] LABS: Glucose,Whole Blood 173 mg/dL (70-110)
--- NOTE | 2022-08-07 05:34 | P.PN ---
Subjective Progress Note Date: 08/06/22 Chief Complaint: Abscess left buttock History of presenting complaint: This is a 52-year-old patient of Dr. Wade. Chronic stable medical conditions include diabetes, GERD, hyperlipidemia, coronary artery disease with stent, depression, COPD. Patient presents with more than 1 week of an abscess on the buttock. It started off as a small hurting around the tailbone. Then she noticed that it progressively became rather rapid and enlarged in the left buttock. There are no fever and chills. The ER did try to drain the same but not much was obtained. Patient was started on IV vancomycin being admitted. ID general surgery was consulted. Tired. Decreased appetite. Patient bit her with abscess and cellulitis of the left buttock. IV vancomycin. August 03: Warm compress and sitz bath ordered by surgery. No surgical intervention per them currently. The wound is draining. IV vancomycin. Oral intake fair. August 04: Patient getting sitz bath and warm compress. Buttock abscess draining. On IV vancomycin. Wound culture growing E. coli. Eating well. Up in a chair. 08/05/2022 Patient is seen and evaluated and follow-up 18 on IV antibiotics with ID and general surgery following. Patient is tentatively scheduled for repeat or visit for I&D for the abscess with Dr. Adames in the a.m. if worse bases available. Patient will be nothing by mouth at midnight. Patient continues on IV antibiotics in the form of Zosyn with culture showing E. coli. ID recommending deep tissue cultures to determine discharge antibiotics. drywall metal stud worker also following in the event patient will require IV antibiotics in the outpatient setting. Patient denies chest pain or shortness of breath. Patient is afebrile denies nausea or vomiting. Patient is having some discomfort on the left gluteal abscess and has been offloading. Patient reports she is up and walking to the bathroom and back. 08/06/2022 Patient is seen this morning and scheduled for debridement with Dr. Adames today and currently NPO. ID following and recommending deep cultures and continued on IV zosyn while awaiting cultures. Patient is afebrile and denies chest pain or shortness of breath. Initial cultures are showing ecoli with some resistance. Past medical history to include: COPD, diabetes, GERD, hyperlipidemia, coronary artery disease with stent, depression Social history: Started smoking at age of 17, 1 pack a day now down to 6 cigarettes a day. Marijuana occasionally. Lives with a daughter and granddaughter Physical examination: GENERAL: , laying in bed, awake EYES: Pupils equal. Conjunctiva normal. HEENT: External appearance of nose and ears normal, oral cavity grossly normal. NECK: JVD not raised; masses not palpable. HEART: First and second heart sounds are normal; no edema. LUNGS: Respiratory rate increased, diminished breath sounds, wheezing. ABDOMEN: Soft, nontender, liver spleen not palpable, no masses palpable. Left buttock: See nursing notes. PSYCH: Alert and oriented x3; mood and affect normal. Assessment and plan: -Left gluteal cleft and joining left buttock abscess. Culture-E. coli warm compress and sitz bath.. IV zOsyn. Follow with ID -Morbid obesity BMI 44.3 Weight loss measures -COPD in a current smoker Ventolin HFA every 6 when necessary, Spiriva, combination inhaler -Chronic nicotine dependence cigarette smoker Nicotine patch -Diabetes mellitus type 2 chronically on insulin, uncontrolled with hypoglycemia. Follow Accu-Cheks with sliding scale. Hold glyburide. Cutback Levemir to 40 units -GERD Pepcid 20 mg twice a day -Hyperlipidemia Lipitor 80 mg mg at bedtime Coronary artery disease stent Aspirin, Lipitor, Lopressor, Plan: Recommend continue with IV antibiotics with ID following along with general surgery and plan is for cleanup of the abscess with Dr. Adames and recommend deep tissue cultures. Recommend Sitz bath and warm compress continue other medications. Encouraged increase activity as tolerated. Will follow-up with repeat labs and continue to monitor patient closely. The impression and plan of care has been dictated by Shayy Fuentes, Nurse Practitioner as directed. Dr. Gabriel MD I have performed a history and examination and MDM of this patient, discussed t he same with the dictator, and agree with the dictator's assessment and plan as written ,documented as a scribe. Based on total visit time, I have performed more than 50% of the visit. Objective - Vital Signs Vital signs: Vital Signs Temp 98.1 F 08/06/22 07:45 Pulse 55 L 08/06/22 07:45 Resp 16 08/06/22 07:45 BP 127/68 08/06/22 07:45 Pulse Ox 92 L 09/20/22 07:45 FiO2 Intake & Output 08/05/22 08/06/22 08/06/22 18:59 06:59 18:59 Output Total 4 Balance -4 Output: Urine 4 Other: Voiding Method Toilet Toilet Diaper Diaper Incontinent Incontinent # Voids 3 # Bowel Movements 1 - Labs CBC & Chem 7: 08/03/22 05:38 08/05/22 05:07 Labs: Abnormal Lab Results - Last 24 Hours (Table) 08/05/22 08/05/22 08/06/22 Range/Units 11:24 20:21 07:02 POC Glucose (mg/dL) 252 H 170 H 119 H (70-110) mg/dL Microbiology - Last 24 Hours (Table) 08/01/22 12:15 Blood Culture - Preliminary Blood No Growth after 96 hours 08/01/22 12:00 Blood Culture - Preliminary Blood No Growth after 96 hours
[2022-08-07 06:13] LABS: African American GFR (CKD) >90 (>60 ml/min/1.73 sqM); Anion Gap 7 mmol/L; Blood Urea Nitrogen 18 mg/dL (7-17); Calcium 9.6 mg/dL (8.4-10.2); Carbon Dioxide 27 mmol/L (22-30); Chloride 102 mmol/L (98-107); Glucose 135 mg/dL (74-99); Non-African American GFR(CKD) 83 (>60 ml/min/1.73 sqM); Potassium 4.7 mmol/L (3.5-5.1); Sodium 136 mmol/L (137-145)
[2022-08-07 06:24] LABS: Basophils % (A) 1 %; Eosinophils # (A) 0.1 k/uL (0-0.7); Eosinophils % (A) 2 %; HGB 15.2 gm/dL (11.4-16.0); Hypochromasia Slight; Lymphocytes # (A) 1.5 k/uL (1.0-4.8); Lymphocytes % (A) 21 %; MCH 30.4 pg (25.0-35.0); MCHC 30.5 g/dL (31.0-37.0); MCV 99.9 fL (80.0-100.0); Mean Platelet Volume 9.4; Monocytes # (A) 0.6 k/uL (0-1.0); Monocytes % (A) 9 %; Neutrophils # (A) 4.7 k/uL (1.3-7.7); Neutrophils % (A) 66 %; Platelet Count 173 k/uL (150-450); RDW 13.6 % (11.5-15.5); WBC 7.1 k/uL (3.8-10.6)
[2022-08-07 07:36] LABS: Glucose,Whole Blood 128 mg/dL (70-110)
[2022-08-07] MEDS: metFORMIN 500 MG TAB PO SCH ×2 (07:45→16:05)
[2022-08-07] MEDS: SODIUM CHLORIDE 0.9% 1,000 ML IV SCH (07:45)
[2022-08-07] MEDS: ACETAMINOPHEN TAB 325 MG TAB PO PRN (07:55)
[2022-08-07] MEDS: INSULIN ASPART (NovoLOG) 100 UNIT/ML VIAL SQ SCH ×3 (08:06→18:05)
[2022-08-07] MEDS: CLOPIDOGREL 75 MG TAB PO SCH (08:07)
[2022-08-07] MEDS: GABAPENTIN 300 MG CAP PO SCH ×3 (08:07→21:53)
[2022-08-07] MEDS: ASPIRIN 81 MG PO SCH (08:07)
[2022-08-07] MEDS: FENOFIBRATE 160 MG TAB PO SCH (08:08)
[2022-08-07] MEDS: FUROSEMIDE 20 MG TAB PO SCH (08:08)
[2022-08-07] MEDS: METOPROLOL TARTRATE 12.5 MG TAB PO SCH ×2 (08:08→21:53)
[2022-08-07] MEDS: SYMBICORT 80-4.5 MCG INHALER INHALATION SCH ×2 (08:13→20:07)
[2022-08-07] MEDS: IPRATROPIUM 0.5 MG/2.5 ML NEBU INHALATION SCH ×4 (08:13→20:07)
[2022-08-07] MEDS: NICOTINE 7MG/24HR PATCH TRANSDERM SCH (08:46)
[2022-08-07 11:55] LABS: Glucose,Whole Blood 92 mg/dL (70-110)
--- NOTE | 2022-08-07 12:34 | CDI ---
,75 Documentation Clarification Form Date: 08/07/2022 12:02:00 PM From: Fanny Rodriguez Phone: Admit Date: 08/01/2022 01:46:00 PM Patient Name: Nichole Diamond Visit Number: [id number] Discharge Date: ATTENTION: The Clinical Documentation Specialists (CDI) and [facility] Coding Staff appreciate your assistance in clarifying documentation. Please respond to the clarification below the line at the bottom and electronically sign. The CDI & [facility] Coding staff will review the response and follow-up if needed. Please note: Queries are made part of the Legal Health Record. If you have any questions, please contact the author of this message via ITS. Dr. Rossy Rios The patient presented with the following clinical indicators, fever elevated white count source is left gluteal abscess and cellulitis. Additional clarification regarding the etiology/cause of the clinical indicators is requested. 08/01 ID Consult: Patient presented to hospital with sepsis in this patient with a fever elevated white count source is left gluteal abscess and cellulitis. history of MRSA infection 08/03 Surgical consult: complex right gluteal abscess with uncontrolled diabetes type 2. Sepsis due to abscess History/Risk Factors: Diabetes Mellitus, MRSA, Hypertension, Morbid obesity Clinical Indicators: 52-year-old female present with complaint of pain to the left gluteal area with swelling and redness and some drainage. Bedside I&D in ED and cultures sent. 08/01 WBC: 14.8 08/01 Vital signs: 114/77 98 18 97 % RA, 99/60 87 17 101.7 97 % RA 08/01 Blood cultures: Pending, No growth after 120 hours 08/01 Wound culture: Echerichia coli Treatment: Vancomycin 1 ,750 MG IVPB Once then IV Q 16 HRS (PTD) .9 NS I/L IV Bolus X2 then @ 75 MLS HR Zosyn 3.375 GM IVPB Q 8 HR, Sitz bath per orders In your professional opinion, please clarify if these findings signify one of the following conditions: [ ] Sepsis POA [ ] Sepsis ruled out [ ] Other, please specify [ ] Unable to determine SIRS Criteria: 2 or more of the following may indicate SIRS -Temperature < 96.8F (36C) or > 101.0F (38.3C) -Heart Rate > 90 bpm -Respiratory Rate > 20 breaths/min or PaCO2 < 32 mmHg -White Blood Cell Count > 12,000 or < 4,000 cells/mm3 or > 10% bands (Template Last Reviewed: December 2020) -Sepsis, present on admission secondary to left gluteal abscess and cellulitis Shayy Fuentes Signed By: <Electronically signed by Shayy TEJEDA> 08/09/22 0949 <Electronically signed by Christina Galvin MD> 08/09/22 1306 MANFRED
--- NOTE | 2022-08-07 12:41 | P.PN ---
Subjective Progress Note Date: 08/07/22 CHIEF COMPLAINT: Left buttock abscess HISTORY OF PRESENT ILLNESS: Patient is postop day #1 status post incision and drainage and debridement of left buttock abscess. Patient reports that her pain is better and different since surgery. She is afebrile. WBC is down from 10 to 7.1. Hemoglobin 15.2 platelets 173 sodium 136 creatinine 0.83 OR cultures pending PHYSICAL EXAM: VITAL SIGNS: Reviewed. GENERAL: Well-developed in no acute distress. HEENT: No sclera icterus. Extraocular movements grossly intact. Moist buccal mucosa. Head is atraumatic, normocephalic. ABDOMEN: Soft. Nondistended. Nontender. NEUROLOGIC: Alert and oriented. Cranial nerves II through XII grossly intact. Skin: Left buttocks area tissue is clean dry and soft. Minimal tenderness with palpation. Packing with serosanguineous drainage. Small amount of blood noted on the outer dressing ASSESSMENT: 1. Left buttock abscess 2. Diabetes mellitus PLAN: -Continue local wound care with Aquacel silver dressing -Patient to shower today -Continue IV antibiotics per ID service -Continue offloading -Continue Pain medication as needed Physician Flow Worker note has been reviewed by physician. Signing provider agrees with the documented findings, assessment, and plan of care. Objective - Vital Signs Vital signs: Vital Signs Temp 97.9 F 08/07/22 07:28 Pulse 49 L 08/07/22 08:35 Resp 14 08/07/22 08:35 BP 119/70 08/07/22 07:28 Pulse Ox 92 L 08/07/22 07:28 FiO2 Intake & Output 08/06/22 08/07/22 08/07/22 18:59 06:59 18:59 Intake Total 2680 700 Output Total 5 Balance 2675 700 Weight 109.769 kg Intake: IV 300 Intake, IV Titration 1100 700 Amount Piperacillin-Tazobactam 3 200 100 .375 gm In Sodium Chloride 0.9% 100 ml @ 25 mls/hr IVPB Q8HR [facility] Rx# :[id number] Sodium Chloride 0.9% 1, 900 600 000 ml @ 75 mls/hr IV . [id number] [facility] Rx#:[id number] Oral 1280 Output: Estimated Blood Loss 5 Other: Voiding Method Toilet Toilet Toilet Diaper Diaper Diaper Incontinent # Voids 4 - Labs CBC & Chem 7: 09/21/22 05:32 08/07/22 05:32 Labs: Abnormal Lab Results - Last 24 Hours (Table) 08/06/22 08/06/22 08/07/22 Range/Units 17:09 20:30 00:05 Hct (34.0-46.0) % MCHC (31.0-37.0) g/dL Sodium (137-145) mmol/L BUN (7-17) mg/dL Glucose (74-99) mg/dL POC Glucose (mg/dL) 292 H 281 H 173 H (70-110) mg/dL 08/07/22 08/07/22 08/07/22 Range/Units 05:32 05:32 07:34 Hct 50.0 H (34.0-46.0) % MCHC 30.5 L (31.0-37.0) g/dL Sodium 136 L (137-145) mmol/L BUN 18 H (7-17) mg/dL Glucose 135 H (74-99) mg/dL POC Glucose (mg/dL) 128 H (70-110) mg/dL Microbiology - Last 24 Hours (Table) 08/06/22 12:14 Gram Stain - Preliminary Buttock Wound Culture - Preliminary 08/06/22 12:14 Anaerobic Culture - Preliminary Buttock 08/01/22 12:15 Blood Culture - Preliminary Blood No Growth after 120 hours 08/01/22 12:00 Blood Culture - Preliminary Blood No Growth after 120 hours
--- NOTE | 2022-08-07 13:19 | P.PN ---
Subjective Progress Note Date: 08/07/22 Chief Complaint: Abscess left buttock History of presenting complaint: This is a 52-year-old patient of Dr. Wade. Chronic stable medical conditions include diabetes, GERD, hyperlipidemia, coronary artery disease with stent, depression, COPD. Patient presents with more than 1 week of an abscess on the buttock. It started off as a small hurting around the tailbone. Then she noticed that it progressively became rather rapid and enlarged in the left buttock. There are no fever and chills. The ER did try to drain the same but not much was obtained. Patient was started on IV vancomycin being admitted. ID general surgery was consulted. Tired. Decreased appetite. Patient bit her with abscess and cellulitis of the left buttock. IV vancomycin. August 03: Warm compress and sitz bath ordered by surgery. No surgical intervention per them currently. The wound is draining. IV vancomycin. Oral intake fair. August 04: Patient getting sitz bath and warm compress. Buttock abscess draining. On IV vancomycin. Wound culture growing E. coli. Eating well. Up in a chair. 08/05/2022 Patient is seen and evaluated and follow-up 18 on IV antibiotics with ID and general surgery following. Patient is tentatively scheduled for repeat or visit for I&D for the abscess with Dr. Adames in the a.m. if worse bases available. Patient will be nothing by mouth at midnight. Patient continues on IV antibiotics in the form of Zosyn with culture showing E. coli. ID recommending deep tissue cultures to determine discharge antibiotics. linotype worker also following in the event patient will require IV antibiotics in the outpatient setting. Patient denies chest pain or shortness of breath. Patient is afebrile denies nausea or vomiting. Patient is having some discomfort on the left gluteal abscess and has been offloading. Patient reports she is up and walking to the bathroom and back. 08/06/2022 Patient is seen this morning and scheduled for debridement with Dr. Adames today and currently NPO. ID following and recommending deep cultures and continued on IV zosyn while awaiting cultures. Patient is afebrile and denies chest pain or shortness of breath. Initial cultures are showing ecoli with some resistance. 08/07/2022 Patient is seen and evaluated and follow-up post debridement along with incision and drainage with general surgery yesterday. Patient reports she has offloading on the left gluteal site and has been up and walking. Patient with poorly controlled diabetes and is maintained on insulins and oral diabetic agents although her hemoglobin A1c she reports is over 11 and will consult dietitian for education and resources. Recommend continue with current medication regimen and Accu-Cheks before meals and at bedtime. Patient is maintained on IV antibiotics while awaiting for deep tissue cultures to finalized. ID is following as well as case management in the event patient may require IV antibiotics on discharge. Patient is Afebrile and denies chest pain or shortness of breath. Review of systems: Constitutional: No reports of fatigue, fever, or chills Cardiovascular: No reports of chest pain or palpitations Respiratory: No reports of shortness of breath or cough GI: No reports of nausea, vomiting, or diarrhea : No reports of dysuria or retention Neurovascular: No reports of weakness or numbness All medications have been reviewed Physical examination: GENERAL: , laying in bed, awake EYES: Pupils equal. Conjunctiva normal. HEENT: External appearance of nose and ears normal, oral cavity grossly normal. NECK: JVD not raised; masses not palpable. HEART: First and second heart sounds are normal; no edema. LUNGS: Respiratory rate increased, diminished breath sounds, wheezing. ABDOMEN: Soft, nontender, liver spleen not palpable, no masses palpable. Left buttock: See nursing notes. PSYCH: Alert and oriented x3; mood and affect normal. Assessment and plan: -Left gluteal cleft and joining left buttock abscess. -Sepsis, present on admission secondary to left gluteal abscess and cellulitis -Morbid obesity BMI 44.3 -COPD in a current smoker -Chronic nicotine dependence cigarette smoker -Diabetes mellitus type 2 chronically on insulin, uncontrolled with hypoglycemia. -GERD -Hyperlipidemia -Coronary artery disease stent Plan: Recommend continue with IV antibiotics with ID following along with general surgery and patient is status post incision and drainage with debridement of the left gluteal abscess with deep tissue cultures obtained. Recommend continuing local wound care and diabetic control with continued Accu-Cheks before meals and at bedtime and continuing current regimen. Case management following in the event patient may require IV antibiotics along with wound care and Homecare in the outpatient setting. Will await finalized cultures with ID following. Dietitian being consulted as well as this patient is a poorly controlled diabetic and requesting further information. Encouraged increase activity as tolerated. We'll continue to monitor patient closely. The impression and plan of care has been dictated by Shayy Fuentes Nurse Pra ctitioner as directed. Dr. Gabriel MD I have performed a history and examination and MDM of this patient, discussed the same with the dictator, and agree with the dictator's assessment and plan as written ,documented as a scribe. Based on total visit time, I have performed more than 50% of the visit. Objective - Vital Signs Vital signs: Vital Signs Temp 97.9 F 08/07/22 07:28 Pulse 49 L 08/07/22 08:35 Resp 14 08/07/22 08:35 BP 119/70 08/07/22 07:28 Pulse Ox 92 L 08/07/22 07:28 FiO2 Intake & Output 08/06/22 08/07/22 08/07/22 18:59 06:59 18:59 Intake Total 2680 700 Output Total 5 Balance 2675 700 Weight 109.769 kg Intake: IV 300 Intake, IV Titration 1100 700 Amount Piperacillin-Tazobactam 3 200 100 .375 gm In Sodium Chloride 0.9% 100 ml @ 25 mls/hr IVPB Q8HR MARIA VICTORIA Rx# :[id number] Sodium Chloride 0.9% 1, 900 600 000 ml @ 75 mls/hr IV . [id number] MARIA VICTORIA Rx#:[id number] Oral 1280 Output: Estimated Blood Loss 5 Other: Voiding Method Toilet Toilet Toilet Diaper Diaper Diaper # Voids 4 - Labs CBC & Chem 7: 08/07/22 05:32 08/07/22 05:32 Labs: Abnormal Lab Results - Last 24 Hours (Table) 08/06/22 08/06/22 08/07/22 Range/Units 17:09 20:30 00:05 Hct (34.0-46.0) % MCHC (31.0-37.0) g/dL Sodium (137-145) mmol/L BUN (7-17) mg/dL Glucose (74-99) mg/dL POC Glucose (mg/dL) 292 H 281 H 173 H (70-110) mg/dL 08/07/22 08/07/22 08/07/22 Range/Units 05:32 05:32 07:34 Hct 50.0 H (34.0-46.0) % MCHC 30.5 L (31.0-37.0) g/dL Sodium 136 L (137-145) mmol/L BUN 18 H (7-17) mg/dL Glucose 135 H (74-99) mg/dL POC Glucose (mg/dL) 128 H (70-110) mg/dL Microbiology - Last 24 Hours (Table) 08/06/22 12:14 Gram Stain - Preliminary Buttock Wound Culture - Preliminary 08/06/22 12:14 Anaerobic Culture - Preliminary Buttock 08/01/22 12:15 Blood Culture - Preliminary Blood No Growth after 120 hours 08/01/22 12:00 Blood Culture - Preliminary Blood No Growth after 120 hours
[2022-08-07 17:18] LABS: Glucose,Whole Blood 87 mg/dL (70-110)
[2022-08-07 20:25] LABS: Glucose,Whole Blood 117 mg/dL (70-110)
[2022-08-07 21:53] LABS: Glucose,Whole Blood 120 mg/dL (70-110)
[2022-08-07] MEDS: ATORVASTATIN 80 MG TAB PO SCH (21:53)
[2022-08-07] MEDS: INSULIN DETEMIR (LEVEMIR) 100 UNIT/ML SYR SQ SCH (21:53)
[2022-08-08] MEDS: PIPERACILLIN-TAZOBACTAM 3.375 GM in SODIUM CHLORIDE 0.9% 100 ML IVPB SCH ×2 (00:25→07:42)
[2022-08-08] MEDS: IPRATROPIUM 0.5 MG/2.5 ML NEBU INHALATION SCH ×2 (07:21→10:57)
[2022-08-08] MEDS: SYMBICORT 80-4.5 MCG INHALER INHALATION SCH (07:21)
[2022-08-08 07:23] LABS: Glucose,Whole Blood 135 mg/dL (70-110)
[2022-08-08] MEDS: METOPROLOL TARTRATE 12.5 MG TAB PO SCH (07:40)
[2022-08-08] MEDS: FUROSEMIDE 20 MG TAB PO SCH (07:41)
[2022-08-08] MEDS: ASPIRIN 81 MG PO SCH (07:41)
[2022-08-08] MEDS: CLOPIDOGREL 75 MG TAB PO SCH (07:41)
[2022-08-08] MEDS: FENOFIBRATE 160 MG TAB PO SCH (07:41)
[2022-08-08] MEDS: GABAPENTIN 300 MG CAP PO SCH (07:41)
[2022-08-08] MEDS: metFORMIN 500 MG TAB PO SCH (07:41)
[2022-08-08] MEDS: NICOTINE 7MG/24HR PATCH TRANSDERM SCH (07:41)
[2022-08-08] MEDS: SODIUM CHLORIDE 0.9% 1,000 ML IV SCH (07:43)
[2022-08-08] MEDS: INSULIN ASPART (NovoLOG) 100 UNIT/ML VIAL SQ SCH (07:50)
--- NOTE | 2022-08-08 11:56 | P.PN ---
Subjective Progress Note Date: 08/08/22 CHIEF COMPLAINT: Left buttock abscess HISTORY OF PRESENT ILLNESS: Patient is postop day #2 status post incision and drainage and debridement of left buttock abscess. patient has only been requiring Tylenol as needed for pain. She reports pain is controlled. Infectious disease is recommending oral antibiotics at discharge and follow-up with [facility]. Afebrile. Glucose 135 PHYSICAL EXAM: VITAL SIGNS: Reviewed. GENERAL: Well-developed in no acute distress. HEENT: No sclera icterus. Extraocular movements grossly intact. Moist buccal mucosa. Head is atraumatic, normocephalic. ABDOMEN: Soft. Nondistended. Nontender. NEUROLOGIC: Alert and oriented. Cranial nerves II through XII grossly intact. Skin: Left buttocks wound is clean with healthy tissue. No erythema around the edges. No drainage ASSESSMENT: 1. Left buttock abscess 2. Diabetes mellitus PLAN: -Okay to discharge from surgical standpoint -Continue local wound care -Discharge antibiotics per infectious disease -Continue offloading -Continue Tylenol as needed for pain Physician Nurse Tech note has been reviewed by physician. Signing provider agrees with the documented findings, assessment, and plan of care. Objective - Vital Signs Vital signs: Vital Signs Temp 98.7 F 08/08/22 04:27 Pulse 53 L 08/08/22 08:00 Resp 15 08/08/22 08:00 BP 103/60 08/08/22 04:27 Pulse Ox 93 L 08/08/22 04:27 FiO2 Intake & Output 08/07/22 08/08/22 08/08/22 18:59 06:59 18:59 Intake Total 360 Output Total 2 Balance 358 Intake: Oral 360 Output: Urine 2 Other: Voiding Method Toilet Toilet Toilet Diaper Diaper Diaper Incontinent Incontinent Incontinent # Voids 3 1 - Labs CBC & Chem 7: 08/07/22 05:32 08/07/22 05:32 Labs: Abnormal Lab Results - Last 24 Hours (Table) 08/07/22 08/07/22 08/08/22 Range/Units 20:19 21:51 07:20 POC Glucose (mg/dL) 117 H 120 H 135 H (70-110) mg/dL Microbiology - Last 24 Hours (Table) 08/06/22 12:14 Gram Stain - Final Buttock Wound Culture - Final 08/01/22 12:15 Blood Culture - Final Blood No Growth after 144 hours 08/01/22 12:00 Blood Culture - Final Blood No Growth after 144 hours
[2022-08-08 12:11] LABS: Glucose,Whole Blood 77 mg/dL (70-110)
[2022-08-08 12:59] VITALS: BP 110/69; PULSE 55; RESP 18; TEMP 98.2
--- NOTE | 2022-08-09 09:49 | P.DS ---
Providers Date of admission: 08/01/22 13:46 Expected date of discharge: 08/08/22 Attending physician: Sonny Cordero Consults: 08/01/22 13:43 Consult Physician Routine Consulting Provider: Nima Adames Consult Reason/Comments: Gluteal abscess, cellulitis, history of MRSA Do you want consulting provider notified?: Yes, Notify in am Consult Physician Routine Consulting Provider: Skye Clay Consult Reason/Comments: Gluteal abscess, history of MRSA Do you want consulting provider notified?: Yes, Notify in am Primary care physician: Juancarlos Wade Hospital Course: Final diagnosis -Left gluteal cleft and joining left buttock abscess. Growing ecoli -Sepsis, present on admission secondary to left gluteal abscess and cellulitis -Morbid obesity BMI 44.3 -COPD in a current smoker -Chronic nicotine dependence cigarette smoker -Diabetes mellitus type 2 chronically on insulin, uncontrolled with hypoglycemia. -GERD -Hyperlipidemia -Coronary artery disease stent -full code Discharge disposition Patient is being discharged in a stable condition with guarded prognosis to home. Patient will follow-up with Dr. Wade in the outpatient setting upon discharge. Patient is to continue with cipro and flagyl as directed and close outpatient follow up with Dr. Adames surgery and also Dr. Clay at the wound care center in [facility]. Continue local wound care. Total time taken is greater than 35 minutes. Hospital course This is a 52-year-old female who was recently admitted with left gluteal abscess and being closely monitored. Patient was started on IV abx with ID and general surgery following. Patient underwent debridement of the left gluteus with Dr. Adames and will have an outpatient follow up in one week. Patient initial cultures growing ecoli and most repeat cultures have been negative thus far. Patient adamant about going home and was cleared by surgery and ID with close outpatient follow up. Patient to continue on cipro and flagyl and follow up in the wound clinic in 1 weeks. Encouraged strict diabetic heart healthy diet with close monitoring of blood sugars and also keeping a diary of the readings and follow up with Dr. Wade. Encouraged diabetic education outpatient. Resources provided. Currently no reports of chest pain, shortness of breath, or palpitations. Patient is afebrile. No reports of nausea or vomiting and patient is tolerating diet. Patient will be discharged home today. Guarded prognosis. Physical exam: Gen: This is a 52 year old female who is awake, alert and oriented x3 well developed, well nourished, morbidly obese. HEENT: Head is atraumatic, normocephalic. Pupils equal, round. Sclerae is anicteric. NECK: Supple. No JVD. No lymphadenopathy. No thyromegaly. LUNGS: Clear to auscultation. No wheezes or rhonchi. No intercostal retractions. HEART: Regular rate and rhythm. No murmur. ABDOMEN: Soft. obese. Bowel sounds are present. No masses. No tenderness. left gluteus is currently dressed and dressing is dry and intact. EXTREMITIES: No pedal edema. No calf tenderness. NEUROLOGICAL: Patient is awake, alert and oriented x3. Cranial nerves 2 through 12 are grossly intact. Please refer to medication reconciliation sheet for a list of medications. The impression and plan of care has been dictated by Shayy Fuentes, Nurse Practitioner as directed. Dr. Kamar MD I have performed a history and examination and MDM of this patient, discussed the same with the dictator, and agree with the dictator's assessment and plan as written ,documented as a scribe. Based on total visit time, I have performed more than 50% of the visit. Patient Condition at Discharge: Stable Plan - Discharge Summary New Discharge Prescriptions: New Ciprofloxacin HCl [Cipro] 500 mg PO BID 14 Days #28 tab metroNIDAZOLE [Flagyl] 500 mg PO TID 14 Days #42 tab Continue Albuterol Inhaler [Ventolin Hfa Inhaler] 2 puff INHALATION RT-Q6H PRN PRN Reason: Shortness Of Breath Mometasone/Formoterol [Dulera 100 Mcg-5 Mcg Inhaler] 2 puff INHALATION RT-BID Aspirin 81 mg PO DAILY #30 chew Atorvastatin [Lipitor] 80 mg PO HS #30 tab Clopidogrel [Plavix] 75 mg PO DAILY #30 tab Metoprolol Tartrate [Lopressor] 12.5 mg PO BID metFORMIN HCL [Glucophage] 1,000 mg PO BID Furosemide [Lasix] 20 mg PO DAILY #30 tab glipiZIDE [Glucotrol] 30 mg PO DAILY Tiotropium [place] [Spiriva Handihaler] 1 puff INHALATION RT-DAILY Acetaminophen Tab [Tylenol] 1,000 mg PO Q6HR PRN PRN Reason: Pain Or Fever > 100.5 Insulin Aspart [NovoLOG Flexpen] 30 units SQ TID-W/MEALS Fenofibrate,Micronized [Fenofibrate] 134 mg PO DAILY Dulaglutide [Trulicity] 1.5 mg SQ FR Gabapentin 600 mg PO TID Changed Insulin Glargine [Lantus Vial] 40 unit SQ HS #0 Discharge Medication List Albuterol Inhaler [Ventolin Hfa Inhaler] 2 puff INHALATION RT-Q6H PRN 12/13/18 [History] Mometasone/Formoterol [Dulera 100 Mcg-5 Mcg Inhaler] 2 puff INHALATION RT-BID 12/13/18 [History] Aspirin 81 mg PO DAILY #30 chew 01/18/20 [Rx] Atorvastatin [Lipitor] 80 mg PO HS #30 tab 01/18/20 [Rx] Clopidogrel [Plavix] 75 mg PO DAILY #30 tab 01/18/20 [Rx] Metoprolol Tartrate [Lopressor] 12.5 mg PO BID 07/23/20 [History] metFORMIN HCL [Glucophage] 1,000 mg PO BID 07/23/20 [History] Furosemide [Lasix] 20 mg PO DAILY #30 tab 07/26/20 [Rx] Acetaminophen Tab [Tylenol] 1,000 mg PO Q6HR PRN 08/01/22 [History] Dulaglutide [Trulicity] 1.5 mg SQ FR 08/01/22 [History] Fenofibrate,Micronized [Fenofibrate] 134 mg PO DAILY 08/01/22 [History] Gabapentin 600 mg PO TID 08/01/22 [History] Insulin Aspart [NovoLOG Flexpen] 30 units SQ TID-W/MEALS 08/01/22 [History] Tiotropium [place] [Spiriva Handihaler] 1 puff INHALATION RT-DAILY 08/01/22 [History] glipiZIDE [Glucotrol] 30 mg PO DAILY 08/01/22 [History] Ciprofloxacin HCl [Cipro] 500 mg PO BID 14 Days #28 tab 08/08/22 [Rx] Insulin Glargine [Lantus Vial] 40 unit SQ HS #0 08/08/22 [Rx] metroNIDAZOLE [Flagyl] 500 mg PO TID 14 Days #42 tab 08/08/22 [Rx] Follow up Appointment(s)/Referral(s): Nima Adames MD [Medical Doctor] - 08/14/22 3:00 pm [facility], [NON-STAFF] - 1 Week Juancarlos Wade MD [Primary Care Provider] - 1-2 days (patient will have to call and schedule own appt.no answer at office.) [facility] [NON-STAFF] - 1 Week Skye Clay MD [STAFF PHYSICIAN] - 1 Week Patient Instructions/Handouts: Ciprofloxacin (By mouth), Metronidazole (By mouth), Abscess (GEN) Activity/Diet/Wound Care/Special Instructions: Diet as tolerated ( PER HOME) ACTIVITY LIMITED UNTIL SEEN BY DR. TORRES TO COME TO WOUND CENTER ON Friday08/16/2022 Call wound center for time with Dr. Clay Continue consistent carb heart healthy diet continue to monitor what sugars before meals and at bedtime and keep a diary for primary care follow-up Continue with antibiotics per infectious disease recommendations until finished Follow-up with Dr. Clay at the wound care center and call the number above for the appointment time as discussed Needs follow-up with Dr. Adames surgery in 1 week Discharge Disposition: HOME WITH HOME HEALTH SERVICES
== END 2022-08-08 11:20 | disposition home health service (06) | DRG 854 ==
LOC: EC 09:55 → 5NMEDONC 13:46
PROVIDERS: ADMIT Hospitalist; ATTEND Hospitalist
PROC: 0JB90ZZ Excision of Buttock Subcutaneous Tissue and Fascia, Open Approach (ICD-10-PCS; 2022-08-06)
PROC: 0J990ZZ Drainage of Buttock Subcutaneous Tissue and Fascia, Open Approach (ICD-10-PCS; principal; 2022-08-06 16:20)
DX: A41.51 Sepsis due to Escherichia coli [E. coli] (principal); L02.31 Cutaneous abscess of buttock; L03.317 Cellulitis of buttock; Z68.41 Body mass index [BMI] 40.0-44.9, adult; E11.649 Type 2 diabetes mellitus with hypoglycemia without coma; E66.01 Morbid (severe) obesity due to excess calories; J44.9 Chronic obstructive pulmonary disease, unspecified; I25.10 Atherosclerotic heart disease of native coronary artery without angina pectoris; L72.0 Epidermal cyst; E78.5 Hyperlipidemia, unspecified; F17.210 Nicotine dependence, cigarettes, uncomplicated; K21.9 Gastro-esophageal reflux disease without esophagitis; B96.20 Unspecified Escherichia coli [E. coli] as the cause of diseases classified elsewhere; Z86.14 Personal history of Methicillin resistant Staphylococcus aureus infection; I25.2 Old myocardial infarction; Z95.5 Presence of coronary angioplasty implant and graft; Z79.51 Long term (current) use of inhaled steroids; Z79.82 Long term (current) use of aspirin; Z79.02 Long term (current) use of antithrombotics/antiplatelets; Z79.899 Other long term (current) drug therapy; Z79.84 Long term (current) use of oral hypoglycemic drugs; Z79.891 Long term (current) use of opiate analgesic; Z79.4 Long term (current) use of insulin; Z91.018 Allergy to other foods; Z91.014 Allergy to mammalian meats; F32.A Depression, unspecified
CPT/HCPCS: 10060; 36415; 71045; 80048; 80202; 81025; 82565; 83036; 85025; 87040; 87070; 87075; 87077; 87186; 87205; 88304; 93005; 94640; 96361; 96365; 96366; 96375; 96376; 99285

== ENCOUNTER 2024-08-14 18:04 | Inpatient (IN) | payer OTHER ==
--- NOTE | 2024-08-14 18:34 | ED ---
General Adult HPI - General Chief complaint: Chest Pain Stated complaint: Chest pain Time Seen by Provider: 08/14/24 18:11 Source: patient, EMS, RN notes reviewed, old records reviewed Limitations: no limitations - History of Present Illness Initial comments: 54-year-old female presenting for evaluation of substernal chest pain which has been present for the past several hours. Patient has prior history of coronary artery disease status post stenting most recently 2019 according to the patient. She does report associated nausea. She was given nitroglycerin by paramedics as well as aspirin. Pain is improved at this time. Pain did not radiate. No shortness of breath. - Related Data Home Medications Medication Instructions Recorded Confirmed Albuterol Inhaler [Ventolin Hfa 2 puff INHALATION RT-Q6H PRN 12/13/18 08/01/22 Inhaler] Mometasone/Formoterol [Dulera 100 2 puff INHALATION RT-BID 12/13/18 08/01/22 Mcg-5 Mcg Inhaler] Metoprolol Tartrate [Lopressor] 12.5 mg PO BID 07/23/20 08/01/22 metFORMIN HCL [Glucophage] 1,000 mg PO BID 07/23/20 08/01/22 Acetaminophen Tab [Tylenol] 1,000 mg PO Q6HR PRN 08/01/22 08/01/22 Dulaglutide [Trulicity] 1.5 mg SQ FR 08/01/22 08/01/22 Fenofibrate,Micronized 134 mg PO DAILY 08/01/22 08/01/22 [Fenofibrate] Gabapentin 600 mg PO TID 08/01/22 08/01/22 Insulin Aspart [NovoLOG Flexpen] 30 units SQ TID-W/MEALS 08/01/22 08/01/22 Tiotropium [place] [Spiriva 1 puff INHALATION RT-DAILY 08/01/22 08/01/22 Handihaler] glipiZIDE [Glucotrol] 30 mg PO DAILY 08/01/22 08/01/22 Previous Rx's Medication Instructions Recorded Aspirin 81 mg PO DAILY #30 chew 01/18/20 Atorvastatin [Lipitor] 80 mg PO HS #30 tab 01/18/20 Clopidogrel [Plavix] 75 mg PO DAILY #30 tab 01/18/20 Furosemide [Lasix] 20 mg PO DAILY #30 tab 07/26/20 Ciprofloxacin HCl [Cipro] 500 mg PO BID 14 Days #28 tab 08/08/22 Insulin Glargine [Lantus Vial] 40 unit SQ HS #0 08/08/22 metroNIDAZOLE [Flagyl] 500 mg PO TID 14 Days #42 tab 08/08/22 Allergies Allergy/AdvReac Type Severity Reaction Status Date / Time [employer] Sprouts Allergy HIVES Verified 08/06/22 10:53 Pork/Porcine Containing Allergy HIVES Verified 08/06/22 10:53 Products [Pork] Review of Systems ROS Statement: Those systems with pertinent positive or pertinent negative responses have been documented in the HPI. ROS Other: All systems not noted in ROS Statement are negative. 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 Source:: stomach Past Surgical History: Cholecystectomy, Heart Catheterization With Stent, Tonsillectomy Additional Past Surgical History / Comment(s): D&C , all teeth extracted, LASIK- BILATERAL EYES Past Anesthesia/Blood Transfusion Reactions: No Reported Reaction Date of Last Stent Placement:: 01/15/20 Past Psychological History: Depression Smoking Status: Current every day smoker Past Alcohol Use History: None Reported Past Drug Use History: None Reported - Past Family History Mother Family Medical History: Coronary Artery Disease (CAD), Hypertension Additional Family Medical History / Comment(s): lupus, diverticulitis Father Family Medical History: Coronary Artery Disease (CAD), Diabetes Mellitus, Hypertension, Myocardial Infarction ([place]) Additional Family Medical History / Comment(s): first heart attack at 40 General Exam Limitations: no limitations General appearance: alert, in no apparent distress Head exam: Present: atraumatic, normocephalic Eye exam: Present: normal appearance, PERRL ENT exam: Present: normal exam Neck exam: Present: normal inspection. Absent: tenderness, meningismus Respiratory exam: Present: normal lung sounds bilaterally. Absent: respiratory distress, wheezes Cardiovascular Exam: Present: regular rate, normal rhythm GI/Abdominal exam: Present: soft. Absent: distended, tenderness, guarding Course Vital Signs 08/14/24 18:10 Temperature 98.2 F Pulse Rate 65 Respiratory 17 Rate Blood Pressure 125/75 O2 Sat by Pulse 94 L Oximetry Medical Decision Making - Medical Decision Making Was pt. sent in by a medical professional or institution (NEFTALY Welch, ASSISTANCE SPECIALIST, urgent care, hospital, or [facility]...) When possible be specific @ -No Did you speak to anyone other than the patient for history (EMS, parent, family, police, friend...)? What history was obtained from this source @ -No Did you review nursing and triage notes (agree or disagree)? Why? @ -I reviewed and agree with nursing and triage notes Were old charts reviewed (outside hosp., previous admission, EMS record, old EKG, old radiological studies, urgent care reports/EKG's, [facility] records)? Report findings @ -No old charts were reviewed Differential Chest Pain: Stable Angina, Unstable Angina, STEMI, NSTEMI Aortic Dissection, Pneumothorax, Musculoskeletal, Esophageal Spasm GERD, Cholecystitis, Pancreatitis, Zoster, this is not meant to be an all-inclusive list. EKG interpreted by me (3pts min.). @ -Sinus rhythm rate of 64, AL interval 149, QRS duration 85, QTc [address] segment elevation. X-rays interpreted by me (1pt min.). @ -[Chest x-ray mild CHF CT interpreted by me (1pt min.). @ -None done U/S interpreted by me (1pt. min.). @ -None done What testing was considered but not performed or refused? (CT, X-rays, U/S, labs)? Why? @ -None What meds were considered but not given or refused? Why? @ -None Did you discuss the management of the patient with other professionals (professionals i.e. NEFTALY Welch, ASSISTANCE SPECIALIST, lab, RT, psych nurse, group social worker, nutritional services host, teacher, truant officer, case packer and sealer)? Give summary @ -[Case discussed with Dr. Cordero who will admit Was smoking cessation discussed for >3mins.? @ -No Was critical care preformed (if so, how long)? @Yes, 35 minutes Were there social determinants of health that impacted care today? How? (Homelessness, low income, unemployed, alcoholism, drug addiction, transportation, low edu. Level, literacy, decrease access to med. care, [place] [facility], rehab)? @ -No Was there de-escalation of care discussed even if they declined (Discuss DNR or withdrawal of care, Hospice)? DNR status @ -No What co-morbidities impacted this encounter? (DM, HTN, Smoking, COPD, CAD, Cancer, CVA, ARF, Chemo, Hep., AIDS, mental health diagnosis, sleep apnea, morbid obesity)? @Diabetes, coronary artery disease, current smoker Was patient admitted / discharged? Hospital course, mention meds given and route, prescriptions, significant lab abnormalities, going to OR and other pertinent info. @ -54-year-old female presenting with substernal chest pain. History of diabetes, coronary artery disease, current smoker. EKG sinus rhythm without ST segment elevation. Chest x-ray is CHF. She has normal CBC, normal CMP, initial troponin is 0.044. Given the symptoms and mildly elevated troponin she is placed on anticoagulation using Lovenox instead of heparin due to a pork allergy. This was confirmed with the pharmacist. Patient will receive serial cardiac enzymes, echo, telemetry, cardiology consultation. Undiagnosed new problem with uncertain prognosis? @ -No Drug Therapy requiring intensive monitoring for toxicity (Heparin, Nitro, Insulin, Cardizem)? @ -No Were any procedures done? @ -No Diagnosis/symptom? @ -NSTEMI Acute, or Chronic, or Acute on Chronic? @ -[Acute Uncomplicated (without systemic symptoms) or Complicated (systemic symptoms)? @ -Complicated Side effects of treatment? @ -[No Exacerbation, Progression, or Severe Exacerbation? @ -No Poses a threat to life or bodily function? How? (Chest pain, [place], HI, pneumonia, PE, COPD, DKA, ARF, appy, cholecystitis, CVA, Diverticulitis, Homicidal, Suicidal, threat to staff... and all critical care pts) @ -Yes, ACS - Lab Data Result diagrams: 08/14/24 18:28 08/14/24 18: Lab Results 08/14/24 08/14/24 08/14/24 Range/Units 18:28 18: 18: WBC 7.0 (3.8-10.6) k/uL RBC 4.80 (3.80-5.40) m/uL Hgb 15.8 (11.4-16.0) gm/dL Hct 48.0 H (34.0-46.0) % MCV 100.1 H (80.0-100.0) fL MCH 33.0 (25.0-35.0) pg MCHC 33.0 (31.0-37.0) g/dL RDW 13.4 (11.5-15.5) % Plt Count 100 L (150-450) k/uL MPV 10.2 Neutrophils % 63 % Lymphocytes % 28 % Monocytes % 5 % Eosinophils % 3 % Basophils % 1 % Neutrophils # 4.4 (1.3-7.7) k/uL Lymphocytes # 1.9 (1.0-4.8) k/uL Monocytes # 0.3 (0-1.0) k/uL Eosinophils # 0.2 (0-0.7) k/uL Basophils # 0.0 (0-0.2) k/uL PT 10.5 (10.0-12.5) sec INR 1.0 (<1.2) APTT 24.8 (22.0-30.0) sec Sodium 129 L (137-145) mmol/L Potassium 4.9 (3.5-5.1) mmol/L Chloride 98 (98-107) mmol/L Carbon Dioxide 27 (22-30) mmol/L Anion Gap 4 mmol/L BUN 12 (7-17) mg/dL Creatinine 0.69 (0.52-1.04) mg/dL Est GFR (CKD-EPI)AfAm >90 (>60 ml/min/1.73 sqM) Est GFR (CKD-EPI)NonAf >90 (>60 ml/min/1.73 sqM) Glucose 385 H (74-99) mg/dL Calcium 9.1 (8.4-10.2) mg/dL Magnesium 1.2 L (1.6-2.3) mg/dL Total Bilirubin 0.6 (0.2-1.3) mg/dL AST 29 (14-36) U/L ALT 22 (4-34) U/L Alkaline Phosphatase 56 (38-126) U/L Troponin I (0.000-0.034) ng/mL Total Protein 6.1 L (6.3-8.2) g/dL Albumin 3.2 L (3.5-5.0) g/dL 08/14/24 Range/Units 18:28 WBC (3.8-10.6) k/uL RBC (3.80-5.40) m/uL Hgb (11.4-16.0) gm/dL Hct (34.0-46.0) % MCV (80.0-100.0) fL MCH (25.0-35.0) pg MCHC (31.0-37.0) g/dL RDW (11.5-15.5) % Plt Count (150-450) k/uL MPV Neutrophils % % Lymphocytes % % Monocytes % % Eosinophils % % Basophils % % Neutrophils # (1.3-7.7) k/uL Lymphocytes # (1.0-4.8) k/uL Monocytes # (0-1.0) k/uL Eosinophils # (0-0.7) k/uL Basophils # (0-0.2) k/uL PT (10.0-12.5) sec INR (<1.2) APTT (22.0-30.0) sec Sodium (137-145) mmol/L Potassium (3.5-5.1) mmol/L Chloride (98-107) mmol/L Carbon Dioxide (22-30) mmol/L Anion Gap mmol/L BUN (7-17) mg/dL Creatinine (0.52-1.04) mg/dL Est GFR (CKD-EPI)AfAm (>60 ml/min/1.73 sqM) Est GFR (CKD-EPI)NonAf (>60 ml/min/1.73 sqM) Glucose (74-99) mg/dL Calcium (8.4-10.2) mg/dL Magnesium (1.6-2.3) mg/dL Total Bilirubin (0.2-1.3) mg/dL AST (14-36) U/L ALT (4-34) U/L Alkaline Phosphatase (38-126) U/L Troponin I 0.044 H* (0.000-0.034) ng/mL Total Protein (6.3-8.2) g/dL Albumin (3.5-5.0) g/dL Critical Care Time Critical Care Time: Yes Total Critical Care Time: 35 Disposition Clinical Impression: Acute non-ST elevation myocardial infarction (NSTEMI) Disposition: ADMITTED IP TO THIS [facility] Condition: Stable Is patient prescribed a controlled substance at d/c from ED?: No Referrals: Juancarlos Wade MD [Primary Care Provider] - 1-2 days Time of Disposition: 20:13
[2024-08-14 18:40] LABS: Basophils % (A) 1 %; Eosinophils # (A) 0.2 k/uL (0-0.7); Eosinophils % (A) 3 %; HGB 15.8 gm/dL (11.4-16.0); Lymphocytes # (A) 1.9 k/uL (1.0-4.8); Lymphocytes % (A) 28 %; MCV 100.1 fL (80.0-100.0); Mean Platelet Volume 10.2; Monocytes # (A) 0.3 k/uL (0-1.0); Monocytes % (A) 5 %; Neutrophils # (A) 4.4 k/uL (1.3-7.7); Neutrophils % (A) 63 %; Platelet Count 100 k/uL (150-450); RDW 13.4 % (11.5-15.5)
[2024-08-14 18:48] LABS: ALT 22 U/L (4-34); AST 29 U/L (14-36); African American GFR (CKD) >90 (>60 ml/min/1.73 sqM); Albumin 3.2 g/dL (3.5-5.0); Alkaline Phosphatase 56 U/L (38-126); Anion Gap 4 mmol/L; Blood Urea Nitrogen 12 mg/dL (7-17); Calcium 9.1 mg/dL (8.4-10.2); Carbon Dioxide 27 mmol/L (22-30); Chloride 98 mmol/L (98-107); Glucose 385 mg/dL (74-99); Magnesium 1.2 mg/dL (1.6-2.3); Non-African American GFR(CKD) >90 (>60 ml/min/1.73 sqM); Potassium 4.9 mmol/L (3.5-5.1); Sodium 129 mmol/L (137-145); Total Bilirubin 0.6 mg/dL (0.2-1.3); Total Protein 6.1 g/dL (6.3-8.2)
[2024-08-14 18:55] LABS: Partial Thromboplastin Time 24.8 sec (22.0-30.0); Prothrombin Time 10.5 sec (10.0-12.5)
--- NOTE | 2024-08-14 19:25 | XR ---
EXAMINATION TYPE: XR chest 2V DATE OF EXAM: 08/14/2024 6:46 PM CLINICAL INDICATION:Female, 54 years old with history of Chest Pain; [facility] COMPARISON: 08/02/2022 TECHNIQUE: XR chest 2V. Frontal and lateral views of the chest.. FINDINGS: Lines/Tubes/Devices: Monitor leads overlie the chest. No indwelling lines are seen. Heart/mediastinum: Heart size upper normal. Mediastinum appears normal. Pulmonary vascularity: Mild pulmonary vascular congestion. Mildly increased interstitial markings can be seen with edema or pneumonitis. An element of chronic change is possible. Lungs/Pleura: There is no evidence of sizable pleural effusion, focal consolidation, or pneumothorax. Mild haziness over the lung bases attributed to overlying soft tissues on frontal view. Musculoskeletal: No acute osseous abnormality demonstrated in the limits of the exam. Mild multilevel endplate spurring in the thoracic spine. Other findings: None. IMPRESSION: Mild pulmonary vascular congestive changes. [facility], , 08/14/2024 7:22 PM
[2024-08-14] MEDS ORDERED: NITROGLYCERIN SL TABS 0.4 MG TAB SUBLINGUAL PRN (19:59)
[2024-08-14] MEDS: HEPARIN SOD,PORK IN 0.45% NACL 25,000 UNIT in 0.45% NACL 1 250ML.BAG IV SCH (20:21)
[2024-08-14] MEDS: HEPARIN SODIUM 1,000 UN/ML (10ML VL) IV ONE (20:21)
[2024-08-14] MEDS: FUROSEMIDE 10 MG/ML 4 ML VIAL IV STA (20:49)
[2024-08-14] MEDS: ATORVASTATIN 80 MG TAB PO SCH (20:49)
[2024-08-14] MEDS: ENOXAPARIN 100 MG/ML SYRINGE SQ STA (20:50)
[2024-08-14] MEDS ORDERED: HEPARIN SODIUM 1,000 UN/ML (10ML VL) IV PRN (23:39)
[2024-08-15] MEDS: HEPARIN SODIUM 1,000 UN/ML (10ML VL) IV ONE (00:08)
[2024-08-15] MEDS: HEPARIN SOD,PORK IN 0.45% NACL 25,000 UNIT in 0.45% NACL 1 250ML.BAG IV SCH (00:09)
[2024-08-15 06:28] LABS: Basophils # (A) 0.1 k/uL (0-0.2); Basophils % (A) 1 %; Eosinophils # (A) 0.3 k/uL (0-0.7); Eosinophils % (A) 4 %; HCT 50.9 % (34.0-46.0); HGB 16.5 gm/dL (11.4-16.0); Lymphocytes # (A) 2.7 k/uL (1.0-4.8); Lymphocytes % (A) 35 %; MCH 31.8 pg (25.0-35.0); MCHC 32.3 g/dL (31.0-37.0); MCV 98.5 fL (80.0-100.0); Mean Platelet Volume 10.9; Monocytes # (A) 0.4 k/uL (0-1.0); Monocytes % (A) 5 %; Neutrophils # (A) 4.1 k/uL (1.3-7.7); Neutrophils % (A) 54 %; Platelet Count 104 k/uL (150-450); RBC 5.17 m/uL (3.80-5.40); RDW 13.3 % (11.5-15.5); WBC 7.6 k/uL (3.8-10.6)
[2024-08-15] MEDS ORDERED: HEPARIN SODIUM,PORCINE 10,000 UNIT in SODIUM CHLORIDE 0.9% 1,000 ML IRRIGATION PRN (07:00)
[2024-08-15] MEDS ORDERED: HEPARIN SODIUM,PORCINE (1 ML) 2,500 UNIT in SODIUM CHLORIDE 0.9% 250 ML IRRIGATION PRN (07:00)
[2024-08-15] MEDS: ASPIRIN 81 MG PO SCH (08:55)
[2024-08-15] MEDS ORDERED: FUROSEMIDE 10 MG/ML 2 ML VIAL IV SCH (09:00)
[2024-08-15] MEDS ORDERED: ENOXAPARIN 100 MG/ML SYRINGE SQ SCH (09:00)
[2024-08-15] MEDS ORDERED: ASPIRIN 325 MG TAB PO SCH (09:00)
[2024-08-15] MEDS ORDERED: NITROGLYCERIN SL TABS 0.4 MG TAB SUBLINGUAL PRN ×2 (09:58→13:39)
[2024-08-15] MEDS ORDERED: ALPRAZolam 0.5 MG TAB PO PRN (09:58)
[2024-08-15] MEDS ORDERED: ASPIRIN 325 MG TAB PO STA (09:58)
[2024-08-15] MEDS: EZETIMIBE 10 MG TAB PO SCH (11:01)
[2024-08-15] MEDS: METOPROLOL TARTRATE 12.5 MG TAB PO SCH (11:01)
[2024-08-15] MEDS: DAPAGLIFLOZIN PROPANEDIOL 5 MG TABLET PO SCH (11:01)
[2024-08-15] MEDS: ATORVASTATIN 80 MG TAB PO STA (11:01)
[2024-08-15] MEDS: FUROSEMIDE 20 MG TAB PO SCH (11:01)
[2024-08-15] MEDS: ASPIRIN 81 MG PO STA (11:01)
--- NOTE | 2024-08-15 11:15 | P.CRDCN ---
History of Present Illness History of present illness: HISTORY OF PRESENT ILLNESS: This is a 54-year-old female with a past medical history significant for coronary artery disease with previous stenting, COPD with home oxygen at night, hypertension, hyperlipidemia, diabetes, and nicotine dependence. Patient used to follow in the office with Dr. Cummings but has not been seen since 2019. We have been asked to see the patient in consultation for non-STEMI. Patient examined at the bedside in the emergency room. Patient states yesterday afternoon she was at home cooking dinner when she began to have chest pain. She states the pain was on the left side of her chest and felt like a jabbing sensation. She denied any radiation of the pain. She does report that she felt short of breath at that time. She states this is her only episode of chest discomfort she has had. She states the pain lasted for approximately 30 minutes. The pain she experienced yesterday was different from the pain that she previously experienced when she required stenting. She was brought to the hospital via EMS. She received aspirin and nitro and route to the hospital which relieved her pain. She states she has had no further episodes of chest pain since that time. The patient reports that she continues to smoke. She reports approximately 1/2 to 1 pack of cigarettes per day. She also reports that her diabetes has not been well-controlled. She states her last hemoglobin A1c was around 11. She states that she was post to see an pace analyst but she has not followed up. She states that she is under a lot of stress at home as she is caring for her 2 grandchildren. DIAGNOSTICS: - EKG reveals sinus mechanism with no signs of acute ischemia - Chest xray mild pulmonary vascular congestion - Laboratory data: WBC 7.6. Hemoglobin 16.5. Platelet count 104. Sodium 129. Potassium 4.9. BUN 12. Creatinine 0.69. Magnesium 1.2. Troponin 0.044. 0.411. 0.649. - Current home cardiac medications include Plavix 75 mg daily, metoprolol tartr ate 12.5 mg twice a day, Jardiance 10 mg daily, fenofibrate 134 mg daily, Lasix 20 mg daily, Zetia 10 mg daily, rosuvastatin 40 mg daily - Most recent echocardiogram obtained in December 2019 revealed ejection fraction 40 to 45%, basal inferior lateral hypokinesis, trace MR, trace TR - Cardiac catheterization history: December 2019 revealing subtotally occluded RCA in the midportion with plaque rupture and thrombus formation. Thrombus was of large burden. Severe disease involving medium caliber left circumflex in the midportion. Intermediate to severe disease involving the mid LAD. Patient underwent aspiration thrombectomy of right coronary artery. She also underwent stenting of the mid RCA. REVIEW OF SYSTEMS: At the time of my exam: CONSTITUTIONAL: Denies fever or chills. HEENT: Denies blurred vision, vision changes, or eye pain. Denies hemoptysis CARDIOVASCULAR: Denies chest pain. Denies orthopnea. Denies PND. Denies palpitations RESPIRATORY: Denies shortness of breath. GASTROINTESTINAL: Denies abdominal pain. Denies nausea or vomiting. HEMATOLOGIC: Denies bleeding disorders. GENITOURINARY: Denies any blood in urine. SKIN: Denies pruitis. Denies rash. PHYSICAL EXAM: VITAL SIGNS: Reviewed. GENERAL: Well-developed in no acute distress. HEENT: Head is normocephalic. Pupils are equal, round. Sclerae anicteric. Mucous membranes of the mouth are moist. Neck supple. No JVD or thyromegaly LUNGS: Respirations even and unlabored. Lungs essentially clear to auscultation bilaterally. HEART: Regular rate and rhythm. S1 and S2 heard. ABDOMEN: Soft. Nondistended. Nontender. EXTREMITIES: Normal range of motion. No clubbing or cyanosis. Peripheral pulses intact. No lower extremity edema NEUROLOGIC: Awake and alert. Oriented x 3. ASSESSMENT: Chest pain Non-STEMI Coronary artery disease with previous stenting, most recently mid RCA in 2019 Ischemic cardiomyopathy, ejection fraction 40 to 45% COPD with home oxygen at night Hypertension Hyperlipidemia Diabetes, uncontrolled with recent A1c 11% per patient Nicotine dependence Obesity: BMI 41.4 PLAN: Obtain 2D echo to assess cardiac structure and function Continue IV heparin Continue aspirin 81 mg daily Continue atorvastatin 80 mg daily. LDL goal less than 70. Resume home cardiac medications Obtain lipid panel and hemoglobin A1c Smoking cessation recommended. Patient to be referred to [place] quit line upon discharge. Discussed importance of controlling patient's diabetes. Patient verbalized understanding Patient to undergo cardiac catheterization today with Dr. Puente Further recommendations pending patient course Nurse practitioner note has been reviewed by physician. Signing provider agrees with the documented findings, assessment, and plan of care documented by BIT WELDER as a scribe. 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 Source:: stomach Past Surgical History: Cholecystectomy, Heart Catheterization With Stent, Tonsillectomy Additional Past Surgical History / Comment(s): D&C , all teeth extracted, LASIK- BILATERAL EYES Past Anesthesia/Blood Transfusion Reactions: No Reported Reaction Date of Last Stent Placement:: 01/15/20 Past Psychological History: Depression Smoking Status: Current every day smoker Past Alcohol Use History: None Reported Past Drug Use History: None Reported - Past Family History Mother Family Medical History: Coronary Artery Disease (CAD), Hypertension Additional Family Medical History / Comment(s): lupus, diverticulitis Father Family Medical History: Coronary Artery Disease (CAD), Diabetes Mellitus, Hypertension, Myocardial Infarction ([place]) Additional Family Medical History / Comment(s): first heart attack at 40 Medications and Allergies Home Medications Medication Instructions Recorded Confirmed Type Albuterol Inhaler [Ventolin Hfa 2 puff INHALATION RT-Q6H PRN 12/13/18 08/15/24 History Inhaler] Mometasone/Formoterol [Dulera 100 2 puff INHALATION RT-BID PRN 12/13/18 08/15/24 History Mcg-5 Mcg Inhaler] Clopidogrel [Plavix] 75 mg PO DAILY #30 tab 01/18/20 08/15/24 Rx Metoprolol Tartrate [Lopressor] 12.5 mg PO BID 07/23/20 08/15/24 History metFORMIN HCL [Glucophage] 1,000 mg PO BID 07/23/20 08/15/24 History Furosemide [Lasix] 20 mg PO DAILY #30 tab 07/26/20 08/15/24 Rx Fenofibrate,Micronized 134 mg PO DAILY 08/01/22 08/15/24 History [Fenofibrate] Insulin Aspart [NovoLOG Flexpen] 5 - 10 units SQ AC-TID 08/01/22 08/15/24 History glipiZIDE [Glucotrol] 10 mg PO AC-BID 08/01/22 08/15/24 History Empagliflozin [Jardiance] 10 mg PO DAILY 08/15/24 08/15/24 History Ezetimibe [Zetia] 10 mg PO DAILY 08/15/24 08/15/24 History Gabapentin 800 mg PO TID 08/15/24 08/15/24 History Insulin Glargine [Lantus Vial] 30 unit SQ HS 08/15/24 08/15/24 History Nitroglycerin Sl Tabs [Nitrostat] 0.4 mg SUBLINGUAL Q5M PRN 08/15/24 08/15/24 History Omeprazole 20 mg PO DAILY 08/15/24 08/15/24 History PARoxetine [Paxil] 20 mg PO DAILY 08/15/24 08/15/24 History Rosuvastatin Calcium [Crestor] 40 mg PO DIRECTED 08/15/24 08/15/24 History polyethylene glycoL 3350 [Miralax] 17 gm PO DAILY PRN 08/15/24 08/15/24 History sitaGLIPtin [Januvia] 100 mg PO DAILY 08/15/24 08/15/24 History Allergies Allergy/AdvReac Type Severity Reaction Status Date / Time [employer] Allergy HIVES Verified 08/15/24 08:36 Pork/Porcine Containing Allergy HIVES Verified 08/15/24 08:36 Products [Pork] Physical Exam Vitals: Vital Signs Temp Pulse Resp BP Pulse Ox 08/15/24 06:00 54 L 19 127/67 92 L 08/15/24 01:00 54 L 18 104/52 93 L 08/15/24 00:15 54 L 18 89/63 95 08/14/24 20:54 58 L 18 120/63 98 08/14/24 18:10 98.2 F 65 17 125/75 94 L Intake and Output 08/14/24 08/15/24 08/15/24 22:59 06:59 14:59 Other: Weight 104.326 kg Results 08/15/24 05:56 08/14/24 18:28 Cardiac Enzymes 08/14/24 08/14/24 08/14/24 Range/Units 18:28 18:28 21:28 AST 29 (14-36) U/L Troponin I 0.044 H* 0.411 H* (0.000-0.034) ng/mL 08/14/24 Range/Units 22:49 AST (14-36) U/L Troponin I 0.649 H* (0.000-0.034) ng/mL Coagulation 08/14/24 08/15/24 Range/Units 18:28 05:56 PT 10.5 (10.0-12.5) sec APTT 24.8 41.1 H (22.0-30.0) sec CBC 08/14/24 08/15/24 Range/Units 18:28 05:56 WBC 7.0 7.6 (3.8-10.6) k/uL RBC 4.80 5.17 (3.80-5.40) m/uL Hgb 15.8 16.5 H (11.4-16.0) gm/dL Hct 48.0 H 50.9 H (34.0-46.0) % Plt Count 100 L 104 L (150-450) k/uL Comprehensive Metabolic Panel 08/14/24 Range/Units 18:28 Sodium 129 L (137-145) mmol/L Potassium 4.9 (3.5-5.1) mmol/L Chloride 98 (98-107) mmol/L Carbon Dioxide 27 (22-30) mmol/L BUN 12 (7-17) mg/dL Creatinine 0.69 (0.52-1.04) mg/dL Glucose 385 H (74-99) mg/dL Calcium 9.1 (8.4-10.2) mg/dL AST 29 (14-36) U/L ALT 22 (4-34) U/L Alkaline Phosphatase 56 (38-126) U/L Total Protein 6.1 L (6.3-8.2) g/dL Albumin 3.2 L (3.5-5.0) g/dL Current Medications Generic Name Dose Route Start Last Admin Trade Name Freq PRN Reason Stop Dose Admin Aspirin 325 mg 08/15/24 09:00 Aspirin 325 Mg Tab PO DAILY [facility] Atorvastatin Calcium 80 mg 08/14/24 20:15 08/14/24 20:49 Atorvastatin 80 Mg Tab PO 80 mg DAILY MARIA VICTORIA Administration Furosemide 20 mg 08/15/24 09:00 Furosemide 10 Mg/Ml 2 Ml Vial IV Q12HR MARIA VICTORIA Heparin Sodium (Porcine) 0 unit 08/14/24 23:39 Heparin Sodium 1,000 Un/Ml (10ml Vl) IV PER PROTOCOL PRN Low PTT Protocol Heparin Sodium/Sodium Chloride 250 mls @ 10.005 mls/hr 08/14/24 23:45 08/15/24 00:09 25,000 unit/ Sodium Chloride IV 9.59 units/kg/hr .Q24H MARIA VICTORIA 10.005 mls/hr Administration Protocol 9.59 UNITS/KG/HR Nitroglycerin 0.4 mg 08/14/24 19:59 Nitroglycerin Sl Tabs 0.4 Mg Tab SUBLINGUAL Q5M PRN Chest Pain Intake and Output 08/14/24 08/15/24 08/15/24 22:59 06:59 14:59 Other: Weight 104.326 kg 08/15/24 05:56 08/14/24 18:28
[2024-08-15] MEDS: fentaNYL (PF) 50 MCG/ML 2 ML AMP IVP ONE (12:45)
[2024-08-15] MEDS: LIDOCAINE 1% INJ 10MG/ML (20 ML MDV) SQ ONE (12:51)
[2024-08-15] MEDS: VERAPAMIL SYRINGE (5 MG/10 ML) INTRAARTER ONE (12:51)
[2024-08-15] MEDS: IV FLUID CONTINUATION 800 ML IV ONE (12:51)
[2024-08-15] MEDS: HEPARIN SODIUM 1,000 UN/ML (10ML VL) IVP ONE (12:56)
[2024-08-15] MEDS: CLOPIDOGREL 75 MG TAB PO ONE (13:10)
[2024-08-15] MEDS: IOPAMIDOL-370 100ML BTL INJ ONE ×2 (13:11→13:22)
[2024-08-15] MEDS ORDERED: RX INFO: IV CONTRAST WAS GIVEN 1 EACH MISC MISCELLANE PRN (13:39)
[2024-08-15] MEDS ORDERED: ATROPINE SULFATE 0.1 MG/ML 10ML SYRINGE IV PRN (13:39)
[2024-08-15] MEDS ORDERED: ZOLPIDEM 5 MG TAB PO PRN (13:39)
[2024-08-15] MEDS ORDERED: MAG HYDROX/AL HYDROX/SIMETH 30 ML CUP PO PRN (13:39)
--- NOTE | 2024-08-15 13:52 | P.CARDCATH ---
Date of Procedure: 08/15/24 Description of Procedure: Cardiac Catheterization: The patient is a 54-year-old female with known history of diabetes, hypertension, hyperlipidemia, history of CAD status post multivessel stenting in 2019, history of chronic tobacco use who has not been seen recently by Dr. Cummings and presented to the emergency room with symptoms of new onset chest discomfort associated with troponin elevation but no significant EKG changes. Recommendations were made regarding cardiac catheterization, the risks and the complications were discussed with the patient who is in full understanding and agreement. Procedure Description: Patient was brought to center medical and lab director in fasting semi-sedated state after receiving Fentanyl and Benadryl achieiving moderate conscious sedated state. Using Xylocaine Anesthesia and modified Seldinger technique, a 6-Kosovan sheath was introduced in the right radial artery . Subsequently, selective coronary angiography was performed using a 5-Kosovan 3.5 bend Whitney catheter. Multiple views of the coronary artery including hemiaxial views were obtained. The right Whitney catheter was used to cross the aortic valve and LVEDP was calculated. PCI: After removing the catheters a 6 Kosovan CLS 3.5 guiding catheter and after cannulating the left main a 0.014 BMW J-wire was positioned in the distal OM, subsequently 2.5 x 12 mm trek balloon was advanced and 1 inflation at 8 walker was done. After removing the balloon a [employer] [place] eye IVUS catheter was introduced and images were obtained that revealed a distal reference diameter of 3 mm with moderate calcification. There was a plaque in the ostium of the left circumflex that was calcified. After removing the catheter a 3.0 x 18 mm Xience minerva point stent was advanced and deployed at 16 walker. Subsequently repeat IVUS imaging were obtained and a 3.5 x 15 mm NC trek balloon was advanced and 1 inflation at the proximal segment was done at 10 walker. After removing the balloon and the wire images were obtained and revealed stable successful stenting. Following that, catheter and sheath were removed. Hemostasis was obtained with deployment of vascular band . There was no immediate complication. Patient was returned to room in stable condition. Of note, the patient received a total of 8000 units of intravenous heparin as well as intra-arterial verapamil. She was continued on clopidogrel. Her ACT was monitored. She had no chest discomfort or EKG changes. Findings: Fluoroscopy: Calcification of the coronary arteries was noted Left main: This is a large size vessel, bifurcating into LAD and left circumflex, left main has no high-grade stenosis LAD: This is a large size vessel, reaching to the apex, tapers down in the di stal third and gives rise to a large diagonal branch. The proximal LAD has 20% plaque, after the diagonal branch takeoff the stented segment is patent proximal segment of the stent has a 50 to 60% plaque. The diagonal branch has a stent that is patent proximal to the stent there is diffuse intimal disease up to 40%. The LAD at the site of the bifurcation of the diagonal branch has a 60% plaque. Left circumflex: This is a large nondominant vessel giving rise to a large obtuse marginal branch. The proximal segment of the obtuse marginal branch has a 90 to 95% stenosis. The proximal left circumflex has a 30% eccentric plaque. The AV groove left circumflex is small in caliber and has a area of stenosis up to 80 to 90%. RCA: This is a large dominant vessel, bifurcating distally to PDA and PLV. The stented segment in the mid RCA is patent with evidence of tubular in-stent restenosis up to 40%. The distal vessel has no high-grade stenosis Left Ventriculogram: Not performed Hemodynamics: There was no gradient across aortic valve, LVEDP was 12-16 mmHg Conclusion: 1. Severe stenosis in the proximal OM1 2. Patent stent in the RCA with moderate in-stent restenosis 3. Patent stent in the LAD and diagonal branch with diffuse disease in the mid LAD and proximal diagonal branch 4. Successful stenting of the OM1 with reduction of stenosis from 95% to less than 5% with IVUS imaging and AMRITA-3 flow Recommendations: The patient will continue on dual antiplatelet treatment for 1 year without any interruption, aggressive coronary risks modification will be continued with attempt to maintain LDL below 70 mg/dL. The importance smoking cessation was discussed with the patient and she will be referred to [place] quit line. The findings and the recommendations were discussed with the patient and the family and they were in full understanding and agreement. Duration of sedation is 37 minutes.
[2024-08-15] MEDS: SODIUM CHLORIDE 0.9% 1,000 ML in EMPTY BAG 1 BAG IV SCH ×2 (16:12→21:18)
[2024-08-15] MEDS ORDERED: DEXTROSE 50% SYRINGE 50 ML IVP PRN ×2 (17:02)
[2024-08-15] MEDS: INSULIN ASPART (NovoLOG) 100 UNIT/ML VIAL SQ SCH (18:08)
[2024-08-15] MEDS ORDERED: polyethylene glycoL 3350 17 GM POWD.PACK PO PRN (19:00)
--- NOTE | 2024-08-15 19:03 | P.HPIM ---
History of Present Illness H&P Date: 08/15/24 Chief Complaint: Chest pain Pleasant 54-year-old patient of Dr. Wade. Chronic stable medical conditions include diabetes, GERD, hyperlipidemia, coronary artery disease with stent, depression, COPD. Patient presents around 3:30 PM started developing a chest pressure central. Localized. No radiation. Lasted for good 45 minutes. Tired rundown. Took nitroglycerin. [place] better. Patient has continued to smoke about half a pack a day. Initial troponin was 0.044. This afternoon underwent cardiac catheterization. Was found of severe stenosis of the proximal OM1. Successfully stented. Patent stent of the RCA and LAD. This is patient's fifth stent. Postprocedure laying in bed. Comfortable. Review of systems: GEN.: Tired, EYES: None HEENT: None NECK: None RESPIRATORY: Some shortness of breath wheezing CARDIOVASCULAR: As above GASTROINTESTINAL: None GENITOURINARY: None MUSCULOSKELETAL: None LYMPHATICS: None HEMATOLOGICAL: None PSYCHIATRY: None NEUROLOGICAL: None Past medical history to include: COPD, diabetes, GERD, hyperlipidemia, coronary artery disease with stent, depression Social history: Started smoking at age of 17, 1 pack a day now down to half a pack a day. Marijuana occasionally. Lives with grandchildren Physical examination: VITAL SIGNS: 98.3, 48, 18, 136% to 2, 98% room air GENERAL: BMI 41.4, reclining bed awake a bit tired EYES: Pupils equal. Conjunctiva normal. HEENT: External appearance of nose and ears normal, oral cavity grossly normal. NECK: JVD not raised; masses not palpable. HEART: First and second heart sounds are normal; no edema. LUNGS: Respiratory rate increased, diminished breath sounds, wheezing. ABDOMEN: Soft, nontender, liver spleen not palpable, no masses palpable. PSYCH: Alert and oriented x3; mood and affect normal. NEUROLOGICAL: Cranial nerves grossly intact; no facial asymmetry, power and sensation grossly intact. LYMPHATICS: No lymph nodes palpable in the axilla and neck INVESTIGATIONS, reviewed in the clinical context: August 15: White count 7.6 hemoglobin 16.5 platelets 104 August 14: Sodium 129 potassium 4.9 creatinine 0.69 Troponin I 0.044, 0.411, 0.649. HbA1c 11.5 EKG tracing personally reviewed by me-normal sinus rhythm. Poor R wave progression anterior leads. Chest x-ray film personally reviewed by me-hyperinflation. Cardiomegaly Assessment and plan: -Acute non-Q wave [place] and previous 4 stents. Aspirin. Lipitor. Lopressor. IV heparin -IV heparin monitoring Follow PTT -Cardiac catheterization and intervention with stent to OM1. By Dr. Puente Aspirin. Plavix. -CAD with prior 4 stents Aspirin. Plavix. Lipitor. Lopressor -Morbid obesity BMI 41.4 Weight loss measures -COPD in a current smoker DuoNeb -Chronic nicotine dependence cigarette smoker Nicotine patch -Anxiety Paxil -Diabetes mellitus type 2 chronically on insulin, uncontrolled with hyperglycemia Follow Accu-Cheks with sliding scale. Januvia. Jardiance. Glucophage. Glucotrol. Lantus -GERD Prilosec -Hyperlipidemia Lipitor 80 mg mg at bedtime -Full code Care was discussed with the patient. Questions answered. 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 Past Surgical History: Cholecystectomy, Heart Catheterization With Stent, Tonsillectomy Additional Past Surgical History / Comment(s): D&C , all teeth extracted, LASIK- BILATERAL EYES Past Anesthesia/Blood Transfusion Reactions: No Reported Reaction Date of Last Stent Placement:: 08/15/24 Past Psychological History: Depression Smoking Status: Current every day smoker Past Alcohol Use History: None Reported Additional Past Alcohol Use History / Comment(s): STARTED SMOKING AT AGE 17 SMOKED 1PPD- TRYING TO QUIT NOW , SMOKES 3CIG A DAY Past Drug Use History: None Reported - Past Family History Mother Family Medical History: Coronary Artery Disease (CAD), Hypertension, Seizure Dis order Additional Family Medical History / Comment(s): lupus, diverticulitis, bowel perforation, seizures r/t head trauma Father Family Medical History: Coronary Artery Disease (CAD), Diabetes Mellitus, Hypertension, Myocardial Infarction ([place]) Additional Family Medical History / Comment(s): first heart attack at 40 Medications and Allergies Home Medications Medication Instructions Recorded Confirmed Type Albuterol Inhaler [Ventolin Hfa 2 puff INHALATION RT-Q6H PRN 12/13/18 08/15/24 History Inhaler] Mometasone/Formoterol [Dulera 100 2 puff INHALATION RT-BID PRN 12/13/18 08/15/24 History Mcg-5 Mcg Inhaler] Clopidogrel [Plavix] 75 mg PO DAILY #30 tab 01/18/20 08/15/24 Rx Metoprolol Tartrate [Lopressor] 12.5 mg PO BID 07/23/20 08/15/24 History metFORMIN HCL [Glucophage] 1,000 mg PO BID 07/23/20 08/15/24 History Furosemide [Lasix] 20 mg PO DAILY #30 tab 07/26/20 08/15/24 Rx Fenofibrate,Micronized 134 mg PO DAILY 08/01/22 08/15/24 History [Fenofibrate] Insulin Aspart [NovoLOG Flexpen] 5 - 10 units SQ AC-TID 08/01/22 08/15/24 Histo ry glipiZIDE [Glucotrol] 10 mg PO AC-BID 08/01/22 08/15/24 History Empagliflozin [Jardiance] 10 mg PO DAILY 08/15/24 08/15/24 History Ezetimibe [Zetia] 10 mg PO DAILY 08/15/24 08/15/24 History Gabapentin 800 mg PO TID 08/15/24 08/15/24 History Insulin Glargine [Lantus Vial] 30 unit SQ HS 08/15/24 08/15/24 History Nitroglycerin Sl Tabs [Nitrostat] 0.4 mg SUBLINGUAL Q5M PRN 08/15/24 08/15/24 History Omeprazole 20 mg PO DAILY 08/15/24 08/15/24 History PARoxetine [Paxil] 20 mg PO DAILY 08/15/24 08/15/24 History Rosuvastatin Calcium [Crestor] 40 mg PO DIRECTED 08/15/24 08/15/24 History polyethylene glycoL 3350 [Miralax] 17 gm PO DAILY PRN 08/15/24 08/15/24 History sitaGLIPtin [Januvia] 100 mg PO DAILY 08/15/24 08/15/24 History Allergies Allergy/AdvReac Type Severity Reaction Status Date / Time [place] Sprouts Allergy HIVES Verified 08/15/24 08:36 Pork/Porcine Containing Allergy HIVES Verified 08/15/24 08:36 Products [Pork] Physical Exam Vitals: Vital Signs Temp Pulse Pulse Resp BP BP Pulse Ox 08/15/24 16:24 47 L 18 105/58 98 08/15/24 15:24 48 L 18 107/54 98 08/15/24 14:54 49 L 18 114/61 98 08/15/24 14:24 50 L 18 110/65 98 08/15/24 14:09 98.3 F 48 L 18 136/62 98 08/15/24 14:00 18 08/15/24 08:56 54 L 18 114/78 94 L 08/15/24 06:00 54 L 19 127/67 92 L 08/15/24 01:00 54 L 18 104/52 93 L 08/15/24 00:15 54 L 18 89/63 95 08/14/24 20:54 58 L 18 120/63 98 Intake and Output 08/15/24 08/15/24 08/15/24 06:59 14:59 22:59 Intake Total 150 120 Balance 150 120 Intake: IV 150 Oral 120 Other: Voiding Method Bedpan # Voids 1 Weight 104.326 kg Results CBC & Chem 7: 08/15/24 05:56 08/14/24 18:28 Labs: Abnormal Lab Results - Last 24 Hours (Table) 08/14/24 08/14/24 08/14/24 Range/Units 18:28 21:28 22:49 Hgb (11.4-16.0) gm/dL Hct (34.0-46.0) % Plt Count (150-450) k/uL APTT (22.0-30.0) sec Hemoglobin A1c (<=6.0) % Troponin I 0.044 H* 0.411 H* 0.649 H* (0.000-0.034) ng/mL 08/15/24 08/15/24 08/15/24 Range/Units 05:56 05:56 05:56 Hgb 16.5 H (11.4-16.0) gm/dL Hct 50.9 H (34.0-46.0) % Plt Count 104 L (150-450) k/uL APTT 41.1 H (22.0-30.0) sec Hemoglobin A1c 11.5 H (<=6.0) % Troponin I (0.000-0.034) ng/mL Thrombosis Risk Factor Assmnt - Choose All That Apply Each Factor Represents 1 point: Abnormal pulmonary function (COPD), Age 41-60 y ears Each Risk Factor Represents 3 Points: Family history of DVT/PE Thrombosis Risk Factor Assessment Total Risk Factor Score: 5 Thrombosis Risk Factor Assessment Level: High Risk
[2024-08-15] MEDS: IPRATROPIUM-ALBUTEROL 3 ML NEB INHALATION SCH (20:16)
[2024-08-15 20:51] LABS: Chol/HDL Ratio 7.06 Ratio
[2024-08-15] MEDS: GABAPENTIN 400 MG CAP PO SCH (21:15)
[2024-08-15] MEDS: NICOTINE 14MG/24HR PATCH TRANSDERM SCH (21:16)
[2024-08-15] MEDS: glipiZIDE 10 MG TAB PO SCH (21:16)
[2024-08-15] MEDS: INSULIN DETEMIR (LEVEMIR) 100 UNIT/ML SYR SQ SCH (21:17)
[2024-08-15] MEDS: ALPRAZolam 0.25 MG TAB PO PRN (23:13)
[2024-08-16 08:49] LABS: African American GFR (CKD) >90 (>60 ml/min/1.73 sqM); Anion Gap 7 mmol/L; Blood Urea Nitrogen 16 mg/dL (7-17); Calcium 9.4 mg/dL (8.4-10.2); Carbon Dioxide 28 mmol/L (22-30); Chloride 102 mmol/L (98-107); Glucose 78 mg/dL (74-99); Non-African American GFR(CKD) >90 (>60 ml/min/1.73 sqM); Potassium 4.3 mmol/L (3.5-5.1); Sodium 137 mmol/L (137-145)
[2024-08-16 08:51] VITALS: PULSE 51
[2024-08-16] MEDS: DAPAGLIFLOZIN PROPANEDIOL 10 MG TABLET PO SCH (09:12)
[2024-08-16] MEDS: LINAGLIPTIN 5 MG TABLET PO SCH (09:12)
[2024-08-16] MEDS: CLOPIDOGREL 75 MG TAB PO SCH (09:13)
[2024-08-16] MEDS: PANTOPRAZOLE 40 MG TABLET PO SCH (09:13)
[2024-08-16] MEDS: PARoxetine 20 MG TAB PO SCH (09:14)
--- NOTE | 2024-08-16 10:54 | CA ---
Transthoracic Echo Report Name: Nichole Diamond Age: 54 Gender: F : 1970 Exam Date: 08/16/2024 08:32 Exam Location: [place] [facility] Ht (in): 62 Wt (lb): 230 Ordering Physician: Rai Alarcon MD Attending/Referring Phys: [id number], Dorian Stave Cutting Supervisor Charley Mathur RDCS Procedure CPT: Indications: nstemi Cardiac Hx: Technical Quality: Fair Contrast 1: Definity Total Dose (mL): 2 Contrast 2: Total Dose (mL): MEASUREMENTS (Male / Female) Normal Values 2D ECHO LV Diastolic Diameter PLAX 5.2 cm 4.2 - 5.9 / 3.9 - 5.3 cm LV Systolic Diameter PLAX 4.1 cm IVS Diastolic Thickness 1.0 cm 0.6 - 1.0 / 0.6 - 0.9 cm LVPW Diastolic Thickness 1.3 cm 0.6 - 1.0 / 0.6 - 0.9 cm LV Relative Wall Thickness 0.4 RV Internal Dim ED PLAX 1.7 cm LA Systolic Diameter LX 3.8 cm 3.0 - 4.0 / 2.7 - 3.8 cm LV Diastolic Volume MOD BP 82.7 cm??? 67 - 155 / 56 - 104 cm??? LV Systolic Volume MOD BP 36.1 cm??? 22 - 58 / 19 - 49 cm??? LV Ejection Fraction MOD BP 56.4 % >= 55 % LV Cardiac Index MOD BP 1084.0 cm???/min???m??? LV Diastolic Volume MOD 4C 80.5 cm??? LV Systolic Volume MOD 4C 36.4 cm??? LV Ejection Fraction MOD 4C 54.8 % LV Cardiac Index MOD 4C 1023.6 cm???/min???m??? LV Diastolic Length 4C 7.7 cm LV Systolic Length 4C 6.5 cm LV Diastolic Volume MOD 2C 83.0 cm??? LV Systolic Volume MOD 2C 36.0 cm??? LV Ejection Fraction MOD 2C 56.6 % LV Cardiac Index MOD 2C 1091.7 cm???/min???m??? LV Diastolic Length 2C 7.5 cm LV Systolic Length 2C 6.4 cm M-MODE Aortic Root Diameter MM 3.0 cm LA Systolic Diameter MM 3.6 cm LA Ao Ratio MM 1.2 AV Cusp Separation MM 2.0 cm DOPPLER Mitral E Point Velocity 99.1 cm/s Mitral A Point Velocity 103.5 cm/s Mitral E to A Ratio 1.0 MV Deceleration Time 346.4 ms FINDINGS Left Ventricle Left ventricular ejection fraction is estimated at 50-55 %. Moderately increased posterior wall thickness. Left ventricular cavity size normal. Hypokinetic Basal inferior wall. Right Ventricle Mild right ventricular dilatation. Right ventricular systolic pressure within normal limits. Right Atrium Mild right atrial dilatation. Left Atrium Mild left atrial dilatation. Mitral Valve Structurally normal mitral valve. Trace mitral regurgitation. No mitral stenosis. Aortic Valve Trileaflet aortic valve. No aortic valve stenosis or regurgitation. Tricuspid Valve Structurally normal tricuspid valve. Trace tricuspid regurgitation. No tricuspid stenosis. Pulmonic Valve Structurally normal pulmonic valve. No pulmonic stenosis. Trace pulmonic regurgitation. Pericardium No pericardial or pleural effusion. Echo free space anterior to the right ventricle likely represents a fat pad. Aorta Normal size aortic root and proximal ascending aorta. CONCLUSIONS Normal LV function with an ejection fraction of 55% Basal inferior wall is hypokinetic Previewed by: Dr. Craig Yuan MD (Electronically Signed) Final Date: 16 August 2024 10:53
[2024-08-16 11:54] VITALS: BP 96/65; RESP 19; TEMP 97.4
[2024-08-16 13:36] VITALS: BMI 38.9
--- NOTE | 2024-08-16 20:17 | P.DS ---
Providers Date of admission: 08/14/24 19:59 Expected date of discharge: 08/16/24 Attending physician: Sonny Cordero Consults: 08/14/24 19:59 Consult Physician Urgent Consulting Provider: Nic Rodriguez Consult Reason/Comments: NSTEMI Do you want consulting provider notified?: Yes 08/15/24 13:39 Consult Physician Routine Consulting Provider: [facility] Consult Reason/Comments: Post Interventional Patient Do you want consulting provider notified?: Already Contacted Primary care physician: Juancarlos Wade [facility] Course: Chief Complaint: Chest pain Pleasant 54-year-old patient of Dr. Wade. Chronic stable medical conditions include diabetes, GERD, hyperlipidemia, coronary artery disease with stent, depression, COPD. Patient presents around 3:30 PM started developing a chest pressure central. Localized. No radiation. Lasted for good 45 minutes. Tired rundown. Took nitroglycerin. [place] better. Patient has continued to smoke about half a pack a day. Initial troponin was 0.044. This afternoon underwent cardiac catheterization. Was found of severe stenosis of the proximal OM1. Successfully stented. Patent stent of the RCA and LAD. This is patient's fifth stent. Postprocedure laying in bed. Comfortable. August 16: Patient underwent coronary intervention. By Dr. Puente. Details in his notes. Today patient having no cardiac symptoms. At [facility]. Discussed. Advised against smoking counseled. She will follow-up with her own hunter trapper Dr. KARIN Cummings Discussion and discharge planning more than 35 minutes Past medical history to include: COPD, diabetes, GERD, hyperlipidemia, coronary artery disease with stent, depression Social history: Started smoking at age of 17, 1 pack a day now down to half a pack a day. Marijuana occasionally. Lives with grandchildren Physical examination: VITAL SIGNS: 97.4, 51, 19, 96/65, 99% 2 L GENERAL: Send bed, comfortable EYES: Pupils equal. Conjunctiva normal. HEENT: External appearance of nose and ears normal, oral cavity grossly normal. NECK: JVD not raised; masses not palpable. HEART: First and second heart sounds are normal; no edema. LUNGS: Respiratory rate increased, diminished breath sounds, ABDOMEN: Soft, nontender, liver spleen not palpable, no masses palpable. PSYCH: Alert and oriented x3; mood and affect normal. INVESTIGATIONS, reviewed in the clinical context: 2D echocardiogram: EF 50 to 55%. Moderate increased posterior wall thickness. August 15: White count 7.6 hemoglobin 16.5 platelets 104 August 14: Sodium 129 potassium 4.9 creatinine 0.69 Troponin I 0.044, 0.411, 0.649. HbA1c 11.5 EKG tracing personally reviewed by me-normal sinus rhythm. Poor R wave progression anterior leads. Chest x-ray film personally reviewed by me-hyperinflation. Cardiomegaly Assessment and plan: -Acute non-Q wave [place] and previous 4 stents. Aspirin. Lipitor. Lopressor. IV heparin -IV heparin monitoring -Cardiac catheterization and intervention with stent to OM1. By Dr. Puente Aspirin. Plavix. -CAD with prior 4 stents Aspirin. Plavix. Lipitor. Lopressor -Morbid obesity BMI 41.4 Weight loss measures -COPD in a current smoker DuoNeb -Chronic nicotine dependence cigarette smoker Nicotine patch -Anxiety Paxil -Diabetes mellitus type 2 chronically on insulin, uncontrolled with hyperglycemia Follow Accu-Cheks with sliding scale. Januvia. Jardiance. Glucophage. Glucotrol. 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 Source:: stomach Past Surgical History: Cholecystectomy, Heart Catheterization With Stent, Tonsillectomy Additional Past Surgical History / Comment(s): D&C , all teeth extracted, LASIK- BILATERAL EYES Past Anesthesia/Blood Transfusion Reactions: No Reported Reaction Date of Last Stent Placement:: 08/15/24 Past Psychological History: Depression Smoking Status: Current every day smoker Past Alcohol Use History: None Reported Additional Past Alcohol Use History / Comment(s): STARTED SMOKING AT AGE 17 SMOKED 1PPD- TRYING TO QUIT NOW , SMOKES 3CIG A DAY Past Drug Use History: None Reported Plan - Discharge Summary New Discharge Prescriptions: New Aspirin 81 mg PO DAILY tab Nicotine 14Mg/24Hr Patch [Habitrol] 1 patch TRANSDERM DAILY #30 patch Atorvastatin [Lipitor] 80 mg PO DAILY #30 tab Continue Albuterol Inhaler [Ventolin Hfa Inhaler] 2 puff INHALATION RT-Q6H PRN PRN Reason: Shortness Of Breath Mometasone/Formoterol [Dulera 100 Mcg-5 Mcg Inhaler] 2 puff INHALATION RT-BID PRN PRN Reason: Shortness Of Breath Clopidogrel [Plavix] 75 mg PO DAILY #30 tab Metoprolol Tartrate [Lopressor] 12.5 mg PO BID metFORMIN HCL [Glucophage] 1,000 mg PO BID Furosemide [Lasix] 20 mg PO DAILY #30 tab glipiZIDE [Glucotrol] 10 mg PO AC-BID Insulin Aspart [NovoLOG Flexpen] 5 - 10 units SQ AC-TID Empagliflozin [Jardiance] 10 mg PO DAILY Ezetimibe [Zetia] 10 mg PO DAILY Gabapentin 800 mg PO TID PARoxetine [Paxil] 20 mg PO DAILY polyethylene glycoL 3350 [Miralax] 17 gm PO DAILY PRN PRN Reason: Constipation sitaGLIPtin [Januvia] 100 mg PO DAILY Fenofibrate,Micronized [Fenofibrate] 134 mg PO DAILY Insulin Glargine [Lantus Vial] 30 unit SQ HS Omeprazole 20 mg PO DAILY Nitroglycerin Sl Tabs [Nitrostat] 0.4 mg SUBLINGUAL Q5M PRN PRN Reason: Chest Pain Discontinued Rosuvastatin Calcium [Crestor] 40 mg PO DIRECTED Discharge Medication List Albuterol Inhaler [Ventolin Hfa Inhaler] 2 puff INHALATION RT-Q6H PRN 12/13/18 [History] Mometasone/Formoterol [Dulera 100 Mcg-5 Mcg Inhaler] 2 puff INHALATION RT-BID PRN 12/13/18 [History] Clopidogrel [Plavix] 75 mg PO DAILY #30 tab 01/18/20 [Rx] Metoprolol Tartrate [Lopressor] 12.5 mg PO BID 07/23/20 [History] metFORMIN HCL [Glucophage] 1,000 mg PO BID 07/23/20 [History] Furosemide [Lasix] 20 mg PO DAILY #30 tab 07/26/20 [Rx] Fenofibrate,Micronized [Fenofibrate] 134 mg PO DAILY 08/01/22 [History] Insulin Aspart [NovoLOG Flexpen] 5 - 10 units SQ AC-TID 08/01/22 [History] glipiZIDE [Glucotrol] 10 mg PO AC-BID 08/01/22 [History] Empagliflozin [Jardiance] 10 mg PO DAILY 08/15/24 [History] Ezetimibe [Zetia] 10 mg PO DAILY 08/15/24 [History] Gabapentin 800 mg PO TID 08/15/24 [History] Insulin Glargine [Lantus Vial] 30 unit SQ HS 08/15/24 [History] Nitroglycerin Sl Tabs [Nitrostat] 0.4 mg SUBLINGUAL Q5M PRN 08/15/24 [History] Omeprazole 20 mg PO DAILY 08/15/24 [History] PARoxetine [Paxil] 20 mg PO DAILY 08/15/24 [History] polyethylene glycoL 3350 [Miralax] 17 gm PO DAILY PRN 08/15/24 [History] sitaGLIPtin [Januvia] 100 mg PO DAILY 08/15/24 [History] Aspirin 81 mg PO DAILY tab 08/16/24 [Rx] Atorvastatin [Lipitor] 80 mg PO DAILY #30 tab 08/16/24 [Rx] Nicotine 14Mg/24Hr Patch [Habitrol] 1 patch TRANSDERM DAILY #30 patch 08/16/24 [Rx] Follow up Appointment(s)/Referral(s): Stephanie Puente MD [STAFF PHYSICIAN] - 08/25/24 1:30 pm Juancarlos Wade MD [Primary Care Provider] - 1-2 days Patient Instructions/Handouts: *Surgery [facility] - After Heart Catheterization - Cad Designer Instructions Discharge Disposition: HOME SELF-CARE
[2024-08-16] MEDS ORDERED: metFORMIN 500 MG TAB PO SCH (21:00)
[2024-08-20 15:04] LABS: Glucose,Whole Blood 120 mg/dL (70-110)
[2024-08-20 15:05] LABS: Glucose,Whole Blood 107 mg/dL (70-110)
[2024-08-20 15:05] LABS: Glucose,Whole Blood 225 mg/dL (70-110)
[2024-08-20 15:06] LABS: Glucose,Whole Blood 207 mg/dL (70-110)
[2024-08-20 15:06] LABS: Glucose,Whole Blood 191 mg/dL (70-110)
== END 2024-08-16 14:18 | disposition home or self-care (01) | DRG 174 ==
LOC: EC 18:04 → 3SCARD 19:59
PROVIDERS: ADMIT Hospitalist; ATTEND Hospitalist
PROC: B2111ZZ Fluoroscopy of Multiple Coronary Arteries using Low Osmolar Contrast (ICD-10-PCS; principal; 2024-08-15 12:45)
PROC: B240ZZ3 Ultrasonography of Single Coronary Artery, Intravascular (ICD-10-PCS; principal; 2024-08-15 12:45)
PROC: 4A023N7 Measurement of Cardiac Sampling and Pressure, Left Heart, Percutaneous Approach (ICD-10-PCS; principal; 2024-08-15 12:45)
PROC: 027034Z Dilation of Coronary Artery, One Artery with Drug-eluting Intraluminal Device, Percutaneous Approach (ICD-10-PCS; principal; 2024-08-15 12:45)
DX: I21.4 Non-ST elevation (NSTEMI) myocardial infarction (principal); I25.10 Atherosclerotic heart disease of native coronary artery without angina pectoris; I25.5 Ischemic cardiomyopathy; J44.9 Chronic obstructive pulmonary disease, unspecified; K21.9 Gastro-esophageal reflux disease without esophagitis; T82.855A Stenosis of coronary artery stent, initial encounter; E66.01 Morbid (severe) obesity due to excess calories; Y83.1 Surgical operation with implant of artificial internal device as the cause of abnormal reaction of the patient, or of later complication, without mention of misadventure at the time of the procedure; E78.5 Hyperlipidemia, unspecified; E11.65 Type 2 diabetes mellitus with hyperglycemia; Z68.41 Body mass index [BMI] 40.0-44.9, adult; F32.A Depression, unspecified; F41.9 Anxiety disorder, unspecified; I10 Essential (primary) hypertension; F17.210 Nicotine dependence, cigarettes, uncomplicated; Z99.81 Dependence on supplemental oxygen; Z79.02 Long term (current) use of antithrombotics/antiplatelets; Z79.4 Long term (current) use of insulin; Z79.51 Long term (current) use of inhaled steroids; Z79.82 Long term (current) use of aspirin; Z79.84 Long term (current) use of oral hypoglycemic drugs; Z79.899 Other long term (current) drug therapy; Z79.85 Long-term (current) use of injectable non-insulin antidiabetic drugs; Z86.14 Personal history of Methicillin resistant Staphylococcus aureus infection
CPT/HCPCS: 36415; 71046; 80048; 80053; 80061; 83036; 83735; 84484; 85025; 85610; 85730; 92978; 93005; 93306; 93458; 96365; 96366; 96375; 99291